=== PATIENT | female | born 1940 | race Caucasian/White ===

== ENCOUNTER → 2016-12-26 | Outpatient (CLI) | payer MEDICARE ==
--- NOTE | 2016-12-27 11:23 | MM ---
Reason for exam: screening (asymptomatic). Last mammogram was performed 1 year ago. History: Patient is postmenopausal. Physical Findings: A clinical breast exam by your physician is recommended on an annual basis and results should be correlated with mammographic findings. MG Screening Mammo w CAD Bilateral CC and MLO view(s) were taken. Prior study comparison: December 27, 2015, bilateral MG 3d screening mammo w/cad. December 22, 2014, bilateral MG screening mammo w CAD. The breast tissue is heterogeneously dense. This may lower the sensitivity of mammography. No significant changes when compared with prior studies. ASSESSMENT: Benign, BI-RAD 2 RECOMMENDATION: Routine screening mammogram of both breasts in 1 year.
== END | disposition home or self-care (01) ==
LOC: RADMAMWWP 09:40
PROVIDERS: ATTEND Family Medicine
DX: Z12.31 Encounter for screening mammogram for malignant neoplasm of breast (principal)

== ENCOUNTER → 2017-10-03 | Outpatient (CLI) | payer MEDICARE ==
[2017-10-03 10:03] LABS: ALT 34 U/L (9-52); AST 22 U/L (14-36); Cholesterol 134 mg/dL (<200); HDL Cholesterol 47 mg/dL (40-60); LDL Cholesterol,Calculated 64 mg/dL (0-99); Triglycerides 117 mg/dL (<150)
== END | disposition home or self-care (01) ==
LOC: LABWHC1 09:10
PROVIDERS: ATTEND Internal Medicine Interventional Cardiology
DX: E78.2 Mixed hyperlipidemia (principal)
CPT/HCPCS: 36415; 80061; 84450; 84460

== ENCOUNTER → 2018-01-17 | Outpatient (CLI) | payer MEDICARE ==
--- NOTE | 2018-01-21 07:36 | MM ---
Reason for exam: screening (asymptomatic). Last mammogram was performed 1 year and 1 month ago. History: Patient is postmenopausal. Physical Findings: A clinical breast exam by your physician is recommended on an annual basis and results should be correlated with mammographic findings. MG Screening Mammo w CAD Bilateral CC and MLO view(s) were taken. Prior study comparison: December 26, 2016, bilateral MG screening mammo w CAD. December 27, 2015, bilateral MG 3d screening mammo w/cad. The breast tissue is heterogeneously dense. This may lower the sensitivity of mammography. No significant changes when compared with prior studies. ASSESSMENT: Negative, BI-RAD 1 RECOMMENDATION: Routine screening mammogram of both breasts in 1 year.
== END | disposition home or self-care (01) ==
LOC: RADMAMWWP 10:34
PROVIDERS: ATTEND Family Medicine
DX: Z12.31 Encounter for screening mammogram for malignant neoplasm of breast (principal)
CPT/HCPCS: 77067

== ENCOUNTER → 2018-07-24 | Outpatient (CLI) | payer MEDICARE ==
[2018-07-24 19:24] LABS: Albumin 4.6 g/dL (3.80-4.90); Albumin/Globulin Ratio 2.42 (1.20-2.10); Anion Gap 7.8 mmol/L (4.00-12.00); Calcium 9.6 mg/dL (8.7-10.3); Carbon Dioxide 28.2 mmol/L (21.6-31.8); Globulin 1.9 g/dL (1.6-3.3); Potassium 4.2 mmol/L (3.5-5.5); Total Bilirubin 0.7 mg/dL (0.3-1.2); Total Protein 6.5 g/dL (6.2-8.2)
== END | disposition home or self-care (01) ==
LOC: LABWHC1 13:31
PROVIDERS: ATTEND Internal Medicine Interventional Cardiology
DX: E78.2 Mixed hyperlipidemia (principal)
CPT/HCPCS: 36415; 80053; 80061

== ENCOUNTER → 2019-03-04 | Outpatient (CLI) | payer MEDICARE ==
--- NOTE | 2019-03-04 11:15 | BD ---
EXAMINATION TYPE: Axial Bone Density DATE OF EXAM: 03/04/2019 COMPARISON: 2014 CLINICAL HISTORY: Z 78.0 Height: 5 FT 1/4 IN Weight: 170 FRAX RISK QUESTIONS: RISK FACTORS HISTORY OF: Active: YES Postmenopausal woman: AGE 55 Lost more than 2 inches in height since high school: YES MEDICATIONS: Thyroid Medications: YES Which medication: SYNTHROID How Long: APROX 30 YEARS Additional Medications: SYNTHROID, ASPIRIN, METFORMIN, METOPROLOL, QUINAPRIL, PRILOSEC, NORVASC, PRAN DIN, MYBRETRIQ, BENADRYL, MELATONIN, MICRONASE, OVICULITE, VIT D3, Additional History: EXAM MEASUREMENTS: Bone mineral densitometry was performed using the [employer] System. Bone mineral density as measured about the Lumbar spine is: ----- L1-L4(G/cm2): 1.044 T Score Values are as follows: ----- L2: -1.7 ----- L3: -0.8 ----- L4: -0.7 ----- L1-L4: -1.1 Bone mineral density has: DECREASED -7.9% since study of: 2014 Bone mineral density about the R hip (g/cm2): 0.791 Bone mineral density about the L hip (g/cm2): 0.798 T Score values are as follows: -----R Neck: -1.8 -----L Neck: -1.7 -----R Total: -0.6 -----L Total: -0.3 Bone mineral density has: INCREASED 1.6 % since study of: 2014 mineral density has: % since study of: IMPRESSION: Osteopenia (T Score between -2.5 and -1). There is slightly increased risk of fracture and the patient may be considered for treatment. Re-Screen 2-5 years. NOTE: T-SCORE=SD OF THE YOUNG ADULT MEAN.
== END | disposition home or self-care (01) ==
LOC: RADBDWWP 09:55
PROVIDERS: ATTEND Family Medicine
DX: M85.88 Other specified disorders of bone density and structure, other site (principal); Z78.0 Asymptomatic menopausal state
CPT/HCPCS: 77080

== ENCOUNTER → 2019-04-14 | Outpatient (CLI) | payer MEDICARE ==
[2019-04-14 18:32] LABS: Albumin 4.7 g/dL (3.80-4.90); Albumin/Globulin Ratio 2.61 (1.60-3.17); Anion Gap 8.2 mmol/L (4.00-12.00); BUN/Creat Ratio 31.25 Ratio (12.00-20.00); Calcium 9.9 mg/dL (8.7-10.3); Carbon Dioxide 25.8 mmol/L (21.6-31.8); Chol/HDL Ratio 3.02; Globulin 1.8 g/dL (1.6-3.3); LDL Cholesterol,Calculated 77.6 mg/dL (0.0-131.0); Potassium 4.4 mmol/L (3.5-5.5); Total Bilirubin 0.7 mg/dL (0.2-1.2); Total Protein 6.5 g/dL (6.2-8.2); VLDL Calculation 19.4 mg/dL (5.00-40.00)
== END | disposition home or self-care (01) ==
LOC: LABWHC1 11:25
PROVIDERS: ATTEND Internal Medicine Interventional Cardiology
DX: E78.2 Mixed hyperlipidemia (principal)
CPT/HCPCS: 36415; 80053; 80061

== ENCOUNTER → 2019-12-17 | Outpatient (CLI) | payer MEDICARE ==
[~2019-12-17] MED LIST: REGADENOSON 0.4 MG/5 ML SYRINGE IV ONE
--- NOTE | 2019-12-17 11:46 | ECHOF ---
Referral Reason:R53.83 fatigue MEASUREMENTS -------- HEIGHT: 154.9 cm WEIGHT: 79.4 kg BP: RVIDd: 3.0 cm (< 3.3) IVSd: 2.1 cm (0.6 - 1.1) LVIDd: 2.8 cm (3.9 - 5.3) LVPWd: 1.5 cm (0.6 - 1.1) IVSs: 2.0 cm LVIDs: 2.0 cm LVPWs: 1.6 cm LAESV Index (A-L): 25.19 ml/m Ao Diam: 3.0 cm (2.0 - 3.7) AV Cusp: 1.8 cm (1.5 - 2.6) MV E Everardo: 0.88 m/s MV DecT: 180 ms MV A Everardo: 1.50 m/s MV E/A Ratio: 0.59 RAP: 5.00 mmHg RVSP: 39.83 mmHg FINDINGS -------- Sinus rhythm. This was a technically adequate study. The left ventricular size is normal. There is severe concentric left ventricular hypertrophy. Ove rall left ventricular systolic function is normal with, an EF between 55 - 60 %. Mitral Doppler inf low pattern suggests diastolic filling abnormality 26.13. Possible LVOT Obstruction. The right ventricle is mildly enlarged. Normal LA size by volume 22+/-6 ml/m2. The right atrium is mildly enlarged. Interatrial and interventricular septum intact. Trace amount of aortic regurgitation. There is no evidence of aortic stenosis. Moderate mitral annular calcification present. There is trace mitral regurgitation. Qcnv-am-acmqlcbu tricuspid regurgitation present. There is mild pulmonary hypertension. The right ventricular systolic pressure, as measured by Doppler, is 39.83mmHg. There is no pulmonic regurgitation present. The aortic root is mildy dilated. Normal inferior vena cava with normal inspiratory collapse consistent with estimated right atrial pre ssure of 5 mmHg. There is no pericardial effusion. CONCLUSIONS -------- 1. Sinus rhythm. 2. This was a technically adequate study. 3. The left ventricular size is normal. 4. There is severe concentric left ventricular hypertrophy. 5. Overall left ventricular systolic function is normal with, an EF between 55 - 60 %. 6. Mitral Doppler inflow pattern suggest diastolic filling abnormality 26.13. 7. Possible LVOT Obstruction. 8. The right ventricle is mildly enlarged. 9. Normal LA size by volume 22+/-6 ml/m2. 10. The right atrium is mildly enlarged. 11. Interatrial and interventricular septum intact. 12. Trace amount of aortic regurgitation. 13. There is no evidence of aortic stenosis. 14. Moderate mitral annular calcification present. 15. There is trace mitral regurgitation. 16. Ldvg-gu-sikbllgc tricuspid regurgitation present. 17. There is mild pulmonary hypertension. 18. The right ventricular systolic pressure, as measured by Doppler, is 39.83mmHg. 19. There is no pulmonic regurgitation present. 20. The aortic root is mildy dilated. 21. Normal inferior vena cava with normal inspiratory collapse consistent with estimated right atrial pressure of 5 mmHg. 22. There is no pericardial effusion. CUSTODIAL SERVICES MANAGER: Sienna Mederos RDCS
--- NOTE | 2019-12-17 14:38 | EST ---
EXERCISE STRESS AGE: 79 SEX: F HT: 61" WT: 175 PROTOCOL: Lexiscan Cardiolite STAGE: DURATION OF EXERCISE: HEART RATE REST: 69 BLOOD PRESSURE REST: 140/82 MAXIMUM HEART RATE ACHIEVED: 95 MAXIMUM BLOOD PRESSURE: 150/71 85% MPHR: 122 100% MPHR: 143 METS: INDICATIONS: Fatigue. CLINICAL INFORMATION: Baseline EKG revealed normal sinus rhythm without significant ST-T changes. With Lexiscan administration, patient complained of transient headache. Heart rate changed from 69-93 beats per minute. Blood pressure changed from 143/69 to 141/71. EKG did not reveal any ST-segment changes to indicate ischemia. By EKG criteria. this is an unremarkable Lexiscan stress test. The nuclear scan results which are more pertinent will be reported by the radiologist. MMSERJIOL / IJN: [id number] /
--- NOTE | 2019-12-17 15:19 | NM ---
EXAMINATION TYPE: NM stress lexiscan cardiolite DATE OF EXAM: 12/17/2019 COMPARISON: NONE HISTORY: Fatigue TECHNIQUE: After the intravenous administration of 10.2 mCi Tc 99m Sestamibi - Cardiolite resting SP ECT images acquired 60 minutes post injection. The patient received 0.4mg Lexiscan, 25 mCi Tc 99m Sestamibi - Stress images obtained 45 minutes post injection FINDINGS: No fixed or reversible perfusion defects are evident. Gated wall motion is normal. Ejection fraction is 88%. IMPRESSION: 1. No stress-induced ischemic changes
== END | disposition home or self-care (01) ==
LOC: RADNMMAIN 07:40
PROVIDERS: ATTEND Family Medicine
DX: I08.3 Combined rheumatic disorders of mitral, aortic and tricuspid valves (principal); I27.20 Pulmonary hypertension, unspecified
CPT/HCPCS: 93017; 93306; 78452; A9500; J2785

== ENCOUNTER → 2020-04-01 | Outpatient (CLI) | payer MEDICARE ==
[2020-04-01 20:50] LABS: African American GFR (CKD) 62.9 (60.0-200.0); Albumin 4.4 g/dL (3.80-4.90); Albumin/Globulin Ratio 1.83 (1.60-3.17); Anion Gap 6.7 mmol/L (4.00-12.00); Calcium 9.9 mg/dL (8.7-10.3); Carbon Dioxide 25.3 mmol/L (21.6-31.8); Chol/HDL Ratio 2.98; Globulin 2.4 g/dL (1.6-3.3); LDL Cholesterol,Calculated 52.4 mg/dL (0.0-131.0); Non-African American GFR(CKD) 54.3 (60.0-200.0); Potassium 4.6 mmol/L (3.5-5.5); Total Bilirubin 0.7 mg/dL (0.2-1.2); Total Protein 6.8 g/dL (6.2-8.2); VLDL Calculation 36.6 mg/dL (5.00-40.00)
== END | disposition home or self-care (01) ==
LOC: LABWHC1 12:12
PROVIDERS: ATTEND Internal Medicine Interventional Cardiology
DX: E78.2 Mixed hyperlipidemia (principal)
CPT/HCPCS: 36415; 80053; 80061

== ENCOUNTER → 2020-06-14 | Outpatient (CLI) | payer MEDICARE ==
--- NOTE | 2020-06-14 11:56 | MR ---
EXAMINATION TYPE: MR lumbar spine wo con DATE OF EXAM: 06/14/2020 COMPARISON: NONE HISTORY: Disc degeneration, lumbar region TECHNIQUE: T1 and T2 axial and sagittal images of the lumbar spine are submitted. FINDINGS: There is no abnormal signal seen within the visualized spinal cord or paraspinal soft tissu es. Multiple vertebral body hemangiomas noted. There appear to be multiple renal cysts. Aorta of norm al caliber. At T12-L1 there is a left paracentral disc bulge. No spinal cord contact or canal stenosis. Neural fo ramina patent. Mild degenerative disc disease. At L1-2 there is degenerative disc disease with hypertrophic change of the facets and there is a broa d-based disc bulge or protrusion with mild effacement of thecal sac. No spinal cord contact. No Canal stenosis. Neural foramina remain patent. At L2-3 there is facet arthropathy and degenerative disc disease. No canal stenosis or focal herniati on. Neural foramina remain patent At L3-4 there is severe degenerative disc disease with complete loss of disc space. There is broad-ba sed posterior disc bulging or protrusion with moderate effacement of thecal sac, mild canal stenosis and bilateral moderate foraminal encroachment. There is facet arthropathy and ligamentum flavum hyper trophy contributing. At L4-5 there is there is broad-based disc herniation with extrusion extending along the posterior lo wer margin of the L4 vertebral body. Mass effect upon the thecal sac is seen. There is advanced facet arthropathy and ligamentum flavum hypertrophy with mild bilateral foraminal encroachment. At L5-S1 there is degenerative disc disease and facet arthropathy but no disc herniation or canal michelle nosis. Minimal central disc bulging. Neural foramina patent IMPRESSION: 1. Broad-based disc herniation L4-L5 with extrusion extending along the lower margin L4 vertebral seg ment posteriorly. 2. Severe degenerative disc disease L3-L4 with disc bulging or protrusion resulting in mild to modera te canal stenosis and moderate bilateral foraminal encroachment. 3. Disc bulging or protrusion at L1-2 and T12-L1 as discussed above with no canal stenosis or foramin al encroachment.
== END | disposition home or self-care (01) ==
LOC: RADMRIMAIN 09:32
PROVIDERS: ATTEND Family Medicine
DX: M48.061 Spinal stenosis, lumbar region without neurogenic claudication (principal); M51.26 Other intervertebral disc displacement, lumbar region; M51.36 Other intervertebral disc degeneration, lumbar region
CPT/HCPCS: 72148

== ENCOUNTER 2021-01-08 12:08 | Observation (INO) | payer MEDICARE ==
--- NOTE | 2021-01-08 12:36 | ED ---
GI Bleed HPI - General Chief complaint: GI Bleed Stated complaint: rectal bleeding Time Seen by Provider: 01/08/21 12:22 Source: patient Mode of arrival: ambulatory Limitations: no limitations - History of Present Illness Initial comments: Is a 80-year-old female to history of hypertension, hyperlipidemia, diabetes who presents emergency department for abdominal pain and rectal bleeding. The patient states that the symptoms started yesterday. He states that she's had 8 bloody bowel movements since yesterday. The last one being this morning. She s tates that there seems to be some stool mixed in. She does get some epigastric abdominal pain and generalized abdominal pain shortly afterwards she will have the bleeding. She states that she has had some associated fatigue. However she denies any lightheadedness, shortness of breath, chest pain. She's had no nausea or vomiting. States that the abdominal pain is more epigastric and not worse with eating. It is not radiate at this time however does get more generalized at times. She denies any dysuria or hematuria. Denies vaginal bleeding. She states that her last colonoscopy was 5 years ago and normal. She denies any other acute complaints. - Related Data Allergies Allergy/AdvReac Type Severity Reaction Status Date / Time alendronate sodium Allergy Nausea Verified 01/08/21 12:18 [From Fosamax] codeine Allergy Nausea Verified 01/08/21 12:18 solifenacin Allergy Nausea Verified 01/08/21 12:18 Review of Systems ROS Statement: Those systems with pertinent positive or pertinent negative responses have been documented in the HPI. ROS Other: All systems not noted in ROS Statement are negative. Past Medical History Past Medical History: Diabetes Mellitus, Hyperlipidemia, Hypertension History of Any Multi-Drug Resistant Organisms: None Reported Additional Past Surgical History / Comment(s): bladder suspention. Past Psychological History: No Psychological Hx Reported Smoking Status: Never smoker Past Alcohol Use History: None Reported Past Drug Use History: None Reported General Exam - General Exam Comments Initial Comments: Constitutional: Awake alert Appears comfortable Head: Normocephalic atraumatic Eyes: no conjunctival injection, no conjunctival pallor No scleral icterus EOMI Neck: No JVD Supple Heart: Regular rate rhythm normal S1-S2 no murmurs Lungs: Clear to auscultation bilaterally No wheezing No rales Abdomen: Epigastric abdominal pain without rebound or guarding Soft non distended, rectal exam with gross bright red blood, no hemorrhoids Extremities: Non edematous DP pulses intact Radial pulses intact Neuro: A&Ox3 No focal neurologic deficits Psych: Appropriate mood and affect Limitations: no limitations Course Vital Signs 01/08/21 01/08/21 12:14 14:34 Temperature 97.9 F Pulse Rate 78 68 Respiratory 18 18 Rate Blood Pressure 144/79 128/73 O2 Sat by Pulse 96 96 Oximetry - Reevaluation(s) Reevaluation #1: 01/08/21 13:46 EKG showing normal sinus rhythm with a rate of 78. There is no abnormal ST segment changes or T-wave inversions. QTC is 45. Other intervals normal. No ectopy. Medical Decision Making - Medical Decision Making Is a 80-year-old female who presents emergency department for bloody diarrhea and tenesmus. The patient stable vital signs on arrival. She had some mild epigastric tenderness however otherwise a benign examination. She did have grossly bloody stool on rectal examination. The patient had blood work performed that did reveal a leukocytosis. The rest her blood work was normal or at baseline. No anemia her computed tomography scan of the abdomen showed a significant colitis involving the transverse and descending colon with bowel inflammation and edema. Due to these findings and the patient's age and leukocytosis and going to start her on antibiotics and keep her in the hospital for observation. Spoke with Dr. Quan accepts the patient for admission. - Lab Data Result diagrams: 01/08/21 12:51 01/08/21 12:51 Lab Results 01/08/21 01/08/21 01/08/21 Range/Units 12:50 12:51 12:51 WBC 12.2 H (3.8-10.6) k/uL RBC 4.44 (3.80-5.40) m/uL Hgb 14.1 (11.4-16.0) gm/dL Hct 40.9 (34.0-46.0) % MCV 92.1 (80.0-100.0) fL MCH 31.8 (25.0-35.0) pg MCHC 34.5 (31.0-37.0) g/dL RDW 13.4 (11.5-15.5) % Plt Count 208 (150-450) k/uL MPV 7.3 Neutrophils % 81 % Lymphocytes % 10 % Monocytes % 7 % Eosinophils % 1 % Basophils % 0 % Neutrophils # 9.8 H (1.3-7.7) k/uL Lymphocytes # 1.2 (1.0-4.8) k/uL Monocytes # 0.9 (0-1.0) k/uL Eosinophils # 0.2 (0-0.7) k/uL Basophils # 0.0 (0-0.2) k/uL PT (9.0-12.0) sec INR (<1.2) APTT (22.0-30.0) sec Sodium (137-145) mmol/L Potassium (3.5-5.1) mmol/L Chloride (98-107) mmol/L Carbon Dioxide (22-30) mmol/L Anion Gap mmol/L BUN (7-17) mg/dL Creatinine (0.52-1.04) mg/dL Est GFR (CKD-EPI)AfAm (>60 ml/min/1.73 sqM) Est GFR (CKD-EPI)NonAf (>60 ml/min/1.73 sqM) Glucose (74-99) mg/dL Plasma Lactic Acid Jose Manuel (0.7-2.0) mmol/L Calcium (8.4-10.2) mg/dL Total Bilirubin (0.2-1.3) mg/dL AST (14-36) U/L ALT (4-34) U/L Alkaline Phosphatase (38-126) U/L Troponin I (0.000-0.034) ng/mL Total Protein (6.3-8.2) g/dL Albumin (3.5-5.0) g/dL Lipase (23-300) U/L Stool Occult Blood Positive H (Negative) Blood Type Blood Type Confirm O Positive Blood Type Recheck Bld Type Recheck Status Antibody Screen Spec Expiration Date 01/08/21 01/08/21 01/08/21 Range/Units 12:51 12:51 12:51 WBC (3.8-10.6) k/uL RBC (3.80-5.40) m/uL Hgb (11.4-16.0) gm/dL Hct (34.0-46.0) % MCV (80.0-100.0) fL MCH (25.0-35.0) pg MCHC (31.0-37.0) g/dL RDW (11.5-15.5) % Plt Count (150-450) k/uL MPV Neutrophils % % Lymphocytes % % Monocytes % % Eosinophils % % Basophils % % Neutrophils # (1.3-7.7) k/uL Lymphocytes # (1.0-4.8) k/uL Monocytes # (0-1.0) k/uL Eosinophils # (0-0.7) k/uL Basophils # (0-0.2) k/uL PT 10.3 (9.0-12.0) sec INR 1.0 (<1.2) APTT 23.0 (22.0-30.0) sec Sodium 140 (137-145) mmol/L Potassium 4.2 (3.5-5.1) mmol/L Chloride 107 (98-107) mmol/L Carbon Dioxide 25 (22-30) mmol/L Anion Gap 8 mmol/L BUN 22 H (7-17) mg/dL Creatinine 1.08 H (0.52-1.04) mg/dL Est GFR (CKD-EPI)AfAm 57 (>60 ml/min/1.73 sqM) Est GFR (CKD-EPI)NonAf 49 (>60 ml/min/1.73 sqM) Glucose 161 H (74-99) mg/dL Plasma Lactic Acid Jose Manuel 1.1 (0.7-2.0) mmol/L Calcium 10.0 (8.4-10.2) mg/dL Total Bilirubin 0.6 (0.2-1.3) mg/dL AST 27 (14-36) U/L ALT 23 (4-34) U/L Alkaline Phosphatase 78 (38-126) U/L Troponin I (0.000-0.034) ng/mL Total Protein 6.7 (6.3-8.2) g/dL Albumin 4.1 (3.5-5.0) g/dL Lipase 140 (23-300) U/L Stool Occult Blood (Negative) Blood Type Blood Type Confirm Blood Type Recheck Bld Type Recheck Status Antibody Screen Spec Expiration Date 01/08/21 01/08/21 Range/Units 12:51 12:51 WBC (3.8-10.6) k/uL RBC (3.80-5.40) m/uL Hgb (11.4-16.0) gm/dL Hct (34.0-46.0) % MCV (80.0-100.0) fL MCH (25.0-35.0) pg MCHC (31.0-37.0) g/dL RDW (11.5-15.5) % Plt Count (150-450) k/uL MPV Neutrophils % % Lymphocytes % % Monocytes % % Eosinophils % % Basophils % % Neutrophils # (1.3-7.7) k/uL Lymphocytes # (1.0-4.8) k/uL Monocytes # (0-1.0) k/uL Eosinophils # (0-0.7) k/uL Basophils # (0-0.2) k/uL PT (9.0-12.0) sec INR (<1.2) APTT (22.0-30.0) sec Sodium (137-145) mmol/L Potassium (3.5-5.1) mmol/L Chloride (98-107) mmol/L Carbon Dioxide (22-30) mmol/L Anion Gap mmol/L BUN (7-17) mg/dL Creatinine (0.52-1.04) mg/dL Est GFR (CKD-EPI)AfAm (>60 ml/min/1.73 sqM) Est GFR (CKD-EPI)NonAf (>60 ml/min/1.73 sqM) Glucose (74-99) mg/dL Plasma Lactic Acid Jose Manuel (0.7-2.0) mmol/L Calcium (8.4-10.2) mg/dL Total Bilirubin (0.2-1.3) mg/dL AST (14-36) U/L ALT (4-34) U/L Alkaline Phosphatase (38-126) U/L Troponin I <0.012 (0.000-0.034) ng/mL Total Protein (6.3-8.2) g/dL Albumin (3.5-5.0) g/dL Lipase (23-300) U/L Stool Occult Blood (Negative) Blood Type O Positive Blood Type Confirm Blood Type Recheck No Previous Record Bld Type Recheck Status CABO Indicated Antibody Screen NEGATIVE Spec Expiration Date 01/11/2021 - 2350 Disposition Clinical Impression: Colitis Disposition: ADMITTED IP TO THIS [facility] Condition: Stable Referrals: Purvi Maldonado MD [Primary Care Provider] - 1-2 days
[2021-01-08 13:04] LABS: Basophils % (A) 0 %; Eosinophils # (A) 0.2 k/uL (0-0.7); Eosinophils % (A) 1 %; HCT 40.9 % (34.0-46.0); HGB 14.1 gm/dL (11.4-16.0); Lymphocytes # (A) 1.2 k/uL (1.0-4.8); Lymphocytes % (A) 10 %; MCH 31.8 pg (25.0-35.0); MCHC 34.5 g/dL (31.0-37.0); MCV 92.1 fL (80.0-100.0); Mean Platelet Volume 7.3; Monocytes # (A) 0.9 k/uL (0-1.0); Monocytes % (A) 7 %; Neutrophils # (A) 9.8 k/uL (1.3-7.7); Neutrophils % (A) 81 %; Platelet Count 208 k/uL (150-450); RBC 4.44 m/uL (3.80-5.40); RDW 13.4 % (11.5-15.5); WBC 12.2 k/uL (3.8-10.6)
[2021-01-08 13:12] LABS: Albumin 4.1 g/dL (3.5-5.0); Potassium 4.2 mmol/L (3.5-5.1); Total Bilirubin 0.6 mg/dL (0.2-1.3); Total Protein 6.7 g/dL (6.3-8.2)
[2021-01-08 13:15] LABS: Prothrombin Time 10.3 sec (9.0-12.0)
[2021-01-08] MEDS: PANTOPRAZOLE 40 MG/10 ML VIAL IVP SCH ×2 (13:30→21:26)
--- NOTE | 2021-01-08 13:58 | CT ---
EXAMINATION TYPE: CT abdomen pelvis w con DATE OF EXAM: 01/08/2021 COMPARISON: NONE HISTORY: 80-year-old female rectal bleeding TECHNIQUE: Contiguous axial scanning of the abdomen and pelvis following administration of 100 ml Iso bettie 300 IV contrast. Delayed images through the kidneys and coronal/sagittal reconstructions perform ed. CT DLP: 1102.9 mGycm Automated exposure control for dose reduction was used. FINDINGS: Heart normal size without pericardial effusion. Dense mitral annular calcifications. Small hiatal hernia. Some minimal strandy atelectasis in the lower lungs. Scattered hepatic cysts measuring up to 2.4 cm. Otherwise, no focal liver lesion. Bile duct dilated u p to 1.2 cm. This may be chronic for the patient as there is normal distal tapering. It can be correl ated with alkaline phosphatase and bilirubin levels. Portal venous system is patent. The graft abnorm al gallbladder distention. Adrenal glands, spleen, pancreas within normal limits. A few scattered nonobstructive bilateral renal calculi measuring up to 6 mm on either side. Tiny subc entimeter cortical hypodensities in both sides too small for accurate CT characterization, likely cys ts. No dilated small bowel, free fluid, or free air. No mesenteric or retroperitoneal lymphadenopathy. Sc attered small mesenteric lymph nodes are noted. Normal appendix. There is moderate circumferential wall thickening extending throughout the transvers e and descending colon with edematous appearance to the wall and mild hazy colonic fat stranding. Mil d diverticulosis of the proximal and mid sigmoid colon. No inflammation centered along these levels. Bladder partially distended. Uterus anteverted. Both ovaries are visualized. 2.7 cm cystic lesion of the left ovary. Pelvic phlebolith. No abnormal fluid collection in the pelvis or pelvic lymphadenopat hy. Bones: Degenerative change of the right SI joint. Facet arthropathy mid to lower lumbar spine. Modera te to advanced degenerative disc disease throughout. Suspect left paracentral extruded and superiorly migrated disc material at L4-L5 possibly impinging the traversing left L4 nerve root. IMPRESSION: 1. A SIGNIFICANT ACUTE COLITIS INVOLVING THE TRANSVERSE AND DESCENDING COLON WITH MODERATE INFLAMMATO RY WALL THICKENING. CORRELATE FOR INFECTIOUS OR INFLAMMATORY CAUSES. NO ABSCESS OR FREE AIR. 2. INCIDENTAL: SMALL HIATAL HERNIA, BILE DUCT DILATED AT 1.2 CM PROBABLY CHRONIC IN THIS PATIENT (COR RELATE FOR NORMAL ALKALINE PHOSPHATASE AND BILIRUBIN LEVELS), AND SIGMOID DIVERTICULOSIS. 3. A 2.7 CM CYSTIC LESION OF THE LEFT OVARY. RECOMMEND OUTPATIENT ULTRASOUND TO BETTER CHARACTERIZE A ND DETERMINE SUBSEQUENT FOLLOW-UP RECOMMENDATIONS. 4. SUSPECT A LEFT PARACENTRAL DISC EXTRUSION WITH SUPERIOR MIGRATION OF DISC MATERIAL AT L4-L5 CAUSIN G LEFT LATERAL RECESS STENOSIS. CORRELATE FOR ANY RADICULAR SYMPTOMS.
[2021-01-08] MEDS ORDERED: metroNIDAZOLE-NS PMX 500 MG in SALINE 1 100ML.BAG IVPB STA (14:36)
[2021-01-08] MEDS ORDERED: ACETAMINOPHEN TAB 325 MG TAB PO PRN (14:37)
[2021-01-08] MEDS ORDERED: NALOXONE 0.4 MG/ML 1 ML VIAL IV PRN (14:37)
[2021-01-08] MEDS: SODIUM CHLORIDE 0.9% 1,000 ML IV SCH ×2 (15:28→22:52)
--- NOTE | 2021-01-08 17:26 | P.HPIM ---
History of Present Illness H&P Date: 01/08/21 Chief Complaint: Bloody diarrhea Ms. Wayne is a 80-year-old female with a past medical history of hypertension, hyperlipidemia, diabetes mellitus coming in with a chief complaint of bloody diarrhea. Patient states that she started to notice blood in her stools associated with diarrhea yesterday. She had almost 8-9 bloody bowel movements associated with mild lower abdominal pain. Patient denies having any nausea or vomiting. She denies having any fevers chills or rigors. She denies having any chest pain or lightheadedness. Patient has generalized lower abdominal pain. HEENT she denies having any hematuria or dysuria. No vaginal bleeding. She mentions about having a colonoscopy 5 years back. Patient denies having any sick contacts. In the ER at the time of admission temperature 97.9, heart rate 78, respiratory rate 18, blood pressure 144/79 and saturating at 96% on room air. On reviewing her labs white count of 12.2, hemoglobin 14.1, platelets poorly. PT of 10.3, INR 1, APTT 23. Sodium 140, potassium 4.2, chloride 107, bicarbonate 25, BUN 22, creatinine 1.08. Lactic acid 1.1. AST 27, and 23 . Troponin less than 0.012. FOBT positive for blood. Coronal virus PCR negative. Lipase 140. Albumin 4.1. Patient had a CAT scan of the abdomen and pelvis showing acute colitis involving the transverse and descending colon with moderate inflammatory wall thickening. No abscess or free air. 2.7 cm cystic lesion of the left ovary and left paracentral Disc extrusion with superior migration of disc at L4- L5. Review of Systems CONSTITUTIONAL: No fever, no malaise, no fatigue. HEENT: No recent visual problems or hearing problems. Denied any sore throat. CARDIOVASCULAR: No chest pain or palpitations PULMONARY: No shortness of breath, no cough, no hemoptysis. GASTROINTESTINAL: As per HPI NEUROLOGICAL: No headaches, no weakness, no numbness. HEMATOLOGICAL: Denies any bleeding or petechiae. GENITOURINARY: Denies any burning micturition, frequency, or urgency. MUSCULOSKELETAL/RHEUMATOLOGICAL: Denies any joint pain, swelling, or any muscle pain. ENDOCRINE: Denies any polyuria or polydipsia. PSYC: No depression or anxiety All 13 review of systems negative except for the ones mentioned above Past Medical History Past Medical History: Diabetes Mellitus, Hyperlipidemia, Hypertension History of Any Multi-Drug Resistant Organisms: None Reported Additional Past Surgical History / Comment(s): bladder suspention. Past Psychological History: No Psychological Hx Reported Smoking Status: Never smoker Past Alcohol Use History: None Reported Past Drug Use History: None Reported - Past Family History Mother Family Medical History: Myocardial Infarction ([place]) Father Additional Family Medical History / Comment(s): cerebral hemmorage possible aneursym unk Medications and Allergies Home Medications Medication Instructions Recorded Confirmed Type Aspirin EC [Ecotrin] 325 mg PO DAILY 01/08/21 01/08/21 History Atorvastatin [Lipitor] 40 mg PO HS 01/08/21 01/08/21 History Calcium Carbonate/Vitamin D3 1 cap PO DAILY 01/08/21 01/08/21 History [Calcium 600 mg-D3 10 Mcg (400 Iu)] Cholecalciferol [Vitamin D3 (25 25 mcg PO DAILY 01/08/21 01/08/21 History Mcg = 1000 Iu)] Levothyroxine Sodium 125 mcg PO DAILY 01/08/21 01/08/21 History Metoprolol Succinate (ER) [Toprol 100 mg PO HS 01/08/21 01/08/21 History Xl] Milk Thistle 150 mg PO DAILY 01/08/21 01/08/21 History Mirabegron [Myrbetriq] 50 mg PO DAILY 01/08/21 01/08/21 History Omeprazole 20 mg PO DAILY 01/08/21 01/08/21 History Pioglitazone [Actos] 30 mg PO HS 01/08/21 01/08/21 History Quinapril HCl 40 mg PO DAILY 01/08/21 01/08/21 History Repaglinide 1 mg PO AC-SUPPER 01/08/21 01/08/21 History Sertraline [Zoloft] 50 mg PO DAILY 01/08/21 01/08/21 History Vitamin C/Biotin [Hair, Skin and 1 tab PO DAILY 01/08/21 01/08/21 History Nails] amLODIPine [Norvasc] 10 mg PO DAILY 01/08/21 01/08/21 History diphenhydrAMINE HCL [Benadryl] 25 mg PO HS@2200 01/08/21 01/08/21 History glyBURIDE [Diabeta] 10 mg PO AC-BID 01/08/21 01/08/21 History sitaGLIPtin PHOSPHATE [Januvia] 50 mg PO HS@2200 01/08/21 01/08/21 History Allergies Allergy/AdvReac Type Severity Reaction Status Date / Time alendronate sodium AdvReac Nausea Verified 01/08/21 15:26 [From Fosamax] codeine AdvReac Nausea Verified 01/08/21 15:26 solifenacin AdvReac Nausea Verified 01/08/21 15:26 Physical Exam Vitals: Vital Signs Temp Pulse Pulse Resp BP BP Pulse Ox 01/08/21 15:48 98.2 F 95 16 134/76 95 01/08/21 15:29 70 18 129/72 99 01/08/21 14:34 68 18 128/73 96 01/08/21 12:14 97.9 F 78 18 144/79 96 Intake and Output 01/08/21 01/08/21 01/08/21 06:59 14:59 22:59 Other: Weight 61.235 kg 61.235 kg GENERAL: The patient is alert and oriented x3, not in any acute distress. HEENT: Pupils are round and equally reacting to light. EOMI. No scleral icterus. no conjunctival pallor. Normocephalic, atraumatic. No pharyngeal erythema. No thyromegaly. CARDIOVASCULAR: S1 and S2 present. No murmurs, rubs, or gallops. PULMONARY: Chest is clear to auscultation, no wheezing or crackles. ABDOMEN: Soft, , nondistended, normoactive bowel sounds. Mild tenderness in bilateral lower quadrants more on the left and right MUSCULOSKELETAL: No joint swelling or deformity. EXTREMITIES: No cyanosis, clubbing, or pedal edema. NEUROLOGICAL: Gross neurological examination did not reveal any focal deficits. Psychiatric: Appropriate mood and affect Results CBC & Chem 7: 01/08/21 12:51 01/08/21 12:51 Labs: Abnormal Lab Results - Last 24 Hours (Table) 01/08/21 01/08/21 01/08/21 Range/Units 12:51 12:51 12:51 WBC 12.2 H (3.8-10.6) k/uL Neutrophils # 9.8 H (1.3-7.7) k/uL BUN 22 H (7-17) mg/dL Creatinine 1.08 H (0.52-1.04) mg/dL Glucose 161 H (74-99) mg/dL Stool Occult Blood Positive H (Negative) Thrombosis Risk Factor Assmnt - Choose All That Apply Any of the Below Risk Factors Present?: No Each Risk Factor Represents 3 Points: Age 75 years or older Thrombosis Risk Factor Assessment Total Risk Factor Score: 3 Thrombosis Risk Factor Assessment Level: Moderate Risk Assessment and Plan Assessment: ASSESSMENT Acute colitis involving the transverse and descending colon Mild leukocytosis Acute kidney injury, mild probably prerenal Hypertension Diabetes mellitus Hyperlipidemia Urinary incontinence PLAN:Patient was started on ceftriaxone and Flagyl for acute colitis. Continue with IV fluids. Patient has been restarted on home medications. Aspirin on hold due to bloody diarrhea. Hold off lisinopril in view of her acute kidney injury. Will monitor CBC and BMP for tomorrow a.m. Continue with the current medication regimen. The treatment plan was discussed in detail with the patient and her son was at the bedside. Further recommendations to follow depending on the progress of the patient.
[2021-01-08] MEDS: METOPROLOL SUCCINATE (ER) 100 MG TAB.ER.24H PO SCH (21:26)
[2021-01-08] MEDS: ATORVASTATIN 40 MG TAB PO SCH (21:26)
[2021-01-09] MEDS: metroNIDAZOLE-NS PMX 500 MG in SALINE 1 100ML.BAG IVPB SCH ×2 (00:42→08:13)
[2021-01-09] MEDS: LEVOTHYROXINE 125 MCG TAB PO SCH (05:26)
[2021-01-09 06:21] LABS: Basophils % (A) 0 %; Eosinophils # (A) 0.2 k/uL (0-0.7); Eosinophils % (A) 2 %; HCT 36.8 % (34.0-46.0); HGB 12.8 gm/dL (11.4-16.0); Lymphocytes # (A) 1.4 k/uL (1.0-4.8); Lymphocytes % (A) 16 %; MCH 32.3 pg (25.0-35.0); MCHC 34.8 g/dL (31.0-37.0); MCV 92.8 fL (80.0-100.0); Mean Platelet Volume 7.5; Monocytes # (A) 0.7 k/uL (0-1.0); Monocytes % (A) 8 %; Neutrophils # (A) 6.2 k/uL (1.3-7.7); Neutrophils % (A) 71 %; Platelet Count 182 k/uL (150-450); RBC 3.96 m/uL (3.80-5.40); RDW 13.6 % (11.5-15.5); WBC 8.7 k/uL (3.8-10.6)
[2021-01-09 06:35] LABS: African American GFR (CKD) 71 (>60 ml/min/1.73 sqM); Anion Gap 4 mmol/L; Blood Urea Nitrogen 14 mg/dL (7-17); Calcium 8.7 mg/dL (8.4-10.2); Carbon Dioxide 24 mmol/L (22-30); Chloride 112 mmol/L (98-107); Glucose 109 mg/dL (74-99); Non-African American GFR(CKD) 62 (>60 ml/min/1.73 sqM); Potassium 3.7 mmol/L (3.5-5.1); Sodium 140 mmol/L (137-145)
[2021-01-09] MEDS: PANTOPRAZOLE 40 MG/10 ML VIAL IVP SCH (08:12)
[2021-01-09] MEDS: SODIUM CHLORIDE 0.9% 1,000 ML IV SCH ×3 (08:12→20:03)
[2021-01-09] MEDS: amLODIPine 10 MG TAB PO SCH (08:13)
[2021-01-09] MEDS: SERTRALINE 50 MG TAB PO SCH (08:13)
[2021-01-09] MEDS ORDERED: lisinopriL 20 MG TAB PO SCH (09:00)
[2021-01-09] MEDS ORDERED: NON FORMULARY DRUG (Omeprazole [Omeprazole] 20 MG Capsule.Dr) PO SCH (09:00)
[2021-01-09] MEDS: Mirabegron [Myrbetriq] 50 MG Tab.Er.24h PO SCH (11:22)
[2021-01-09] MEDS: metroNIDAZOLE 500 MG TAB PO SCH ×2 (16:32→23:18)
--- NOTE | 2021-01-09 17:45 | P.PN ---
Subjective Progress Note Date: 01/09/21 Principal diagnosis: Acute Colitis Ms. Wayne is a 80-year-old female with a past medical history of hypertension, hyperlipidemia, diabetes mellitus coming in with a chief complaint of bloody diarrhea. Patient states that she started to notice blood in her stools associated with diarrhea yesterday. She had almost 8-9 bloody bowel movements associated with mild lower abdominal pain. Patient denies having any nausea or vomiting. She denies having any fevers chills or rigors. She denies having any chest pain or lightheadedness. Patient has generalized lower abdominal pain. HEENT she denies having any hematuria or dysuria. No vaginal bleeding. She mentions about having a colonoscopy 5 years back. Patient denies having any sick contacts. In the ER at the time of admission temperature 97.9, heart rate 78, respiratory rate 18, blood pressure 144/79 and saturating at 96% on room air. On reviewing her labs white count of 12.2, hemoglobin 14.1, platelets poorly. PT of 10.3, INR 1, APTT 23. Sodium 140, potassium 4.2, chloride 107, bicarbonate 25, BUN 22, creatinine 1.08. Lactic acid 1.1. AST 27, and 23 . Troponin less than 0.012. FOBT positive for blood. Coronal virus PCR negative. Lipase 140. Albumin 4.1. Patient had a CAT scan of the abdomen and pelvis showing acute colitis involving the transverse and descending colon with moderate inflammatory wall thickening. No abscess or free air. 2.7 cm cystic lesion of the left ovary and left paracentral Disc extrusion with superior migration of disc at L4- L5. On 01/09/2021- patient is seen and examined at the bedside. Family members also at bedside. Patient states her abdominal pain is is much better compared to yesterday but she still has slight discomfort on the right lower side of the abdomen. She denies having any nausea or vomiting. She did not have a bowel movement since admission. Patient denies having any chest pain or palpitations. No cough or difficulty in breathing. No fevers chills or rigors. She denies having any dysuria or hematuria. On reviewing her vitals temperature of 98.6, heart rate 79, respiratory rate 18, blood pressure 155/81, saturating at 96% on room air. Reviewing the last from this morning white count of 8.7, hemoglobin 12.8, platelets 182. Sodium 140, depression 3.7, chloride 111, bicarbonate 24, BUN 14, creatinine 0.90. Patient's medications reviewed- Tylenol, amlodipine, atorvastatin, ceftriaxone, levothyroxine, metoprolol, Flagyl, Narcan, protonic's, Zoloft Objective - Vital Signs Vital signs: Vital Signs Temp 98.0 F 01/09/21 07:00 Pulse 73 01/09/21 07:00 Resp 18 01/09/21 07:00 BP 130/71 01/09/21 07:00 Pulse Ox 94 L 01/09/21 07:00 Intake & Output 01/08/21 01/09/21 01/09/21 18:59 06:59 18:59 Weight 61.235 kg Other: Voiding Method Toilet Toilet # Voids 1 1 - Exam GENERAL: The patient is alert and oriented x3, not in any acute distress. HEENT: Pupils are round and equally reacting to light. EOMI. No scleral icterus. no conjunctival pallor. Normocephalic, atraumatic. No pharyngeal erythema. No thyromegaly. CARDIOVASCULAR: S1 and S2 present. No murmurs, rubs, or gallops. PULMONARY: Chest is clear to auscultation, no wheezing or crackles. ABDOMEN: Soft, , nondistended, normoactive bowel sounds. Mild tenderness in bilateral lower quadrants more on the left than right side MUSCULOSKELETAL: No joint swelling or deformity. EXTREMITIES: No cyanosis, clubbing, or pedal edema. NEUROLOGICAL: Gross neurological examination did not reveal any focal deficits. Psychiatric: Appropriate mood and affect - Labs CBC & Chem 7: 01/09/21 05:35 01/09/21 05:35 Labs: Abnormal Lab Results - Last 24 Hours (Table) 01/08/21 01/08/21 01/08/21 Range/Units 12:51 12:51 12:51 WBC 12.2 H (3.8-10.6) k/uL Neutrophils # 9.8 H (1.3-7.7) k/uL Chloride (98-107) mmol/L BUN 22 H (7-17) mg/dL Creatinine 1.08 H (0.52-1.04) mg/dL Glucose 161 H (74-99) mg/dL Stool Occult Blood Positive H (Negative) 01/09/21 Range/Units 05:35 WBC (3.8-10.6) k/uL Neutrophils # (1.3-7.7) k/uL Chloride 112 H (98-107) mmol/L BUN (7-17) mg/dL Creatinine (0.52-1.04) mg/dL Glucose 109 H (74-99) mg/dL Stool Occult Blood (Negative) Assessment and Plan Assessment: ASSESSMENT Acute colitis involving the transverse and descending colon Mild leukocytosis Acute kidney injury, mild probably prerenal Hypertension Diabetes mellitus Hyperlipidemia Urinary incontinence PLAN:Patient was started on ceftriaxone and Flagyl for acute colitis, which will be continued. Patient does not have nausea vomiting or diarrhea, so we will advance the diet as tolerated. Creatinine slowly trending down. Will monitor CBC and BMP for tomorrow a.m. Continue with the current medication regimen. The treatment plan was discussed in detail with the patient and her son was at the bedside. Further recommendations to follow depending on the progress of the patient. Anticipate discharge in the next 24-48 hours.
[2021-01-09] MEDS: METOPROLOL SUCCINATE (ER) 100 MG TAB.ER.24H PO SCH (20:02)
[2021-01-09] MEDS: PANTOPRAZOLE 40 MG TABLET PO SCH (20:03)
[2021-01-09] MEDS: ATORVASTATIN 40 MG TAB PO SCH (20:03)
[2021-01-10 02:35] VITALS: RESP 16
[2021-01-10] MEDS: SODIUM CHLORIDE 0.9% 1,000 ML IV SCH (05:57)
[2021-01-10] MEDS: LEVOTHYROXINE 125 MCG TAB PO SCH (05:57)
[2021-01-10 08:07] VITALS: BP 155/81; PULSE 73; TEMP 98.2
[2021-01-10] MEDS: PANTOPRAZOLE 40 MG TABLET PO SCH (08:17)
[2021-01-10] MEDS: amLODIPine 10 MG TAB PO SCH (08:18)
[2021-01-10] MEDS: metroNIDAZOLE 500 MG TAB PO SCH (08:18)
[2021-01-10] MEDS: SERTRALINE 50 MG TAB PO SCH (08:18)
[2021-01-10] MEDS: Mirabegron [Myrbetriq] 50 MG Tab.Er.24h PO SCH (08:18)
[2021-01-10 10:23] LABS: Basophils # (A) 0.05 X 10*3/uL (0.00-0.10); Basophils % (A) 0.8 %; Eosinophils # (A) 0.22 X 10*3/uL (0.04-0.35); Eosinophils % (A) 3.4 %; HCT 38.2 % (37.2-46.3); HGB 12.5 g/dL (12.0-15.0); Lymphocytes # (A) 1.41 X 10*3/uL (0.90-5.00); Lymphocytes % (A) 21.5 %; MCH 30.6 pg (27.0-32.0); MCHC 32.7 g/dL (32.0-37.0); MCV 93.6 fL (80.0-97.0); Mean Platelet Volume 10.6 fL (9.5-12.2); Monocytes % (A) 12.2 %; Neutrophils # (A) 4.06 X 10*3/uL (1.80-7.70); Neutrophils % (A) 61.8 %; Platelet Count 191 X 10*3/uL (140-440); RBC 4.08 X 10*6/uL (4.10-5.20); RDW 14.1 % (11.5-14.5); WBC 6.56 X 10*3/uL (4.50-10.00)
[2021-01-10 11:11] LABS: Anion Gap 9.6 mmol/L (4.00-12.00); BUN/Creat Ratio 14.44 Ratio (12.00-20.00); Calcium 8.8 mg/dL (8.7-10.3); Carbon Dioxide 21.4 mmol/L (21.6-31.8); Non-African American GFR(CKD) 61.2 (60.0-200.0); Potassium 3.7 mmol/L (3.5-5.5)
== END 2021-01-10 13:11 | disposition home or self-care (01) ==
LOC: EC 12:08 → 6NMEDSUR 14:38
PROVIDERS: ADMIT Internal Medicine; ATTEND Internal Medicine
DX: K52.9 Noninfective gastroenteritis and colitis, unspecified (principal); N17.9 Acute kidney failure, unspecified; E11.9 Type 2 diabetes mellitus without complications; K57.30 Diverticulosis of large intestine without perforation or abscess without bleeding; I10 Essential (primary) hypertension; E78.5 Hyperlipidemia, unspecified; N83.202 Unspecified ovarian cyst, left side; R32 Unspecified urinary incontinence; M51.26 Other intervertebral disc displacement, lumbar region; Z20.822 Contact with and (suspected) exposure to COVID-19; Z79.82 Long term (current) use of aspirin; Z79.899 Other long term (current) drug therapy; Z79.890 Hormone replacement therapy; Z79.84 Long term (current) use of oral hypoglycemic drugs; Z88.5 Allergy status to narcotic agent; Z88.8 Allergy status to other drugs, medicaments and biological substances; Z82.49 Family history of ischemic heart disease and other diseases of the circulatory system
CPT/HCPCS: 96376 ×2; 96361 ×2; 96366 ×2; 96367; 96365; 96375; 99285; 36415; 93005; 86900; 86901; 80053; 80048 ×2; 83605; 83690; 84484; 85025 ×3; 85610; 85730; 86850; 82272; 87045; 83630; 87046; 87635; 74177; G0378 ×3; J0696 ×3; C9113 ×2; Q9967

== ENCOUNTER → 2022-07-04 | Outpatient (CLI) | payer MEDICARE ==
[2022-07-04 11:20] VITALS: BP 115/79; PULSE 71; RESP 18; TEMP 97.7
--- NOTE | 2022-07-04 14:25 | P.PAINPG ---
PQRS Measure Charge Sheet Comment: HISTORY OF PRESENT ILLNESS: 81 yr old female w at side as a referral from Dr Gomez presents today w severe and chronic LBP secondary to DDD, spondylosis and facet arthropathy without myelopathy for evaluation. Pt states pain level is at 8/10 in intensity, constant, localized in the lower lumbar spine, achy in character w shooting pain towards the BL feet. Pain is provoked by standing for periods of 10 minutes or more. Pain is alleviated by PT in 2019 which was ineffective, chiropractic treatments monthly, home stretching regimen, use of a cane for ambulation, repositioning and rest. PMH: HTN, Hyperlipidemia, Hypothyroidism, NIDDM, GERD, OP PSH: Bladder suspension SH: Negative x 3 FH: M- OK. F-Cerebral Hemorrhage. All: See list Meds: See list REVIEW OF ORGAN SYSTEMS: CONSTITUTIONAL: No fevers or chills. No recent weight loss. NEUROLOGICAL: + numbness and tingling along the distal extremities. No seizure disorders or headaches. MUSCULOSKELETAL: + pain PSYCHIATRIC: Denies current depression or suicidal thoughts. Physical Examinations : Constitutional : Cooperative , not in acute distress . Neurologic : Cranial nerve II to XII intact. No focal neurological deficits. Psychiatric : alert & oriented x 3. Matching mood & appropriate affect. Judgment & insight intact. Musculoskeletal : Cervical Spine Motor strength in the deltoid and biceps: Normal right side. Normal Left side Motor strength biceps and the wrist extensors: Normal right side . Normal left side Motor strength in the triceps muscle: Normal right side. Normal left side Deep tendon reflexes: Normal at the biceps. Normal at Brachioradialis. Normal at triceps Vertebral body tenderness to deep palpation over Cervical facet loading test: positive bilaterally Spurling test: positive bilaterally Neck distraction test: positive bilaterally Cruz sign: positive bilaterally Lumbar spine Motor strength lower extremities ,thigh and legs 5/5 Right side , 5/5 Left side Deep tendon reflexes : Normal Knee Jerk. Normal Ankle Jerk Vertebral body tenderness over Lumbar facet Loading Test: positive TTP Right / positive Left TTP over L4-L5, L5-S1 facets Range of motion of the lumbar spine Flexion 30 degrees, extension 10 degrees Straight Leg Raise test: Left/ Right positive at degree Ramakrishna test: positive right / positive left. Severe tenderness over the Sacroiliac joint on the Right / Left sides Gaenslen test: positive bilaterally Seated flexion test: positive bilaterally. Sacral spine : Severe tenderness over the Sacroiliac joint: right side / left side Range of motion: Flexion of the lumbar spine <60 degrees Range of motion: Extension of the lumbar spine <20 degrees Gaenslen's Test positive Brandon's Test positive Ramakrishna test: positive right side / left side Thigh Thrust Test Sacral Thrust Test Imaging: MRI without contrast of the lumbar spine from 03/24/22 reviewed Assessment/ Plan : Lumbar disc herniation, lumbar DDD Recommendation of bilateral facet blocks of the medial branches L4-L5, L5-S1 #1. May need a series of injections, up until RFA, for optimal pain relief. Risks, benefits of procedure discussed and patient verbalized understanding. Admits to aspirin or anti- coagulant use or medical history of diabetes. Protocol for discontinuation/ continuation of medications howard procedure discussed. All questions answered. I have spent greater than 30 minutes on patient care today. Dr Nguyen was available by phone for the evaluation of this patient. The time was used to review the medical records including relevant urine studies and Prescription history (MAPs), review of the available imaging, evaluation and examination of the patient, coordination of care with the medical staff and if applicable referring physicians, as well as creation of the medical record Home Medications: Ambulatory Orders Aspirin EC [Ecotrin] 325 mg PO DAILY 01/08/21 Atorvastatin [Lipitor] 40 mg PO HS 01/08/21 Calcium Carbonate/Vitamin D3 [Calcium 600 mg-D3 10 Mcg (400 Iu)] 1 cap PO DAILY 01/08/21 Cholecalciferol [Vitamin D3 (25 Mcg = 1000 Iu)] 25 mcg PO DAILY 01/08/21 Levothyroxine Sodium 125 mcg PO DAILY 01/08/21 Metoprolol Succinate (ER) [Toprol XL] 100 mg PO HS 01/08/21 Milk Thistle 150 mg PO DAILY 01/08/21 Mirabegron [Myrbetriq] 50 mg PO DAILY 01/08/21 Omeprazole 20 mg PO DAILY 01/08/21 Pioglitazone [Actos] 30 mg PO HS 01/08/21 Quinapril HCl 40 mg PO DAILY 01/08/21 Repaglinide 1 mg PO AC-SUPPER 01/08/21 Sertraline [Zoloft] 50 mg PO DAILY 01/08/21 Vitamin C/Biotin [Hair, Skin and Nails Chew] 1 tab PO DAILY 01/08/21 amLODIPine [Norvasc] 10 mg PO DAILY 01/08/21 diphenhydrAMINE HCL [Benadryl] 25 mg PO HS@219901/08/21 glyBURIDE [Diabeta] 10 mg PO AC-BID 01/08/21 sitaGLIPtin PHOSPHATE [Januvia] 50 mg PO HS@219901/08/21 Acetaminophen Tab [Tylenol] 650 mg PO Q6HR PRN tab 01/10/21 levoFLOXacin [Levaquin] 500 mg PO DAILY #5 tab 01/10/21 metroNIDAZOLE [Flagyl] 500 mg PO TID 7 Days #21 tab 01/10/21 Controlled Substance Measures - Controlled Substance Measures Is patient prescribed a controlled substance at discharge?: No
== END ==
LOC: PNWHC3 10:18
PROVIDERS: ATTEND Specialist
DX: M51.36 Other intervertebral disc degeneration, lumbar region (principal); Z79.82 Long term (current) use of aspirin; Z88.5 Allergy status to narcotic agent; Z88.8 Allergy status to other drugs, medicaments and biological substances; E11.9 Type 2 diabetes mellitus without complications; Z79.84 Long term (current) use of oral hypoglycemic drugs
CPT/HCPCS: 99211

== ENCOUNTER 2022-08-14 10:35 | Day surgery (SDC) | payer MEDICARE ==
[2022-08-10 10:22] VITALS: BMI 32.1
[~2022-08-14 10:35] MED LIST changes: +LACTATED RINGERS 1,000 ML IV SCH; +LIDOCAINE 1% (10MG/ML) FOR IV START INTRADERMA PRN; -REGADENOSON 0.4 MG/5 ML SYRINGE IV ONE
[2022-08-14 11:18] LABS: Glucose,Whole Blood 114 mg/dL (70-110)
[2022-08-14 11:20] VITALS: TEMP 98.2
[2022-08-14] MEDS ORDERED: fentaNYL (PF) 50 MCG/ML 2 ML AMP ONE (12:08)
[2022-08-14] MEDS ORDERED: ROPIVACAINE 5 MG/ML 20 ML AMPULE ONE (12:08)
[2022-08-14] MEDS ORDERED: methylPREDNISolone ACETATE 40 MG/ML 1 ML VIAL ONE (12:08)
[2022-08-14] MEDS ORDERED: MIDAZOLAM 2 MG/2 ML VIAL ONE (12:08)
--- NOTE | 2022-08-14 12:24 | P.PCN ---
Date of Procedure: 08/14/22 Procedure(s) Performed: PREOPERATIVE DIAGNOSIS : 1- Lumbar spondylosis with Facet Arthropathy without myelopathy . 2- Lumber degenerative disc disease POSTOPERATIVE DIAGNOSIS: 1- Lumbar spondylosis with Facet Arthropathy without myelopathy . 2- Lumber degenerative disc disease PROCEDURE: Diagnostic bilateral L3 , L4 , and L5 medial branch block under fluoroscopy guidance(fluoroscopy images available in the radiology Department ) ( To target the facet joint between Bilateral L4-5 , and L5-S1 )# 1st ANESTHESIA:, moderate sedation with intravenous Versed 1 mg and Fentanyl 50 mcg. (Sedation start at 1212, finished at 1222 EBL: Minimal COMPLICATION: None PROCEDURE INDICATION: Chronic low back pain secondary to Facet arthropathy unresponsive to conservative treatment. PROCEDURE DESCRIPTION: the patient was seen and identified in the preop holding area , risks and benefits and possible complications of the procedure and alternative were discussed with the patient, and the patient agreed to proceed with the procedure and signed the consent and vital signs monitored during the procedure and fluoroscopy was used to maximize the benefit and accuracy of the needle placement, and sedation was given to decrease patient anxiety, patient was taken to the procedure room and placed in prone position vital signs monitored in the back prepped with chlorhexidine X3 then under strict sterile technique using a right oblique fluoroscopy ,the junction of the transverse process and the superior articulating process of the right L3 , L4 , and L5 vertebra which corresponding to the fluoroscopy image of the eye of the Amauri dog on the block side for the medial branches and subsequently , after local infiltration of skin and subcu tissuies with Ropivacaine 0.5 % , one mL at each level ,then 22-gauge Quincke-type needles , 3 needle was used , each one of them placed at the junction of the base of the transverse process and the superior articular process at the appropriate level, and the needle was advanced until the periosteum contacted, needle placement confirmed with AP oblique and lateral view and after appropriate needle placement confirmed, and after negative aspiration for heme and CSF and there was no paresthesia 1-1/2 mL of Ropivacaine 0.5% mixed with 20 mg Depo-Medrol , then half mL injected at each level after negative aspiration the needle subsequently removed and the same procedure repeated for the left side at left side at L3 , L4 and L5 levels. At the end of the procedure and the needles removed and a bandage applied after the skin was cleaned the cleaning solution patient taken to recovery room in stable condition and monitors in the recovery room for 20-30 minutes and discharged home in stable condition after discharge criteria met and patient will follow up with the pain clinic in 2-4 weeks
[2022-08-14] MEDS ORDERED: IV FLUID CONTINUATION 850 ML IV ONE (12:27)
[2022-08-14 12:32] VITALS: RESP 18
[2022-08-14 12:50] VITALS: BP 153/71; PULSE 69
--- NOTE | 2022-08-14 13:42 | FL ---
Intraoperative/procedural fluoroscopic services were provided for bilateral lumbar facet block. Total fluoroscopy time is 5 seconds with a total of 4 submitted images to PACS. Please see the operative n ote for further details.
== END 2022-08-14 13:09 | disposition home or self-care (01) ==
LOC: ORPAIN 10:35
PROVIDERS: ATTEND Specialist
DX: M51.36 Other intervertebral disc degeneration, lumbar region (principal); M47.816 Spondylosis without myelopathy or radiculopathy, lumbar region; G89.29 Other chronic pain; Z88.8 Allergy status to other drugs, medicaments and biological substances
CPT/HCPCS: 64494 ×2; 99152; 64493; J2250; J1030; J3010; J2795

== ENCOUNTER 2022-10-10 12:32 | Emergency (ER) | payer MEDICARE ==
[2022-10-10 12:42] VITALS: TEMP 97.9
[2022-10-10] MEDS ORDERED: SODIUM CHLORIDE 0.9% 1,000 ML IV STA (13:08)
[2022-10-10 13:30] LABS: Basophils % (A) 0 %; Eosinophils # (A) 0.2 k/uL (0-0.7); Eosinophils % (A) 3 %; HCT 40.6 % (34.0-46.0); HGB 13.1 gm/dL (11.4-16.0); Lymphocytes % (A) 11 %; MCH 30.8 pg (25.0-35.0); MCHC 32.2 g/dL (31.0-37.0); MCV 95.5 fL (80.0-100.0); Mean Platelet Volume 7.9; Monocytes # (A) 0.6 k/uL (0-1.0); Monocytes % (A) 7 %; Neutrophils # (A) 6.9 k/uL (1.3-7.7); Neutrophils % (A) 77 %; Platelet Count 243 k/uL (150-450); RBC 4.25 m/uL (3.80-5.40); RDW 13.5 % (11.5-15.5)
[2022-10-10 13:39] LABS: Albumin 3.5 g/dL (3.5-5.0); Calcium 8.8 mg/dL (8.4-10.2); Magnesium 1.9 mg/dL (1.6-2.3); Potassium 4.3 mmol/L (3.5-5.1); Total Bilirubin 0.7 mg/dL (0.2-1.3); Total Protein 6.4 g/dL (6.3-8.2)
[2022-10-10 13:41] LABS: Partial Thromboplastin Time 22.8 sec (22.0-30.0); Prothrombin Time 10.6 sec (9.0-12.0)
[2022-10-10 14:05] LABS: Appearance,Urine Clear (Clear); Bilirubin,Urine Negative (Negative); Blood,Urine Trace (Negative); Color,Urine Yellow; Glucose,Urine (UA) Negative (Negative); Ketones,Urine 1+ (Negative); Leukocyte Esterase,Urine Negative (Negative); Mucus,Urine Rare /hpf; Nitrite,Urine Negative (Negative); PH, Urine 5.5 (5.0-8.0); Protein,Urine Negative (Negative); RBC,Urine 6 /hpf (0-5); Specific Gravity,Urine 1.016 (1.001-1.035); Squamous Epithelial Cell,Urine <1 /hpf (0-4); Urobilinogen,Urine <2.0 mg/dL (<2.0); WBC,Urine 2 /hpf (0-5)
--- NOTE | 2022-10-10 14:30 | XR ---
EXAMINATION TYPE: XR chest 2V DATE OF EXAM: 10/10/2022 COMPARISON: None HISTORY: 81-year-old female with weakness and body aches TECHNIQUE: AP and lateral views FINDINGS: The heart is moderately enlarged. Diffuse interstitial and vascular density. No syed consolidation o r pleural effusion. IMPRESSION: Moderate cardiomegaly and interstitial changes. Correlate for CHF with pulmonary vascular congestion. Bronchitis or atypical pneumonias would be alternative considerations.
--- NOTE | 2022-10-10 14:42 | CT ---
EXAMINATION TYPE: CT brain wo con DATE OF EXAM: 10/10/2022 COMPARISON: None HISTORY: Weakness, altered mental status CT DLP: 1084.2 mGycm Automated exposure control for dose reduction was used. FINDINGS: Weakness there is low attenuation in the white matter. Moderate generalized degenerative change. Intr acranial atherosclerotic changes. No midline shift or mass effect. Calvarium is intact. Craniocervical junction maintained. Sella turcica has a normal appearance. Hyper dense attenuation seen in the posterior ethmoid air cells. IMPRESSION: 1. NO ACUTE HEMORRHAGE OR MASS EFFECT. DEGENERATIVE AND NONSPECIFIC WHITE MATTER CHANGES MOST TYPICAL OF REMOTE ISCHEMIA. IF CONCERN FOR ACUTE ISCHEMIA CORRELATE WITH MRI CLINICALLY WARRANTED.
--- NOTE | 2022-10-10 15:11 | ED ---
General Adult HPI - General Chief complaint: Weakness Stated complaint: Weakness Time Seen by Provider: 10/10/22 12:34 Source: patient, family, EMS, RN notes reviewed, old records reviewed Mode of arrival: EMS Limitations: no limitations - History of Present Illness Initial comments: Patient is a 81-year-old female presents emergency Department complaining of weakness. Has been ongoing for multiple days. Patient does have a history of spinal issues and is due to receive spinal surgery next week. She is not complaining of generalized weakness. She has less appetite. Has not been eating or drinking much. Patient's brings her here for further evaluation. She denies any new pain. Denies any chest pain, shortness breath, abdominal pain, nausea, vomiting, diarrhea. He endorses decreased appetite. Denies any cough, fevers, chills or no known sick contacts. No other acute complaints at this time. - Related Data Home Medications Medication Instructions Recorded Confirmed Atorvastatin [Lipitor] 40 mg PO HS 01/08/21 10/10/22 Calcium Carbonate/Vitamin D3 1 cap PO DAILY@1400 01/08/21 10/10/22 [Calcium 600 mg-D3 10 Mcg (400 Iu)] Cholecalciferol [Vitamin D3 (25 25 mcg PO DAILY@1400 01/08/21 10/10/22 Mcg = 1000 Iu)] Levothyroxine Sodium 125 mcg PO DAILY 01/08/21 10/10/22 Metoprolol Succinate (ER) [Toprol 100 mg PO HS 01/08/21 10/10/22 XL] Milk Thistle 150 mg PO DAILY@1400 01/08/21 10/10/22 Mirabegron [Myrbetriq] 50 mg PO DAILY 01/08/21 10/10/22 Omeprazole 20 mg PO DAILY 01/08/21 10/10/22 Pioglitazone [Actos] 30 mg PO HS 01/08/21 10/10/22 Quinapril HCl 40 mg PO DAILY 01/08/21 10/10/22 Repaglinide 1 mg PO AC-SUPPER 01/08/21 10/10/22 Vitamin C/Biotin [Hair, Skin and 1 tab PO DAILY@1400 01/08/21 10/10/22 Nails Chew] amLODIPine [Norvasc] 10 mg PO DAILY 01/08/21 10/10/22 diphenhydrAMINE HCL [Benadryl] 25 mg PO HS 01/08/21 10/10/22 sitaGLIPtin PHOSPHATE [Januvia] 50 mg PO DAILY 01/08/21 10/10/22 Aspirin EC [Ecotrin Low Dose] 81 mg PO DAILY 10/10/22 10/10/22 Glimepiride [Amaryl] 4 mg PO BID 10/10/22 10/10/22 Mv-Mn/Om3/Dha/Epa/Fish/Lut/Kleber 1 cap PO DAILY@1400 10/10/22 10/10/22 [Ocuvite Adult 50 Plus Softgel] Vitamin A 2,400 mcg PO DAILY@1400 10/10/22 10/10/22 Allergies Allergy/AdvReac Type Severity Reaction Status Date / Time alendronate sodium AdvReac Nausea Verified 10/10/22 15:07 [From Fosamax] codeine AdvReac Nausea Verified 10/10/22 15:07 solifenacin AdvReac Nausea Verified 10/10/22 15:07 Review of Systems ROS Statement: Those systems with pertinent positive or pertinent negative responses have been documented in the HPI. Review of Systems: CONST: Denies fever EYES: Denies blurry vision ENT: Denies nasal congestion C/V: Denies Chest pain RESP: Denies shortness of breath GI: Denies abdominal pain : Denies dysuria SKIN: Denies rash. MSK: Denies joint pain. NEURO: Endorses generalized weakness ROS Other: All systems not noted in ROS Statement are negative. Past Medical History Past Medical History: Diabetes Mellitus, Hyperlipidemia, Hypertension Additional Past Medical History / Comment(s): chronic back pain History of Any Multi-Drug Resistant Organisms: None Reported Additional Past Surgical History / Comment(s): bladder suspension Past Anesthesia/Blood Transfusion Reactions: No Reported Reaction Additional Past Anesthesia/Blood Transfusion Reaction / Comment(s): spouse states "needs to have a larger dose of anesthesia because her body blocks it" Past Psychological History: No Psychological Hx Reported Smoking Status: Never smoker - Past Family History Mother Family Medical History: Myocardial Infarction ([place]) Father Additional Family Medical History / Comment(s): cerebral hemmorage possible aneursym unk General Exam - General Exam Comments Initial Comments: General: Appears in no acute distress. HEAD: Normal with no signs of head trauma. EYES: PERRLA, EOMI, conjunctiva normal, no discharge. ENT: Hearing grossly intact, normal oropharynx. Mildly dry mucous membranes. RESPIRATORY: Clear breath sounds bilaterally. No wheezes, rales, or rhonchi. C/V: Regular rate and rhythm. S1 and S2 auscultated, no edema, peripheral pulses 2+ and intact throughout ABD: Abd is soft, nontender, nondistended EXT: Normal range of motion, no obvious deformity SKIN: No rashes or lesions observed on exposed skin. NEURO: Alert and oriented x 4. Cranial nerves II-XII intact. No focal sensory or strength deficits. GCS of 15. NIH 0. No focal deficits. Limitations: no limitations Course Vital Signs 10/10/22 10/10/22 10/10/22 12:40 13:00 13:30 Temperature 97.9 F Pulse Rate 51 L 73 76 Respiratory 18 19 19 Rate Blood Pressure 162/76 162/76 138/66 O2 Sat by Pulse 98 94 L 95 Oximetry 10/10/22 10/10/22 10/10/22 14:00 14:30 15:00 Temperature Pulse Rate 68 72 66 Respiratory 16 16 19 Rate Blood Pressure 138/74 132/75 121/79 O2 Sat by Pulse 96 97 96 Oximetry 10/10/22 15:30 Temperature Pulse Rate 74 Respiratory 18 Rate Blood Pressure 141/75 O2 Sat by Pulse 97 Oximetry Medical Decision Making - Medical Decision Making Was pt. sent in by a medical professional or institution (, PA, [employer], urgent care, hospital, or penitentiary...) When possible be specific @ -No Did you speak to anyone other than the patient for history (EMS, parent, family, police, friend...)? What history was obtained from this source @ -Yes, the patient's helps with additional history who helps take care of her at home. Did you review nursing and triage notes (agree or disagree)? Why? @ -I reviewed and agree with nursing and triage notes Were old charts reviewed (outside hosp., previous admission, EMS record, old EKG, old radiological studies, urgent care reports/EKG's, penitentiary records)? Report findings @ -Old charts reviewed from December 2020. This includes EKG. Differential Diagnosis (chest pain, altered mental status, abdominal pain women, abdominal pain men, vaginal bleeding, weakness, fever, dyspnea, syncope, headache, dizziness, GI bleed, back pain, seizure, CVA, palpatations, mental health, musculoskeletal)? @ -Differential Weakness: Hypoglycemia, shock, sepsis, hyponatremia, anemia, infection, [place], ETOH, adverse medicine reaction, overdose, stroke, this is not meant to be an all-inclusive list. EKG interpreted by me (3pts min.). @ -As above X-rays interpreted by me (1pt min.). @ -Chest x-ray shows no obvious acute cardiopulmonary process. CT interpreted by me (1pt min.). @ -CT brain shows no obvious acute intracranial process or injury. U/S interpreted by me (1pt. min.). @ -None done What testing was considered but not performed or refused? (CT, X-rays, U/S, labs)? Why? @ -None What meds were considered but not given or refused? Why? @ -None Did you discuss the management of the patient with other professionals (professionals i.e. , PA, [employer], lab, RT, psych nurse, social services aide, chief inspector, teacher, probation and parole officer, corrections caseworker)? Give summary @ -No Was smoking cessation discussed for >3mins.? @ -No Was critical care preformed (if so, how long)? @ -No Were there social determinants of health that impacted care today? How? (Homelessness, low income, unemployed, alcoholism, drug addiction, trans portation, low edu. Level, literacy, decrease access to med. care, [facility], rehab)? @ -No Was there de-escalation of care discussed even if they declined (Discuss DNR or withdrawal of care, Hospice)? DNR status @ -No What co-morbidities impacted this encounter? (DM, HTN, Smoking, COPD, CAD, Cancer, CVA, ARF, Chemo, Hep., AIDS, mental health diagnosis, sleep apnea, morbid obesity)? @ -None Was patient admitted / discharged? Hospital course, mention meds given and route, prescriptions, significant lab abnormalities, going to OR and other pertinent info. @ -Based on the patient's presentation and physical exam, I'm concerned for possible dehydration for the patient's symptoms with a rule out of etiologies at this time. We will obtain broad workup. This included CT brain and chest x-ray and cardio pulmonary labs. She was in agreement this plan. EKG shows requiring PVCs. Imaging is unremarkable including CT brain. Laboratory studies are within acceptable limits. This patient may be mildly dehydrated with a slightly elevated BUN. I also trace ketones located on urinalysis. Patient's flu, Covid, RSV negative. Troponin is undetectable. At this time, patient is feeling improved. I did discuss results with the patient as well as her . Earlier we had discussed admission for the patient's weakness and I did notify [facility] Dr. Solorzano of the potential for admission but the patient's and the patient would like to attempt to go home and will return if symptoms worsen again. I believe this is reasonable as workup is unremarkable and patient is more energized and able to ambulate. Strict return precautions were discussed. Dr. Solorzano was notified that the patient is not being admitted. I instructed the patient to follow up with their PCP in the next 1-3 days. I explained that the patient should return to the emergency department if they experience any worsening symptoms. Strict return precautions were discussed with the patient. The patient expressed understanding of these instructions. I answered all questions that the patient had. The patient was discharged home in good condition with their prescriptions and follow up information. Undiagnosed new problem with uncertain prognosis? @ -No Drug Therapy requiring intensive monitoring for toxicity (Heparin, Nitro, Insulin, Cardizem)? @ -No Were any procedures done? @ -No Diagnosis/symptom? @ -Weakness Acute, or Chronic, or Acute on Chronic? @ -Acute Uncomplicated (without systemic symptoms) or Complicated (systemic symptoms)? @ -Uncomplicated Side effects of treatment? @ -No Exacerbation, Progression, or Severe Exacerbation? @ -No Poses a threat to life or bodily function? How? (Chest pain, [place], [place], pneumonia, PE, COPD, DKA, ARF, appy, cholecystitis, CVA, Diverticulitis, Homicidal, Suicidal, threat to staff... and all critical care pts) @ -No Diagnosis/symptom? @ -Dehydration Acute, or Chronic, or Acute on Chronic? @ -Acute Uncomplicated (without systemic symptoms) or Complicated (systemic symptoms)? @ -Uncomplicated Side effects of treatment? @ -none Exacerbation, Progression, or Severe Exacerbation] @ -no Poses a threat to life or bodily function? @ -no - Lab Data Result diagrams: 10/10/22 13:19 10/10/22 13:19 Lab Results 10/10/22 10/10/22 10/10/22 Range/Units 13:19 13:19 13:19 WBC 9.0 (3.8-10.6) k/uL RBC 4.25 (3.80-5.40) m/uL Hgb 13.1 (11.4-16.0) gm/dL Hct 40.6 (34.0-46.0) % MCV 95.5 (80.0-100.0) fL MCH 30.8 (25.0-35.0) pg MCHC 32.2 (31.0-37.0) g/dL RDW 13.5 (11.5-15.5) % Plt Count 243 (150-450) k/uL MPV 7.9 Neutrophils % 77 % Lymphocytes % 11 % Monocytes % 7 % Eosinophils % 3 % Basophils % 0 % Neutrophils # 6.9 (1.3-7.7) k/uL Lymphocytes # 1.0 (1.0-4.8) k/uL Monocytes # 0.6 (0-1.0) k/uL Eosinophils # 0.2 (0-0.7) k/uL Basophils # 0.0 (0-0.2) k/uL PT 10.6 (9.0-12.0) sec INR 1.0 (<1.2) APTT 22.8 (22.0-30.0) sec Sodium 140 (137-145) mmol/L Potassium 4.3 (3.5-5.1) mmol/L Chloride 110 H (98-107) mmol/L Carbon Dioxide 20 L (22-30) mmol/L Anion Gap 10 mmol/L BUN 29 H (7-17) mg/dL Creatinine 0.90 (0.52-1.04) mg/dL Est GFR (CKD-EPI)AfAm 71 (>60 ml/min/1.73 sqM) Est GFR (CKD-EPI)NonAf 61 (>60 ml/min/1.73 sqM) Glucose 150 H (74-99) mg/dL Plasma Lactic Acid Jose Manuel (0.7-2.0) mmol/L Calcium 8.8 (8.4-10.2) mg/dL Magnesium 1.9 (1.6-2.3) mg/dL Total Bilirubin 0.7 (0.2-1.3) mg/dL AST 23 (14-36) U/L ALT 19 (4-34) U/L Alkaline Phosphatase 80 (38-126) U/L Troponin I (0.000-0.034) ng/mL Total Protein 6.4 (6.3-8.2) g/dL Albumin 3.5 (3.5-5.0) g/dL Urine Color Urine Appearance (Clear) Urine pH (5.0-8.0) Ur Specific Thompson (1.001-1.035) Urine Protein (Negative) Urine Glucose (UA) (Negative) Urine Ketones (Negative) Urine Blood (Negative) Urine Nitrite (Negative) Urine Bilirubin (Negative) Urine Urobilinogen (<2.0) mg/dL Ur Leukocyte Esterase (Negative) Urine RBC (0-5) /hpf Urine WBC (0-5) /hpf Ur Squamous Epith Cells (0-4) /hpf Urine Mucus (None) /hpf Influenza Type A (PCR) (Not Detectd) Influenza Type B (PCR) (Not Detectd) RSV (PCR) (Not Detectd) SARS-CoV-2 (PCR) (Not Detectd) 10/10/22 10/10/22 10/10/22 Range/Units 13:19 13:19 13:40 WBC (3.8-10.6) k/uL RBC (3.80-5.40) m/uL Hgb (11.4-16.0) gm/dL Hct (34.0-46.0) % MCV (80.0-100.0) fL MCH (25.0-35.0) pg MCHC (31.0-37.0) g/dL RDW (11.5-15.5) % Plt Count (150-450) k/uL MPV Neutrophils % % Lymphocytes % % Monocytes % % Eosinophils % % Basophils % % Neutrophils # (1.3-7.7) k/uL Lymphocytes # (1.0-4.8) k/uL Monocytes # (0-1.0) k/uL Eosinophils # (0-0.7) k/uL Basophils # (0-0.2) k/uL PT (9.0-12.0) sec INR (<1.2) APTT (22.0-30.0) sec Sodium (137-145) mmol/L Potassium (3.5-5.1) mmol/L Chloride (98-107) mmol/L Carbon Dioxide (22-30) mmol/L Anion Gap mmol/L BUN (7-17) mg/dL Creatinine (0.52-1.04) mg/dL Est GFR (CKD-EPI)AfAm (>60 ml/min/1.73 sqM) Est GFR (CKD-EPI)NonAf (>60 ml/min/1.73 sqM) Glucose (74-99) mg/dL Plasma Lactic Acid Jose Manuel 1.2 (0.7-2.0) mmol/L Calcium (8.4-10.2) mg/dL Magnesium (1.6-2.3) mg/dL Total Bilirubin (0.2-1.3) mg/dL AST (14-36) U/L ALT (4-34) U/L Alkaline Phosphatase (38-126) U/L Troponin I <0.012 (0.000-0.034) ng/mL Total Protein (6.3-8.2) g/dL Albumin (3.5-5.0) g/dL Urine Color Yellow Urine Appearance Clear (Clear) Urine pH 5.5 (5.0-8.0) Ur Specific Thompson 1.016 (1.001-1.035) Urine Protein Negative (Negative) Urine Glucose (UA) Negative (Negative) Urine Ketones 1+ H (Negative) Urine Blood Trace H (Negative) Urine Nitrite Negative (Negative) Urine Bilirubin Negative (Negative) Urine Urobilinogen <2.0 (<2.0) mg/dL Ur Leukocyte Esterase Negative (Negative) Urine RBC 6 H (0-5) /hpf Urine WBC 2 (0-5) /hpf Ur Squamous Epith Cells <1 (0-4) /hpf Urine Mucus Rare H (None) /hpf Influenza Type A (PCR) (Not Detectd) Influenza Type B (PCR) (Not Detectd) RSV (PCR) (Not Detectd) SARS-CoV-2 (PCR) (Not Detectd) 10/10/22 Range/Units 13:40 WBC (3.8-10.6) k/uL RBC (3.80-5.40) m/uL Hgb (11.4-16.0) gm/dL Hct (34.0-46.0) % MCV (80.0-100.0) fL MCH (25.0-35.0) pg MCHC (31.0-37.0) g/dL RDW (11.5-15.5) % Plt Count (150-450) k/uL MPV Neutrophils % % Lymphocytes % % Monocytes % % Eosinophils % % Basophils % % Neutrophils # (1.3-7.7) k/uL Lymphocytes # (1.0-4.8) k/uL Monocytes # (0-1.0) k/uL Eosinophils # (0-0.7) k/uL Basophils # (0-0.2) k/uL PT (9.0-12.0) sec INR (<1.2) APTT (22.0-30.0) sec Sodium (137-145) mmol/L Potassium (3.5-5.1) mmol/L Chloride (98-107) mmol/L Carbon Dioxide (22-30) mmol/L Anion Gap mmol/L BUN (7-17) mg/dL Creatinine (0.52-1.04) mg/dL Est GFR (CKD-EPI)AfAm (>60 ml/min/1.73 sqM) Est GFR (CKD-EPI)NonAf (>60 ml/min/1.73 sqM) Glucose (74-99) mg/dL Plasma Lactic Acid Jose Manuel (0.7-2.0) mmol/L Calcium (8.4-10.2) mg/dL Magnesium (1.6-2.3) mg/dL Total Bilirubin (0.2-1.3) mg/dL AST (14-36) U/L ALT (4-34) U/L Alkaline Phosphatase (38-126) U/L Troponin I (0.000-0.034) ng/mL Total Protein (6.3-8.2) g/dL Albumin (3.5-5.0) g/dL Urine Color Urine Appearance (Clear) Urine pH (5.0-8.0) Ur Specific Thompson (1.001-1.035) Urine Protein (Negative) Urine Glucose (UA) (Negative) Urine Ketones (Negative) Urine Blood (Negative) Urine Nitrite (Negative) Urine Bilirubin (Negative) Urine Urobilinogen (<2.0) mg/dL Ur Leukocyte Esterase (Negative) Urine RBC (0-5) /hpf Urine WBC (0-5) /hpf Ur Squamous Epith Cells (0-4) /hpf Urine Mucus (None) /hpf Influenza Type A (PCR) Not Detected (Not Detectd) Influenza Type B (PCR) Not Detected (Not Detectd) RSV (PCR) Not Detected (Not Detectd) SARS-CoV-2 (PCR) Not Detected (Not Detectd) - EKG Data -: EKG Interpreted by Me EKG Comments: 12-lead Electrocardiogram Interpretation Note EKG was reviewed and interpreted by myself. 12-lead ECG performed at 1238 is interpreted by me as revealing normal sinus rhythm at a rate of 76 beats per minute. Frequent PVCs present. WI interval is 192 ms, QRS duration is 97 ms, QTc is 465 ms.. There were no ST or T wave abnormalities to suggest myocardial ischemia or injury. R wave progression across the precordium was satisfactory. By my interpretation this EKG is non-diagnostic for acute ischemia. PVCs are new when compared to prior EKGs from December 2020. Disposition Clinical Impression: Weakness, Dehydration Disposition: HOME SELF-CARE Condition: Good Instructions (If sedation given, give patient instructions): Weakness (ED) Is patient prescribed a controlled substance at d/c from ED?: No Referrals: Purvi Maldonado MD [Primary Care Provider] - 1-2 days Time of Disposition: 15:00
[2022-10-10 15:38] VITALS: BP 141/75; PULSE 74; RESP 18
== END 2022-10-10 15:30 | disposition home or self-care (01) ==
LOC: EC 12:32
DX: R53.1 Weakness (principal); E86.0 Dehydration; E78.5 Hyperlipidemia, unspecified; I10 Essential (primary) hypertension; E11.9 Type 2 diabetes mellitus without complications; Z79.899 Other long term (current) drug therapy; Z79.84 Long term (current) use of oral hypoglycemic drugs; Z79.82 Long term (current) use of aspirin; Z88.5 Allergy status to narcotic agent; Z88.6 Allergy status to analgesic agent; Z88.8 Allergy status to other drugs, medicaments and biological substances; Z20.822 Contact with and (suspected) exposure to COVID-19
CPT/HCPCS: 36415; 70450; 71046; 80053; 81001; 83605; 83735; 84484; 85025; 85610; 85730; 87636; 93005; 96360; 99285

== ENCOUNTER 2022-10-16 08:14 | Day surgery (SDC) | payer MEDICARE ==
[2022-10-16 09:01] VITALS: RESP 16; TEMP 98.2
[2022-10-16 09:14] LABS: Glucose,Whole Blood 204 mg/dL (70-110)
[2022-10-16] MEDS ORDERED: MIDAZOLAM 2 MG/2 ML VIAL ONE (09:30)
[2022-10-16] MEDS ORDERED: IOPAMIDOL M200 10 ML VIAL ONE (09:30)
[2022-10-16] MEDS ORDERED: methylPREDNISolone ACETATE 40 MG/ML 1 ML VIAL ONE (09:30)
--- NOTE | 2022-10-16 09:43 | P.PCN ---
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 POSTOPERATIVE DIAGNOSIS: Same as preop diagnosis. PROCEDURE 1. Lumbar epidural steroid injection under fluoroscopic guidance at the L4-5 level. (Fluoroscopy imaging was available in radiology department) 2. Lumbar epidurogram. ANESTHESIA: moderate sedation with intravenous Versed 1 mg. Sedation start time : 934 Sedation end time : 940 EBL: Minimal PROCEDURE INDICATION: The patient with low back pain and radiculitis symptoms unresponsive to conservative treatment. Fluoroscopy was used to optimize visualization of the needle placement and to maximize safety. PROCEDURE DESCRIPTION / TECHNIQUE: The patient was seen and identified in the preoperative area. Risks, benefits, complications including but not limited to infections ,bleeding ,allergic reaction to the medications ,nerve damage and not complete pain releife , and alternatives were discussed with the patient. The patient agreed to proceed with the procedure and signed the consent. IV was started, and vital signs were stable. Patient was taken to the OR and time out was completed. The patient was placed in the prone position on procedure table and a pillow was placed under the abdomen to reduce lumbar lordosis. The lumbosacral area was prepped and draped in the usual sterile fashion.ere closely monitored during the procedure. Conscious sedation was used during the procedure to decrease patients anxiety. Vital signs was monitered during the entire procedure. Using anterior-posterior fluoroscopy, the L4-5 interlaminar space was identified and the skin over this site was marked and then infiltrated with 1% lidocaine subcutaneously. Subsequently, a 20-gauge Tuohy epidural needle was inserted and advanced toward the epidural space using the ``Loss of resistance technique and guided by AP and lateral fluoroscopy. The correct needle position in the epidural space was verified with the injection of 2 mL of the water soluble contrast dye Isovue 200 contrast and observing an excellent epidurogram with the epidural spread of the dye, after negative aspiration for blood and CSF and in the absence of paresthesias. Again after negative aspiration, a 6 ml mixture containing 40 mg of Depo-medrol ( Preservetive Free ), and 2 ml of preservative free Normal Saline, and 2 ml of preservative free lidocaine 1% solution was injected and a washout of epidurogram was seen. Needle was withdrawn intact, skin was cleansed, and bandages were applied. COMPLICATIONS: None DISPOSITION / PLANS: The patient was placed in a supine position and transferred to the recovery area in a stable condition for observation. There was no evidence of lower extremity motor or sensory deficit after the procedure. Patient was discharged from the recovery room after meeting discharge criteria. Home discharge instructions were given to the patient by the staff. The patient was reexamined prior to discharge. The patient will schedule a follow up in the clinic in 2-4 weeks.
[2022-10-16] MEDS ORDERED: LACTATED RINGERS 1,000 ML IV ONE (09:51)
--- NOTE | 2022-10-16 10:04 | FL ---
Fluoroscopy INDICATION: Pain FINDINGS: Fluoroscopy time: 1 seconds. DAP: 0.68482 mGycm^2 Images obtained: 2. IMPRESSIONS: 1. Documentation of fluoroscopy.
[2022-10-16] MEDS ORDERED: KETOROLAC 15 MG/ML 1 ML VIAL ONE (10:25)
[2022-10-16] MEDS ORDERED: KETOROLAC 15 MG/ML 1 ML VIAL IVP ONE (10:25)
[2022-10-16 10:45] VITALS: BP 114/66; PULSE 73
== END 2022-10-16 10:53 | disposition home or self-care (01) ==
LOC: ORPAIN 08:14
PROVIDERS: ATTEND Specialist
DX: M51.16 Intervertebral disc disorders with radiculopathy, lumbar region (principal); M47.26 Other spondylosis with radiculopathy, lumbar region; Z88.5 Allergy status to narcotic agent; Z88.9 Allergy status to unspecified drugs, medicaments and biological substances
CPT/HCPCS: 62323; J2250; J1030; J1885; Q9966

== ENCOUNTER 2022-11-05 02:23 | Emergency (ER) | payer MEDICARE ==
[2022-11-05 02:36] VITALS: TEMP 97
[2022-11-05] MEDS ORDERED: SODIUM CHLORIDE 0.9% 500 ML 500 ML IV ONE (02:59)
--- NOTE | 2022-11-05 03:05 | ED ---
General Adult HPI - General Chief complaint: Back Pain/Injury Stated complaint: Back Pain Time Seen by Provider: 11/05/22 02:52 Source: family, EMS, RN notes reviewed, old records reviewed Mode of arrival: EMS Limitations: altered mental status - History of Present Illness Initial comments: 82-year-old female presents for evaluation of fall which occurred 2 days prior. Patient had been going to the bathroom, she fell worsening chronic back pain which is predominantly lumbar. She is complaining of bilateral hip pain. She also had head injury without loss consciousness. History is obtained predominantly from the patient's who is at bedside. She does take chronic pain medication and follows with the pain management clinic. She has been able to stand but has been very unsteady on her feet over the past 2 days. - Related Data Home Medications Medication Instructions Recorded Confirmed Atorvastatin [Lipitor] 40 mg PO HS 01/08/21 10/15/22 Calcium Carbonate/Vitamin D3 1 cap PO DAILY@1400 01/08/21 10/15/22 [Calcium 600 mg-D3 10 Mcg (400 Iu)] Cholecalciferol [Vitamin D3 (25 25 mcg PO DAILY@1400 01/08/21 10/15/22 Mcg = 1000 Iu)] Levothyroxine Sodium 125 mcg PO DAILY 01/08/21 10/15/22 Metoprolol Succinate (ER) [Toprol 100 mg PO HS 01/08/21 10/15/22 XL] Milk Thistle 150 mg PO DAILY@1400 01/08/21 10/15/22 Mirabegron [Myrbetriq] 50 mg PO DAILY 01/08/21 10/15/22 Omeprazole 20 mg PO DAILY 01/08/21 10/15/22 Pioglitazone [Actos] 30 mg PO HS 01/08/21 10/15/22 Quinapril HCl 40 mg PO DAILY 01/08/21 10/15/22 Repaglinide 0.5 mg PO AC-SUPPER 01/08/21 10/16/22 Vitamin C/Biotin [Hair, Skin and 1 tab PO DAILY@1400 01/08/21 10/15/22 Nails Chew] amLODIPine [Norvasc] 5 mg PO DAILY 01/08/21 10/16/22 diphenhydrAMINE HCL [Benadryl] 25 mg PO HS 01/08/21 10/15/22 sitaGLIPtin PHOSPHATE [Januvia] 50 mg PO DAILY 01/08/21 10/15/22 Aspirin EC [Ecotrin Low Dose] 81 mg PO DAILY 10/10/22 10/15/22 Glimepiride [Amaryl] 4 mg PO BID 10/10/22 10/15/22 Mv-Mn/Om3/Dha/Epa/Fish/Lut/Kleber 1 cap PO DAILY@1400 10/10/22 10/15/22 [Ocuvite Adult 50 Plus Softgel] Vitamin A 2,400 mcg PO DAILY@1400 10/10/22 10/15/22 Allergies Allergy/AdvReac Type Severity Reaction Status Date / Time alendronate sodium AdvReac Nausea Verified 10/16/22 08:50 [From Fosamax] codeine AdvReac Nausea Verified 10/16/22 08:50 solifenacin AdvReac Nausea Verified 10/16/22 08:50 Review of Systems ROS Statement: Those systems with pertinent positive or pertinent negative responses have been documented in the HPI. ROS Other: All systems not noted in ROS Statement are negative. Past Medical History Past Medical History: Diabetes Mellitus, Hyperlipidemia, Hypertension Additional Past Medical History / Comment(s): chronic back pain History of Any Multi-Drug Resistant Organisms: None Reported Additional Past Surgical History / Comment(s): bladder suspension Past Anesthesia/Blood Transfusion Reactions: No Reported Reaction Additional Past Anesthesia/Blood Transfusion Reaction / Comment(s): spouse states "needs to have a larger dose of anesthesia because her body blocks it" Smoking Status: Never smoker - Past Family History Mother Family Medical History: Myocardial Infarction (VT) Father Additional Family Medical History / Comment(s): cerebral hemmorage possible ane ursym unk General Exam General appearance: lethargic Head exam: Present: atraumatic, normocephalic Eye exam: Present: normal appearance, PERRL Neck exam: Present: normal inspection. Absent: tenderness Respiratory exam: Present: normal lung sounds bilaterally. Absent: respiratory distress, wheezes Cardiovascular Exam: Present: regular rate, normal rhythm GI/Abdominal exam: Present: soft. Absent: distended, tenderness, guarding, rebound Extremities exam: Present: normal inspection, normal capillary refill. Absent: pedal edema, joint swelling Neurological exam: Present: alert, oriented X3 (slow to respond), CN II-XII intact. Absent: motor sensory deficit Skin exam: Present: warm, dry, pallor Course Vital Signs 11/05/22 11/05/22 11/05/22 02:27 04:00 05:34 Temperature 97.0 F L Pulse Rate 82 79 74 Respiratory 16 18 18 Rate Blood Pressure 98/67 125/67 106/70 O2 Sat by Pulse 96 94 L Oximetry - Reevaluation(s) Reevaluation #1: 11/05/22 05:59 Patient reevaluated she is significantly improved. Both her and her are eager for discharge. Medical Decision Making - Medical Decision Making Was pt. sent in by a medical professional or institution (, PA, [employer], urgent care, hospital, or care home...) When possible be specific @ -No Did you speak to anyone other than the patient for history (EMS, parent, family, police, friend...)? What history was obtained from this source @ -[EMS, Did you review nursing and triage notes (agree or disagree)? Why? @ -I reviewed and agree with nursing and triage notes Were old charts reviewed (outside hosp., previous admission, EMS record, old EKG, old radiological studies, urgent care reports/EKG's, care home records)? Report findings @ -No old charts were reviewed Differential Diagnosis (chest pain, altered mental status, abdominal pain women, abdominal pain men, vaginal bleeding, weakness, fever, dyspnea, syncope, headache, dizziness, GI bleed, back pain, seizure, CVA, palpatations, mental health, musculoskeletal)? @ -Fall, hip fracture, any acute bony abnormality EKG interpreted by me (3pts min.). @ -As above X-rays interpreted by me (1pt min.). @ -X-rays of the right shoulder, chest, lumbar vertebrae and pelvis are obtained and are negative for traumatic injury. CT interpreted by me (1pt min.). @ -CT performed of the brain and cervical spine, negative for traumatic injury. U/S interpreted by me (1pt. min.). @ -None done What testing was considered but not performed or refused? (CT, X-rays, U/S, labs)? Why? @ -None What meds were considered but not given or refused? Why? @ -None Did you discuss the management of the patient with other professionals (professionals i.e. , PA, [employer], lab, RT, psych nurse, social services counselor, women's ministry director, teacher, multisensor intelligence officer, manager of case)? Give summary @ -No Was smoking cessation discussed for >3mins.? @ -No Was critical care preformed (if so, how long)? @ -No Were there social determinants of health that impacted care today? How? (Homelessness, low income, unemployed, alcoholism, drug addiction, transportation, low edu. Level, literacy, decrease access to med. care, correction, rehab)? @ -No Was there de-escalation of care discussed even if they declined (Discuss DNR or withdrawal of care, Hospice)? DNR status @ -No What co-morbidities impacted this encounter? (DM, HTN, Smoking, COPD, CAD, Cancer, CVA, ARF, Chemo, Hep., AIDS, mental health diagnosis, sleep apnea, morbid obesity)? @ -None Was patient admitted / discharged? Hospital course, mention meds given and route, prescriptions, significant lab abnormalities, going to OR and other pert inent info. @ -82-year-old female with fall which occurred 2 days ago. Traumatic workup is negative including CT brain, CT C-spine, and plain films. I did offer this patient admission for pain control but ultimately the and patient declined and wished to be discharged. I will respect this wish. Undiagnosed new problem with uncertain prognosis? @ -No Drug Therapy requiring intensive monitoring for toxicity (Heparin, Nitro, Insulin, Cardizem)? @ -No Were any procedures done? @ -No Diagnosis/symptom? @ -Fall, Acute, or Chronic, or Acute on Chronic? @ -acute Uncomplicated (without systemic symptoms) or Complicated (systemic symptoms)? @ -complicated Side effects of treatment? @ -No Exacerbation, Progression, or Severe Exacerbation? @ -No Poses a threat to life or bodily function? How? (Chest pain, USA, VT, pneumonia, PE, COPD, DKA, ARF, appy, cholecystitis, CVA, Diverticulitis, Homicidal, Suicidal, threat to staff... and all critical care pts) @ -yes, risk of further falls and significant traumatic injury. - Lab Data Result diagrams: 11/05/22 03:08 11/05/22 03:08 Lab Results 04/10/23 04/10/23 04/10/23 Range/Units 03:08 03:08 03:08 WBC 7.0 (3.8-10.6) k/uL RBC 3.88 (3.80-5.40) m/uL Hgb 12.1 (11.4-16.0) gm/dL Hct 35.8 (34.0-46.0) % MCV 92.3 (80.0-100.0) fL MCH 31.3 (25.0-35.0) pg MCHC 34.0 (31.0-37.0) g/dL RDW 13.8 (11.5-15.5) % Plt Count 237 (150-450) k/uL MPV 8.9 Neutrophils % 79 % Lymphocytes % 9 % Monocytes % 6 % Eosinophils % 4 % Basophils % 0 % Neutrophils # 5.6 (1.3-7.7) k/uL Lymphocytes # 0.6 L (1.0-4.8) k/uL Monocytes # 0.4 (0-1.0) k/uL Eosinophils # 0.3 (0-0.7) k/uL Basophils # 0.0 (0-0.2) k/uL PT 10.9 (9.0-12.0) sec INR 1.0 (<1.2) APTT 23.5 (22.0-30.0) sec Sodium 138 (137-145) mmol/L Potassium 4.0 (3.5-5.1) mmol/L Chloride 109 H (98-107) mmol/L Carbon Dioxide 22 (22-30) mmol/L Anion Gap 7 mmol/L BUN 27 H (7-17) mg/dL Creatinine 1.04 (0.52-1.04) mg/dL Est GFR (CKD-EPI)AfAm 59 (>60 ml/min/1.73 sqM) Est GFR (CKD-EPI)NonAf 51 (>60 ml/min/1.73 sqM) Glucose 151 H (74-99) mg/dL Calcium 8.8 (8.4-10.2) mg/dL Total Bilirubin 0.5 (0.2-1.3) mg/dL AST 20 (14-36) U/L ALT 16 (4-34) U/L Alkaline Phosphatase 102 (38-126) U/L Total Protein 5.9 L (6.3-8.2) g/dL Albumin 3.0 L (3.5-5.0) g/dL Disposition Clinical Impression: Mechanical back pain, Fall Disposition: HOME SELF-CARE Condition: Fair Instructions (If sedation given, give patient instructions): Acute Low Back Pain (ED) Is patient prescribed a controlled substance at d/c from ED?: No Referrals: Purvi Maldonado MD [Primary Care Provider] - 1-2 days Time of Disposition: 06:02
[2022-11-05 03:25] LABS: Partial Thromboplastin Time 23.5 sec (22.0-30.0); Prothrombin Time 10.9 sec (9.0-12.0)
[2022-11-05 03:27] LABS: Basophils % (A) 0 %; Eosinophils # (A) 0.3 k/uL (0-0.7); Eosinophils % (A) 4 %; HCT 35.8 % (34.0-46.0); HGB 12.1 gm/dL (11.4-16.0); Lymphocytes # (A) 0.6 k/uL (1.0-4.8); Lymphocytes % (A) 9 %; MCH 31.3 pg (25.0-35.0); MCV 92.3 fL (80.0-100.0); Mean Platelet Volume 8.9; Monocytes # (A) 0.4 k/uL (0-1.0); Monocytes % (A) 6 %; Neutrophils # (A) 5.6 k/uL (1.3-7.7); Neutrophils % (A) 79 %; Platelet Count 237 k/uL (150-450); RBC 3.88 m/uL (3.80-5.40); RDW 13.8 % (11.5-15.5)
[2022-11-05 03:37] LABS: Calcium 8.8 mg/dL (8.4-10.2); Total Bilirubin 0.5 mg/dL (0.2-1.3); Total Protein 5.9 g/dL (6.3-8.2)
[2022-11-05 04:02] VITALS: RESP 18
[2022-11-05] MEDS ORDERED: fentaNYL (PF) 50 MCG/ML 2 ML AMP IVP STA (04:39)
--- NOTE | 2022-11-05 04:45 | CT ---
EXAM: CT Head Without Intravenous Contrast CLINICAL HISTORY: ITS.REASON CT Reason: fall TECHNIQUE: Axial computed tomography images of the head/brain without intravenous contrast. CTDI is 45.2 mGy and DLP is 1090 mGy-cm. This CT exam was performed using one or more of the following dose reduction techniques: automated exposure control, adjustment of the mA and/or kV according to patient size, and/or use of iterative reconstruction technique. COMPARISON: No relevant prior studies available. FINDINGS: Brain: No hemorrhage or mass effect. Ventricles: No hydrocephalus. Bones/joints: Unremarkable. Soft tissues: Unremarkable. Sinuses: No air fluid level. Mastoid air cells: Clear. IMPRESSION: No acute hemorrhage, hydrocephalus, or mass effect. EXAM: CT Cervical Spine Without Intravenous Contrast CLINICAL HISTORY: ITS.REASON CT Reason: fall TECHNIQUE: Axial computed tomography images of the cervical spine without intravenous contrast. CTDI is 13.3 mGy and DLP is 419.5 mGy-cm. This CT exam was performed using one or more of the following dose reduction techniques: automated exposure control, adjustment of the mA and/or kV according to patient size, and/or use of iterative reconstruction technique. COMPARISON: No relevant prior studies available. FINDINGS: Vertebrae: No acute fracture. Discs/spinal canal/neural foramina: degenerative changes. Soft tissues: No prevertebral swelling. IMPRESSION: No acute fracture or subluxation.
--- NOTE | 2022-11-05 05:17 | XR ---
EXAM: XR Pelvis, 1 or 2 Views CLINICAL HISTORY: ITS.REASON XR Reason: fall TECHNIQUE: Frontal view of the pelvis. COMPARISON: No relevant prior studies available. FINDINGS: Bones/joints: No acute fracture. No dislocation. Soft tissues: Unremarkable. IMPRESSION: No acute findings.
--- NOTE | 2022-11-05 05:28 | XR ---
EXAM: XR Lumbosacral Spine, 2 or 3 Views CLINICAL HISTORY: ITS.REASON XR Reason: fall TECHNIQUE: Frontal and lateral views of the lumbar spine and sacrum. COMPARISON: No relevant prior studies available. FINDINGS: Vertebrae: No acute fracture. Normal sagittal alignment. Disc spaces: degenerative changes. Soft tissues: Unremarkable. IMPRESSION: No acute findings.
--- NOTE | 2022-11-05 05:29 | XR ---
EXAM: XR Right Shoulder Complete, 2 or More Views CLINICAL HISTORY: ITS.REASON XR Reason: fall TECHNIQUE: Two or more views of the right shoulder. COMPARISON: No relevant prior studies available. FINDINGS: Bones/joints: No acute fracture. No dislocation. Mild AC joint osteoarthrosis Soft tissues: Unremarkable. IMPRESSION: No acute osseous abnormalities.
--- NOTE | 2022-11-05 05:29 | XR ---
EXAM: XR Chest, 1 View CLINICAL HISTORY: [email or web address].REASON XR Reason: fall TECHNIQUE: Frontal view of the chest. COMPARISON: No relevant prior studies available. FINDINGS: Lungs: No consolidation or mass. Pleural space: No acute findings Heart: cardiomegaly. Prominent pulmonary arteries. Bones/joints: No acute findings. IMPRESSION: No acute cardiopulmonary process.
[2022-11-05 05:39] VITALS: BP 106/70; PULSE 74
== END 2022-11-05 06:20 | disposition home or self-care (01) ==
LOC: EC 02:23
DX: M54.50 Low back pain, unspecified (principal); E11.9 Type 2 diabetes mellitus without complications; I10 Essential (primary) hypertension; E78.5 Hyperlipidemia, unspecified; Z79.82 Long term (current) use of aspirin; Z79.84 Long term (current) use of oral hypoglycemic drugs; Z79.899 Other long term (current) drug therapy; Z88.5 Allergy status to narcotic agent; Z88.8 Allergy status to other drugs, medicaments and biological substances; W19.XXXA Unspecified fall, initial encounter
CPT/HCPCS: 36415; 80053; 85025; 85610; 85730; 72100; 72170; 73020; 71045; 72125; 70450; 99284; 96374; 96361; J3010

== ENCOUNTER 2022-11-07 11:03 | Emergency (ER) | payer MEDICARE ==
[2022-11-07 11:23] VITALS: RESP 16
[2022-11-07] MEDS ORDERED: SODIUM CHLORIDE 0.9% 1,000 ML IV ONE (11:56)
[2022-11-07 12:13] LABS: Basophils % (A) 0 %; Eosinophils # (A) 0.3 k/uL (0-0.7); Eosinophils % (A) 5 %; HCT 39.1 % (34.0-46.0); HGB 12.9 gm/dL (11.4-16.0); Lymphocytes # (A) 0.6 k/uL (1.0-4.8); Lymphocytes % (A) 10 %; MCH 30.5 pg (25.0-35.0); MCHC 32.9 g/dL (31.0-37.0); MCV 92.9 fL (80.0-100.0); Mean Platelet Volume 7.4; Monocytes # (A) 0.3 k/uL (0-1.0); Monocytes % (A) 6 %; Neutrophils # (A) 4.4 k/uL (1.3-7.7); Neutrophils % (A) 78 %; Platelet Count 257 k/uL (150-450); RBC 4.21 m/uL (3.80-5.40); RDW 13.8 % (11.5-15.5); WBC 5.7 k/uL (3.8-10.6)
--- NOTE | 2022-11-07 12:21 | ED ---
Altered Mental Status HPI - General Chief Complaint: Altered Mental Status Stated Complaint: AMS Time Seen by Provider: 11/07/22 11:27 Source: EMS Mode of arrival: EMS Limitations: no limitations - History of Present Illness Initial Comments: 82-year-old female presents emergency Department with altered mental status. at bedside provides the history. Patient has chronic pain issues with her lumbar spine. Recently the patient was placed on [place] through her primary care office. She originally started taking one tablet every 6 hours. This is how the prescription is written however is adamant that the patient was increased to 2 tablets every 6 hours. He began giving her this amount of medication at 6 PM last night the morning the patient was confused. EMS went to the house and found the patient to have oxygen saturations of 87%. She was very slow to answer questions however was alert and oriented 3 and able to follow co mmands. states that she did fall on Saturday and hit her head. She is not on blood thinner. She denies any neck pain. No fevers. No sick contacts. No unilateral weakness. No other alleviating, precipitating or modifying - Related Data Home Medications Medication Instructions Recorded Confirmed Atorvastatin [Lipitor] 40 mg PO HS 01/08/21 11/09/22 Calcium Carbonate/Vitamin D3 1 cap PO HS 01/08/21 11/09/22 [Calcium 600 mg-D3 10 Mcg (400 Iu)] Cholecalciferol [Vitamin D3 (25 25 mcg PO DAILY 01/08/21 11/09/22 Mcg = 1000 Iu)] Levothyroxine Sodium 125 mcg PO DAILY 01/08/21 11/09/22 Metoprolol Succinate (ER) [Toprol 100 mg PO BID@1200,2200 01/08/21 11/09/22 XL] Milk Thistle 150 mg PO DAILY 01/08/21 11/09/22 Mirabegron [Myrbetriq] 50 mg PO HS@2200 01/08/21 11/09/22 Omeprazole 20 mg PO DAILY 01/08/21 11/09/22 Pioglitazone [Actos] 30 mg PO HS 01/08/21 11/09/22 Quinapril HCl 40 mg PO DAILY 01/08/21 11/09/22 Repaglinide 1 mg PO AC-SUPPER 01/08/21 11/09/22 Vitamin C/Biotin [Hair, Skin and 1 tab PO DAILY 01/08/21 11/09/22 Nails Chew] amLODIPine [Norvasc] 5 mg PO DAILY 01/08/21 11/09/22 diphenhydrAMINE HCL [Benadryl] 25 mg PO HS@2200 01/08/21 11/09/22 sitaGLIPtin PHOSPHATE [Januvia] 50 mg PO DAILY 01/08/21 11/09/22 Aspirin EC [Ecotrin Low Dose] 81 mg PO W/BRKFST 10/10/22 11/09/22 Glimepiride [Amaryl] 4 mg PO BID-W/MEALS 10/10/22 11/09/22 Mv-Mn/Om3/Dha/Epa/Fish/Lut/Kleber 1 cap PO DAILY@1200 10/10/22 11/09/22 [Ocuvite Adult 50 Plus Softgel] Vitamin A 2,400 mcg PO HS 10/10/22 11/09/22 HYDROcodone/APAP 5-325MG [[place] 1 tab PO Q8H PRN 11/07/22 11/09/22 5-325] Metformin (Unknown Dose) 1 dose PO DIRECTED 11/09/22 11/09/22 Allergies Allergy/AdvReac Type Severity Reaction Status Date / Time alendronate sodium AdvReac Nausea Verified 11/09/22 20:41 [From Fosamax] codeine AdvReac Nausea Verified 11/09/22 20:41 solifenacin AdvReac Nausea Verified 11/09/22 20:41 Review of Systems ROS Statement: Those systems with pertinent positive or pertinent negative responses have been documented in the HPI. ROS Other: All systems not noted in ROS Statement are negative. Past Medical History Past Medical History: Diabetes Mellitus, Hyperlipidemia, Hypertension Additional Past Medical History / Comment(s): chronic back pain History of Any Multi-Drug Resistant Organisms: None Reported Additional Past Surgical History / Comment(s): bladder suspension Past Anesthesia/Blood Transfusion Reactions: No Reported Reaction Additional Past Anesthesia/Blood Transfusion Reaction / Comment(s): spouse states "needs to have a larger dose of anesthesia because her body blocks it" Past Psychological History: No Psychological Hx Reported Smoking Status: Never smoker Past Alcohol Use History: None Reported Past Drug Use History: None Reported - Past Family History Mother Family Medical History: Myocardial Infarction (MD) Father Additional Family Medical History / Comment(s): cerebral hemmorage possible aneursym unk General Exam Limitations: no limitations Course Vital Signs 11/07/22 11/07/22 11:16 15:37 Temperature 98.1 F 98.2 F Pulse Rate 79 72 Respiratory 16 16 Rate Blood Pressure 137/79 111/64 O2 Sat by Pulse 93 L 93 L Oximetry Medical Decision Making - Medical Decision Making Was pt. sent in by a medical professional or institution (, [facility], [employer]OC[employer]ATE [employer], urgent care, hospital, or [facility]...) When possible be specific @ -No Did you speak to anyone other than the patient for history (EMS, parent, family, police, friend...)? What history was obtained from this source @ - provides all of the history Did you review nursing and triage notes (agree or disagree)? Why? @ -I reviewed and agree with nursing and triage notes Were old charts reviewed (outside hosp., previous admission, EMS record, old EKG, old radiological studies, urgent care reports/EKG's, [facility] records)? Report findings @ -old charts were reviewed - reviewed pain management consult from anesthesia Differential Diagnosis (chest pain, altered mental status, abdominal pain women, abdominal pain men, vaginal bleeding, weakness, fever, dyspnea, syncope, headache, dizziness, GI bleed, back pain, seizure, CVA, palpatations, mental health, musculoskeletal)? @ -lumbar stenosis, cva, drug missue, fall, concussion, sdh EKG interpreted by me (3pts min.). @ -yes X-rays interpreted by me (1pt min.). @ -yes CT interpreted by me (1pt min.). @ -yes U/S interpreted by me (1pt. min.). @ -None done What testing was considered but not performed or refused? (CT, X-rays, U/S, labs)? Why? @ -None What meds were considered but not given or refused? Why? @ -None Did you discuss the management of the patient with other professionals (professionals i.e. HERMES Callahan, [employer], lab, RT, psych nurse, certified social workers in health care, open developer operator, teacher, control systems drafting officer, outsole caser)? Give summary @ -Yes, Dr. Solorzano because I felt the patient should be admitted. The patient and her refused admission Was smoking cessation discussed for >3mins.? @ -No Was critical care preformed (if so, how long)? @ -No Were there social determinants of health that impacted care today? How? (Homelessness, low income, unemployed, alcoholism, drug addiction, transportation, low edu. Level, literacy, decrease access to med. care, fci, rehab)? @ -No Was there de-escalation of care discussed even if they declined (Discuss DNR or withdrawal of care, Hospice)? DNR status @ -No What co-morbidities impacted this encounter? (DM, HTN, Smoking, COPD, CAD, Cancer, CVA, ARF, Chemo, Hep., AIDS, mental health diagnosis, sleep apnea, morbid obesity)? @ -Chronic lumbar back pain Was patient admitted / discharged? Hospital course, mention meds given and route, prescriptions, significant lab abnormalities, going to OR and other pertinent info. @ -Upon arrival patient is placed into room 15. A thorough history and physical exam is performed. IV access is established laboratory says her conducted. Patient is placed on supplemental oxygen area and laboratory studies are reviewed. A CT of the brain demonstrates no acute process. Chest and pelvic x-ray also performed because of the fall without issue. Patient is reevaluated and much more weak in the room. Did recommend admission however patient adamant that she wants to go home and adjust her medications. Informed her that the medications are too strong at the current dose of they're giving. Recommend going back down to 1 tablet every 6 hours. Follow-up with primary care doctor. Should she be agreeable to hospital admission she should return to the hospital. Patient was agreeable to this discharge stable condition Undiagnosed new problem with uncertain prognosis? @ -yes Drug Therapy requiring intensive monitoring for toxicity (Heparin, Nitro, Insulin, Cardizem)? @ -No Were any procedures done? @ -No Diagnosis/symptom? @ -acute encephalopathy, acute opiate drug unintentional overdose, chronic lumbar back pain Acute, or Chronic, or Acute on Chronic? @ -acute Uncomplicated (without systemic symptoms) or Complicated (systemic symptoms)? @ -complicated Side effects of treatment? @ -Sedation from too much opiate pain medication Exacerbation, Progression, or Severe Exacerbation? @ -No Poses a threat to life or bodily function? How? (Chest pain, USA, MD, pneumonia, PE, COPD, DKA, ARF, appy, cholecystitis, CVA, Diverticulitis, Homicidal, Suic idal, threat to staff... and all critical care pts) @ -Yes - Lab Data Result diagrams: 11/07/22 11:59 11/07/22 11:59 Lab Results 11/07/22 11/07/22 11/07/22 Range/Units 11:59 11:59 11:59 WBC 5.7 (3.8-10.6) k/uL RBC 4.21 (3.80-5.40) m/uL Hgb 12.9 (11.4-16.0) gm/dL Hct 39.1 (34.0-46.0) % MCV 92.9 (80.0-100.0) fL MCH 30.5 (25.0-35.0) pg MCHC 32.9 (31.0-37.0) g/dL RDW 13.8 (11.5-15.5) % Plt Count 257 (150-450) k/uL MPV 7.4 Neutrophils % 78 % Lymphocytes % 10 % Monocytes % 6 % Eosinophils % 5 % Basophils % 0 % Neutrophils # 4.4 (1.3-7.7) k/uL Lymphocytes # 0.6 L (1.0-4.8) k/uL Monocytes # 0.3 (0-1.0) k/uL Eosinophils # 0.3 (0-0.7) k/uL Basophils # 0.0 (0-0.2) k/uL PT 10.5 (9.0-12.0) sec INR 1.0 (<1.2) APTT 23.0 (22.0-30.0) sec VBG pH (7.31-7.41) VBG pCO2 (37-51) mmHg VBG HCO3 (24-28) mmol/L Sodium 142 (137-145) mmol/L Potassium 3.9 (3.5-5.1) mmol/L Chloride 109 H (98-107) mmol/L Carbon Dioxide 26 (22-30) mmol/L Anion Gap 7 mmol/L BUN 21 H (7-17) mg/dL Creatinine 0.86 (0.52-1.04) mg/dL Est GFR (CKD-EPI)AfAm 74 (>60 ml/min/1.73 sqM) Est GFR (CKD-EPI)NonAf 65 (>60 ml/min/1.73 sqM) Glucose 107 H (74-99) mg/dL Plasma Lactic Acid Jose Manuel (0.7-2.0) mmol/L Calcium 8.9 (8.4-10.2) mg/dL Total Bilirubin 0.7 (0.2-1.3) mg/dL AST 33 (14-36) U/L ALT 25 (4-34) U/L Alkaline Phosphatase 111 (38-126) U/L Ammonia (<30) umol/L Creatine Kinase 51 (30-135) U/L Troponin I (0.000-0.034) ng/mL NT-Pro-B Natriuret Pep pg/mL Total Protein 6.0 L (6.3-8.2) g/dL Albumin 3.1 L (3.5-5.0) g/dL Serum Alcohol <10 mg/dL 11/07/22 11/07/22 11/07/22 Range/Units 11:59 11:59 12:06 WBC (3.8-10.6) k/uL RBC (3.80-5.40) m/uL Hgb (11.4-16.0) gm/dL Hct (34.0-46.0) % MCV (80.0-100.0) fL MCH (25.0-35.0) pg MCHC (31.0-37.0) g/dL RDW (11.5-15.5) % Plt Count (150-450) k/uL MPV Neutrophils % % Lymphocytes % % Monocytes % % Eosinophils % % Basophils % % Neutrophils # (1.3-7.7) k/uL Lymphocytes # (1.0-4.8) k/uL Monocytes # (0-1.0) k/uL Eosinophils # (0-0.7) k/uL Basophils # (0-0.2) k/uL PT (9.0-12.0) sec INR (<1.2) APTT (22.0-30.0) sec VBG pH 7.35 (7.31-7.41) VBG pCO2 45 (37-51) mmHg VBG HCO3 24 (24-28) mmol/L Sodium (137-145) mmol/L Potassium (3.5-5.1) mmol/L Chloride (98-107) mmol/L Carbon Dioxide (22-30) mmol/L Anion Gap mmol/L BUN (7-17) mg/dL Creatinine (0.52-1.04) mg/dL Est GFR (CKD-EPI)AfAm (>60 ml/min/1.73 sqM) Est GFR (CKD-EPI)NonAf (>60 ml/min/1.73 sqM) Glucose (74-99) mg/dL Plasma Lactic Acid Jose Manuel 0.9 (0.7-2.0) mmol/L Calcium (8.4-10.2) mg/dL Total Bilirubin (0.2-1.3) mg/dL AST (14-36) U/L ALT (4-34) U/L Alkaline Phosphatase (38-126) U/L Ammonia <9 (<30) umol/L Creatine Kinase (30-135) U/L Troponin I <0.012 (0.000-0.034) ng/mL NT-Pro-B Natriuret Pep pg/mL Total Protein (6.3-8.2) g/dL Albumin (3.5-5.0) g/dL Serum Alcohol mg/dL 11/07/22 Range/Units 14:23 WBC (3.8-10.6) k/uL RBC (3.80-5.40) m/uL Hgb (11.4-16.0) gm/dL Hct (34.0-46.0) % MCV (80.0-100.0) fL MCH (25.0-35.0) pg MCHC (31.0-37.0) g/dL RDW (11.5-15.5) % Plt Count (150-450) k/uL MPV Neutrophils % % Lymphocytes % % Monocytes % % Eosinophils % % Basophils % % Neutrophils # (1.3-7.7) k/uL Lymphocytes # (1.0-4.8) k/uL Monocytes # (0-1.0) k/uL Eosinophils # (0-0.7) k/uL Basophils # (0-0.2) k/uL PT (9.0-12.0) sec INR (<1.2) APTT (22.0-30.0) sec VBG pH (7.31-7.41) VBG pCO2 (37-51) mmHg VBG HCO3 (24-28) mmol/L Sodium (137-145) mmol/L Potassium (3.5-5.1) mmol/L Chloride (98-107) mmol/L Carbon Dioxide (22-30) mmol/L Anion Gap mmol/L BUN (7-17) mg/dL Creatinine (0.52-1.04) mg/dL Est GFR (CKD-EPI)AfAm (>60 ml/min/1.73 sqM) Est GFR (CKD-EPI)NonAf (>60 ml/min/1.73 sqM) Glucose (74-99) mg/dL Plasma Lactic Acid Jose Manuel (0.7-2.0) mmol/L Calcium (8.4-10.2) mg/dL Total Bilirubin (0.2-1.3) mg/dL AST (14-36) U/L ALT (4-34) U/L Alkaline Phosphatase (38-126) U/L Ammonia (<30) umol/L Creatine Kinase (30-135) U/L Troponin I (0.000-0.034) ng/mL NT-Pro-B Natriuret Pep 524 pg/mL Total Protein (6.3-8.2) g/dL Albumin (3.5-5.0) g/dL Serum Alcohol mg/dL - EKG Data EKG Comments: EKG demonstrates sinus rhythm with a rate of 80. [place] interval 183. QRS 83. QTC of 429. There is a PVC. No acute ST segment elevations or depressions Disposition Clinical Impression: Opiate overdose, Hypoxia, Back pain Disposition: HOME SELF-CARE Condition: Stable Instructions (If sedation given, give patient instructions): Back Pain (ED) Additional Instructions: The medications that you have been taking are too strong. You should take one [place] every 6 hours and discuss with your primary care doctor the alternatives to controlling your pain. Return for any new or worsening symptoms or should you agree to hospital admission Is patient prescribed a controlled substance at d/c from ED?: No Referrals: Purvi Maldonado MD [Primary Care Provider] - 1-2 days Time of Disposition: 14:50
[2022-11-07 12:24] LABS: ALT 25 U/L (4-34); AST 33 U/L (14-36); African American GFR (CKD) 74 (>60 ml/min/1.73 sqM); Albumin 3.1 g/dL (3.5-5.0); Alcohol <10 mg/dL; Alkaline Phosphatase 111 U/L (38-126); Anion Gap 7 mmol/L; Blood Urea Nitrogen 21 mg/dL (7-17); Calcium 8.9 mg/dL (8.4-10.2); Carbon Dioxide 26 mmol/L (22-30); Chloride 109 mmol/L (98-107); Creatine Kinase 51 U/L (30-135); Glucose 107 mg/dL (74-99); Non-African American GFR(CKD) 65 (>60 ml/min/1.73 sqM); Potassium 3.9 mmol/L (3.5-5.1); Sodium 142 mmol/L (137-145); Total Bilirubin 0.7 mg/dL (0.2-1.3)
[2022-11-07 12:25] LABS: Lactic Acid, Venous 0.9 mmol/L (0.7-2.0)
[2022-11-07 12:25] LABS: VBG PH 7.35 (7.31-7.41)
[2022-11-07 12:37] LABS: Prothrombin Time 10.5 sec (9.0-12.0)
--- NOTE | 2022-11-07 12:47 | XR ---
EXAMINATION TYPE: XR pelvis AP view DATE OF EXAM: 11/07/2022 12:41 PM INDICATION: Patient age:Female; 82 years old; Reason for study: fall, pain; PHH. COMPARISON: Pelvic radiograph 11/05/2022 TECHNIQUE: The pelvis was examined in a single projection. FINDINGS: There is no evidence of fracture or dislocation. There is no soft tissue abnormality. Mild osteoarthritic changes in both hips. No abnormal calcifications are present. Multilevel degenerative changes of the lower spine. IMPRESSION: No acute osseous pathology.
--- NOTE | 2022-11-07 12:49 | XR ---
EXAMINATION TYPE: XR chest 2V DATE OF EXAM: 11/07/2022 12:41 PM COMPARISON: Chest radiographs from 11/05/2022 TECHNIQUE: XR chest 2V Frontal and lateral views of the chest. CLINICAL INDICATION:Female, 82 years old with history of altered mental status; FINDINGS: Lungs/Pleura: There is no evidence of pleural effusion, focal consolidation, or pneumothorax. Pulmonary vascularity: Prominent interstitial lung markings redemonstrated. Heart/mediastinum: Cardiomediastinal silhouette is stable. Atherosclerotic calcifications are seen in the aorta. Musculoskeletal: No acute osseous pathology. IMPRESSION: No radiographic evidence of an acute process.
--- NOTE | 2022-11-07 12:56 | CT ---
EXAMINATION TYPE: CT brain cspine wo con CT DLP: 1456.9 mGycm, Automated exposure control for dose reduction was used. DATE OF EXAM: 11/07/2022 12:35 PM COMPARISON: 11/05/2022 CLINICAL INDICATION:Female, 82 years old with history of ams since fall; Fall, altered mental status TECHNIQUE: Brain: Multiple axial CT images of the brain were obtained without IV contrast. Cspine: Axial CT images from the skull base to the inferior aspect of T2 we obtained without intraven ous contrast. Coronal and sagittal reformatted images were also reviewed. FINDINGS: Brain: Extra-axial spaces: No abnormal extra-axial fluid collections. Ventricular system: Dilatation in proportion to cerebral atrophy. Cerebral parenchyma: No acute intraparenchymal hemorrhage or mass effect. The biggs-white junction is well differentiated. Scattered hypoattenuating areas are seen within the white matter. Cerebellum: Unremarkable. Mass effect: No evidence of midline shift. Intracranial vasculature: Atherosclerotic calcifications of the intracranial vessels. Soft tissues: Normal. Calvarium/osseous structures: No depressed skull fracture. Paranasal sinuses and mastoid air cells: Clear. Visualized orbits: Orbital contents are intact. Cervical spine: Fracture: None. Osseous structures: Multilevel degenerative disc disease changes with endplate spurring and disc oste ophyte complex's. Nuchal ligament calcifications are present. Vertebral alignment: Within normal limits. Spinal canal/Neural Foramina: Disc osteophyte complexes at C4-C5, C5-C6 and C6-C7 with at least mild spinal canal stenosis and varying degrees of neural foraminal stenosis worse at C4-C5 bilaterally.. N o evidence for significant neural foraminal stenosis. Neck soft tissues: Prevertebral soft tissues are within normal limits. Other: The airway is patent. Pulmonary vascular congestion with thickening of interlobular septa. IMP RESSION: 1. No acute intracranial process. 2. Nonspecific white matter changes, likely secondary to chronic small vessel ischemic disease. 3. No evidence of cervical spine fracture. 4. Mild to moderate multilevel degenerative disc disease. 5. Pulmonary vascular congestion correlate for congestive heart failure.
[2022-11-07] MEDS ORDERED: ONDANSETRON 4 MG/2 ML VIAL IVP STA (13:53)
[2022-11-07 15:39] VITALS: BP 111/64; PULSE 72; TEMP 98.2
== END 2022-11-07 15:39 | disposition home or self-care (01) ==
LOC: EC 11:03
DX: T40.601A Poisoning by unspecified narcotics, accidental (unintentional), initial encounter (principal); R09.02 Hypoxemia; M54.9 Dorsalgia, unspecified; M48.02 Spinal stenosis, cervical region; E11.9 Type 2 diabetes mellitus without complications; E78.5 Hyperlipidemia, unspecified; I10 Essential (primary) hypertension; Z79.84 Long term (current) use of oral hypoglycemic drugs; Z79.899 Other long term (current) drug therapy; Z79.82 Long term (current) use of aspirin; Z88.5 Allergy status to narcotic agent; Z88.8 Allergy status to other drugs, medicaments and biological substances
CPT/HCPCS: 36415; 93005; 83880; 80053; 82140; 82550; 82803; 83605; 84484; 85025; 85610; 85730; 72170; 71046; 72125; 70450; 99285; 96374; 96361 ×3; G0480; J2405; 80320

== ENCOUNTER 2022-11-09 16:46 | Inpatient (IN) | payer MEDICARE ==
[2022-11-09] MEDS ORDERED: fentaNYL (PF) 50 MCG/ML 2 ML AMP IVP STA (17:58)
[2022-11-09 18:15] LABS: Glucose,Whole Blood 89 mg/dL (70-110)
[2022-11-09] MEDS ORDERED: SODIUM CHLORIDE 0.9% 1,000 ML IV SCH (18:15)
[2022-11-09 18:23] LABS: Basophils % (A) 1 %; Eosinophils # (A) 0.2 k/uL (0-0.7); Eosinophils % (A) 3 %; HCT 37.8 % (34.0-46.0); HGB 12.6 gm/dL (11.4-16.0); Lymphocytes # (A) 0.8 k/uL (1.0-4.8); Lymphocytes % (A) 12 %; MCHC 33.3 g/dL (31.0-37.0); MCV 93.2 fL (80.0-100.0); Mean Platelet Volume 7.5; Monocytes # (A) 0.4 k/uL (0-1.0); Monocytes % (A) 5 %; Neutrophils # (A) 5.3 k/uL (1.3-7.7); Neutrophils % (A) 77 %; Platelet Count 247 k/uL (150-450); RBC 4.06 m/uL (3.80-5.40); WBC 6.9 k/uL (3.8-10.6)
[2022-11-09 18:51] LABS: Albumin 2.9 g/dL (3.5-5.0); Calcium 8.3 mg/dL (8.4-10.2); Magnesium 1.6 mg/dL (1.6-2.3); Partial Thromboplastin Time 21.9 sec (22.0-30.0); Potassium 3.6 mmol/L (3.5-5.1); Total Bilirubin 0.6 mg/dL (0.2-1.3); Total Protein 5.8 g/dL (6.3-8.2)
--- NOTE | 2022-11-09 19:04 | CT ---
EXAMINATION TYPE: CT abdomen pelvis wo con, CT lumbar spine wo con CT DLP: 734.8 mGycm, Automated exposure control for dose reduction was used. DATE OF EXAM: 11/09/2022 6:48 PM COMPARISON: CT abdomen pelvis most recent from 01/08/2021. CLINICAL INDICATION:Female, 82 years old with history of pain; incontinence (accession [id number]), Demetris n management has not been working for lower back pain (accession [id number]) TECHNIQUE: Axial CT of the abdomen and pelvis. Sagittal and coronal reformats were created on a [employer] workstation. Axial imaging of the lumbar spine with sagittal coronal reformats. Contrast used: None Oral contrast used: without Oral Contrast FINDINGS: LOWER CHEST: Trace bilateral pleural effusions. There is associated subsegmental atelectasis. Mitral valve annular calcifications. Coronary artery cusp patient's are present. ABDOMEN LIVER: Hepatic cyst present. GALLBLADDER AND BILE DUCTS: Hydropic gallbladder measuring up to 12.3 x 5.9 cm. No fat stranding or p ericholecystic fluid. No cholelithiasis visualized. PANCREAS: Unremarkable. SPLEEN: Unremarkable. ADRENAL GLANDS: Unremarkable. KIDNEYS AND URETERS: Bilateral renal calculi measuring up to 7 mm on the right and 9 mm on the left. No obstructive uropathy. PELVIS BLADDER: Suboptimally evaluated due to underdistention REPRODUCTIVE: Unremarkable. STOMACH AND BOWEL: No evidence of bowel obstruction. Appendix is normal. Scattered colonic diverticul a. PERITONEUM/RETROPERITONEUM: No evidence of pneumoperitoneum or free fluid. VASCULATURE: Pelvic phleboliths are present MUSCULOSKELETAL: Visualized osseous structures are intact. Multilevel disc degeneration changes are s een throughout the spine with disc space narrowing, Schmorl's nodes, osteophytes and vacuum disc phen omenon. There is disc bulging at L3-L4 and L4-L5 with at least moderate to severe spinal canal stenos is. There is moderate neural foraminal stenosis at L4-L5 neural foraminal stenosis at L3-L4. LYMPH NODES: No gross evidence for lymphadenopathy. SOFT TISSUE/ABDOMINAL WALL: Fat-containing umbilical hernia. Fat-containing ventral wall hernia just below the umbilicus. IMPRESSION: 1. Hydropic gallbladder grossly within upper quadrant pain. Correlate for acute cholecystitis. 2. Trace bilateral pleural effusions with thickening of interlobular septa correlate with serum ellen ers for CHF. 3. Moderate disc degeneration changes with disc bulges at L3-L4 and L4-L5 with at least moderate L3- L4 and severe L4-L5 spinal canal stenosis. 4. No evidence of spinal fracture. 5. Neural foraminal stenosis worse at L3-L4 and L4-L5 with at least severe left L3-L4 neural foramin al stenosis. 6. No obstructing bilateral renal calculi.
[2022-11-09 19:10] LABS: VBG PH 7.33 (7.31-7.41)
--- NOTE | 2022-11-09 20:07 | ED ---
General Adult HPI - General Chief complaint: Back Pain/Injury Stated complaint: Nausea, back pain Time Seen by Provider: 11/09/22 17:00 Source: patient Mode of arrival: ambulatory Limitations: no limitations - History of Present Illness Initial comments: 82-year-old female with chronic back pain presents to the emergency department reporting uncontrolled back pain. She was seen in the emergency department 2 days ago for similar complaints. Her primary care doctor had placed her on Tracy. Resting was getting her 2 tablets every 6 hours which made her very somnolent. He brought her in for confusion and altered mental status. Workup was performed without any acute findings. Recommended that the patient be admitted for a different pain control treatment plan. The and patient refused. She wanted to go home. They did discuss the treatments with the primary care physician who placed the patient on oxycodone. She has been taking 5 mg every 8 hours and they stated the pain has not been helping. The patient continues to have left-sided back pain with some weakness in her left lower extremity. This weakness has been chronic. She denies any fevers. Did have 1 episode of urinary incontinence. She also admits to some constipation since she started the pain medications. No nausea or vomiting. She has had previous relationships with Dr. Galvez and Dr. Khalil. states that he did not like the interaction with them and is requesting evaluation by a new treatment team. The patient denies any numbness or tingling in her lower extremities. She is wheelchair-bound at this time. No new falls. No other alleviating, precipitating or modifying factors - Related Data Home Medications Medication Instructions Recorded Confirmed Atorvastatin [Lipitor] 40 mg PO HS 01/08/21 11/09/22 Calcium Carbonate/Vitamin D3 1 cap PO HS 01/08/21 11/09/22 [Calcium 600 mg-D3 10 Mcg (400 Iu)] Cholecalciferol [Vitamin D3 (25 25 mcg PO DAILY 01/08/21 11/09/22 Mcg = 1000 Iu)] Levothyroxine Sodium 125 mcg PO DAILY 01/08/21 11/09/22 Metoprolol Succinate (ER) [Toprol 100 mg PO BID@1200,2200 01/08/21 11/09/22 XL] Milk Thistle 150 mg PO DAILY 01/08/21 11/09/22 Mirabegron [Myrbetriq] 50 mg PO HS@2200 01/08/21 11/09/22 Omeprazole 20 mg PO DAILY 01/08/21 11/09/22 Pioglitazone [Actos] 30 mg PO HS 01/08/21 11/09/22 Quinapril HCl 40 mg PO DAILY 01/08/21 11/09/22 Repaglinide 1 mg PO AC-SUPPER 01/08/21 11/09/22 Vitamin C/Biotin [Hair, Skin and 1 tab PO DAILY 01/08/21 11/09/22 Nails Chew] amLODIPine [Norvasc] 5 mg PO DAILY 01/08/21 11/09/22 diphenhydrAMINE HCL [Benadryl] 25 mg PO HS@2200 01/08/21 11/09/22 sitaGLIPtin PHOSPHATE [Januvia] 50 mg PO DAILY 01/08/21 11/09/22 Aspirin EC [Ecotrin Low Dose] 81 mg PO W/BRKFST 10/10/22 11/09/22 Glimepiride [Amaryl] 4 mg PO BID-W/MEALS 10/10/22 11/09/22 Mv-Mn/Om3/Dha/Epa/Fish/Lut/Kleber 1 cap PO DAILY@1200 10/10/22 11/09/22 [Ocuvite Adult 50 Plus Softgel] Vitamin A 2,400 mcg PO HS 10/10/22 11/09/22 HYDROcodone/APAP 5-325MG [Tracy 1 tab PO Q8H PRN 11/07/22 11/09/22 5-325] Metformin (Unknown Dose) 1 dose PO DIRECTED 11/09/22 11/09/22 Allergies Allergy/AdvReac Type Severity Reaction Status Date / Time alendronate sodium AdvReac Nausea Verified 11/09/22 20:41 [From Fosamax] codeine AdvReac Nausea Verified 11/09/22 20:41 solifenacin AdvReac Nausea Verified 11/09/22 20:41 Review of Systems ROS Statement: Those systems with pertinent positive or pertinent negative responses have been documented in the HPI. ROS Other: All systems not noted in ROS Statement are negative. Past Medical History Past Medical History: Diabetes Mellitus, Hyperlipidemia, Hypertension Additional Past Medical History / Comment(s): chronic back pain History of Any Multi-Drug Resistant Organisms: None Reported Additional Past Surgical History / Comment(s): bladder suspension Past Anesthesia/Blood Transfusion Reactions: No Reported Reaction Additional Past Anesthesia/Blood Transfusion Reaction / Comment(s): spouse states "needs to have a larger dose of anesthesia because her body blocks it" Past Psychological History: No Psychological Hx Reported Smoking Status: Never smoker Past Alcohol Use History: None Reported Past Drug Use History: None Reported - Past Family History Mother Family Medical History: Myocardial Infarction (CT) Father Additional Family Medical History / Comment(s): cerebral hemmorage possible aneursym unk General Exam Limitations: altered mental status General appearance: lethargic Head exam: Present: atraumatic, normocephalic, normal inspection Pupils: Present: miosis Neck exam: Present: normal inspection. Absent: tenderness, meningismus, lymphadenopathy Respiratory exam: Present: normal lung sounds bilaterally. Absent: respiratory distress, wheezes, rales, rhonchi, stridor Cardiovascular Exam: Present: regular rate, normal rhythm, normal heart sounds. Absent: systolic murmur, diastolic murmur, rubs, gallop, clicks GI/Abdominal exam: Present: soft, normal bowel sounds. Absent: distended, tenderness, guarding, rebound, rigid Extremities exam: Present: other (3/5 strength rle, 4/5 strength lle) Back exam: Present: tenderness (right sided paralumbar pain) Neurological exam: Present: altered, other (sedated) Psychiatric exam: Present: flat affect Skin exam: Present: warm, dry, intact, normal color. Absent: rash Course Vital Signs 11/09/22 11/09/22 11/09/22 16:50 18:11 18:51 Temperature 98.1 F Pulse Rate 65 44 L 90 Respiratory 18 18 18 Rate Blood Pressure 128/108 131/64 117/66 O2 Sat by Pulse 85 L 94 L 92 L Oximetry 11/09/22 21:15 Temperature Pulse Rate 76 Respiratory 20 Rate Blood Pressure 117/85 O2 Sat by Pulse 96 Oximetry - Reevaluation(s) Reevaluation #1: Spoke with Andrade Lugo - agreeable to consult on patient. Will order an MRI 11/09/22 20:13 EKG Findings - EKG Comments: EKG Findings:: EKG demonstrates sinus rhythm with a rate of 89. Bigeminy pattern. OH interval 175. QRS 95. QTC of 452. No acute ST segment elevations or depressions Medical Decision Making - Medical Decision Making Was pt. sent in by a medical professional or institution (HERMES Callahan, AUDIO/VISUAL MANAGER, urgent care, hospital, or fpc...) When possible be specific @ -No Did you speak to anyone other than the patient for history (EMS, parent, family, police, friend...)? What history was obtained from this source @ -Patients provides details as patient is extremely confused Did you review nursing and triage notes (agree or disagree)? Why? @ -I reviewed and agree with nursing and triage notes Were old charts reviewed (outside hosp., previous admission, EMS record, old EKG, old radiological studies, urgent care reports/EKG's, fpc records)? Report findings @ -old charts were reviewed - patient here 2 days ago for same complaint Differential Diagnosis (chest pain, altered mental status, abdominal pain women, abdominal pain men, vaginal bleeding, weakness, fever, dyspnea, syncope, headache, dizziness, GI bleed, back pain, seizure, CVA, palpatations, mental health, musculoskeletal)? @ -sciatica, lumbar radiculopathy, compression fracture, medication side effect EKG interpreted by me (3pts min.). @ -yes X-rays interpreted by me (1pt min.). @ -no CT interpreted by me (1pt min.). @ -yes U/S interpreted by me (1pt. min.). @ -None done What testing was considered but not performed or refused? (CT, X-rays, U/S, labs)? Why? @ -None What meds were considered but not given or refused? Why? @ -None Did you discuss the management of the patient with other professionals (professionals i.e. HERMES Callahan, AUDIO/VISUAL MANAGER, lab, RT, psych nurse, social media marketer, tracer bullet charging machine operator, t eacher, small business banking officer, high risk case manager)? Give summary @ -andrade Triana Was smoking cessation discussed for >3mins.? @ -No Was critical care preformed (if so, how long)? @ -No Were there social determinants of health that impacted care today? How? (Homelessness, low income, unemployed, alcoholism, drug addiction, transportation, low edu. Level, literacy, decrease access to med. care, nursing home, rehab)? @ -No Was there de-escalation of care discussed even if they declined (Discuss DNR or withdrawal of care, Hospice)? DNR status @ -No What co-morbidities impacted this encounter? (DM, HTN, Smoking, COPD, CAD, Cancer, CVA, ARF, Chemo, Hep., AIDS, mental health diagnosis, sleep apnea, morbid obesity)? @ -chronic lumbar back pain Was patient admitted / discharged? Hospital course, mention meds given and route, prescriptions, significant lab abnormalities, going to OR and other pertinent info. @ -Upon arrival patient is placed into room 13. A thorough history and physical exam was performed. I did review the patient's previous records from 2 days ago when she came into the emergency department. Patient is sedated in the exam room however is able to provide history and therefore Narcan is not administered at this time. She has not had any repeat imaging of her lower spine and therefore I did complete a CT which demonstrates mild pleural effusions. She does have significant disc disease in her lumbar spine. There is some findings of cholecystitis however patient has no abdominal pain. I did discuss the case with Andrade Lugo who was agreeable to be on consult for the patient. I spoke with Dr. canchola who agreed to admit the patient. I will order an MRI. Patient was agreeable to this plan and admitted to the floor in stable condition Undiagnosed new problem with uncertain prognosis? @ -No Drug Therapy requiring intensive monitoring for toxicity (Heparin, Nitro, Insul in, Cardizem)? @ -No Were any procedures done? @ -No Diagnosis/symptom? @ -acute exacerbation of chronic back pain, encephalopathy suspected secondary to opiate use Acute, or Chronic, or Acute on Chronic? @ -acute on chronic Uncomplicated (without systemic symptoms) or Complicated (systemic symptoms)? @ -complicated Side effects of treatment? @ -No Exacerbation, Progression, or Severe Exacerbation? @ -No Poses a threat to life or bodily function? How? (Chest pain, USA, CT, pneumonia, PE, COPD, DKA, ARF, appy, cholecystitis, CVA, Diverticulitis, Homicidal, Suicidal, threat to staff... and all critical care pts) @ -yes - Lab Data Result diagrams: 11/12/22 06:09 11/12/22 06:09 Lab Results 04/14/23 04/14/23 04/14/23 Range/Units 18:13 18:16 18:16 WBC 6.9 (3.8-10.6) k/uL RBC 4.06 (3.80-5.40) m/uL Hgb 12.6 (11.4-16.0) gm/dL Hct 37.8 (34.0-46.0) % MCV 93.2 (80.0-100.0) fL MCH 31.0 (25.0-35.0) pg MCHC 33.3 (31.0-37.0) g/dL RDW 14.0 (11.5-15.5) % Plt Count 247 (150-450) k/uL MPV 7.5 Neutrophils % 77 % Lymphocytes % 12 % Monocytes % 5 % Eosinophils % 3 % Basophils % 1 % Neutrophils # 5.3 (1.3-7.7) k/uL Lymphocytes # 0.8 L (1.0-4.8) k/uL Monocytes # 0.4 (0-1.0) k/uL Eosinophils # 0.2 (0-0.7) k/uL Basophils # 0.0 (0-0.2) k/uL PT 11.0 (9.0-12.0) sec INR 1.0 (<1.2) APTT 21.9 L (22.0-30.0) sec VBG pH (7.31-7.41) VBG pCO2 (37-51) mmHg VBG HCO3 (24-28) mmol/L Sodium (137-145) mmol/L Potassium (3.5-5.1) mmol/L Chloride (98-107) mmol/L Carbon Dioxide (22-30) mmol/L Anion Gap mmol/L BUN (7-17) mg/dL Creatinine (0.52-1.04) mg/dL Est GFR (CKD-EPI)AfAm (>60 ml/min/1.73 sqM) Est GFR (CKD-EPI)NonAf (>60 ml/min/1.73 sqM) Glucose (74-99) mg/dL POC Glucose (mg/dL) 89 (70-110) mg/dL POC Glu Career Orientation Teacher ID Puri, Axel Calcium (8.4-10.2) mg/dL Magnesium (1.6-2.3) mg/dL Total Bilirubin (0.2-1.3) mg/dL AST (14-36) U/L ALT (4-34) U/L Alkaline Phosphatase (38-126) U/L Troponin I (0.000-0.034) ng/mL NT-Pro-B Natriuret Pep pg/mL Total Protein (6.3-8.2) g/dL Albumin (3.5-5.0) g/dL 11/09/22 11/09/22 11/09/22 Range/Units 18:16 18:16 18:51 WBC (3.8-10.6) k/uL RBC (3.80-5.40) m/uL Hgb (11.4-16.0) gm/dL Hct (34.0-46.0) % MCV (80.0-100.0) fL MCH (25.0-35.0) pg MCHC (31.0-37.0) g/dL RDW (11.5-15.5) % Plt Count (150-450) k/uL MPV Neutrophils % % Lymphocytes % % Monocytes % % Eosinophils % % Basophils % % Neutrophils # (1.3-7.7) k/uL Lymphocytes # (1.0-4.8) k/uL Monocytes # (0-1.0) k/uL Eosinophils # (0-0.7) k/uL Basophils # (0-0.2) k/uL PT (9.0-12.0) sec INR (<1.2) APTT (22.0-30.0) sec VBG pH 7.33 (7.31-7.41) VBG pCO2 45 (37-51) mmHg VBG HCO3 23 L (24-28) mmol/L Sodium 141 (137-145) mmol/L Potassium 3.6 (3.5-5.1) mmol/L Chloride 110 H (98-107) mmol/L Carbon Dioxide 24 (22-30) mmol/L Anion Gap 7 mmol/L BUN 20 H (7-17) mg/dL Creatinine 0.82 (0.52-1.04) mg/dL Est GFR (CKD-EPI)AfAm 78 (>60 ml/min/1.73 sqM) Est GFR (CKD-EPI)NonAf 68 (>60 ml/min/1.73 sqM) Glucose 88 (74-99) mg/dL POC Glucose (mg/dL) (70-110) mg/dL POC Glu Career Orientation Teacher ID Calcium 8.3 L (8.4-10.2) mg/dL Magnesium 1.6 (1.6-2.3) mg/dL Total Bilirubin 0.6 (0.2-1.3) mg/dL AST 29 (14-36) U/L ALT 24 (4-34) U/L Alkaline Phosphatase 103 (38-126) U/L Troponin I <0.012 (0.000-0.034) ng/mL NT-Pro-B Natriuret Pep pg/mL Total Protein 5.8 L (6.3-8.2) g/dL Albumin 2.9 L (3.5-5.0) g/dL 11/09/22 Range/Units 20:09 WBC (3.8-10.6) k/uL RBC (3.80-5.40) m/uL Hgb (11.4-16.0) gm/dL Hct (34.0-46.0) % MCV (80.0-100.0) fL MCH (25.0-35.0) pg MCHC (31.0-37.0) g/dL RDW (11.5-15.5) % Plt Count (150-450) k/uL MPV Neutrophils % % Lymphocytes % % Monocytes % % Eosinophils % % Basophils % % Neutrophils # (1.3-7.7) k/uL Lymphocytes # (1.0-4.8) k/uL Monocytes # (0-1.0) k/uL Eosinophils # (0-0.7) k/uL Basophils # (0-0.2) k/uL PT (9.0-12.0) sec INR (<1.2) APTT (22.0-30.0) sec VBG pH (7.31-7.41) VBG pCO2 (37-51) mmHg VBG HCO3 (24-28) mmol/L Sodium (137-145) mmol/L Potassium (3.5-5.1) mmol/L Chloride (98-107) mmol/L Carbon Dioxide (22-30) mmol/L Anion Gap mmol/L BUN (7-17) mg/dL Creatinine (0.52-1.04) mg/dL Est GFR (CKD-EPI)AfAm (>60 ml/min/1.73 sqM) Est GFR (CKD-EPI)NonAf (>60 ml/min/1.73 sqM) Glucose (74-99) mg/dL POC Glucose (mg/dL) (70-110) mg/dL POC Glu Career Orientation Teacher ID Calcium (8.4-10.2) mg/dL Magnesium (1.6-2.3) mg/dL Total Bilirubin (0.2-1.3) mg/dL AST (14-36) U/L ALT (4-34) U/L Alkaline Phosphatase (38-126) U/L Troponin I (0.000-0.034) ng/mL NT-Pro-B Natriuret Pep 1070 pg/mL Total Protein (6.3-8.2) g/dL Albumin (3.5-5.0) g/dL Disposition Clinical Impression: Mechanical back pain, Hypoxia Disposition: ADMITTED IP TO THIS [facility] Condition: Serious Is patient prescribed a controlled substance at d/c from ED?: No Time of Disposition: 20:13 Decision to Admit Reason: Admit from EC Decision Date: 11/09/22 Decision Time: 20:13
[2022-11-09] MEDS ORDERED: DOCUSATE 100 MG CAP PO PRN (20:14)
[2022-11-09] MEDS ORDERED: MORPHINE SULFATE 4 MG/ML SYRINGE IV PRN (20:14)
[2022-11-09] MEDS ORDERED: NALOXONE 0.4 MG/ML 1 ML VIAL IV PRN (20:14)
[2022-11-09] MEDS ORDERED: FUROSEMIDE 10 MG/ML 4 ML VIAL IV STA (20:59)
[2022-11-09] MEDS: KETOROLAC 15 MG/ML 1 ML VIAL IVP PRN (21:51)
[2022-11-09] MEDS ORDERED: DEXTROSE 50% SYRINGE 50 ML IVP PRN ×2 (22:41)
[2022-11-09] MEDS ORDERED: DEXAMETHASONE SOD PHOSPHATE 10 MG/ML 1 ML VIAL IVP STA (22:42)
[2022-11-09] MEDS ORDERED: HEPARIN SODIUM,PORCINE/PF 5,000 UNIT/0.5 ML SYRINGE SQ SCH (22:45)
[2022-11-09] MEDS ORDERED: POTASSIUM CHLORIDE ER 20 MEQ TAB.ER PO STA (23:14)
[2022-11-09] MEDS ORDERED: MAGNESIUM SULFATE-D5W PMX 1 GM in DEXTROSE/WATER 1 100ML.BAG IVPB ONE (23:14)
[2022-11-09 23:26] LABS: Glucose,Whole Blood 111 mg/dL (70-110)
[2022-11-10] MEDS: ACETAMINOPHEN TAB 325 MG TAB PO PRN (00:19)
[2022-11-10] MEDS: LEVOTHYROXINE 125 MCG TAB PO SCH (06:05)
[2022-11-10] MEDS: DEXAMETHASONE SOD PHOSPHATE 4 MG/ML 1 ML VIAL IVP SCH ×3 (06:05→17:27)
[2022-11-10 06:24] LABS: Glucose,Whole Blood 173 mg/dL (70-110)
[2022-11-10] MEDS: INSULIN ASPART (NovoLOG) 100 UNIT/ML VIAL SQ SCH ×4 (06:33→20:40)
--- NOTE | 2022-11-10 08:17 | US ---
EXAMINATION TYPE: US gallbladder DATE OF EXAM: 11/10/2022 COMPARISON: CT 11/09/2022 CLINICAL INDICATION: Female, 82 years old with history of Distended Gallbladder, abnormal CT scan; Ab normal CT TECHNIQUE: Multiple sonographic images of the right upper quadrant are obtained. FINDINGS: EXAM MEASUREMENTS: Liver Length: 15.4 cm Gallbladder Wall: 0.2 cm CBD: 1.1 cm Right Kidney: 10.1 x 5.0 x 5.4 cm CREDENTIALING SPECIALIST NOTES: Pancreas: 4mm duct visualized, tail obscured by overlying bowel gas Liver: Visualized portions appeared wnl Gallbladder: Lumen clear, hydropic, wall not thickened Evidence for sonographic Kulkarni's sign: No CBD: Dilated Right Kidney: No evidence of hydro Visualized portions of the pancreas are unremarkable. The tail is obscured by overlying bowel gas. Vi sualized portions of liver unremarkable without focal lesion. Gallbladder is again hydropic without p ericholecystic fluid, wall thickening, or cholelithiasis. Per director critical care, negative sonographic Radha y sign. Dilated common bile duct demonstrated. Right kidney is unremarkable without evidence of hydro nephrosis, nephrolithiasis, or contour deforming solid mass. IMPRESSION: 1. Hydropic gallbladder without ultrasound evidence for acute cholecystitis. 2. Dilated common bile duct. Correlation with biliary labs and consideration for MRCP/ERCP is recomme nded.
[2022-11-10] MEDS: amLODIPine 5 MG TAB PO SCH (08:51)
[2022-11-10] MEDS: GLIMEPIRIDE 4 MG TAB PO SCH ×2 (08:52→17:23)
[2022-11-10] MEDS: LIDOCAINE 5% PATCH TOPICAL SCH (08:52)
[2022-11-10] MEDS: CHOLECALCIFEROL 25 MCG (1000 IU) TABLET PO SCH (08:52)
[2022-11-10] MEDS: KETOROLAC 15 MG/ML 1 ML VIAL IVP PRN ×2 (09:20→17:26)
[2022-11-10 11:20] LABS: Glucose,Whole Blood 214 mg/dL (70-110)
--- NOTE | 2022-11-10 12:20 | CA ---
Transthoracic Echo Report Name: Kathy Wayne Age: 82 Gender: F : 1940 Exam Date: 11/10/2022 10:38 Exam Location: [facility] Ht (in): 61 Wt (lb): 175 Ordering Physician: Felicity Yañez DO Attending/Referring Phys: [id number], Otilio Bio Medical Technician Sienna Mederos RDCS Procedure CPT: Indications: elevated bnp Cardiac Hx: Technical Quality: Fair Contrast 1: Total Dose (mL): Contrast 2: Total Dose (mL): MEASUREMENTS (Male / Female) Normal Values 2D ECHO LV Diastolic Diameter PLAX 4.3 cm 4.2 - 5.9 / 3.9 - 5.3 cm LV Systolic Diameter PLAX 2.4 cm IVS Diastolic Thickness 1.5 cm 0.6 - 1.0 / 0.6 - 0.9 cm LVPW Diastolic Thickness 1.1 cm 0.6 - 1.0 / 0.6 - 0.9 cm LV Relative Wall Thickness 0.6 RV Internal Dim ED PLAX 3.2 cm LA Volume 79.4 cm??? 18 - 58 / 22 - 52 cm??? M-MODE Aortic Root Diameter MM 3.4 cm LA Systolic Diameter MM 4.2 cm LA Ao Ratio MM 1.2 AV Cusp Separation MM 1.6 cm DOPPLER AV Peak Velocity 160.0 cm/s AV Peak Gradient 10.2 mmHg AV Mean Velocity 118.1 cm/s AV Mean Gradient 6.2 mmHg AV Velocity Time Integral 39.1 cm LVOT Peak Velocity 127.2 cm/s LVOT Peak Gradient 6.5 mmHg LVOT Velocity Time Integral 28.1 cm MV Peak Velocity 182.0 cm/s MV Peak Gradient 13.2 mmHg MV Mean Velocity 105.4 cm/s MV Mean Gradient 4.9 mmHg MV Velocity Time Integral 38.9 cm MV Area PHT 1.6 cm??? Mitral E Point Velocity 75.2 cm/s Mitral A Point Velocity 156.7 cm/s Mitral E to A Ratio 0.5 MV Deceleration Time 468.2 ms MV E' Velocity 4.7 cm/s Mitral E to MV E' Ratio 16.0 TR Peak Velocity 274.3 cm/s TR Peak Gradient 30.1 mmHg Right Ventricular Systolic Press 34.8 mmHg FINDINGS Left Ventricle Moderately increased left ventricular wall thickness Normal left ventricular systolic function with no obvious regional wall motion abnormalities. Left ventricular ejection fraction is estimated at 55 %. Right Ventricle Normal right ventricular size and function. Mild pulmonary hypertension. Right Atrium Mild right atrial dilatation. Left Atrium Severely increased left atrial volume. Mildly increased left atrial area. Mitral Valve Severe mitral annular calcification. Mild mitral stenosis. [id number] mitral regurgitation. Aortic Valve No aortic stenosis. Trace aortic regurgitation. Aortic valve sclerosis. Tricuspid Valve Structurally normal tricuspid valve. Mild tricuspid regurgitation. Pulmonic Valve Trace pulmonic regurgitation. Pericardium No pericardial effusion. Aorta Normal size aortic root and proximal ascending aorta. CONCLUSIONS Moderate increased left ventricular wall thickness Left ventricular ejection fraction 55% RVSP 35 Mild to moderately dilated left atrium Severe mitral annular calcification Mild mitral stenosis Mild to moderate mitral regurgitation Mild tricuspid regurgitation Previewed by: Dr. Timo Guevara DO (Electronically Signed) Final Date: 10 November 2022 12:19
--- NOTE | 2022-11-10 12:26 | P.CNOR ---
[facility] Present Illness [facility] Consult date: 11/10/22 Consult reason: low back pain History of present illness: Patient is an 82-year-old female who was admitted to [facility] on 11/09/2022 with regards to exacerbation of chronic low back pain. Patient has a rather extensive history with regards to her lumbar spine. Patient has had 2 separate ER visits earlier this week with regards to the same problem. Patient has been receiving a few different pain medications from her primary care to try to help with the pain. At both previous ER visits there was attempt for the patient to be admitted for further management, the patient and family denied these attempts. At her most recent visit on 11/09/2022, I was contacted by the emergency room physician regarding the patient. Patient's family was agreeable for admission to the hospital for further workup. The ER physician was able to order a lumbar MRI without contrast. Patient was examined today at bedside,she had multiple family members present including her . patient's mental state seemed slightly confused/somnolent. I did achieve most of my past medical history from the liban andino's who is very up-to-date on her current medical state. Patient has seen a few different pain management doctors in the [place] area, she recently received a epidural injection at [facility] in September 2022. Patient's states that she had minimal relief from this. Patient was placed on Upper Tract 5 mg/325 mg initially by her primary care doctor, they did increase this dose and then switched her to an oxycodone of unknown dose. Patient became very sedated after the use of these medications. Patient has had an evaluation with a neurosurgeon who did discuss possible surgical options, this to include decompression and fusion. Patient's states that over the last 3 or 4 months the patient's current state has significantly decreased. She's became very weak in the bilateral lower extremities. He has to assist her with almost all activities of daily living around the house. He notes no obvious bowel or bladder incontinence over the last few months. He describes sure complaining more of pain in the lower back region versus the lower extremities. When asking the patient today at bedside she agrees with pain being more in her low back versus lower extremities. She denies any numbness or tingling of the bilateral lower extremities or upper extremities. She denies any genital or peroneal numbness or tingling currently. Review of Systems Constitutional: Reports as per HPI Past Medical History Past Medical History: Diabetes Mellitus, Hyperlipidemia, Hypertension Additional Past Medical History / Comment(s): chronic back pain History of Any Multi-Drug Resistant Organisms: None Reported Additional Past Surgical History / Comment(s): bladder suspension Past Anesthesia/Blood Transfusion Reactions: No Reported Reaction Additional Past Anesthesia/Blood Transfusion Reaction / Comm: spouse states "needs to have a larger dose of anesthesia because her body blocks it" Past Psychological History: No Psychological Hx Reported Smoking Status: Never smoker Past Alcohol Use History: None Reported Past Drug Use History: None Reported - Past Family History Mother Family Medical History: Myocardial Infarction ([place]) Father Additional Family Medical History / Comment(s): cerebral hemmorage possible aneursym unk Medications and Allergies Home Medications Medication Instructions Recorded Confirmed Type Atorvastatin [Lipitor] 40 mg PO HS 01/08/21 11/09/22 History Calcium Carbonate/Vitamin D3 1 cap PO HS 01/08/21 11/09/22 History [Calcium 600 mg-D3 10 Mcg (400 Iu)] Cholecalciferol [Vitamin D3 (25 25 mcg PO DAILY 01/08/21 11/09/22 History Mcg = 1000 Iu)] Levothyroxine Sodium 125 mcg PO DAILY 01/08/21 11/09/22 History Metoprolol Succinate (ER) [Toprol 100 mg PO BID@1200,2200 01/08/21 11/09/22 History XL] Milk Thistle 150 mg PO DAILY 01/08/21 11/09/22 History Mirabegron [Myrbetriq] 50 mg PO HS@2200 01/08/21 11/09/22 History Omeprazole 20 mg PO DAILY 01/08/21 11/09/22 History Pioglitazone [Actos] 30 mg PO HS 01/08/21 11/09/22 History Quinapril HCl 40 mg PO DAILY 01/08/21 11/09/22 History Repaglinide 1 mg PO AC-SUPPER 01/08/21 11/09/22 History Vitamin C/Biotin [Hair, Skin and 1 tab PO DAILY 01/08/21 11/09/22 History Nails Chew] amLODIPine [Norvasc] 5 mg PO DAILY 01/08/21 11/09/22 History diphenhydrAMINE HCL [Benadryl] 25 mg PO HS@2200 01/08/21 11/09/22 History sitaGLIPtin PHOSPHATE [Januvia] 50 mg PO DAILY 01/08/21 11/09/22 History Aspirin EC [Ecotrin Low Dose] 81 mg PO W/BRKFST 10/10/22 11/09/22 History Glimepiride [Amaryl] 4 mg PO BID-W/MEALS 10/10/22 11/09/22 History Mv-Mn/Om3/Dha/Epa/Fish/Lut/Kleber 1 cap PO DAILY@1200 10/10/22 11/09/22 History [Ocuvite Adult 50 Plus Softgel] Vitamin A 2,400 mcg PO HS 10/10/22 11/09/22 History HYDROcodone/APAP 5-325MG [[place] 1 tab PO Q8H PRN 11/07/22 11/09/22 History 5-325] Metformin (Unknown Dose) 1 dose PO DIRECTED 11/09/22 11/09/22 History Allergies Allergy/AdvReac Type Severity Reaction Status Date / Time alendronate sodium AdvReac Nausea Verified 11/09/22 20:41 [From Fosamax] codeine AdvReac Nausea Verified 11/09/22 20:41 solifenacin AdvReac Nausea Verified 11/09/22 20:41 Physical Examination Gen: AOx3, NAD VSS stable at this time Integument: No obvious open lesions or sores or areas of erythema present throughout the cervical, thoracic or lumbar spine. There is a Lidoderm patch present in the lower lumbar spine Palpation: No significant tenderness with palpation of the midline or paraspinal region of the cervical thoracic spine. She does reproduce tenderness with palpation of the paraspinal region of the lumbar spine No significant tenderness with palpation appreciated throughout the bilateral lower extremities on exam ROM: Range of motion testing of the bilateral upper and lower extremities was difficult due to patient's current mental state. With significant coaching she was able to extend and flex the elbow was along with elevate the shoulders bilaterally. She was able to wiggle all the fingers no difficulty. She was very uncooperative on the lower extremity exam, she was able to wiggle the toes bilaterally, plantar and dorsiflexion were also intact. She had a very difficult time with hip flexion, knee extension and knee flexion. Strength testing was unachievable due to her current state Sensory Exam: Senory exam to light touch is intact C5-T1 Senosry exam to light touch is intact L2-S1 Reflexes: Negative Cruz's bilaterally Negative clonus bilaterally Negative Babinski bilaterally Special Test: Logroll maneuver of the lower extremities bilaterally reproduces no groin pain Results - Labs Labs: Abnormal Lab Results - Last 24 Hours (Table) 11/09/22 11/09/22 11/09/22 Range/Units 18:16 18:16 18:16 Lymphocytes # 0.8 L (1.0-4.8) k/uL APTT 21.9 L (22.0-30.0) sec VBG HCO3 (24-28) mmol/L Chloride 110 H (98-107) mmol/L BUN 20 H (7-17) mg/dL POC Glucose (mg/dL) (70-110) mg/dL Calcium 8.3 L (8.4-10.2) mg/dL Total Protein 5.8 L (6.3-8.2) g/dL Albumin 2.9 L (3.5-5.0) g/dL 11/09/22 11/09/22 11/10/22 Range/Units 18:51 23:24 06:23 Lymphocytes # (1.0-4.8) k/uL APTT (22.0-30.0) sec VBG HCO3 23 L (24-28) mmol/L Chloride (98-107) mmol/L BUN (7-17) mg/dL POC Glucose (mg/dL) 111 H 173 H (70-110) mg/dL Calcium (8.4-10.2) mg/dL Total Protein (6.3-8.2) g/dL Albumin (3.5-5.0) g/dL 11/10/22 Range/Units 11:18 Lymphocytes # (1.0-4.8) k/uL APTT (22.0-30.0) sec VBG HCO3 (24-28) mmol/L Chloride (98-107) mmol/L BUN (7-17) mg/dL POC Glucose (mg/dL) 214 H (70-110) mg/dL Calcium (8.4-10.2) mg/dL Total Protein (6.3-8.2) g/dL Albumin (3.5-5.0) g/dL H & H 11/09/22 Range/Units 18:16 Hgb 12.6 (11.4-16.0) gm/dL Hct 37.8 (34.0-46.0) % Coagulation 11/09/22 Range/Units 18:16 INR 1.0 (<1.2) Result Diagrams: 11/09/22 18:16 11/09/22 18:16 - Diagnostic results Lumbar MRI with contrast: report reviewed, image reviewed (Report of MRI from May 2020 was reviewed, multilevel lumbar spondylosis, worst at L3-L4. Disc herniation was also noted at L4-L5. Will await images/reports and compare from 11/10/2022 MRI ) CT Scan - lumbar: report reviewed, image reviewed (Report and images were reviewed of the lumbar spine from 11/09/2022. Images demonstrate no acute fractures or dislocations. Multilevel lumbar spondylosis, worse at L3-L4 and L4-L5, Spinal stenosis noted at these levels. Multilevel facet arthropathy with neuroforaminal stenosis) Assessment and Plan Assessment: Acute on chronic low back pain Bilateral lower extremity weakness Multilevel lumbar spondylosis with stenosis, worse at L3-L4, L4-L5 Multilevel facet arthropathy with neuroforaminal stenosis, worse at L3-L4, L4-L5 Other medical comorbidities Plan: I was able to discuss the case, this including no physical exam findings and imaging studies my attending Dr. Giles. We will await MRI of the lumbar spine to review and compare with old exam I did discuss with the patient and family today at bedside briefly the possible options for treatment, this to include conservative versus surgical. At this point, conservative measures seemed to have not provided the patient with much relief. Difficult to determine if patient's mental state versus pain symptoms are affecting her lower extremity exam. I was unable to elicit any obvious myelopathic signs on exam. Pain control, patient was started on IV decadron, recommending continuing at t his time. Upper Tract 5mg/325mg has also been ordered. With patients current mental state, difficult to recommend use of narcotics DVT prophylaxis per primary medical service recommendation Further recommendations to follow Time with Patient: Greater than 30
[2022-11-10] MEDS: METOPROLOL SUCCINATE (ER) 100 MG TAB.ER.24H PO SCH ×2 (12:48→20:40)
--- NOTE | 2022-11-10 12:50 | MR ---
EXAMINATION TYPE: MR lumbar spine wo con DATE OF EXAM: 11/10/2022 12:28 PM COMPARISON: 06/14/2020. CLINICAL INDICATION:Female, 82 years old with history of back pain; Lower back pain, urinary incontin ence. TECHNIQUE: Multi planar, multi sequence imaging was performed utilizing: T1-weighted, T2-weighted, a nd turbo inversion recovery imaging of the lumbar spine. IV Contrast: None. FINDINGS: Alignment: The lumbar vertebral bodies have preserved heights and grade 1 anterolisthesis of L4 and L 5.. Cord: The conus medullaris and the distal spinal cord appear unremarkable with regards to their signa l intensity and morphology. Bones/Discs: Bony edema on inversion recovery sequences. Scattered multilevel disc degeneration boo es are seen throughout the spine with osteophyte formation and joint space narrowing worse at L3-L4. High T2/T1 signal L2 vertebral body probable hemangioma. T12-L1: No evidence of significant spinal ca nal stenosis or neural foraminal stenosis. L1-L2: Disc bulge and facet joint arthropathy without significant spinal canal stenosis and mild bila teral neural foraminal stenosis. L2-L3: Disc bulge and facet joint arthropathy without significant spinal canal stenosis and mild bila teral neural foraminal stenosis. L3-L4: Central disc extrusion with mild spinal canal narrowing and mild to moderate bilateral neural foraminal stenosis left greater than right. L4-L5: Disc extrusion centrally with superior migration u p to 8 mm. There is mild spinal canal narrowing. Mild to moderate bilateral neural foraminal stenosis . Trace left facet joint effusion. L5-S1: The disc is rounded posterior morphology without significant spinal canal stenosis. Facet join t arthropathy with mild neural foraminal stenosis. Trace right facet joint effusion. Other findings: None. IMPRESSION: 1. L3-L4 and L4-L5 disc herniations with superior migration of the L4-L5 herniation. This results in combination with facet joint arthropathy of moderate to severe left neural foraminal stenosis at L3- L4. This has mildly improved at L4-L5 and is similar at L3-L4. 2. Multilevel disc degeneration changes present. 3. No evidence for bony edema to suggest fracture.
[2022-11-10 13:22] LABS: HCT 39.6 % (37.2-46.3); HGB 13.1 g/dL (12.0-15.0); MCH 30.7 pg (27.0-32.0); MCHC 33.1 g/dL (32.0-37.0); MCV 92.7 fL (80.0-97.0); Mean Platelet Volume 10.2 fL (9.5-12.2); NRBC Per 100 WBC 0 /100 WBCS (0.0-0.0); Platelet Count 259 X 10*3/uL (140-440); RBC 4.27 X 10*6/uL (4.10-5.20); RDW 14.6 % (11.5-14.5)
[2022-11-10 13:35] LABS: Anion Gap 15.2 mmol/L (10.00-18.00); BUN/Creat Ratio 22.33 Ratio (12.00-20.00); Blood Urea Nitrogen 20.1 mg/dL (9.0-27.0); Calcium 8.8 mg/dL (8.7-10.3); Carbon Dioxide 18.8 mmol/L (20.0-27.5); Non-African American GFR(CKD) 60.4 (60.0-200.0); Potassium 4.9 mmol/L (3.5-5.5)
--- NOTE | 2022-11-10 13:47 | P.GSCN ---
History of Present Illness Consult date: 11/10/22 History of present illness: REASON FOR CONSULTATION: Abnormal computed tomography scan for cholecystitis HISTORY OF PRESENT ILLNESS: The patient is a 82 year old female who comes in with uncontrolled back pain for over 2 days. Patient does have chronic back pain. Incidentally, patient had additional diagnostic studies demonstrating dilated gallbladder. No reports of abdominal pain. She had multiple studies including echocardiogram for bigeminy, MRI of her back. Additional history obtained by her and family bedside. General surgery is consulted for abnormal computed tomography scan for cholecystitis. PAST MEDICAL HISTORY: See list and reviewed PAST SURGICAL HISTORY: See list and reviewed MEDICATIONS: See list and reviewed ALLERGIES: See list and reviewed SOCIAL HISTORY: See list and reviewed FAMILY HISTORY: See list and reviewed REVIEW OF ORGAN SYSTEMS: CONSTITUTIONAL: No fevers or chills. No recent weight loss. Obesity due to excess calories, BMI 33.1 EYES: Denies any trouble with vision. No glasses. HEENT: No difficulties with hearing. No nosebleeds. No difficulty swallowing. RESPIRATORY: Denies pneumonia. Denies any troubles with breathing or dyspnea on exertion. CARDIOVASCULAR: Has hyperlipidemia. Has hypertensive heart disease. GASTROINTESTINAL: Denies fatty food intolerance. Denies change in bowel habits and gas bloat. Has gastroesophageal reflux disease. GENITOURINARY: Denies any blood in urine or increased urinary frequency. NEUROLOGICAL: Denies any numbness or tingling along the distal extremities. No seizure disorders or headaches. MUSCULOSKELETAL: Has severe chronic pain lower back SKIN: No current skin cancer. No rash. PSYCHIATRIC: Denies current depression or suicidal thoughts. ENDOCRINE: Has hypothyroidism. Diabetes type 2, [id number] HEME/LYMPHATIC: Denies any lumps and bumps around the neck. No recent deep venous thrombosis. ALLERGY/IMMUNOLOGY: No immunoglobulin therapy. No immune deficiencies. BREAST: Denies current breast lumps, pain or nipple discharge. PHYSICAL EXAM: VITALS: Reviewed CONSTITUTIONAL: Well developed and in mild distress due to back pain. EYES: Conjuctivae without sclera icterus. Extraocular movements grossly intact. HEAD, EARS, NOSE, THROAT: Moist buccal mucosa. Head is atraumatic, normocephalic. Hears conversational speech. No nasal drainage. NECK: Supple. No JV distention. No thyroidomegaly. RESPIRATORY: Non-labored respirations and equal bilateral excursions. No gross wheezes. CARDIOVASCULAR: Palpable 2+ radial pulses. ABDOMEN: Protuberant. Nontender. No peritonitis. LYMPH: No neck lymphadenopathy. MUSCULOSKELETAL: No clubbing cyanosis or edema SKIN: Warm and well perfused with good skin turgor. NEUROLOGIC: Cranial nerves II through XII grossly intact. No focal or lateralizing signs. PSYCH: Flat affect CLINCAL LABS: Reviewed. WBC normal. LFTs normal. IMAGING: Independently reviewed CT of the abdomen and pelvis reviewed demonstrates distended gallbladder without distinct gallstones or inflammatory changes of the gallbladder. No free air. No bowel obstruction. This is my independent interpretation. Liver cyst along the dome identified. RADIOLOGY: Report reviewed CT abdomen and pelvis demonstrates hydropic gallbladder. Severe foraminal stenosis L3 to L5. Moderate degenerative disc disease L3 to L5 ECHO: Reviewed ejection fraction 50% with global hypokinesis ASSESSMENT: 1. Abnormal computed tomography scan gallbladder 2. Chronic lower back pain 3. Severe degenerative disc disease L3 to L5 4. Diabetes type 2, [id number] 5. Hypothyroidism 6. Obesity due to excess calories, BMI 33.1 PLAN: 1. Abdominal ultrasound was ordered and independently reviewed by me demonstrating no gallstones or features of cholecystitis. No surgical intervention needed for her gallbladder. 2. During examination, patient reports 9 out of 10. Pain management per primary team including orthopedic management 3. Diet as tolerated ADVANCE DIRECTIVE: Thank you for this kind consultation. Past Medical History Past Medical History: Diabetes Mellitus, Hyperlipidemia, Hypertension Additional Past Medical History / Comment(s): chronic back pain History of Any Multi-Drug Resistant Organisms: None Reported Additional Past Surgical History / Comment(s): bladder suspension Past Anesthesia/Blood Transfusion Reactions: No Reported Reaction Additional Past Anesthesia/Blood Transfusion Reaction / Comm: spouse states "needs to have a larger dose of anesthesia because her body blocks it" Past Psychological History: No Psychological Hx Reported Smoking Status: Never smoker Past Alcohol Use History: None Reported Past Drug Use History: None Reported - Past Family History Mother Family Medical History: Myocardial Infarction ([place]) Father Additional Family Medical History / Comment(s): cerebral hemmorage possible aneursym unk Medications and Allergies Home Medications Medication Instructions Recorded Confirmed Type Atorvastatin [Lipitor] 40 mg PO HS 01/08/21 11/09/22 History Calcium Carbonate/Vitamin D3 1 cap PO HS 01/08/21 11/09/22 History [Calcium 600 mg-D3 10 Mcg (400 Iu)] Cholecalciferol [Vitamin D3 (25 25 mcg PO DAILY 01/08/21 11/09/22 History Mcg = 1000 Iu)] Levothyroxine Sodium 125 mcg PO DAILY 01/08/21 11/09/22 History Metoprolol Succinate (ER) [Toprol 100 mg PO BID@1200,2200 01/08/21 11/09/22 History XL] Milk Thistle 150 mg PO DAILY 01/08/21 11/09/22 History Mirabegron [Myrbetriq] 50 mg PO HS@2200 01/08/21 11/09/22 History Omeprazole 20 mg PO DAILY 01/08/21 11/09/22 History Pioglitazone [Actos] 30 mg PO HS 01/08/21 11/09/22 History Quinapril HCl 40 mg PO DAILY 01/08/21 11/09/22 History Repaglinide 1 mg PO AC-SUPPER 01/08/21 11/09/22 History Vitamin C/Biotin [Hair, Skin and 1 tab PO DAILY 01/08/21 11/09/22 History Nails Chew] amLODIPine [Norvasc] 5 mg PO DAILY 01/08/21 11/09/22 History diphenhydrAMINE HCL [Benadryl] 25 mg PO HS@2200 01/08/21 11/09/22 History sitaGLIPtin PHOSPHATE [Januvia] 50 mg PO DAILY 01/08/21 11/09/22 History Aspirin EC [Ecotrin Low Dose] 81 mg PO W/BRKFST 10/10/22 11/09/22 History Glimepiride [Amaryl] 4 mg PO BID-W/MEALS 10/10/22 11/09/22 History Mv-Mn/Om3/Dha/Epa/Fish/Lut/Kleber 1 cap PO DAILY@1200 10/10/22 11/09/22 History [Ocuvite Adult 50 Plus Softgel] Vitamin A 2,400 mcg PO HS 10/10/22 11/09/22 History HYDROcodone/APAP 5-325MG [[place] 1 tab PO Q8H PRN 11/07/22 11/09/22 History 5-325] Metformin (Unknown Dose) 1 dose PO DIRECTED 11/09/22 11/09/22 History Allergies Allergy/AdvReac Type Severity Reaction Status Date / Time alendronate sodium AdvReac Nausea Verified 11/09/22 20:41 [From Fosamax] codeine AdvReac Nausea Verified 11/09/22 20:41 solifenacin AdvReac Nausea Verified 11/09/22 20:41 Surgical - Exam Vital Signs Temp Pulse Resp BP Pulse Ox 98.1 F 65 18 128/108 85 L 11/09/22 16:50 11/09/22 16:50 11/09/22 16:50 11/09/22 16:50 11/09/22 16:50 Results - Labs 11/10/22 06:44 11/10/22 06:44 Abnormal Lab Results - Last 24 Hours (Table) 11/09/22 11/09/22 11/09/22 Range/Units 18:16 18:16 18:16 RDW (11.5-14.5) % Lymphocytes # 0.8 L (1.0-4.8) k/uL APTT 21.9 L (22.0-30.0) sec VBG HCO3 (24-28) mmol/L Chloride 110 H (98-107) mmol/L Carbon Dioxide (20.0-27.5) mmol/L BUN 20 H (7-17) mg/dL BUN/Creatinine Ratio (12.00-20.00) Ratio Glucose (70-110) mg/dL POC Glucose (mg/dL) (70-110) mg/dL Hemoglobin A1c (0.0-6.0) % Calcium 8.3 L (8.4-10.2) mg/dL Total Protein 5.8 L (6.3-8.2) g/dL Albumin 2.9 L (3.5-5.0) g/dL 11/09/22 11/09/22 11/10/22 Range/Units 18:51 23:24 06:23 RDW (11.5-14.5) % Lymphocytes # (1.0-4.8) k/uL APTT (22.0-30.0) sec VBG HCO3 23 L (24-28) mmol/L Chloride (98-107) mmol/L Carbon Dioxide (20.0-27.5) mmol/L BUN (7-17) mg/dL BUN/Creatinine Ratio (12.00-20.00) Ratio Glucose (70-110) mg/dL POC Glucose (mg/dL) 111 H 173 H (70-110) mg/dL Hemoglobin A1c (0.0-6.0) % Calcium (8.4-10.2) mg/dL Total Protein (6.3-8.2) g/dL Albumin (3.5-5.0) g/dL 11/10/22 11/10/22 11/10/22 Range/Units 06:44 06:44 06:44 RDW 14.6 H (11.5-14.5) % Lymphocytes # (1.0-4.8) k/uL APTT (22.0-30.0) sec VBG HCO3 (24-28) mmol/L Chloride (98-107) mmol/L Carbon Dioxide 18.8 L (20.0-27.5) mmol/L BUN (7-17) mg/dL BUN/Creatinine Ratio 22.33 H (12.00-20.00) Ratio Glucose 182 H (70-110) mg/dL POC Glucose (mg/dL) (70-110) mg/dL Hemoglobin A1c 7.9 H (0.0-6.0) % Calcium (8.4-10.2) mg/dL Total Protein (6.3-8.2) g/dL Albumin (3.5-5.0) g/dL 11/10/22 Range/Units 11:18 RDW (11.5-14.5) % Lymphocytes # (1.0-4.8) k/uL APTT (22.0-30.0) sec VBG HCO3 (24-28) mmol/L Chloride (98-107) mmol/L Carbon Dioxide (20.0-27.5) mmol/L BUN (7-17) mg/dL BUN/Creatinine Ratio (12.00-20.00) Ratio Glucose (70-110) mg/dL POC Glucose (mg/dL) 214 H (70-110) mg/dL Hemoglobin A1c (0.0-6.0) % Calcium (8.4-10.2) mg/dL Total Protein (6.3-8.2) g/dL Albumin (3.5-5.0) g/dL Diabetes panel 11/09/22 11/10/22 11/10/22 Range/Units 18:16 06:44 06:44 Sodium 141 138 (137-145) mmol/L Potassium 3.6 4.9 (3.5-5.1) mmol/L Chloride 110 H 104 (98-107) mmol/L Carbon Dioxide 24 18.8 L (22-30) mmol/L BUN 20 H 20.1 (7-17) mg/dL Creatinine 0.82 0.9 (0.52-1.04) mg/dL Glucose 88 182 H (74-99) mg/dL Hemoglobin A1c 7.9 H (0.0-6.0) % Calcium 8.3 L 8.8 (8.4-10.2) mg/dL AST 29 (14-36) U/L ALT 24 (4-34) U/L Alkaline Phosphatase 103 (38-126) U/L Total Protein 5.8 L (6.3-8.2) g/dL Albumin 2.9 L (3.5-5.0) g/dL Calcium panel 11/09/22 11/10/22 Range/Units 18:16 06:44 Calcium 8.3 L 8.8 (8.4-10.2) mg/dL Albumin 2.9 L (3.5-5.0) g/dL Pituitary panel 11/09/22 11/10/22 Range/Units 18:16 06:44 Sodium 141 138 (137-145) mmol/L Potassium 3.6 4.9 (3.5-5.1) mmol/L Chloride 110 H 104 (98-107) mmol/L Carbon Dioxide 24 18.8 L (22-30) mmol/L BUN 20 H 20.1 (7-17) mg/dL Creatinine 0.82 0.9 (0.52-1.04) mg/dL Glucose 88 182 H (74-99) mg/dL Calcium 8.3 L 8.8 (8.4-10.2) mg/dL Adrenal panel 11/09/22 11/10/22 Range/Units 18:16 06:44 Sodium 141 138 (137-145) mmol/L Potassium 3.6 4.9 (3.5-5.1) mmol/L Chloride 110 H 104 (98-107) mmol/L Carbon Dioxide 24 18.8 L (22-30) mmol/L BUN 20 H 20.1 (7-17) mg/dL Creatinine 0.82 0.9 (0.52-1.04) mg/dL Glucose 88 182 H (74-99) mg/dL Calcium 8.3 L 8.8 (8.4-10.2) mg/dL Total Bilirubin 0.6 (0.2-1.3) mg/dL AST 29 (14-36) U/L ALT 24 (4-34) U/L Alkaline Phosphatase 103 (38-126) U/L Total Protein 5.8 L (6.3-8.2) g/dL Albumin 2.9 L (3.5-5.0) g/dL
--- NOTE | 2022-11-10 14:44 | P.HPIM ---
History of Present Illness H&P Date: 11/10/22 History of present illness; patient is a 82-year-old lady with past medical history significant for back pain who presented to the ER because of worsening back pain. Patient was recently discharged from the hospital after being treated for similar complaints. Patient was told in last visit to be Admitted so that her pain regimen can be adjusted but they refused.They did discuss the treatments with the primary care physician who placed the patient on oxycodone. She has been taking 5 mg every 8 hours and they stated the pain has not been helping. The patient continues to have left-sided back pain with some weakness in her left lower extremity. This weakness has been chronic. She denies any fevers. Did have 1 episode of urinary incontinence. She also admits to some constipation since she started the pain medications. No nausea or vomiting. Initial lab work done in the ER showed white count of 6.9, hemoglobin 12.6, platelet count 247, sodium 141, potassium 3.6, BUN [address] abdominal and pelvis done showed hydropic gallbladder, Correlate for acute cholecystitis.Trace bilateral pleural effusion and thickening of interlobular septa correlate for serum markers for CHF. Moderate disc degeneration changes with disc bulge at L3-L4 and L4-L5 with at least moderate L3L4 and severe L4-L5 spinal stenosis no evidence of spinal fracture REVIEW OF SYSTEMS: CONSTITUTIONAL: No fever, no malaise, no fatigue. HEENT: No recent visual problems or hearing problems. Denied any sore throat. CARDIOVASCULAR: No chest pain, orthopnea, PND, no palpitations, no syncope. PULMONARY: No shortness of breath, no cough, no hemoptysis. GASTROINTESTINAL: No diarrhea, no nausea, no vomiting, no abdominal pain. NEUROLOGICAL: No headaches, no weakness, no numbness. HEMATOLOGICAL: Denies any bleeding or petechiae. GENITOURINARY: Denies any burning micturition, frequency, or urgency. MUSCULOSKELETAL/RHEUMATOLOGICAL: As mentioned in HPI ENDOCRINE: Denies any polyuria or polydipsia. The rest of the 14-point review of systems is negative. PHYSICAL EXAMINATION: GENERAL: The patient is alert and oriented x3, not in any acute distress. Well developed, well nourished. HEENT: Pupils are round and equally reacting to light. EOMI. No scleral icterus. No conjunctival pallor. Normocephalic, atraumatic. No pharyngeal erythema. No thyromegaly. CARDIOVASCULAR: S1 and S2 present. No murmurs, rubs, or gallops. PULMONARY: Chest is clear to auscultation, no wheezing or crackles. ABDOMEN: Soft, nontender, nondistended, normoactive bowel sounds. No palpable organomegaly. MUSCULOSKELETAL: No joint swelling or deformity. EXTREMITIES: Complaining of back pain as mentioned in HPI NEUROLOGICAL: Gross neurological examination did not reveal any focal deficits. SKIN: No rashes. Assessment and plan Acute on chronic back pain Bilateral lower extremity weakness Multilevel lumbar spondylosis with stenosis, worse at L3-L4, L4-L5 Multilevel facet arthropathy with neuroforaminal stenosis, worse at L3-L4, L4-L5 Hypertension Hyperlipidemia Iek-[id number] diabetes mellitus Plan Monitor vital signs monitor CBC Continue IV Decadron MRI lumbar spine ordered Continue pain management Orthopedic consulted Resume home meds Sliding-scale insulin ORDERED Gen. surgery evaluated the patient for computed tomography scan findings of possible gallbladder pathology, surgeries reviewed all imaging, at this time patient is asymptomatic, don't recommend any surgical intervention DVT prophylaxis: Past Medical History Past Medical History: Diabetes Mellitus, Hyperlipidemia, Hypertension Additional Past Medical History / Comment(s): chronic back pain History of Any Multi-Drug Resistant Organisms: None Reported Additional Past Surgical History / Comment(s): bladder suspension Past Anesthesia/Blood Transfusion Reactions: No Reported Reaction Additional Past Anesthesia/Blood Transfusion Reaction / Comment(s): spouse states "needs to have a larger dose of anesthesia because her body blocks it" Past Psychological History: No Psychological Hx Reported Smoking Status: Never smoker Past Alcohol Use History: None Reported Past Drug Use History: None Reported - Past Family History Mother Family Medical History: Myocardial Infarction ([place]) Father Additional Family Medical History / Comment(s): cerebral hemmorage possible aneursym unk Medications and Allergies Home Medications Medication Instructions Recorded Confirmed Type Atorvastatin [Lipitor] 40 mg PO HS 01/08/21 11/09/22 History Calcium Carbonate/Vitamin D3 1 cap PO HS 01/08/21 11/09/22 History [Calcium 600 mg-D3 10 Mcg (400 Iu)] Cholecalciferol [Vitamin D3 (25 25 mcg PO DAILY 01/08/21 11/09/22 History Mcg = 1000 Iu)] Levothyroxine Sodium 125 mcg PO DAILY 01/08/21 11/09/22 History Metoprolol Succinate (ER) [Toprol 100 mg PO BID@1200,2200 01/08/21 11/09/22 History XL] Milk Thistle 150 mg PO DAILY 01/08/21 11/09/22 History Mirabegron [Myrbetriq] 50 mg PO HS@2200 01/08/21 11/09/22 History Omeprazole 20 mg PO DAILY 01/08/21 11/09/22 History Pioglitazone [Actos] 30 mg PO HS 01/08/21 11/09/22 History Quinapril HCl 40 mg PO DAILY 01/08/21 11/09/22 History Repaglinide 1 mg PO AC-SUPPER 01/08/21 11/09/22 History Vitamin C/Biotin [Hair, Skin and 1 tab PO DAILY 01/08/21 11/09/22 History Nails Chew] amLODIPine [Norvasc] 5 mg PO DAILY 01/08/21 11/09/22 History diphenhydrAMINE HCL [Benadryl] 25 mg PO HS@2200 01/08/21 11/09/22 History sitaGLIPtin PHOSPHATE [Januvia] 50 mg PO DAILY 01/08/21 11/09/22 History Aspirin EC [Ecotrin Low Dose] 81 mg PO W/BRKFST 10/10/22 11/09/22 History Glimepiride [Amaryl] 4 mg PO BID-W/MEALS 10/10/22 11/09/22 History Mv-Mn/Om3/Dha/Epa/Fish/Lut/Kleber 1 cap PO DAILY@1200 10/10/22 11/09/22 History [Ocuvite Adult 50 Plus Softgel] Vitamin A 2,400 mcg PO HS 10/10/22 11/09/22 History HYDROcodone/APAP 5-325MG [[place] 1 tab PO Q8H PRN 11/07/22 11/09/22 History 5-325] Metformin (Unknown Dose) 1 dose PO DIRECTED 11/09/22 11/09/22 History Allergies Allergy/AdvReac Type Severity Reaction Status Date / Time alendronate sodium AdvReac Nausea Verified 11/09/22 20:41 [From Fosamax] codeine AdvReac Nausea Verified 11/09/22 20:41 solifenacin AdvReac Nausea Verified 11/09/22 20:41 Physical Exam Vitals: Vital Signs Temp Pulse Pulse Resp BP BP Pulse Ox 11/10/22 07:35 72 18 11/10/22 07:23 97.4 F L 72 18 123/67 95 11/10/22 01:30 98.2 F 80 15 120/75 96 11/09/22 21:22 98.1 F 46 L 15 155/67 95 11/09/22 21:15 76 20 117/85 96 11/09/22 18:51 90 18 117/66 92 L 11/09/22 18:11 44 L 18 131/64 94 L 11/09/22 16:50 98.1 F 65 18 128/108 85 L Intake and Output 11/09/22 11/10/22 11/10/22 22:59 06:59 14:59 Output Total 500 Balance -500 Output: Urine 500 Other: Voiding Method External Catheter External Catheter Weight 79.379 kg Results CBC & Chem 7: 11/10/22 06:44 11/10/22 06:44 Labs: Abnormal Lab Results - Last 24 Hours (Table) 11/09/22 11/09/22 11/09/22 Range/Units 18:16 18:16 18:16 Lymphocytes # 0.8 L (1.0-4.8) k/uL APTT 21.9 L (22.0-30.0) sec VBG HCO3 (24-28) mmol/L Chloride 110 H (98-107) mmol/L BUN 20 H (7-17) mg/dL POC Glucose (mg/dL) (70-110) mg/dL Calcium 8.3 L (8.4-10.2) mg/dL Total Protein 5.8 L (6.3-8.2) g/dL Albumin 2.9 L (3.5-5.0) g/dL 11/09/22 11/09/22 11/10/22 Range/Units 18:51 23:24 06:23 Lymphocytes # (1.0-4.8) k/uL APTT (22.0-30.0) sec VBG HCO3 23 L (24-28) mmol/L Chloride (98-107) mmol/L BUN (7-17) mg/dL POC Glucose (mg/dL) 111 H 173 H (70-110) mg/dL Calcium (8.4-10.2) mg/dL Total Protein (6.3-8.2) g/dL Albumin (3.5-5.0) g/dL 11/10/22 Range/Units 11:18 Lymphocytes # (1.0-4.8) k/uL APTT (22.0-30.0) sec VBG HCO3 (24-28) mmol/L Chloride (98-107) mmol/L BUN (7-17) mg/dL POC Glucose (mg/dL) 214 H (70-110) mg/dL Calcium (8.4-10.2) mg/dL Total Protein (6.3-8.2) g/dL Albumin (3.5-5.0) g/dL Thrombosis Risk Factor Assmnt - Choose All That Apply Any of the Below Risk Factors Present?: No
[2022-11-10 16:11] LABS: Basophils # (A) 0.03 X 10*3/uL (0.00-0.10); Basophils % (A) 0.4 %; Crenated RBC 2+; Eosinophils # (A) 0.01 X 10*3/uL (0.04-0.35); Eosinophils % (A) 0.1 %; Immature Grans, Automated 0.8 %; Lymphocytes # (A) 0.74 X 10*3/uL (0.90-5.00); Lymphocytes % (A) 10.3 %; Monocytes # (A) 0.12 X 10*3/uL (0.20-1.00); Monocytes % (A) 1.7 %; Neutrophils # (A) 6.24 X 10*3/uL (1.80-7.70); Neutrophils % (A) 86.7 %
[2022-11-10 16:50] LABS: Glucose,Whole Blood 161 mg/dL (70-110)
[2022-11-10] MEDS: REPAGLINIDE 1 MG TAB PO SCH (17:23)
[2022-11-10] MEDS: MAG HYDROX/AL HYDROX/SIMETH 30 ML CUP PO PRN (17:26)
[2022-11-10 19:59] LABS: Glucose,Whole Blood 211 mg/dL (70-110)
[2022-11-10] MEDS: ATORVASTATIN 40 MG TAB PO SCH (20:39)
[2022-11-10] MEDS: CALCIUM CARB-VIT D 500 MG-5 MCG TAB PO SCH (20:39)
[2022-11-10] MEDS: HYDROcodone/APAP 5-325MG 1 EACH TAB PO PRN (20:40)
[2022-11-10] MEDS: diphenhydrAMINE 25 MG CAP PO SCH (20:40)
[2022-11-10] MEDS: NON FORMULARY DRUG (Mirabegron [Myrbetriq] 50 MG Tab.Er.24h) PO SCH (20:41)
[2022-11-10] MEDS: PIOGLITAZONE 30 MG TAB PO SCH (21:20)
[2022-11-11] MEDS: DEXAMETHASONE SOD PHOSPHATE 4 MG/ML 1 ML VIAL IVP SCH ×4 (00:33→18:14)
--- NOTE | 2022-11-11 00:36 | P.CRDCN ---
History of Present Illness History of present illness: HISTORY OF PRESENTING ILLNESS Patient is a pleasant 82-year-old female with history of hypertension, hyperlipidemia, diabetes mellitus 2 and chronic back pain. She presents secondary to worsening back pain as well as some chest pain. Additionally she has been having some weakness in her lower extremities. This has been fairly chronic. She presented 11/09 and denies any recent trauma or fall. She has had a number recent hospitalizations and workups with a number of abdominal and lum bar CAT scans and x-rays. Cardiology was consulted secondary to bigeminy. EKG shows sinus rhythm with normal axis, bigeminy and no significant ST or T-wave abnormalities. Blood work shows troponin less than 0.012, proBNP 1070, albumin 2.9, creatinine 0.8. Echo 11/10/2022 shows preserved EF 55%, RVSP 35, mitral annular calcification with mild mitral stenosis and mild to moderate mitral regurgitation. She denies any syncope or lightheadedness. She is having left- sided reproducible chest pain with palpation and deep inspiration. REVIEW OF SYSTEMS At the time of my exam: CONSTITUTIONAL: Denies fever or chills. CARDIOVASCULAR: +chest pain, +chronic shortness of breath, orthopnea, PND or pal pitations. RESPIRATORY: Denies cough. GASTROINTESTINAL: Denies abdominal pain, diarrhea, constipation, nausea or vomiting. MUSCULOSKELETAL: Denies myalgias. NEUROLOGIC: Denies numbness, tingling or weakness. ENDOCRINE: Denies fatigue, weight change, polydipsia or polyurina. GENITOURINARY: Denies burning, hematuria or urgency with micturation. HEMATOLOGIC: Denies history of anemia or bleeding. PHYSICAL EXAMINATION Vital signs reviewed. CONSTITUTIONAL: No apparent distress. HEENT: Head is normocephalic. Pupils are equal, round. Sclerae anicteric. Mucous membranes of the mouth are moist. No JVD. No carotid bruit. CHEST EXAMINATION: Lungs are clear to auscultation. +chest wall tenderness is noted on palpation. HEART EXAMINATION: Regular rate and rhythm. S1, S2 heard. No murmurs, gallops or rub. ABDOMEN: Soft, nontender. Positive bowel sounds. EXTREMITIES: 2+ peripheral pulses, no lower extremity edema and no calf tenderness. NEUROLOGIC EXAMINATION: Patient is awake, alert and oriented x3. ASSESSMENT 1. Atypical chest pain, reproducible on exam, do not suspect cardiac source 2. Bigeminy, asymptomatic 3. Mild mitral stenosis, mild to moderate mitral regurgitation 4. Diabetes mellitus. 2 5. Hypertension 6. Hyperlipidemia 7. Back pain PLAN Patient's main presentation with back pain and also having some chest pain which is reproducible and does not appear cardiac. Echocardiogram shows preserved EF with mild valvular disease. Continue with metoprolol and may consider uptitrating if she is symptomatic from the PVCs. Recommend outpatient stress testing. Check TSH for completeness sake. No further workup as an inpatient. Past Medical History Past Medical History: Diabetes Mellitus, Hyperlipidemia, Hypertension Additional Past Medical History / Comment(s): chronic back pain History of Any Multi-Drug Resistant Organisms: None Reported Additional Past Surgical History / Comment(s): bladder suspension Past Anesthesia/Blood Transfusion Reactions: No Reported Reaction Additional Past Anesthesia/Blood Transfusion Reaction / Comment(s): spouse states "needs to have a larger dose of anesthesia because her body blocks it" Past Psychological History: No Psychological Hx Reported Smoking Status: Never smoker Past Alcohol Use History: None Reported Past Drug Use History: None Reported - Past Family History Mother Family Medical History: Myocardial Infarction ([place]) Father Additional Family Medical History / Comment(s): cerebral hemmorage possible aneursym unk Medications and Allergies Home Medications Medication Instructions Recorded Confirmed Type Atorvastatin [Lipitor] 40 mg PO HS 01/08/21 11/09/22 History Calcium Carbonate/Vitamin D3 1 cap PO HS 01/08/21 11/09/22 History [Calcium 600 mg-D3 10 Mcg (400 Iu)] Cholecalciferol [Vitamin D3 (25 25 mcg PO DAILY 01/08/21 11/09/22 History Mcg = 1000 Iu)] Levothyroxine Sodium 125 mcg PO DAILY 01/08/21 11/09/22 History Metoprolol Succinate (ER) [Toprol 100 mg PO BID@1200,2200 01/08/21 11/09/22 History XL] Milk Thistle 150 mg PO DAILY 01/08/21 11/09/22 History Mirabegron [Myrbetriq] 50 mg PO HS@2200 01/08/21 11/09/22 History Omeprazole 20 mg PO DAILY 01/08/21 11/09/22 History Pioglitazone [Actos] 30 mg PO HS 01/08/21 11/09/22 History Quinapril HCl 40 mg PO DAILY 01/08/21 11/09/22 History Repaglinide 1 mg PO AC-SUPPER 01/08/21 11/09/22 History Vitamin C/Biotin [Hair, Skin and 1 tab PO DAILY 01/08/21 11/09/22 History Nails Chew] amLODIPine [Norvasc] 5 mg PO DAILY 01/08/21 11/09/22 History diphenhydrAMINE HCL [Benadryl] 25 mg PO HS@2200 01/08/21 11/09/22 History sitaGLIPtin PHOSPHATE [Januvia] 50 mg PO DAILY 01/08/21 11/09/22 History Aspirin EC [Ecotrin Low Dose] 81 mg PO W/BRKFST 10/10/22 11/09/22 History Glimepiride [Amaryl] 4 mg PO BID-W/MEALS 10/10/22 11/09/22 History Mv-Mn/Om3/Dha/Epa/Fish/Lut/Kleber 1 cap PO DAILY@1200 10/10/22 11/09/22 History [Ocuvite Adult 50 Plus Softgel] Vitamin A 2,400 mcg PO HS 10/10/22 11/09/22 History HYDROcodone/APAP 5-325MG [[place] 1 tab PO Q8H PRN 11/07/22 11/09/22 History 5-325] Metformin (Unknown Dose) 1 dose PO DIRECTED 11/09/22 11/09/22 History Allergies Allergy/AdvReac Type Severity Reaction Status Date / Time alendronate sodium AdvReac Nausea Verified 11/09/22 20:41 [From Fosamax] codeine AdvReac Nausea Verified 11/09/22 20:41 solifenacin AdvReac Nausea Verified 11/09/22 20:41 Physical Exam Vitals: Vital Signs Temp Pulse Resp BP Pulse Ox 11/10/22 19:46 97.4 F L 79 18 149/79 93 L 11/10/22 14:59 97.7 F 83 19 149/83 94 L 11/10/22 07:35 72 18 11/10/22 07:23 97.4 F L 72 18 123/67 95 11/10/22 01:30 98.2 F 80 15 120/75 96 Intake and Output 04/15/23 04/15/23 04/16/23 14:59 22:59 06:59 Output Total 450 Balance -450 Output: Urine 450 Other: Voiding Method External Catheter External Catheter Results 11/10/22 06:44 11/10/22 06:44 CBC 11/10/22 Range/Units 06:44 WBC 7.20 (4.50-10.00) X 10*3/uL RBC 4.27 (4.10-5.20) X 10*6/uL Hgb 13.1 (12.0-15.0) g/dL Hct 39.6 (37.2-46.3) % Plt Count 259 (140-440) X 10*3/uL Comprehensive Metabolic Panel 11/10/22 Range/Units 06:44 Sodium 138 (135-145) mmol/L Potassium 4.9 (3.5-5.5) mmol/L Chloride 104 (96-109) mmol/L Carbon Dioxide 18.8 L (20.0-27.5) mmol/L BUN 20.1 (9.0-27.0) mg/dL Creatinine 0.9 (0.6-1.5) mg/dL Glucose 182 H (70-110) mg/dL Calcium 8.8 (8.7-10.3) mg/dL Current Medications Generic Name Dose Route Start Last Admin Trade Name Freq PRN Reason Stop Dose Admin Acetaminophen 650 mg 11/09/22 23:52 11/10/22 00:19 Acetaminophen Tab 325 Mg Tab PO 650 mg Q6HR PRN Administration Fever and/ or Pain Hydrocodone Bitart/Acetaminophen 1 each 11/09/22 22:39 11/10/22 20:40 Hydrocodone/Apap 5-325mg 1 Each Tab PO 1 each Q8H PRN Administration Pain Al Hydroxide/Mg Hydroxide 30 ml 11/10/22 14:41 11/10/22 17:26 Mag Hydrox/Al Hydrox/Simeth 30 Ml Cup PO 30 ml Q4HR PRN Administration GI Upset Amlodipine Besylate 5 mg 11/10/22 09:00 11/10/22 08:51 Amlodipine 5 Mg Tab PO 5 mg DAILY SONI Administration Atorvastatin Calcium 40 mg 11/10/22 21:00 11/10/22 20:39 Atorvastatin 40 Mg Tab PO 40 mg HS SONI Administration Calcium Carbonate 1 each 11/10/22 21:00 11/10/22 20:39 Calcium Carb-Vit D 500 Mg-5 Mcg Tab PO 1 each HS SONI Administration Cholecalciferol 25 mcg 11/10/22 09:00 11/10/22 08:52 Cholecalciferol 25 Mcg (1000 Iu) Tablet PO 25 mcg DAILY SONI Administration Dexamethasone Sodium Phosphate 4 mg 11/10/22 06:00 11/10/22 17:27 Dexamethasone Sod Phosphate 4 Mg/Ml 1 Ml Vial IVP 11/13/22 06:01 4 mg Q6HR SONI Administration Dextrose/Water 25 ml 11/09/22 22:41 Dextrose 50% Syringe 50 Ml IVP PER PROTOCOL PRN Hypoglycemia Protocol Dextrose/Water 50 ml 11/09/22 22:41 Dextrose 50% Syringe 50 Ml IVP PER PROTOCOL PRN Hypoglycemia Protocol Diphenhydramine HCl 25 mg 11/10/22 22:00 11/10/22 20:40 Diphenhydramine 25 Mg Cap PO 25 mg HS@2200 SONI Administration Docusate Sodium 100 mg 11/09/22 20:14 11/10/22 20:39 Docusate 100 Mg Cap PO 100 mg BID PRN Administration Constipation Glimepiride 4 mg 11/10/22 07:30 11/10/22 17:23 Glimepiride 4 Mg Tab PO 4 mg BID-W/MEALS [facility] Administration Insulin Aspart 0 unit 11/10/22 07:30 11/10/22 20:40 Insulin Aspart (Novolog) 100 Unit/Ml Vial SQ 2 unit ACHS [facility] Administration Protocol Ketorolac Tromethamine 15 mg 11/09/22 20:14 11/10/22 17:26 Ketorolac 15 Mg/Ml 1 Ml Vial IVP 11/12/22 20:16 15 mg Q6HR PRN Administration Moderate Pain (Scale 4 to 6) Levothyroxine Sodium 125 mcg 11/10/22 06:30 11/10/22 06:05 Levothyroxine 125 Mcg Tab PO 125 mcg DAILY@0630 [facility] Administration Lidocaine 1 patch 11/10/22 09:00 11/10/22 08:52 Lidocaine 5% Patch TOPICAL 1 patch DAILY [facility] Administration Protocol Linagliptin 5 mg 11/11/22 09:00 Linagliptin 5 Mg Tablet PO DAILY [facility] Lisinopril 40 mg 11/11/22 09:00 Lisinopril 20 Mg Tab PO DAILY [facility] Metoprolol Succinate 100 mg 11/10/22 12:00 11/10/22 20:40 Metoprolol Succinate (Er) 100 Mg Tab.Er.24h PO 100 mg BID@1200,2200 SONI Administration Morphine Sulfate 4 mg 11/09/22 20:14 11/10/22 13:05 Morphine Sulfate 4 Mg/Ml Syringe IV 4 mg Q4HR PRN Administration Severe Pain (Scale 7 to 10) Naloxone HCl 0.2 mg 11/09/22 20:14 Naloxone 0.4 Mg/Ml 1 Ml Vial IV Q2M PRN Opioid Reversal Non-Formulary Medication 50 mg 11/10/22 22:00 11/10/22 20:41 Mirabegron [Myrbetriq] PO Not Given HS@2200 [facility] Pantoprazole Sodium 40 mg 11/11/22 07:30 Pantoprazole 40 Mg Tablet PO DAILY@0730 [facility] Pioglitazone HCl 30 mg 11/10/22 21:00 Pioglitazone 30 Mg Tab PO HS [facility] Repaglinide 1 mg 11/10/22 17:30 11/10/22 17:23 Repaglinide 1 Mg Tab PO 1 mg AC-SUPPER SONI Administration Intake and Output 11/10/22 11/10/22 11/11/22 14:59 22:59 06:59 Output Total 450 Balance -450 Output: Urine 450 Other: Voiding Method External Catheter External Catheter 11/10/22 06:44 11/10/22 06:44
[2022-11-11] MEDS: ACETAMINOPHEN TAB 325 MG TAB PO PRN (00:39)
[2022-11-11 05:06] LABS: Glucose,Whole Blood 192 mg/dL (70-110)
[2022-11-11] MEDS: PANTOPRAZOLE 40 MG TABLET PO SCH (05:53)
[2022-11-11] MEDS: HYDROcodone/APAP 5-325MG 1 EACH TAB PO PRN (05:53)
[2022-11-11] MEDS: INSULIN ASPART (NovoLOG) 100 UNIT/ML VIAL SQ SCH ×4 (05:53→21:27)
[2022-11-11] MEDS: LEVOTHYROXINE 125 MCG TAB PO SCH (05:53)
[2022-11-11] MEDS: LIDOCAINE 5% PATCH TOPICAL SCH (07:06)
[2022-11-11] MEDS: lisinopriL 20 MG TAB PO SCH (07:07)
[2022-11-11] MEDS: CHOLECALCIFEROL 25 MCG (1000 IU) TABLET PO SCH (07:07)
[2022-11-11] MEDS: amLODIPine 5 MG TAB PO SCH (07:07)
[2022-11-11] MEDS: GLIMEPIRIDE 4 MG TAB PO SCH ×2 (07:07→17:30)
[2022-11-11] MEDS: LINAGLIPTIN 5 MG TABLET PO SCH (07:07)
[2022-11-11 09:25] LABS: ALT 21 U/L (8-44); AST 18 U/L (13-35); African American GFR (CKD) 71.1 (60.0-200.0); Albumin 3.3 g/dL (3.8-4.9); Albumin/Globulin Ratio 1.24 (1.60-3.17); Alkaline Phosphatase 106 U/L (41-126); Blood Urea Nitrogen 30.9 mg/dL (9.0-27.0); Calcium 9.5 mg/dL (8.7-10.3); Carbon Dioxide 20.4 mmol/L (20.0-27.5); Chloride 105 mmol/L (96-109); Globulin 2.6 g/dL (1.6-3.3); Glucose 199 mg/dL (70-110); Non-African American GFR(CKD) 61.4 (60.0-200.0); Potassium 4.6 mmol/L (3.5-5.5); Sodium 137 mmol/L (135-145); Total Protein 5.9 g/dL (6.2-8.2)
[2022-11-11 09:43] LABS: Basophils # (A) 0.03 X 10*3/uL (0.00-0.10); Basophils % (A) 0.2 %; Eosinophils # (A) 0 X 10*3/uL (0.04-0.35); Eosinophils % (A) 0 %; HCT 37.7 % (37.2-46.3); HGB 12.5 g/dL (12.0-15.0); Immature Grans, Automated 1.1 %; Lymphocytes # (A) 0.91 X 10*3/uL (0.90-5.00); Lymphocytes % (A) 7.3 %; MCH 30.6 pg (27.0-32.0); MCHC 33.2 g/dL (32.0-37.0); MCV 92.4 fL (80.0-97.0); Mean Platelet Volume 10.7 fL (9.5-12.2); Monocytes # (A) 0.48 X 10*3/uL (0.20-1.00); Monocytes % (A) 3.9 %; NRBC Per 100 WBC 0 /100 WBCS (0.0-0.0); Neutrophils % (A) 87.5 %; Platelet Count 303 X 10*3/uL (140-440); RBC 4.08 X 10*6/uL (4.10-5.20); RDW 14.6 % (11.5-14.5); WBC 12.46 X 10*3/uL (4.50-10.00)
--- NOTE | 2022-11-11 10:14 | P.PN ---
Subjective Progress Note Date: 11/11/22 Principal diagnosis: Acute on chronic low back pain Objective - Vital Signs Vital signs: Vital Signs Temp 97.3 F L 11/11/22 07:35 Pulse 76 11/11/22 07:35 Resp 18 11/11/22 07:35 BP 141/72 11/11/22 07:35 Pulse Ox 93 L 11/11/22 07:35 FiO2 Intake & Output 11/10/22 11/11/22 11/11/22 18:59 06:59 18:59 Intake Total 120 Output Total 450 0 Balance -450 120 Intake: Oral 120 Output: Urine 450 0 Other: Voiding Method External Catheter External Catheter External Catheter # Voids 1 - Exam Gen: AOx3, NAD VSS stable at this time Integument: No obvious open lesions or sores or areas of erythema present throughout the cervical, thoracic or lumbar spine. There is a Lidoderm patch present in the lower lumbar spine Palpation: No significant tenderness with palpation of the midline or paraspinal region of the cervical thoracic spine. She does reproduce tenderness with palpation of the paraspinal region of the lumbar spine No significant tenderness with palpation appreciated throughout the bilateral lower extremities on exam ROM: Range of motion was improved in the upper extremities today on exam, she was able to elevate the shoulders, flex and extend the elbows, flex and extend the wrist. Lower extremity exam was also improved today, she was able to flex the hips, flex and extend the knees, plantar and dorsiflex the foot along with wiggle the toes. Both in the upper and lower extremities there was significant, but she needed for assessing her range of motion Motor: 4-/5 strength appreciated in the right lower extremity with hip flexion, knee extension, knee flexion, plantar flexion, dorsiflexion, EHL, FHL 3+/5 strength appreciated in the left lower extremity with hip flexion, knee extension, knee flexion, plantar flexion, dorsiflexion, EHL, FHL Sensory Exam: Senory exam to light touch is intact C5-T1 Senosry exam to light touch is intact L2-S1 Reflexes: Negative Cruz's bilaterally Negative clonus bilaterally Negative Babinski bilaterally Special Test: Logroll maneuver of the lower extremities bilaterally reproduces no groin pain Negative straight leg raise bilaterally - Labs CBC & Chem 7: 11/11/22 04:54 11/11/22 04:54 Labs: Abnormal Lab Results - Last 24 Hours (Table) 11/10/22 11/10/22 11/10/22 Range/Units 06:44 06:44 06:44 WBC (4.50-10.00) X 10*3/uL RBC (4.10-5.20) X 10*6/uL RDW 14.6 H (11.5-14.5) % Immature Gran # 0.06 H (0.00-0.04) X 10*3/uL Neutrophils # (1.80-7.70) X 10*3/uL Lymphocytes # 0.74 L (0.90-5.00) X 10*3/uL Monocytes # 0.12 L (0.20-1.00) X 10*3/uL Eosinophils # 0.01 L (0.04-0.35) X 10*3/uL Carbon Dioxide 18.8 L (20.0-27.5) mmol/L BUN (9.0-27.0) mg/dL BUN/Creatinine Ratio 22.33 H (12.00-20.00) Ratio Glucose 182 H (70-110) mg/dL POC Glucose (mg/dL) (70-110) mg/dL Hemoglobin A1c 7.9 H (0.0-6.0) % Total Protein (6.2-8.2) g/dL Albumin (3.8-4.9) g/dL Albumin/Globulin Ratio (1.60-3.17) g/dL 11/10/22 11/10/22 11/10/22 Range/Units 11:18 16:49 19:57 WBC (4.50-10.00) X 10*3/uL RBC (4.10-5.20) X 10*6/uL RDW (11.5-14.5) % Immature Gran # (0.00-0.04) X 10*3/uL Neutrophils # (1.80-7.70) X 10*3/uL Lymphocytes # (0.90-5.00) X 10*3/uL Monocytes # (0.20-1.00) X 10*3/uL Eosinophils # (0.04-0.35) X 10*3/uL Carbon Dioxide (20.0-27.5) mmol/L BUN (9.0-27.0) mg/dL BUN/Creatinine Ratio (12.00-20.00) Ratio Glucose (70-110) mg/dL POC Glucose (mg/dL) 214 H 161 H 211 H (70-110) mg/dL Hemoglobin A1c (0.0-6.0) % Total Protein (6.2-8.2) g/dL Albumin (3.8-4.9) g/dL Albumin/Globulin Ratio (1.60-3.17) g/dL 11/11/22 11/11/22 11/11/22 Range/Units 04:54 04:54 05:02 WBC 12.46 H (4.50-10.00) X 10*3/uL RBC 4.08 L (4.10-5.20) X 10*6/uL RDW 14.6 H (11.5-14.5) % Immature Gran # 0.14 H (0.00-0.04) X 10*3/uL Neutrophils # 10.90 H (1.80-7.70) X 10*3/uL Lymphocytes # (0.90-5.00) X 10*3/uL Monocytes # (0.20-1.00) X 10*3/uL Eosinophils # 0 L (0.04-0.35) X 10*3/uL Carbon Dioxide (20.0-27.5) mmol/L BUN 30.9 H (9.0-27.0) mg/dL BUN/Creatinine Ratio 34.80 H (12.00-20.00) Ratio Glucose 199 H (70-110) mg/dL POC Glucose (mg/dL) 192 H (70-110) mg/dL Hemoglobin A1c (0.0-6.0) % Total Protein 5.9 L (6.2-8.2) g/dL Albumin 3.3 L (3.8-4.9) g/dL Albumin/Globulin Ratio 1.24 L (1.60-3.17) g/dL Assessment and Plan Assessment: Acute on chronic low back pain Bilateral lower extremity weakness Multilevel lumbar spondylosis with stenosis, worse at L3-L4, L4-L5 Multilevel facet arthropathy with neuroforaminal stenosis, worse at L3-L4, L4-L5 Confusion Constipation Other medical comorbidities Plan: Dr. Giles was available today at bedside to discuss with the patient and multiple family members the different options for treatment at this time. He did discuss surgical intervention in the form of a decompression and fusion. We also discussed the different conservative options of treatment, this to include optimizing medications along with physical therapy. He went into extreme detail regarding the risk and benefits of a surgical procedure, this including the perioperative and postoperative period. With patient's current medical/mental state, we would like to try to optimize all conservative measures initially. Due to the confusion that has been noted since admission along with family members providing a history of this, we will try to avoid narcotics for pain control. If needing to use them, recommending a very low dose. Recommend continuing the IV Decadron at 4 mg every 6 hours over the next 2448 hours PT/OT daily, recommending weight-bear as tolerated with walker Neurology consult has been placed to aid in best medical optimization of patient Additional stool softeners have been ordered for constipation Recommending IV fluids to be started on patient Urinary catheter were has been placed to help determine if patient is retaining urine DVT prophylaxis per primary medical service Medical recommendations appreciated We will continue to follow the patient daily and provide our recommendation
[2022-11-11] MEDS: SENNOSIDES-DOCUSATE SODIUM 1 EACH TAB PO SCH (11:09)
[2022-11-11] MEDS: polyethylene glycoL 3350 17 GM POWD.PACK PO SCH (11:09)
[2022-11-11 12:14] LABS: Glucose,Whole Blood 313 mg/dL (70-110)
[2022-11-11] MEDS: traMADol 50 MG TAB PO SCH ×3 (12:31→21:26)
[2022-11-11] MEDS: METOPROLOL SUCCINATE (ER) 100 MG TAB.ER.24H PO SCH ×2 (12:31→21:29)
--- NOTE | 2022-11-11 12:48 | P.CNNES ---
History of Present Illness Consult date: 11/11/22 Requesting physician: Boaz Lugo Reason for Consult: confusion History of Present Illness: This is an 82-year-old woman with medical history of chronic lower back pain with multiple pain injection who presented emergency department because uncontrolled back pain. Neurology is consulted for confusion. History is predominantly obtained from the patient's was at bedside. Seems the patient has chronic lower back pain for at least 2 years and a half and it's over the entire lower back and which shoot down the left leg and patient has been to a different specialist in the past in which he got the pain injection to her back and some would help and somewhat not. She was told that she has disc bulge disc herniation in lowers and per at least two of them. She's been evaluated by a surgeon for her lower back and it seems that the route was pain injection. She's been on the pain medication and according the when she was on the pain medication no cold and some other muscle relaxants and she was confused about when she was off of the pain medication her mentation was improving. She does not have any history of stroke or TIAs or any seizure. This seems the patient had a fall about a week ago. Lately the patient is on [place], Benadryl, steroids, tramadol Some of workup consisted of: Patient had a CT of the head CT cervical spine because of the fall and the CT was on 11/05/2022 and the most recent was a 11/07/2022 and the most recent one is reported as no acute intracranial process. Nonspecific white matter changes likely secondary due to chronic small vessel ischemic disease. Personally reviewed the CT and the I agree there is no acute or subacute ischemia or any intracranial hemorrhage. This seems the patient has a lacunar over the right basal ganglia. 12 questionable over the left basal ganglia norris radiata CT cervical spine was reported as no evidence of cervical spine fracture. Mild to moderate multilevel degenerative disc disease. Pulmonary vascular congestion correlate for congestive heart failure. Other workup is most recent: Pulse oxygen as well as 85% on presentation the most current one is 93% TSH is 0.946 Hemoglobin A1c is 7.9 Sisi a lumbar is reported as L3-L4 and L4-L5 disc herniation with superior margination of L4-L5 herniation there. This results in combination of facet joint arthropathy of moderate to severe left neuroforaminal stenosis at L3-L4. Mild improved L4-L5 and is similar at L3-L4. Multilevel disc degenerative ch anges present. Review of Systems Review of system: The 12 point system was reviewed and apparent positive and negative per HPI. Past Medical History Past Medical History: Diabetes Mellitus, Hyperlipidemia, Hypertension Additional Past Medical History / Comment(s): chronic back pain History of Any Multi-Drug Resistant Organisms: None Reported Additional Past Surgical History / Comment(s): bladder suspension Past Anesthesia/Blood Transfusion Reactions: No Reported Reaction Additional Past Anesthesia/Blood Transfusion Reaction / Comment(s): spouse states "needs to have a larger dose of anesthesia because her body blocks it" Past Psychological History: No Psychological Hx Reported Smoking Status: Never smoker Past Alcohol Use History: None Reported Past Drug Use History: None Reported - Past Family History Mother Family Medical History: Myocardial Infarction (ND) Father Additional Family Medical History / Comment(s): cerebral hemmorage possible aneursym unk Medications and Allergies Home Medications Medication Instructions Recorded Confirmed Type Atorvastatin [Lipitor] 40 mg PO HS 01/08/21 11/09/22 History Calcium Carbonate/Vitamin D3 1 cap PO HS 01/08/21 11/09/22 History [Calcium 600 mg-D3 10 Mcg (400 Iu)] Cholecalciferol [Vitamin D3 (25 25 mcg PO DAILY 01/08/21 11/09/22 History Mcg = 1000 Iu)] Levothyroxine Sodium 125 mcg PO DAILY 01/08/21 11/09/22 History Metoprolol Succinate (ER) [Toprol 100 mg PO BID@1200,2200 01/08/21 11/09/22 History XL] Milk Thistle 150 mg PO DAILY 01/08/21 11/09/22 History Mirabegron [Myrbetriq] 50 mg PO HS@2200 01/08/21 11/09/22 History Omeprazole 20 mg PO DAILY 01/08/21 11/09/22 History Pioglitazone [Actos] 30 mg PO HS 01/08/21 11/09/22 History Quinapril HCl 40 mg PO DAILY 01/08/21 11/09/22 History Repaglinide 1 mg PO AC-SUPPER 01/08/21 11/09/22 History Vitamin C/Biotin [Hair, Skin and 1 tab PO DAILY 01/08/21 11/09/22 History Nails Chew] amLODIPine [Norvasc] 5 mg PO DAILY 01/08/21 11/09/22 History diphenhydrAMINE HCL [Benadryl] 25 mg PO HS@2200 01/08/21 11/09/22 History sitaGLIPtin PHOSPHATE [Januvia] 50 mg PO DAILY 01/08/21 11/09/22 History Aspirin EC [Ecotrin Low Dose] 81 mg PO W/BRKFST 10/10/22 11/09/22 History Glimepiride [Amaryl] 4 mg PO BID-W/MEALS 10/10/22 11/09/22 History Mv-Mn/Om3/Dha/Epa/Fish/Lut/Kleber 1 cap PO DAILY@1200 10/10/22 11/09/22 History [Ocuvite Adult 50 Plus Softgel] Vitamin A 2,400 mcg PO HS 10/10/22 11/09/22 History HYDROcodone/APAP 5-325MG [[place] 1 tab PO Q8H PRN 11/07/22 11/09/22 History 5-325] Metformin (Unknown Dose) 1 dose PO DIRECTED 11/09/22 11/09/22 History Allergies Allergy/AdvReac Type Severity Reaction Status Date / Time alendronate sodium AdvReac Nausea Verified 11/09/22 20:41 [From Fosamax] codeine AdvReac Nausea Verified 11/09/22 20:41 solifenacin AdvReac Nausea Verified 11/09/22 20:41 Physical Examination - Vital Signs Vital Signs: Vital Signs Temp Pulse Resp BP Pulse Ox 11/11/22 07:35 97.3 F L 76 18 141/72 93 L 11/11/22 07:20 76 18 11/11/22 07:06 73 136/74 11/11/22 02:20 97.6 F 45 L 20 127/79 92 L 11/10/22 19:46 97.4 F L 79 18 149/79 93 L 11/10/22 14:59 97.7 F 83 19 149/83 94 L Intake and Output 11/10/22 11/11/22 11/11/22 22:59 06:59 14:59 Intake Total 120 Output Total 450 0 Balance -450 120 Intake: Oral 120 Output: Urine 450 0 Other: Voiding Method External Catheter External Catheter # Voids 1 GENERAL: The patient is lying in bed and is not in acute distress. CHEST: The heart rate is regular rate rhythm. No murmurs to auscultation. LUNG: Clear to auscultation bilaterally no wheezing noted throughout. Not labored breathing. ABDOMEN/GI: Bowel sounds present in all 4 quadrants. No tenderness to palpation throughout. NEUROLOGICAL: Higher mental function: The patient is drowsy but is awakeable to voice. Is oriented to self and stated she was in the hospital. Could not tell me month or year. She is slowing responding to questions. She is able to name objects (pen and watch). She is following simple commands. No aphasia from limited language and no neglect. Cranial nerves: The pupils are round, equal and reactive to light. Visual whitfield are full to confrontation throughout. Extraocular movement is intact no nystagmus is noted. Facial sensation is normal to touch throughout. The facial strength is normal throughout. Hearing is severely decreased bilaterally to hand rub (does not have hearing aids with her). Tongue is midline and moved [id number] without any difficulty. No dysarthria is noted. Shoulder shrug is normal bilaterally. Motor: The strength is 5 over 5 throughout uppers while lowers is limited because of her back pain but was lifting lowers above gravity without focality.. Normal tone and bulk. Cerebellum: Normal finger to nose bilaterally. Sensation: Sensation is normal to touch throughout. Plantars are mute bilaterally. Results - Laboratory Findings CBC and BMP: 11/11/22 04:54 11/11/22 04:54 Abnormal Lab Findings: Abnormal Labs 11/09/22 11/09/22 11/09/22 18:16 18:16 18:16 WBC RBC RDW Immature Gran # Neutrophils # Lymphocytes # 0.8 L Monocytes # Eosinophils # APTT 21.9 L VBG HCO3 Chloride 110 H Carbon Dioxide BUN 20 H BUN/Creatinine Ratio Glucose POC Glucose (mg/dL) Hemoglobin A1c Calcium 8.3 L Total Protein 5.8 L Albumin 2.9 L Albumin/Globulin Ratio 11/09/22 11/09/22 11/10/22 18:51 23:24 06:23 WBC RBC RDW Immature Gran # Neutrophils # Lymphocytes # Monocytes # Eosinophils # APTT VBG HCO3 23 L Chloride Carbon Dioxide BUN BUN/Creatinine Ratio Glucose POC Glucose (mg/dL) 111 H 173 H Hemoglobin A1c Calcium Total Protein Albumin Albumin/Globulin Ratio 0411/10/22 11/10/22 06:44 06:44 06:44 WBC RBC RDW 14.6 H Immature Gran # 0.06 H Neutrophils # Lymphocytes # 0.74 L Monocytes # 0.12 L Eosinophils # 0.01 L APTT VBG HCO3 Chloride Carbon Dioxide 18.8 L BUN BUN/Creatinine Ratio 22.33 H Glucose 182 H POC Glucose (mg/dL) Hemoglobin A1c 7.9 H Calcium Total Protein Albumin Albumin/Globulin Ratio 11/10/22 11/10/22 11/10/22 11:18 16:49 19:57 WBC RBC RDW Immature Gran # Neutrophils # Lymphocytes # Monocytes # Eosinophils # APTT VBG HCO3 Chloride Carbon Dioxide BUN BUN/Creatinine Ratio Glucose POC Glucose (mg/dL) 214 H 161 H 211 H Hemoglobin A1c Calcium Total Protein Albumin Albumin/Globulin Ratio 11/11/22 11/11/22 11/11/22 04:54 04:54 05:02 WBC 12.46 H RBC 4.08 L RDW 14.6 H Immature Gran # 0.14 H Neutrophils # 10.90 H Lymphocytes # Monocytes # Eosinophils # 0 L APTT VBG HCO3 Chloride Carbon Dioxide BUN 30.9 H BUN/Creatinine Ratio 34.80 H Glucose 199 H POC Glucose (mg/dL) 192 H Hemoglobin A1c Calcium Total Protein 5.9 L Albumin 3.3 L Albumin/Globulin Ratio 1.24 L 11/11/22 12:12 WBC RBC RDW Immature Gran # Neutrophils # Lymphocytes # Monocytes # Eosinophils # APTT VBG HCO3 Chloride Carbon Dioxide BUN BUN/Creatinine Ratio Glucose POC Glucose (mg/dL) 313 H Hemoglobin A1c Calcium Total Protein Albumin Albumin/Globulin Ratio Assessment and Plan Assessment: Encephalopathy due to multifactorial: Predominate medication- induced(opiates/narcotic) and some component of hypoxic encephalopathy (in high 80's). Chronic lower back pain Left lumbar radiculopathy Falls Diabetes mellitus (HbA1c 7.9) Plan: I ordered a routine EEG to rule out any seizures was seems unlikely. If possible avoid any narcotics last opiates or sedatives that would cause confusion. Patient had too CT of the head is most recent one was on 11/07/2022. No acute or subacute ischemia. If her mentation improves with the avoiding opiates/narcotic and sedative then no MRI needed. If not then can pursue MRI Patient had ammonia recently on 11/07/2022 which was normal. I'll order a vitamin B12 and folate level. Orthopedic surgeon Dr. murray consulted for her lower back pain Consulted PT and OT Defer the rest of the medical management to primary team The plan was discussed with the patient and family members were bedside Thank you for the consultation Dr. Crook will start neurology service tomorrow a.m. Time with Patient: Greater than 30
--- NOTE | 2022-11-11 14:10 | P.PN ---
Subjective Progress Note Date: 11/11/22 patient is a 82-year-old lady with past medical history significant for back pain who presented to the ER because of worsening back pain. Patient was recently discharged from the hospital after being treated for similar complaints. Patient was told in last visit to be Admitted so that her pain regimen can be adjusted but they refused.They did discuss the treatments with the primary care physician who placed the patient on oxycodone. She has been taking 5 mg every 8 hours and they stated the pain has not been helping. The patient continues to have left-sided back pain with some weakness in her left lower extremity. This weakness has been chronic. She denies any fevers. Did have 1 episode of urinary incontinence. She also admits to some constipation since she started the pain medications. No nausea or vomiting. Initial lab work done in the ER showed white count of 6.9, hemoglobin 12.6, platelet count 247, sodium 141, potassium 3.6, BUN [address] abdominal and pelvis done showed hydropic gallbladder, Correlate for acute cholecystitis.Trace bilateral pleural effusion and thickening of interlobular septa correlate for serum markers for CHF. Moderate disc degeneration changes with disc bulge at L3-L4 and L4-L5 with at least moderate L3L4 and severe L4-L5 spinal stenosis no evidence of spinal fracture 11/11. Patient seen and examined. White count this morning is 12.46, hemoglobin 12.5, sodium 137, potassium 4.6. Complaining of constipation, patient hasn't had a bowel movement for the last 3 days REVIEW OF SYSTEMS: CONSTITUTIONAL: No fever, no malaise,. CARDIOVASCULAR: No chest pain, no palpitations, no syncope. PULMONARY: No shortness of breath, no cough, GASTROINTESTINAL: No diarrhea, no nausea, no vomiting, no abdominal pain. NEUROLOGICAL: No headaches, no weakness, PHYSICAL EXAMINATION: GENERAL: The patient is alert and oriented x3, not in any acute distress. Well developed, well nourished. HEENT: Pupils are round and equally reacting to light. EOMI. No scleral icterus. No conjunctival pallor. Normocephalic, atraumatic. No pharyngeal erythema. No thyromegaly. CARDIOVASCULAR: S1 and S2 present. No murmurs, rubs, or gallops. PULMONARY: Chest is clear to auscultation, no wheezing or crackles. ABDOMEN: Soft, nontender, nondistended, normoactive bowel sounds. No palpable organomegaly. MUSCULOSKELETAL: No joint swelling or deformity. EXTREMITIES: No cyanosis, clubbing, or pedal edema. NEUROLOGICAL: Gross neurological examination did not reveal any focal deficits. SKIN: No rashes. Assessment and plan Acute on chronic back pain Bilateral lower extremity weakness Acute metabolic encephalopathy Multilevel lumbar spondylosis with stenosis, worse at L3-L4, L4-L5 Multilevel facet arthropathy with neuroforaminal stenosis, worse at L3-L4, L4-L5 Hypertension Hyperlipidemia Cwz-[id number] diabetes mellitus Atypical chest pain Bigeminy Plan Monitor vital signs monitor CBC Continue IV Decadron MRI lumbar spine showed L3-L4 and L4-L5 disc herniations with superior migration of L4-L5 herniation. This results in combination with facet joint arthropathy of moderate to severe left neural foraminal stenosis L3-L4 Continue pain management Continue sliding scale insulin Aggressive bowel regimen Gen. surgery evaluated the patient for computed tomography scan findings of possible gallbladder pathology, surgeries reviewed all imaging, at this time patient is asymptomatic, don't recommend any surgical intervention Cardiology evaluated the patient, reviewed EKGs, recommending increasing dose of Lopressor. Follow up on orthopedic recommendations Neurology consulted, they evaluated the patient for encephalopathy, ordered EEG Objective - Vital Signs Vital signs: Vital Signs Temp 97.3 F L 11/11/22 07:35 Pulse 76 11/11/22 07:35 Resp 18 11/11/22 07:35 BP 141/72 11/11/22 07:35 Pulse Ox 93 L 11/11/22 07:35 FiO2 Intake & Output 11/10/22 11/11/22 11/11/22 18:59 06:59 18:59 Intake Total 120 Output Total 450 0 Balance -450 120 Intake: Oral 120 Output: Urine 450 0 Other: Voiding Method External Catheter External Catheter External Catheter # Voids 1 - Labs CBC & Chem 7: 11/11/22 04:54 11/11/22 04:54 Labs: Abnormal Lab Results - Last 24 Hours (Table) 11/10/22 11/10/22 11/10/22 Range/Units 06:44 06:44 06:44 RDW 14.6 H (11.5-14.5) % Immature Gran # 0.06 H (0.00-0.04) X 10*3/uL Lymphocytes # 0.74 L (0.90-5.00) X 10*3/uL Monocytes # 0.12 L (0.20-1.00) X 10*3/uL Eosinophils # 0.01 L (0.04-0.35) X 10*3/uL Carbon Dioxide 18.8 L (20.0-27.5) mmol/L BUN/Creatinine Ratio 22.33 H (12.00-20.00) Ratio Glucose 182 H (70-110) mg/dL POC Glucose (mg/dL) (70-110) mg/dL Hemoglobin A1c 7.9 H (0.0-6.0) % 11/10/22 11/10/22 11/10/22 Range/Units 11:18 16:49 19:57 RDW (11.5-14.5) % Immature Gran # (0.00-0.04) X 10*3/uL Lymphocytes # (0.90-5.00) X 10*3/uL Monocytes # (0.20-1.00) X 10*3/uL Eosinophils # (0.04-0.35) X 10*3/uL Carbon Dioxide (20.0-27.5) mmol/L BUN/Creatinine Ratio (12.00-20.00) Ratio Glucose (70-110) mg/dL POC Glucose (mg/dL) 214 H 161 H 211 H (70-110) mg/dL Hemoglobin A1c (0.0-6.0) % 11/11/22 Range/Units 05:02 RDW (11.5-14.5) % Immature Gran # (0.00-0.04) X 10*3/uL Lymphocytes # (0.90-5.00) X 10*3/uL Monocytes # (0.20-1.00) X 10*3/uL Eosinophils # (0.04-0.35) X 10*3/uL Carbon Dioxide (20.0-27.5) mmol/L BUN/Creatinine Ratio (12.00-20.00) Ratio Glucose (70-110) mg/dL POC Glucose (mg/dL) 192 H (70-110) mg/dL Hemoglobin A1c (0.0-6.0) %
[2022-11-11] MEDS: MAG HYDROX/AL HYDROX/SIMETH 30 ML CUP PO PRN ×2 (14:33→18:28)
[2022-11-11] MEDS: SODIUM CHLORIDE 0.9% 1,000 ML IV SCH (14:34)
[2022-11-11 16:25] LABS: Glucose,Whole Blood 288 mg/dL (70-110)
[2022-11-11] MEDS: REPAGLINIDE 1 MG TAB PO SCH (17:30)
[2022-11-11] MEDS: MAGNESIUM HYDROXIDE 2,400 MG/10 ML CUP PO PRN (18:28)
[2022-11-11 20:07] LABS: Glucose,Whole Blood 264 mg/dL (70-110)
[2022-11-11] MEDS: CALCIUM CARB-VIT D 500 MG-5 MCG TAB PO SCH (21:26)
[2022-11-11] MEDS: diphenhydrAMINE 25 MG CAP PO SCH (21:26)
[2022-11-11] MEDS: ATORVASTATIN 40 MG TAB PO SCH (21:27)
[2022-11-11] MEDS: PIOGLITAZONE 30 MG TAB PO SCH (21:28)
--- NOTE | 2022-11-11 21:30 | P.PN ---
Subjective Progress Note Date: 11/11/22 CHIEF COMPLAINT: Abnormal computed tomography scan for cholecystitis HISTORY OF PRESENT ILLNESS: The patient is a 82 year old female who comes in with uncontrolled back pain. She had computed tomography scan demonstrated an incidental distended gallbladder. Her back pain is somewhat improved today. She reports new epigastric pressure after eating. Family is at bedside. No nausea or vomiting. REVIEW OF ORGAN SYSTEMS: CONSTITUTIONAL: No fevers or chills. No recent weight loss. Obesity due to excess calories, BMI 33.1 CARDIOVASCULAR: Has hyperlipidemia. Has hypertensive heart disease. MUSCULOSKELETAL: Has severe chronic pain lower back ENDOCRINE: Has hypothyroidism. Diabetes type 2, [id number] PHYSICAL EXAM: VITALS: Reviewed CONSTITUTIONAL: Well developed and in mild distress due to back pain. EYES: Conjuctivae without sclera icterus. Extraocular movements grossly i ntact. HEAD, EARS, NOSE, THROAT: Moist buccal mucosa. Head is atraumatic, normocephalic. Hears conversational speech. No nasal drainage. RESPIRATORY: Non-labored respirations and equal bilateral excursions. No gross wheezes. CARDIOVASCULAR: Palpable 2+ radial pulses. ABDOMEN: Tender at epigastrium. No peritonitis. MUSCULOSKELETAL: No clubbing cyanosis or edema SKIN: Warm and well perfused with good skin turgor. NEUROLOGIC: Cranial nerves II through XII grossly intact. No focal or later alizing signs. PSYCH: Flat affect CLINCAL LABS: Reviewed. WBC elevated over 12,000. LFTs normal. STUDIES: Ultrasound independently reviewed demonstrate no gallstones. Gallbladder distended. No thickened gallbladder wall. This is my independent interpretation. REPORTS: Ultrasound report demonstrates hydropic gallbladder without gallstones. ASSESSMENT: 1. Abnormal computed tomography scan gallbladder 2. Chronic lower back pain 3. Severe degenerative disc disease L3 to L5 4. Diabetes type 2, [id number] 5. Hypothyroidism 6. Obesity due to excess calories, BMI 33.1 7. Hydrops gallbladder PLAN: 1. Her WBC count has increased. Recommend further assessment for cholecystitis. 2. HIDA scan ordered for cholecystitis 3. Proton pump inhibitor advised Objective - Vital Signs Vital signs: Vital Signs Temp 97.5 F L 11/11/22 13:33 Pulse 74 11/11/22 13:33 Resp 17 11/11/22 13:33 BP 120/68 11/11/22 13:33 Pulse Ox 93 L 11/11/22 13:33 FiO2 Intake & Output 11/11/22 11/11/22 11/12/22 06:59 18:59 06:59 Intake Total 120 236 Output Total 0 250 Balance 120 -14 Intake: Oral 120 236 Output: Urine 0 250 Other: Voiding Method External Catheter External Catheter # Voids 1 - Labs CBC & Chem 7: 11/11/22 04:54 11/11/22 04:54 Labs: Abnormal Lab Results - Last 24 Hours (Table) 11/11/22 11/11/22 11/11/22 Range/Units 04:54 04:54 04:54 WBC 12.46 H (4.50-10.00) X 10*3/uL RBC 4.08 L (4.10-5.20) X 10*6/uL RDW 14.6 H (11.5-14.5) % Immature Gran # 0.14 H (0.00-0.04) X 10*3/uL Neutrophils # 10.90 H (1.80-7.70) X 10*3/uL Eosinophils # 0 L (0.04-0.35) X 10*3/uL BUN 30.9 H (9.0-27.0) mg/dL BUN/Creatinine Ratio 34.80 H (12.00-20.00) Ratio Glucose 199 H (70-110) mg/dL POC Glucose (mg/dL) (70-110) mg/dL Total Protein 5.9 L (6.2-8.2) g/dL Albumin 3.3 L (3.8-4.9) g/dL Albumin/Globulin Ratio 1.24 L (1.60-3.17) g/dL Vitamin B12 945.0 H (200.0-944.0) pg/mL 11/11/22 11/11/22 11/11/22 Range/Units 05:02 12:12 16:24 WBC (4.50-10.00) X 10*3/uL RBC (4.10-5.20) X 10*6/uL RDW (11.5-14.5) % Immature Gran # (0.00-0.04) X 10*3/uL Neutrophils # (1.80-7.70) X 10*3/uL Eosinophils # (0.04-0.35) X 10*3/uL BUN (9.0-27.0) mg/dL BUN/Creatinine Ratio (12.00-20.00) Ratio Glucose (70-110) mg/dL POC Glucose (mg/dL) 192 H 313 H 288 H (70-110) mg/dL Total Protein (6.2-8.2) g/dL Albumin (3.8-4.9) g/dL Albumin/Globulin Ratio (1.60-3.17) g/dL Vitamin B12 (200.0-944.0) pg/mL 11/11/22 Range/Units 20:05 WBC (4.50-10.00) X 10*3/uL RBC (4.10-5.20) X 10*6/uL RDW (11.5-14.5) % Immature Gran # (0.00-0.04) X 10*3/uL Neutrophils # (1.80-7.70) X 10*3/uL Eosinophils # (0.04-0.35) X 10*3/uL BUN (9.0-27.0) mg/dL BUN/Creatinine Ratio (12.00-20.00) Ratio Glucose (70-110) mg/dL POC Glucose (mg/dL) 264 H (70-110) mg/dL Total Protein (6.2-8.2) g/dL Albumin (3.8-4.9) g/dL Albumin/Globulin Ratio (1.60-3.17) g/dL Vitamin B12 (200.0-944.0) pg/mL
[2022-11-11] MEDS ORDERED: LACTULOSE 20 GM/30 ML CUP PO ONE ×2 (21:31→23:00)
[2022-11-11] MEDS: NON FORMULARY DRUG (Mirabegron [Myrbetriq] 50 MG Tab.Er.24h) PO SCH (23:15)
[2022-11-12] MEDS: DEXAMETHASONE SOD PHOSPHATE 4 MG/ML 1 ML VIAL IVP SCH ×4 (00:32→18:41)
[2022-11-12] MEDS: SODIUM CHLORIDE 0.9% 1,000 ML IV SCH ×2 (05:16→18:19)
[2022-11-12] MEDS: LEVOTHYROXINE 125 MCG TAB PO SCH (05:22)
[2022-11-12 06:20] LABS: Glucose,Whole Blood 269 mg/dL (70-110)
[2022-11-12] MEDS: INSULIN ASPART (NovoLOG) 100 UNIT/ML VIAL SQ SCH ×4 (07:25→21:40)
[2022-11-12] MEDS: polyethylene glycoL 3350 17 GM POWD.PACK PO SCH (09:59)
[2022-11-12] MEDS: SENNOSIDES-DOCUSATE SODIUM 1 EACH TAB PO SCH (10:00)
[2022-11-12] MEDS: CHOLECALCIFEROL 25 MCG (1000 IU) TABLET PO SCH (10:00)
[2022-11-12] MEDS: traMADol 50 MG TAB PO SCH ×4 (10:00→21:42)
[2022-11-12] MEDS: PANTOPRAZOLE 40 MG TABLET PO SCH (10:00)
[2022-11-12] MEDS: lisinopriL 20 MG TAB PO SCH (10:00)
[2022-11-12] MEDS: GLIMEPIRIDE 4 MG TAB PO SCH ×2 (10:01→18:20)
[2022-11-12] MEDS: LINAGLIPTIN 5 MG TABLET PO SCH (10:01)
[2022-11-12] MEDS: amLODIPine 5 MG TAB PO SCH (10:01)
[2022-11-12] MEDS: LIDOCAINE 5% PATCH TOPICAL SCH (10:01)
[2022-11-12 11:19] LABS: Glucose,Whole Blood 361 mg/dL (70-110)
[2022-11-12 11:49] LABS: Basophils # (A) 0.03 X 10*3/uL (0.00-0.10); Basophils % (A) 0.2 %; Eosinophils # (A) 0 X 10*3/uL (0.04-0.35); Eosinophils % (A) 0 %; HCT 40.8 % (37.2-46.3); HGB 13.2 g/dL (12.0-15.0); Immature Grans, Automated 1.6 %; Lymphocytes # (A) 0.65 X 10*3/uL (0.90-5.00); Lymphocytes % (A) 4.5 %; MCH 29.9 pg (27.0-32.0); MCHC 32.4 g/dL (32.0-37.0); MCV 92.5 fL (80.0-97.0); Mean Platelet Volume 10.4 fL (9.5-12.2); Monocytes # (A) 0.97 X 10*3/uL (0.20-1.00); Monocytes % (A) 6.6 %; NRBC Per 100 WBC 0 /100 WBCS (0.0-0.0); Neutrophils # (A) 12.72 X 10*3/uL (1.80-7.70); Neutrophils % (A) 87.1 %; Platelet Count 347 X 10*3/uL (140-440); RBC 4.41 X 10*6/uL (4.10-5.20); RDW 14.6 % (11.5-14.5)
--- NOTE | 2022-11-12 12:12 | NM ---
EXAMINATION TYPE: NM hepatobiliary w CCK DATE OF EXAM: 11/12/2022 COMPARISON: NONE HISTORY: Pain TECHNIQUE: After the intravenous administration of 4.95 mCi Tc 99m Mebrofenin hepatobiliary scintigra phy is performed. Immediate images post injection. FINDINGS: There is satisfactory initial accumulation of tracer by the liver. The gallbladder is visualized wit hin 28 minutes. The small bowel activity is noted within 60 minutes. At one hour CCK was administer ed, patient was injected with 1.59 mcg of Kinevac, and gallbladder ejection fraction is calculated at 40 %, in the normal range. Therefore there is no scintigraphic evidence of cystic or common bile du ct obstruction to suggest acute cholecystitis or gallbladder dyskinesia. IMPRESSION: Exam is within normal limits.
[2022-11-12 12:15] LABS: African American GFR (CKD) 61.6 (60.0-200.0); Albumin 3.8 g/dL (3.8-4.9); Albumin/Globulin Ratio 1.31 (1.60-3.17); Anion Gap 12.2 mmol/L (10.00-18.00); BUN/Creat Ratio 33.3 Ratio (12.00-20.00); Blood Urea Nitrogen 33.3 mg/dL (9.0-27.0); Calcium 9.6 mg/dL (8.7-10.3); Carbon Dioxide 22.8 mmol/L (20.0-27.5); Globulin 2.9 g/dL (1.6-3.3); Non-African American GFR(CKD) 53.2 (60.0-200.0); Potassium 4.6 mmol/L (3.5-5.5); Total Bilirubin 0.4 mg/dL (0.30-1.20); Total Protein 6.7 g/dL (6.2-8.2)
--- NOTE | 2022-11-12 12:33 | P.PN ---
Subjective Progress Note Date: 11/12/22 CHIEF COMPLAINT: Abnormal CT scan for cholecystitis HISTORY OF PRESENT ILLNESS: Patient sitting in bed comfortably. She initially presented uncontrolled back pain. She had computed tomography scan that d emonstrated incidental distended gallbladder. Patient denies any abdominal pain today. Denies any vomiting. She did have nausea earlier. Patient reports her pain is improved after bowel movements. She was given lactulose. She had been constipated. And now feels better. HIDA scan is within normal limits. WBC difficult from 12-14 Hgb is 13.2 platelets 347 Lucero 137 potassium 4.6 creatinine 1.0 LFTs normal. Patient followed by orthopedics regarding back pain. PHYSICAL EXAM: VITAL SIGNS: Reviewed GENERAL: Well-developed in no acute distress. HEENT: No sclera icterus. Extraocular movements grossly intact. Moist buccal mucosa. Head is atraumatic, normocephalic. Hears conversational speech. No nasal drainage. NECK: Supple without lymphadenopathy. CHEST: Non-labored respirations and equal bilateral excursions. CARDIOVASCULAR: Palpable 2+ radial pulses. ABDOMEN: Soft. Nondistended. Nontender. MUSCULOSKELETAL: No clubbing or cyanosis. NEUROLOGIC: No focal or lateralizing signs. Cranial nerves II through XII grossly intact. PSYCH: Appropriate affect. Alert and oriented to person, place and time. SKIN: Well perfused. Good skin turgor. ASSESSMENT: 1. Abnormal computed tomography scan gallbladder with normal HIDA 2. Chronic lower back pain 3. Severe degenerative disc disease L3 to L5 4. Diabetes type 2, [id number] 5. Hypothyroidism 6. Obesity due to excess calories, BMI 33.1 7. Hydrops gallbladder 8. Constipation 9. Leukocytosis PLAN: -Continue supportive care -Continue PPI -Further recommendations forthcoming per surgeon Physician [employer] Technician note has been reviewed by physician. Signing provider agrees with the documented findings, assessment, and plan of care. CHIEF COMPLAINT: Abnormal computed tomography scan for cholecystitis HISTORY OF PRESENT ILLNESS: The patient is a 82 year old female was admitted with uncontrolled back pain with incidental finding of distended gallbladder. Yesterday she reported epigastric pain. Additional studies were obtained. She reports previous history of hiatal hernia. It was at bedside. REVIEW OF ORGAN SYSTEMS: CONSTITUTIONAL: No fevers or chills. No recent weight loss. Obesity due to excess calories, BMI 33.1 CARDIOVASCULAR: Has hyperlipidemia. Has hypertensive heart disease. MUSCULOSKELETAL: Has severe chronic pain lower back ENDOCRINE: Has hypothyroidism. Diabetes type 2, [id number] PHYSICAL EXAM: VITALS: Reviewed CONSTITUTIONAL: Well developed and in mild distress due to back pain. EYES: Conjuctivae without sclera icterus. Extraocular movements grossly intact. HEAD, EARS, NOSE, THROAT: Moist buccal mucosa. Head is atraumatic, normocephalic . Hears conversational speech. No nasal drainage. RESPIRATORY: Non-labored respirations and equal bilateral excursions. No gross wheezes. CARDIOVASCULAR: Palpable 2+ radial pulses. ABDOMEN: Tender at epigastrium. No peritonitis. MUSCULOSKELETAL: No clubbing cyanosis or edema SKIN: Warm and well perfused with good skin turgor. NEUROLOGIC: Cranial nerves II through XII grossly intact. No focal or lateralizing signs. PSYCH: Flat affect CLINCAL LABS: Reviewed. WBC elevated over 14,000. Blood sugar glucose over 300 REPORTS: HIDA scan reviewed demonstrates ejection fraction of 40%. ASSESSMENT: 1. Abnormal computed tomography scan gallbladder 2. Chronic lower back pain 3. Severe degenerative disc disease L3 to L5 4. Diabetes type 2, [id number]-fxsmsumgi 5. Hypothyroidism 6. Obesity due to excess calories, BMI 33.1 7. Hydrops gallbladder 8. Hiatal hernia PLAN: 1. Clinically, her symptoms are stable. Diagnostic studies demonstrates no acute cholecystitis or biliary dyskinesia. 2. She reports pre-existing hiatal hernia of which continue antacids 3. Gen. surgery signing off. Please reconsult if needed Objective - Vital Signs Vital signs: Vital Signs Temp 96.5 F L 11/12/22 09:55 Pulse 74 11/12/22 09:55 Resp 19 11/12/22 09:55 BP 167/74 11/12/22 09:55 Pulse Ox 96 11/12/22 09:55 FiO2 Intake & Output 11/11/22 11/12/22 11/12/22 18:59 06:59 18:59 Intake Total 236 Output Total 250 450 Balance -14 -450 Intake: Oral 236 Output: Urine 250 450 Other: Voiding Method External Catheter Indwelling Catheter # Bowel Movements 1 - Labs CBC & Chem 7: 11/12/22 06:09 11/12/22 06:09 Labs: Abnormal Lab Results - Last 24 Hours (Table) 11/11/22 11/11/22 11/11/22 Range/Units 04:54 16:24 20:05 WBC (4.50-10.00) X 10*3/uL RDW (11.5-14.5) % Immature Gran # (0.00-0.04) X 10*3/uL Neutrophils # (1.80-7.70) X 10*3/uL Lymphocytes # (0.90-5.00) X 10*3/uL Eosinophils # (0.04-0.35) X 10*3/uL BUN (9.0-27.0) mg/dL Est GFR (CKD-EPI)NonAf (60.0-200.0) BUN/Creatinine Ratio (12.00-20.00) Ratio Glucose (70-110) mg/dL POC Glucose (mg/dL) 288 H 264 H (70-110) mg/dL Albumin/Globulin Ratio (1.60-3.17) g/dL Vitamin B12 945.0 H (200.0-944.0) pg/mL 11/12/22 11/12/22 11/12/22 Range/Units 06:09 06:09 06:19 WBC 14.60 H (4.50-10.00) X 10*3/uL RDW 14.6 H (11.5-14.5) % Immature Gran # 0.23 H (0.00-0.04) X 10*3/uL Neutrophils # 12.72 H (1.80-7.70) X 10*3/uL Lymphocytes # 0.65 L (0.90-5.00) X 10*3/uL Eosinophils # 0 L (0.04-0.35) X 10*3/uL BUN 33.3 H (9.0-27.0) mg/dL Est GFR (CKD-EPI)NonAf 53.2 L (60.0-200.0) BUN/Creatinine Ratio 33.30 H (12.00-20.00) Ratio Glucose 273 H (70-110) mg/dL POC Glucose (mg/dL) 269 H (70-110) mg/dL Albumin/Globulin Ratio 1.31 L (1.60-3.17) g/dL Vitamin B12 (200.0-944.0) pg/mL 11/12/22 Range/Units 11:18 WBC (4.50-10.00) X 10*3/uL RDW (11.5-14.5) % Immature Gran # (0.00-0.04) X 10*3/uL Neutrophils # (1.80-7.70) X 10*3/uL Lymphocytes # (0.90-5.00) X 10*3/uL Eosinophils # (0.04-0.35) X 10*3/uL BUN (9.0-27.0) mg/dL Est GFR (CKD-EPI)NonAf (60.0-200.0) BUN/Creatinine Ratio (12.00-20.00) Ratio Glucose (70-110) mg/dL POC Glucose (mg/dL) 361 H (70-110) mg/dL Albumin/Globulin Ratio (1.60-3.17) g/dL Vitamin B12 (200.0-944.0) pg/mL
[2022-11-12] MEDS: METOPROLOL SUCCINATE (ER) 100 MG TAB.ER.24H PO SCH ×2 (12:45→21:41)
--- NOTE | 2022-11-12 14:25 | P.PN ---
Subjective Progress Note Date: 11/12/22 patient is a 82-year-old lady with past medical history significant for back pain who presented to the ER because of worsening back pain. Patient was recently discharged from the hospital after being treated for similar complaints. Patient was told in last visit to be Admitted so that her pain regimen can be adjusted but they refused.They did discuss the treatments with the primary care physician who placed the patient on oxycodone. She has been taking 5 mg every 8 hours and they stated the pain has not been helping. The patient continues to have left-sided back pain with some weakness in her left lower extremity. This weakness has been chronic. She denies any fevers. Did have 1 episode of urinary incontinence. She also admits to some constipation since she started the pain medications. No nausea or vomiting. Initial lab work done in the ER showed white count of 6.9, hemoglobin 12.6, platelet count 247, sodium 141, potassium 3.6, BUN [address] abdominal and pelvis done showed hydropic gallbladder, Correlate for acute cholecystitis.Trace bilateral pleural effusion and thickening of interlobular septa correlate for serum markers for CHF. Moderate disc degeneration changes with disc bulge at L3-L4 and L4-L5 with at least moderate L3L4 and severe L4-L5 spinal stenosis no evidence of spinal fracture 11/11. Patient seen and examined. White count this morning is 12.46, hemoglobin 12.5, sodium 137, potassium 4.6. Complaining of constipation, patient hasn't had a bowel movement for the last 3 days 11/12. Patient seen and examined. Temperature this morning 96.5, heart rate 74, blood pressure 167/74, respirations 19. States she feels much better, abdominal pain has resolved. Still having back pain. Vital signs stable REVIEW OF SYSTEMS: CONSTITUTIONAL: No fever, no malaise,. CARDIOVASCULAR: No chest pain, no palpitations, no syncope. PULMONARY: No shortness of breath, no cough, GASTROINTESTINAL: No diarrhea, no nausea, no vomiting, no abdominal pain. NEUROLOGICAL: No headaches, no weakness, PHYSICAL EXAMINATION: GENERAL: The patient is alert and oriented x3, not in any acute distress. Well developed, well nourished. HEENT: Pupils are round and equally reacting to light. EOMI. No scleral icterus. No conjunctival pallor. Normocephalic, atraumatic. No pharyngeal erythema. No thyromegaly. CARDIOVASCULAR: S1 and S2 present. No murmurs, rubs, or gallops. PULMONARY: Chest is clear to auscultation, no wheezing or crackles. ABDOMEN: Soft, nontender, nondistended, normoactive bowel sounds. No palpable organomegaly. MUSCULOSKELETAL: No joint swelling or deformity. EXTREMITIES: No cyanosis, clubbing, or pedal edema. NEUROLOGICAL: Gross neurological examination did not reveal any focal deficits. SKIN: No rashes. Assessment and plan Acute on chronic back pain Bilateral lower extremity weakness Acute metabolic encephalopathy Multilevel lumbar spondylosis with stenosis, worse at L3-L4, L4-L5 Multilevel facet arthropathy with neuroforaminal stenosis, worse at L3-L4, L4-L5 Hypertension Hyperlipidemia Sxm-wuydcbi-vxhxhehaa diabetes mellitus Atypical chest pain Bigeminy Plan Monitor vital signs monitor CBC, leukocytosis secondary to steroids Continue IV Decadron MRI lumbar spine showed L3-L4 and L4-L5 disc herniations with superior migration of L4-L5 herniation. This results in combination with facet joint arthropathy of moderate to severe left neural foraminal stenosis L3-L4 Continue pain management Continue sliding scale insulin Aggressive bowel regimen Gen. surgery evaluated the patient for computed tomography scan findings of pos sible gallbladder pathology, surgeries reviewed all imaging, at this time patient is asymptomatic, surgery ordered a HIDA scan Cardiology evaluated the patient, reviewed EKGs, recommending increasing dose of Lopressor. Follow up on orthopedic recommendations Neurology consulted, they evaluated the patient for encephalopathy, ordered EEG Objective - Vital Signs Vital signs: Vital Signs Temp 96.5 F L 11/12/22 09:55 Pulse 74 11/12/22 09:55 Resp 19 11/12/22 09:55 BP 167/74 11/12/22 09:55 Pulse Ox 96 11/12/22 09:55 FiO2 Intake & Output 11/11/22 11/12/22 11/12/22 18:59 06:59 18:59 Intake Total 236 Output Total 250 450 Balance -14 -450 Intake: Oral 236 Output: Urine 250 450 Other: Voiding Method External Catheter # Bowel Movements 1 - Labs CBC & Chem 7: 11/12/22 06:09 11/12/22 06:09 Labs: Abnormal Lab Results - Last 24 Hours (Table) 11/11/22 11/11/22 11/11/22 Range/Units 04:54 12:12 16:24 POC Glucose (mg/dL) 313 H 288 H (70-110) mg/dL Vitamin B12 945.0 H (200.0-944.0) pg/mL 11/11/22 11/12/22 Range/Units 20:05 06:19 POC Glucose (mg/dL) 264 H 269 H (70-110) mg/dL Vitamin B12 (200.0-944.0) pg/mL
--- NOTE | 2022-11-12 14:59 | P.PN ---
Subjective Progress Note Date: 11/12/22 Principal diagnosis: Acute on chronic low back pain Patient was examined today at bedside, her was also present. Patient was resting in her hospital bed. She states that the low back pain has improved also. She seems to be moving her lower extremities much. She was able to get out of bed yesterday. She denies any loss of bladder function at this. Denies any numbness or tingling in the bilateral lower extremities. She denies lightheadedness, shortness of breath, chest pain Objective - Vital Signs Vital signs: Vital Signs Temp 97.9 F 11/12/22 13:36 Pulse 79 11/12/22 13:36 Resp 18 11/12/22 13:36 BP 122/69 11/12/22 13:36 Pulse Ox 95 11/12/22 13:36 FiO2 Intake & Output 11/11/22 11/12/22 11/12/22 18:59 06:59 18:59 Intake Total 236 118 Output Total 250 450 Balance -14 -450 118 Intake: Oral 236 118 Output: Urine 250 450 Other: Voiding Method External Catheter Indwelling Catheter # Bowel Movements 1 - Exam Gen: AOx3, NAD VSS stable at this time Integument: No obvious open lesions or sores or areas of erythema present throughout the cervical, thoracic or lumbar spine. There is a Lidoderm patch present in the lower lumbar spine Palpation: No significant tenderness with palpation of the midline or paraspinal region of the cervical thoracic spine. She does reproduce tenderness with palpation of the paraspinal region of the lumbar spine No significant tenderness with palpation appreciated throughout the bilateral l ower extremities on exam ROM: Range of motion was improved in the upper extremities today on exam, she was able to elevate the shoulders, flex and extend the elbows, flex and extend the wrist. Lower extremity exam was also improved today, she was able to flex the hips, fl ex and extend the knees, plantar and dorsiflex the foot along with wiggle the toes. Both in the upper and lower extremities there was significant, but she needed for assessing her range of motion Motor: 4-/5 strength appreciated in the right lower extremity with hip flexion, knee extension, knee flexion, plantar flexion, dorsiflexion, EHL, FHL 3+/5 strength appreciated in the left lower extremity with hip flexion, knee extension, knee flexion, plantar flexion, dorsiflexion, EHL, FHL Sensory Exam: Senory exam to light touch is intact C5-T1 Senosry exam to light touch is intact L2-S1 Reflexes: Negative Cruz's bilaterally Negative clonus bilaterally Negative Babinski bilaterally Special Test: Logroll maneuver of the lower extremities bilaterally reproduces no groin pain Negative straight leg raise bilaterally - Labs CBC & Chem 7: 11/12/22 06:09 11/12/22 06:09 Labs: Abnormal Lab Results - Last 24 Hours (Table) 11/11/22 11/11/22 11/11/22 Range/Units 04:54 16:24 20:05 WBC (4.50-10.00) X 10*3/uL RDW (11.5-14.5) % Immature Gran # (0.00-0.04) X 10*3/uL Neutrophils # (1.80-7.70) X 10*3/uL Lymphocytes # (0.90-5.00) X 10*3/uL Eosinophils # (0.04-0.35) X 10*3/uL BUN (9.0-27.0) mg/dL Est GFR (CKD-EPI)NonAf (60.0-200.0) BUN/Creatinine Ratio (12.00-20.00) Ratio Glucose (70-110) mg/dL POC Glucose (mg/dL) 288 H 264 H (70-110) mg/dL Albumin/Globulin Ratio (1.60-3.17) g/dL Vitamin B12 945.0 H (200.0-944.0) pg/mL 11/12/22 11/12/22 11/12/22 Range/Units 06:09 06:09 06:19 WBC 14.60 H (4.50-10.00) X 10*3/uL RDW 14.6 H (11.5-14.5) % Immature Gran # 0.23 H (0.00-0.04) X 10*3/uL Neutrophils # 12.72 H (1.80-7.70) X 10*3/uL Lymphocytes # 0.65 L (0.90-5.00) X 10*3/uL Eosinophils # 0 L (0.04-0.35) X 10*3/uL BUN 33.3 H (9.0-27.0) mg/dL Est GFR (CKD-EPI)NonAf 53.2 L (60.0-200.0) BUN/Creatinine Ratio 33.30 H (12.00-20.00) Ratio Glucose 273 H (70-110) mg/dL POC Glucose (mg/dL) 269 H (70-110) mg/dL Albumin/Globulin Ratio 1.31 L (1.60-3.17) g/dL Vitamin B12 (200.0-944.0) pg/mL 11/12/22 Range/Units 11:18 WBC (4.50-10.00) X 10*3/uL RDW (11.5-14.5) % Immature Gran # (0.00-0.04) X 10*3/uL Neutrophils # (1.80-7.70) X 10*3/uL Lymphocytes # (0.90-5.00) X 10*3/uL Eosinophils # (0.04-0.35) X 10*3/uL BUN (9.0-27.0) mg/dL Est GFR (CKD-EPI)NonAf (60.0-200.0) BUN/Creatinine Ratio (12.00-20.00) Ratio Glucose (70-110) mg/dL POC Glucose (mg/dL) 361 H (70-110) mg/dL Albumin/Globulin Ratio (1.60-3.17) g/dL Vitamin B12 (200.0-944.0) pg/mL Assessment and Plan Assessment: Acute on chronic low back pain Bilateral lower extremity weakness Multilevel lumbar spondylosis with stenosis, worse at L3-L4, L4-L5 Multilevel facet arthropathy with neuroforaminal stenosis, worse at L3-L4, L4-L5 Confusion Constipation Other medical comorbidities Plan: Patient's overall symptoms seemed to decrease her narcotics and likely use of the IV steroids. At this time we are continuing to recommend conservative measures to maximize her medical status. We discussed the possibility of inpatient rehab due to her overall medical state and strength significantly being decreased of the last few months. Recommend continuing the IV Decadron at 4 mg every 6 hours, we'll need to start tapering off and switching to orals over the next 24-48 hours PT/OT daily, recommending weight-bear as tolerated with walker. Patient needs to be attempting to get out of bed for all meals Other emergency medical dispatcher and recommendations appreciated Additional stool softeners have been ordered for constipation Continue to monitor for urinary retention DVT prophylaxis per primary medical service We'll continue to follow during inpatient stay Time with Patient: Less than 30
[2022-11-12 16:36] LABS: Glucose,Whole Blood 399 mg/dL (70-110)
[2022-11-12] MEDS: REPAGLINIDE 1 MG TAB PO SCH (18:20)
[2022-11-12 19:22] LABS: Appearance,Urine Clear (Clear); Bilirubin,Urine Negative (Negative); Blood,Urine Negative (Negative); Color,Urine Yellow; Glucose,Urine (UA) 4+ (Negative); Ketones,Urine Negative (Negative); Leukocyte Esterase,Urine Negative (Negative); Nitrite,Urine Negative (Negative); PH, Urine 6.5 (5.0-8.0); Protein,Urine Negative (Negative); Specific Gravity,Urine 1.015 (1.001-1.035); Urobilinogen,Urine <2.0 mg/dL (<2.0)
[2022-11-12 21:14] LABS: Glucose,Whole Blood 306 mg/dL (70-110)
[2022-11-12] MEDS: CALCIUM CARB-VIT D 500 MG-5 MCG TAB PO SCH (21:41)
[2022-11-12] MEDS: ATORVASTATIN 40 MG TAB PO SCH (21:41)
[2022-11-12] MEDS: diphenhydrAMINE 25 MG CAP PO SCH (21:41)
[2022-11-12] MEDS: PIOGLITAZONE 30 MG TAB PO SCH (21:41)
[2022-11-12] MEDS: NON FORMULARY DRUG (Mirabegron [Myrbetriq] 50 MG Tab.Er.24h) PO SCH (21:41)
--- NOTE | 2022-11-12 22:21 | EEG ---
ELECTROENCEPHALOGRAM REPORT PREAMBLE: This is an 82-year-old female with altered mental status. This study is performed to rule out any seizure. CURRENT MEDICATIONS: 1. Norvasc. 2. Lipitor. 3. Decadron. 4. Amaryl. 5. Toradol. 6. Synthroid. 7. Tradjenta. 8. Toprol. 9. Myrbetriq. 10.Actos. 11.Ultram. EEG FINDINGS: This is a 21-channel digital EEG recorded with video component, utilizing 10/20 international system with referential and bipolar montages. Background consists of well-developed, moderately well regulated, mixed frequencies of alpha and some 7 hertz theta activity seen in bihemispheric region. Background is posterior dominant and seems to be reactive to eye opening and closing. Photic driving response was not seen. Different stages of sleep were not seen. No focal or generalized epileptiform activity was seen. IMPRESSION: This is an abnormal EEG due to background slowing of mild degree, suggestive of mild encephalopathy. No epileptiform activity was seen. MMODL / IJN: [id number] /
[2022-11-13] MEDS: DEXAMETHASONE SOD PHOSPHATE 4 MG/ML 1 ML VIAL IVP SCH ×2 (00:24→06:48)
[2022-11-13 06:07] LABS: Glucose,Whole Blood 244 mg/dL (70-110)
[2022-11-13] MEDS: LEVOTHYROXINE 125 MCG TAB PO SCH (06:49)
[2022-11-13] MEDS: CHOLECALCIFEROL 25 MCG (1000 IU) TABLET PO SCH (08:26)
[2022-11-13] MEDS: SODIUM CHLORIDE 0.9% 1,000 ML IV SCH ×2 (08:26→18:50)
[2022-11-13] MEDS: LINAGLIPTIN 5 MG TABLET PO SCH (08:27)
[2022-11-13] MEDS: amLODIPine 5 MG TAB PO SCH (08:27)
[2022-11-13] MEDS: traMADol 50 MG TAB PO SCH (08:27)
[2022-11-13] MEDS: lisinopriL 20 MG TAB PO SCH (08:27)
[2022-11-13] MEDS: SENNOSIDES-DOCUSATE SODIUM 1 EACH TAB PO SCH (08:27)
[2022-11-13] MEDS: PANTOPRAZOLE 40 MG TABLET PO SCH (08:27)
[2022-11-13] MEDS: LIDOCAINE 5% PATCH TOPICAL SCH (08:28)
[2022-11-13] MEDS: polyethylene glycoL 3350 17 GM POWD.PACK PO SCH (08:29)
[2022-11-13] MEDS: INSULIN ASPART (NovoLOG) 100 UNIT/ML VIAL SQ SCH ×4 (08:30→22:05)
[2022-11-13] MEDS: GLIMEPIRIDE 4 MG TAB PO SCH ×2 (08:43→17:08)
[2022-11-13] MEDS: METOPROLOL SUCCINATE (ER) 100 MG TAB.ER.24H PO SCH ×2 (11:42→22:04)
[2022-11-13 11:50] LABS: Glucose,Whole Blood 263 mg/dL (70-110)
--- NOTE | 2022-11-13 13:08 | P.PAINCN ---
History of Present Illness - Reason for Consult Consult date: 11/13/22 - History of Present Illness Patient is an 82-year-old female who was admitted to [facility] on 11/09/2022 with regards to exacerbation of chronic low back pain. Patient has a rather extensive history with regards to her lumbar spine. Patient has had 2 separate ER visits earlier this week with regards to the same problem. she been diagnosed with lumbar degenerative disc disease and lumbar spinal stenosis and lumbar spondylosis with lumbar facet arthropathy, was evaluated at [facility] pain clinic, and we have done diagnostic medial branch block lumbar area and patient had 0 benefit from, for this reason later on we did lumbar epidural steroid injection at L4 5, and according to the patient's he reported that the patient had 0 benefit from it and she continues to have severe intractable low back pain, she was admitted to [facility] secondary to exacerbation of her low back pain and she is currently on pain medication Harwick 5/325 and Ultram 50 mg every 8 hours, patient is currently confused and her to the bedside reported the confusion happened after she was started on the combination medication ( norco ,and ultram ) patient currently lying in bed, she is responding and following command, complaining of back pain , so patient not able to ambulate secondary to the intensity of the pain and she had lower extremity weakness Past Medical History Past Medical History: Diabetes Mellitus, Hyperlipidemia, Hypertension Additional Past Medical History / Comment(s): chronic back pain History of Any Multi-Drug Resistant Organisms: None Reported Additional Past Surgical History / Comment(s): bladder suspension Past Anesthesia/Blood Transfusion Reactions: No Reported Reaction Additional Past Anesthesia/Blood Transfusion Reaction / Comm: spouse states "needs to have a larger dose of anesthesia because her body blocks it" Past Psychological History: No Psychological Hx Reported Smoking Status: Never smoker Past Alcohol Use History: None Reported Past Drug Use History: None Reported - Past Family History Mother Family Medical History: Myocardial Infarction ([place]) Father Additional Family Medical History / Comment(s): cerebral hemmorage possible aneursym unk Medications and Allergies Home Medications Medication Instructions Recorded Confirmed Type Atorvastatin [Lipitor] 40 mg PO HS 01/08/21 11/09/22 History Calcium Carbonate/Vitamin D3 1 cap PO HS 01/08/21 11/09/22 History [Calcium 600 mg-D3 10 Mcg (400 Iu)] Cholecalciferol [Vitamin D3 (25 25 mcg PO DAILY 01/08/21 11/09/22 History Mcg = 1000 Iu)] Levothyroxine Sodium 125 mcg PO DAILY 01/08/21 11/09/22 History Metoprolol Succinate (ER) [Toprol 100 mg PO BID@1200,2200 01/08/21 11/09/22 History XL] Milk Thistle 150 mg PO DAILY 01/08/21 11/09/22 History Mirabegron [Myrbetriq] 50 mg PO HS@2200 01/08/21 11/09/22 History Omeprazole 20 mg PO DAILY 01/08/21 11/09/22 History Pioglitazone [Actos] 30 mg PO HS 01/08/21 11/09/22 History Quinapril HCl 40 mg PO DAILY 01/08/21 11/09/22 History Repaglinide 1 mg PO AC-SUPPER 01/08/21 11/09/22 History Vitamin C/Biotin [Hair, Skin and 1 tab PO DAILY 01/08/21 11/09/22 History Nails Chew] amLODIPine [Norvasc] 5 mg PO DAILY 01/08/21 11/09/22 History diphenhydrAMINE HCL [Benadryl] 25 mg PO HS@2200 01/08/21 11/09/22 History sitaGLIPtin PHOSPHATE [Januvia] 50 mg PO DAILY 01/08/21 11/09/22 History Aspirin EC [Ecotrin Low Dose] 81 mg PO W/BRKFST 10/10/22 11/09/22 History Glimepiride [Amaryl] 4 mg PO BID-W/MEALS 10/10/22 11/09/22 History Mv-Mn/Om3/Dha/Epa/Fish/Lut/Kleber 1 cap PO DAILY@1200 10/10/22 11/09/22 History [Ocuvite Adult 50 Plus Softgel] Vitamin A 2,400 mcg PO HS 10/10/22 11/09/22 History HYDROcodone/APAP 5-325MG [Harwick 1 tab PO Q8H PRN 11/07/22 11/09/22 History 5-325] Metformin (Unknown Dose) 1 dose PO DIRECTED 11/09/22 11/09/22 History Allergies Allergy/AdvReac Type Severity Reaction Status Date / Time alendronate sodium AdvReac Nausea Verified 11/09/22 20:41 [From Fosamax] codeine AdvReac Nausea Verified 11/09/22 20:41 solifenacin AdvReac Nausea Verified 11/09/22 20:41 Physical Exam Vitals: Vital Signs Temp Pulse Resp BP Pulse Ox 11/13/22 09:55 67 17 11/13/22 08:31 96 11/13/22 07:03 97.4 F L 67 17 117/79 95 11/13/22 01:40 98.4 F 69 15 145/80 100 11/12/22 18:59 98.0 F 75 15 131/77 96 11/12/22 13:36 97.9 F 79 18 122/69 95 11/12/22 12:44 75 133/66 94 L Intake and Output 11/12/22 11/13/22 11/13/22 22:59 06:59 14:59 Intake Total 118 Output Total 950 550 Balance -832 -550 Intake: Oral 118 Output: Urine 950 550 Other: Voiding Method Indwelling Catheter Physical Examinations : -Constitutiona : Cooperative , not in acute distress . -HEENT : nech : supple , no Lymphadenopathy , normal thyroid size . : eyes : no ptosis , no icterus, no photophobia . - neurologic : Cranial nerve II to XII intact , no focal neurological deffecit . -psychatric : alert , oriented X 3 , appropriate affect , intact judgment and insight . -Lymphatic : no Lymphadenopathy . - musculoskeltal : Lumber spine moter stegnth lower extremities ,thigh and legs 2-3/5 Right side , 2-3/5 Left side lumber facet Loading Test =positive Right , positive Left Range of motion of the lumbar spine Flexion 30 degrees, extension 10 degrees strait leg raising test = positive at 30 degree Fabere test= positive Right , and positive LT . tenderness over the Sacroiliac joint on the Right , and Left sides Gaenslen test= positive right ,and positive left . Seated flexion test= positive right ,and positive Left . Results CBC & Chem 7: 11/12/22 06:09 11/12/22 06:09 Labs: Abnormal Lab Results - Last 24 Hours (Table) 11/12/22 11/12/22 11/12/22 Range/Units 06:09 16:35 17:42 BUN 33.3 H (9.0-27.0) mg/dL Est GFR (CKD-EPI)NonAf 53.2 L (60.0-200.0) BUN/Creatinine Ratio 33.30 H (12.00-20.00) Ratio Glucose 273 H (70-110) mg/dL POC Glucose (mg/dL) 399 H (70-110) mg/dL Albumin/Globulin Ratio 1.31 L (1.60-3.17) g/dL Urine Glucose (UA) 4+ H (Negative) 11/12/22 11/13/22 11/13/22 Range/Units 21:13 06:05 11:49 BUN (9.0-27.0) mg/dL Est GFR (CKD-EPI)NonAf (60.0-200.0) BUN/Creatinine Ratio (12.00-20.00) Ratio Glucose (70-110) mg/dL POC Glucose (mg/dL) 306 H 244 H 263 H (70-110) mg/dL Albumin/Globulin Ratio (1.60-3.17) g/dL Urine Glucose (UA) (Negative) Comments: MRI of the lumbar spine= L3 4 L4 5 disc herniation, multilevel lumbar degenerative disc disease, sea level lumbar facet arthropathy, multilevel foraminal stenosis Assessment and Plan Plan: Assessment and plan=1-lumbar spinal stenosis. 2-lumber herniated disc disease. 3-lumbar spondylosis with lumbar facet arthropathy. Patient had acute exacerbation of low back pain, patient had side effects from the combination treatment of Harwick and Ultram, he became very confused , patient blood sugar is significantly elevated, for this reason patient is not candidate to have epidural steroid injection, also patient had no benefit from previous pain management interventions, I recommend physical therapy evaluation and treatment, and also I will discontinue Harwick on Ultram, I will start patient on Percocet 7.5/325 every 6 hours when necessary. Time with Patient: Less than 30 PQRS Measure Charge Sheet - Pain Location Back Non-Pharmacological Interventions: Emotional/Spiritual Support, Environmental Control, Position/Reposition, Reduce Environmental Stimuli Pharmacological Interventions: Discuss Pain Med Options PQRS Narrative: Blood Pressure [Right Arm] 117/79 Blood Pressure 117/85 Pain Intensity [Back] 0 Pain Intensity 5 Pain Scale Used Numeric (1 - 10) Scale Used Numeric (1 - 10) Hx Alcohol Use (MH) No Home Medications: Ambulatory Orders Atorvastatin [Lipitor] 40 mg PO HS 01/08/21 Calcium Carbonate/Vitamin D3 [Calcium 600 mg-D3 10 Mcg (400 Iu)] 1 cap PO HS 01/08/21 Cholecalciferol [Vitamin D3 (25 Mcg = 1000 Iu)] 25 mcg PO DAILY 01/08/21 Levothyroxine Sodium 125 mcg PO DAILY 01/08/21 Metoprolol Succinate (ER) [Toprol XL] 100 mg PO BID@1200,0 01/08/21 Milk Thistle 150 mg PO DAILY 01/08/21 Mirabegron [Myrbetriq] 50 mg PO HS@219901/08/21 Omeprazole 20 mg PO DAILY 01/08/21 Pioglitazone [Actos] 30 mg PO HS 01/08/21 Quinapril HCl 40 mg PO DAILY 01/08/21 Repaglinide 1 mg PO AC-SUPPER 01/08/21 Vitamin C/Biotin [Hair, Skin and Nails Chew] 1 tab PO DAILY 01/08/21 amLODIPine [Norvasc] 5 mg PO DAILY 01/08/21 diphenhydrAMINE HCL [Benadryl] 25 mg PO HS@219901/08/21 sitaGLIPtin PHOSPHATE [Januvia] 50 mg PO DAILY 01/08/21 Aspirin EC [Ecotrin Low Dose] 81 mg PO W/BRKFST 10/10/22 Glimepiride [Amaryl] 4 mg PO BID-W/MEALS 10/10/22 Mv-Mn/Om3/Dha/Epa/Fish/Lut/Kleber [Ocuvite Adult 50 Plus Softgel] 1 cap PO DAILY@1200 10/10/22 Vitamin A 2,400 mcg PO HS 10/10/22 HYDROcodone/APAP 5-325MG [Harwick 5-325] 1 tab PO Q8H PRN 11/07/22 Metformin (Unknown Dose) 1 dose PO DIRECTED 11/09/22
--- NOTE | 2022-11-13 14:21 | P.PN ---
Subjective Progress Note Date: 11/13/22 patient is a 82-year-old lady with past medical history significant for back pain who presented to the ER because of worsening back pain. Patient was recently discharged from the hospital after being treated for similar complaints. Patient was told in last visit to be Admitted so that her pain regimen can be adjusted but they refused.They did discuss the treatments with the primary care physician who placed the patient on oxycodone. She has been taking 5 mg every 8 hours and they stated the pain has not been helping. The patient continues to have left-sided back pain with some weakness in her left lower extremity. This weakness has been chronic. She denies any fevers. Did have 1 episode of urinary incontinence. She also admits to some constipation since she started the pain medications. No nausea or vomiting. Initial lab work done in the ER showed white count of 6.9, hemoglobin 12.6, platelet count 247, sodium 141, potassium 3.6, BUN [address] abdominal and pelvis done showed hydropic gallbladder, Correlate for acute cholecystitis.Trace bilateral pleural effusion and thickening of interlobular septa correlate for serum markers for CHF. Moderate disc degeneration changes with disc bulge at L3-L4 and L4-L5 with at least moderate L3L4 and severe L4-L5 spinal stenosis no evidence of spinal fracture 11/11. Patient seen and examined. White count this morning is 12.46, hemoglobin 12.5, sodium 137, potassium 4.6. Complaining of constipation, patient hasn't had a bowel movement for the last 3 days 11/12. Patient seen and examined. Temperature this morning 96.5, heart rate 74, blood pressure 167/74, respirations 19. States she feels much better, abdominal pain has resolved. Still having back pain. Vital signs stable 11/13. Patient seen and examined. Still completing of back pain. Patient not ambulating much, we'll consult PT and OT REVIEW OF SYSTEMS: CONSTITUTIONAL: No fever, no malaise,. CARDIOVASCULAR: No chest pain, no palpitations, no syncope. PULMONARY: No shortness of breath, no cough, GASTROINTESTINAL: No diarrhea, no nausea, no vomiting, no abdominal pain. NEUROLOGICAL: No headaches, no weakness, PHYSICAL EXAMINATION: GENERAL: The patient is alert and oriented x3, not in any acute distress. Well developed, well nourished. HEENT: Pupils are round and equally reacting to light. EOMI. No scleral icterus. No conjunctival pallor. Normocephalic, atraumatic. No pharyngeal erythema. No thyromegaly. CARDIOVASCULAR: S1 and S2 present. No murmurs, rubs, or gallops. PULMONARY: Chest is clear to auscultation, no wheezing or crackles. ABDOMEN: Soft, nontender, nondistended, normoactive bowel sounds. No palpable organomegaly. MUSCULOSKELETAL: No joint swelling or deformity. EXTREMITIES: No cyanosis, clubbing, or pedal edema. NEUROLOGICAL: Gross neurological examination did not reveal any focal deficits. SKIN: No rashes. Assessment and plan Acute on chronic back pain Bilateral lower extremity weakness Acute metabolic encephalopathy Multilevel lumbar spondylosis with stenosis, worse at L3-L4, L4-L5 Multilevel facet arthropathy with neuroforaminal stenosis, worse at L3-L4, L4-L5 Hypertension Hyperlipidemia [id number] diabetes mellitus Atypical chest pain Bigeminy Plan Monitor vital signs monitor CBC, leukocytosis secondary to steroids Continue IV Decadron MRI lumbar spine showed L3-L4 and L4-L5 disc herniations with superior migration of L4-L5 herniation. This results in combination with facet joint arthropathy of moderate to severe left neural foraminal stenosis L3-L4 Continue pain management, consulted pain management team Continue sliding scale insulin Aggressive bowel regimen Gen. surgery evaluated the patient for computed tomography scan findings of possible gallbladder pathology, surgeries reviewed all imaging, at this time patient is asymptomatic, surgery ordered a HIDA scan Cardiology evaluated the patient, reviewed EKGs, recommending increasing dose of Lopressor. Follow up on orthopedic recommendations Neurology consulted, they evaluated the patient for encephalopathy, EEG suggestive of mild encephalopathy PT and OT consulted Objective - Vital Signs Vital signs: Vital Signs Temp 97.7 F 11/13/22 13:10 Pulse 72 11/13/22 13:10 Resp 17 11/13/22 13:10 BP 146/78 11/13/22 13:10 Pulse Ox 93 L 11/13/22 13:10 FiO2 Intake & Output 11/12/22 11/13/22 11/13/22 18:59 06:59 18:59 Intake Total 236 Output Total 950 550 Balance -714 -550 Intake: Oral 236 Output: Urine 950 550 Other: Voiding Method Indwelling Catheter Indwelling Catheter - Labs CBC & Chem 7: 11/12/22 06:09 11/12/22 06:09 Labs: Abnormal Lab Results - Last 24 Hours (Table) 11/12/22 11/12/22 11/12/22 Range/Units 16:35 17:42 21:13 POC Glucose (mg/dL) 399 H 306 H (70-110) mg/dL Urine Glucose (UA) 4+ H (Negative) 11/13/22 11/13/22 Range/Units 06:05 11:49 POC Glucose (mg/dL) 244 H 263 H (70-110) mg/dL Urine Glucose (UA) (Negative)
--- NOTE | 2022-11-13 15:49 | P.PN ---
Subjective Progress Note Date: 11/13/22 Patient initially seen by Dr. Raza Monique. Please refer to his note for details. Patient is an 82-year-old female with chronic low back pain, came with altered mental status. It was felt her confusion is due to opiates. Patient was seen for a follow-up. Patient's and patient's son were both present today. Patient has history of chronic low back pain for 2-1/2 years. Patient states it is localized without any radiation. She has been to pain management, has undergone "block injections", which did not control the pain. Patient calls it "horrible pain". She had developed neurogenic claudication, as walking 15 minutes, produces significant pain and she has to lay down. Patient was receiving Graettinger and tramadol at home, which produces mental confusion. She has been seen by pain management, and switched to Percocet. Patient's stated that she is the best in 2 days. She is much more alert, awake, recognizing family members, which she was not doing yesterday. Some of workup consisted of: Patient had a CT of the head CT cervical spine because of the fall and the CT was on 11/05/2022 and the most recent was a 11/07/2022 and the most recent one is reported as no acute intracranial process. Nonspecific white matter changes likely secondary due to chronic small vessel ischemic disease. Personally reviewed the CT and the I agree there is no acute or subacute ischemia or any intracranial hemorrhage. This seems the patient has a lacunar over the right basal ganglia. 12 questionable over the left basal ganglia norris radiata CT cervical spine was reported as no evidence of cervical spine fracture. Mild to moderate multilevel degenerative disc disease. Pulmonary vascular congestion correlate for congestive heart failure. Other workup is most recent: Pulse oxygen as well as 85% on presentation the most current one is 93% TSH is 0.946 Hemoglobin A1c is 7.9 MRI lumbar is reported as L3-L4 and L4-L5 disc herniation with superior migration of L4-L5 herniation. This results in combination of facet joint arthropathy of moderate to severe left neuroforaminal stenosis at L3-L4. Mild improved L4-L5 and is similar at L3-L4. Multilevel disc degenerative changes present. I personally reviewed MRI of the lumbar spine, agree with the findings. Objective - Vital Signs Vital signs: Vital Signs Temp 97.7 F 11/13/22 13:10 Pulse 72 11/13/22 13:10 Resp 17 11/13/22 13:10 BP 146/78 11/13/22 13:10 Pulse Ox 93 L 11/13/22 13:10 FiO2 Intake & Output 11/12/22 11/13/22 11/13/22 18:59 06:59 18:59 Intake Total 236 Output Total 950 550 Balance -714 -550 Intake: Oral 236 Output: Urine 950 550 Other: Voiding Method Indwelling Catheter Indwelling Catheter - Exam Patient is an elderly female, who is slightly groggy, but in no distress. Patient is alert awake oriented to time place and person. She knows it is October 2022 and that she is in [facility] where she lives, and also name of the current president. Speech is slightly slurred, probably from grogginess and language functions are normal. Patient can name and repeat very well. No aphasia or dysarthria. Attention, concentration and fund of knowledge appears okay. Detailed testing deferred. On cranial nerve examination, pupils are equal, round and reacting to light, visual whitfield are full on confrontation, with no neglect on double simultaneous stimulation. Extraocular muscles are intact with no nystagmus. Face is symmetric, tongue protrudes to the midline. Palatal elevation and sensation normal, hearing is mild to moderately decreased and shoulder shrug normal, fac ial sensation normal. On muscle strength testing, there is no pronator drift and the strength is normal in arms and legs distally and proximally, except bilateral hip flexion, which is 4 bilaterally. Deep tendon reflexes are symmetric (right/left) 1+ in the upper limbs at biceps and brachioradialis, 1 at the knees. Plantars are flat bilaterally. Sensory to touch is equal with no neglect on double simultaneous stimulation. Cerebellar function showed no ataxia for [id number] testing. Tone and bulk of muscles normal. Gait deferred.. On general examination, there is no carotid bruit or murmur, S1-S2 audible. Chest is clear on consultation. Abdomen is soft nontender. No organomegaly, bowel sounds present. Peripheral pulses are present. No edema. - Labs CBC & Chem 7: 11/12/22 06:09 11/12/22 06:09 Labs: Abnormal Lab Results - Last 24 Hours (Table) 11/12/22 11/12/22 11/12/22 Range/Units 16:35 17:42 21:13 POC Glucose (mg/dL) 399 H 306 H (70-110) mg/dL Urine Glucose (UA) 4+ H (Negative) 11/13/22 11/13/22 Range/Units 06:05 11:49 POC Glucose (mg/dL) 244 H 263 H (70-110) mg/dL Urine Glucose (UA) (Negative) Assessment and Plan Assessment: Encephalopathy due to multifactorial: Predominate medication-induced(opia adalberto/narcotic) and some component of hypoxic encephalopathy (in high 80's). Chronic lower back pain Left lumbar radiculopathy Falls Diabetes mellitus (HbA1c 7.9) Plan: Patient's mentation has very much improved. This is reported by patient's son and patient's . Patient started on Percocet, whereas tramadol and Graettinger discontinued. Appreciate pain management. EEG 11/12/2022 was abnormal due to background slowing of mild degree, suggestive of encephalopathy or medication effect. No epileptiform activity was seen. Patient switched from Graettinger and tramadol to Percocet. She is tolerating it well, mentation improved. Patient had two CT of the head is most recent one was on 11/07/2022. No acute or subacute ischemia. Patient had ammonia recently on 11/07/2022 which was normal. Vitamin B12 945 and folate level 15.3, both normal. Orthopedic spine recommending maximize medical management before any surgical option. Consulted PT and OT Defer the rest of the medical management to primary team
[2022-11-13 16:49] LABS: Glucose,Whole Blood 209 mg/dL (70-110)
[2022-11-13] MEDS: oxyCODONE-APAP 7.5-325MG 1 EACH TAB PO PRN (17:08)
[2022-11-13] MEDS: REPAGLINIDE 1 MG TAB PO SCH (17:08)
[2022-11-13 21:01] LABS: Glucose,Whole Blood 272 mg/dL (70-110)
[2022-11-13] MEDS: diphenhydrAMINE 25 MG CAP PO SCH (22:04)
[2022-11-13] MEDS: ATORVASTATIN 40 MG TAB PO SCH (22:04)
[2022-11-13] MEDS: CALCIUM CARB-VIT D 500 MG-5 MCG TAB PO SCH (22:04)
[2022-11-13] MEDS: PIOGLITAZONE 30 MG TAB PO SCH (22:04)
[2022-11-13] MEDS: NON FORMULARY DRUG (Mirabegron [Myrbetriq] 50 MG Tab.Er.24h) PO SCH (23:34)
[2022-11-14] MEDS: SODIUM CHLORIDE 0.9% 1,000 ML IV SCH ×2 (00:04→12:35)
[2022-11-14] MEDS: LEVOTHYROXINE 125 MCG TAB PO SCH (05:16)
[2022-11-14] MEDS: PANTOPRAZOLE 40 MG TABLET PO SCH (05:16)
[2022-11-14 06:30] LABS: Glucose,Whole Blood 149 mg/dL (70-110)
[2022-11-14] MEDS: INSULIN ASPART (NovoLOG) 100 UNIT/ML VIAL SQ SCH ×4 (06:39→20:58)
[2022-11-14] MEDS: SENNOSIDES-DOCUSATE SODIUM 1 EACH TAB PO SCH (09:09)
[2022-11-14] MEDS: amLODIPine 5 MG TAB PO SCH (09:09)
[2022-11-14] MEDS: LINAGLIPTIN 5 MG TABLET PO SCH (09:09)
[2022-11-14] MEDS: lisinopriL 20 MG TAB PO SCH (09:09)
[2022-11-14] MEDS: polyethylene glycoL 3350 17 GM POWD.PACK PO SCH (09:10)
[2022-11-14] MEDS: LIDOCAINE 5% PATCH TOPICAL SCH (09:10)
[2022-11-14] MEDS: CHOLECALCIFEROL 25 MCG (1000 IU) TABLET PO SCH (09:10)
[2022-11-14] MEDS: GLIMEPIRIDE 4 MG TAB PO SCH ×2 (09:10→17:57)
[2022-11-14] MEDS: oxyCODONE-APAP 7.5-325MG 1 EACH TAB PO PRN (09:16)
--- NOTE | 2022-11-14 11:53 | P.PN ---
Subjective Progress Note Date: 11/14/22 Principal diagnosis: Acute on chronic low back pain Patient was examined today at bedside, her was also present. Patient was evaluated by pain management yesterday, they have changed her medications around, she is currently taking Percocet 7.5 mg/325 mg every 6 hours. According to both patient and her , she seems significantly improved. Her mentation is also significantly improved. She was able to get up to the chair with the help of physical therapy, she did ambulate a little bit in the room with a walker. She states that the back pain is significantly better. Urinary catheter remains in place Denies any numbness or tingling in the bilateral lower extremities. She denies lightheadedness, shortness of breath, chest pain Objective - Vital Signs Vital signs: Vital Signs Temp 98.1 F 11/14/22 07:23 Pulse 71 11/14/22 07:23 Resp 16 11/14/22 07:23 BP 145/86 11/14/22 07:23 Pulse Ox 96 11/14/22 07:23 FiO2 Intake & Output 11/13/22 11/14/22 11/14/22 18:59 06:59 18:59 Intake Total 795 Output Total 1450 800 Balance -655 -800 Intake: Intake, IV Titration 675 Amount Sodium Chloride 0.9% 1, 675 000 ml @ 75 mls/hr IV . [id number] [facility] Rx#:[id number] Oral 120 Output: Urine 1450 800 Other: Voiding Method Indwelling Catheter Indwelling Catheter - Exam Gen: AOx3, NAD VSS stable at this time Integument: No obvious open lesions or sores or areas of erythema present throughout the cervical, thoracic or lumbar spine. There is a Lidoderm patch present in the lower lumbar spine Palpation: No significant tenderness with palpation of the midline or paraspinal region of the cervical thoracic spine. She does reproduce tenderness with palpation of the paraspinal region of the lumbar spine No significant tenderness with palpation appreciated throughout the bilateral lower extremities on exam ROM: Full range of motion in all major muscle groups of the bilateral upper and lower extremities Motor: 4/5 strength appreciated in the right lower extremity with hip flexion, knee extension, knee flexion, plantar flexion, dorsiflexion, EHL, FHL 4-/5 strength appreciated in the left lower extremity with hip flexion, knee extension, knee flexion, plantar flexion, dorsiflexion, EHL, FHL Sensory Exam: Senory exam to light touch is intact C5-T1 Senosry exam to light touch is intact L2-S1 Reflexes: Negative Cruz's bilaterally Negative clonus bilaterally Negative Babinski bilaterally Special Test: Logroll maneuver of the lower extremities bilaterally reproduces no groin pain Negative straight leg raise bilaterally - Labs CBC & Chem 7: 11/12/22 06:09 11/12/22 06:09 Labs: Abnormal Lab Results - Last 24 Hours (Table) 11/13/22 11/13/22 11/13/22 Range/Units 11:49 16:47 20:58 POC Glucose (mg/dL) 263 H 209 H 272 H (70-110) mg/dL 11/14/22 Range/Units 06:28 POC Glucose (mg/dL) 149 H (70-110) mg/dL Assessment and Plan Assessment: Acute on chronic low back pain Bilateral lower extremity weakness Multilevel lumbar spondylosis with stenosis, worse at L3-L4, L4-L5 Multilevel facet arthropathy with neuroforaminal stenosis, worse at L3-L4, L4-L5 Confusion Constipation Other medical comorbidities Plan: Patient's overall pain symptoms have significantly improved since changing her oral medications. The IV steroids have been stopped at this time. I had a long discussion with both the patient and her today at bedside regarding further treatment. At this time we would like to hold off on orthopedic surgical intervention, the patient and are both in agreement of this. We did discuss again the possibility of inpatient rehab. I feel that the patient would be a good candidate for this injury is over the last few months her general physical activity has been significantly decreased. A consult was placed for Dr. Ny to evaluate Discussed with nursing to have them remove the Sheth catheter for voiding trial PT/OT daily, recommending weight-bear as tolerated with walker. Patient needs to be attempting to get out of bed for all meals Other certified medical transcriptionist and recommendations appreciated DVT prophylaxis per primary medical service Orthopedically the patient seems to be stable and improving. No orthopedic spine surgical intervention is recommended at this time. We'll be signing off the patient at this time, patient can follow-up in the outpatient setting on an as-needed basis. Please contact her service there are any further questions. Time with Patient: Less than 30
[2022-11-14 11:58] LABS: Glucose,Whole Blood 139 mg/dL (70-110)
[2022-11-14] MEDS: ASPIRIN 81 MG PO SCH (13:41)
[2022-11-14] MEDS: METOPROLOL SUCCINATE (ER) 100 MG TAB.ER.24H PO SCH ×2 (13:42→20:58)
--- NOTE | 2022-11-14 14:52 | P.PN ---
Subjective From the records: patient is a 82-year-old lady with past medical history significant for back pain who presented to the ER because of worsening back pain. Patient was recently discharged from the hospital after being treated for similar complaint s. Patient was told in last visit to be Admitted so that her pain regimen can be adjusted but they refused.They did discuss the treatments with the primary care physician who placed the patient on oxycodone. She has been taking 5 mg every 8 hours and they stated the pain has not been helping. The patient continues to have left-sided back pain with some weakness in her left lower extremity. This weakness has been chronic. She denies any fevers. Did have 1 episode of urinary incontinence. She also admits to some constipation since she started the pain medications. No nausea or vomiting. Initial lab work done in the ER showed white count of 6.9, hemoglobin 12.6, pl atelet count 247, sodium 141, potassium 3.6, BUN [address] abdominal and pelvis done showed hydropic gallbladder, Correlate for acute cholecystitis.Trace bilateral pleural effusion and thickening of interlobular septa correlate for serum markers for CHF. Moderate disc degeneration changes with disc bulge at L3-L4 and L4-L5 with at least moderate L3L4 and severe L4-L5 spinal stenosis no evidence of spinal fracture 11/11. Patient seen and examined. White count this morning is 12.46, hemoglobin 12.5, sodium 137, potassium 4.6. Complaining of constipation, patient hasn't had a bowel movement for the last 3 days 11/12. Patient seen and examined. Temperature this morning 96.5, heart rate 74, blood pressure 167/74, respirations 19. States she feels much better, abdominal pain has resolved. Still having back pain. Vital signs stable 11/13. Patient seen and examined. Still completing of back pain. Patient not ambulating much, we'll consult PT and OT i am Resuming the care of the patient today for This is a pleasant 82 years old female was admitted initially because of her back pain acute on chronic back pain with left lumbar radiculopathy. She was taken to several pain medication and she was been confused as well. Patient has been evaluated by several consult is for the neurologist, orthopedic team and general surgeon as well as pain management. Today patient lying in bed looks comfortable, at bedside, both patient and report significant improvement in her back pain after she was treated with IV steroids and her pain medication updated yesterday to Percocet. Orthopedic team evaluated the patient today and they recommended no surgical intervention for her spine disease and said they recommended inpatient rehab and Dr. sow has been consulted risk of pain medication including Percocet are explained to the patient and extensively including but not admitted to the risk of constipation, cardiac and respiratory arrest and/or and they verbalized understanding and acceptance with treatment plan. Customer Quality Engineer recommended outpatient stress test, both patient and are aware and agreeable Neurologist on the case but patient is back to baseline, patient was started on aspirin 81 mg. Objective - Vital Signs Vital signs: Vital Signs Temp 98.3 F 11/14/22 13:44 Pulse 73 11/14/22 13:51 Resp 18 11/14/22 13:44 BP 114/68 11/14/22 13:44 Pulse Ox 96 11/14/22 07:23 FiO2 Intake & Output 11/13/22 11/14/22 11/14/22 18:59 06:59 18:59 Intake Total 795 Output Total 1450 800 Balance -655 -800 Intake: Intake, IV Titration 675 Amount Sodium Chloride 0.9% 1, 675 000 ml @ 75 mls/hr IV . [id number] [facility] Rx#:[id number] Oral 120 Output: Urine 1450 800 Other: Voiding Method Indwelling Catheter Indwelling Catheter - Exam -GENERAL: The patient is alert and oriented x3, not in any acute distress. Well developed, well nourished. General weakness HEENT: Pupils are round and equally reacting to light. EOMI. No scleral icterus. No conjunctival pallor. Normocephalic, atraumatic. No pharyngeal erythema. No thyromegaly. CARDIOVASCULAR: S1 and S2 present. No murmurs, rubs, or gallops. PULMONARY: Chest is clear to auscultation, no wheezing or crackles. ABDOMEN: Soft, nontender, nondistended, normoactive bowel sounds. No palpable organomegaly. -MUSCULOSKELETAL: No joint swelling or deformity. Limited by the patient back isatu, improvedn EXTREMITIES: No cyanosis, clubbing, or pedal edema. NEUROLOGICAL: Gross neurological examination did not reveal any focal deficits. SKIN: No rashes. no petechiae. - Labs CBC & Chem 7: 04/17/23 06:09 11/12/22 06:09 Labs: Abnormal Lab Results - Last 24 Hours (Table) 11/13/22 11/13/22 11/14/22 Range/Units 16:47 20:58 06:28 POC Glucose (mg/dL) 209 H 272 H 149 H (70-110) mg/dL 11/14/22 Range/Units 11:57 POC Glucose (mg/dL) 139 H (70-110) mg/dL Assessment and Plan Assessment: Acute on chronic back pain with spinal degenerative disease and left lumbar radiculopathy Toxic/metabolic encephalopathy secondary to pain medication and others, improved the patient is back to baseline History of falls Hypertension Diabetes mellitus Chest pain, resolved, record filing clerk recommended outpatient stress test Gallbladder disease, asymptomatic. Normal HIDA. Obesity with BMI of 33.1 Constipation Hydropic gallbladder Hypothyroidism Osteoarthritis and degenerative disc disease Plan: Continue with pain management as per patient team recommendation, currently on Percocet Orthopedic team and recommended no surgical intervention recent outpatient rehab Patient mentation is back to baseline. Neurologist on the case. Patient was started on aspirin 81 mg Cardiology team recommended outpatient stress test, patient and aware and agreeable Surgery team for gallbladder disease, conservative management for now Labs and medication were reviewed.. Continue same treatment. Continue with symptomatic treatment. Resume home medication. Monitor labs and vitals. DVT and GI prophylaxis. Further recommendations as per clinical course of the patient DVT prophylaxis: Subcutaneous heparin GI Prophylaxis: Pepcid PT/OT: Subacute rehab versus recommended Prognosis is guarded
--- NOTE | 2022-11-14 15:42 | P.PN ---
Subjective Progress Note Date: 11/14/22 11/14/2022: Patient was seen for a follow-up. Patient's was also present today. He believes that she is doing much better. Patient at present denies any back pain. She is doing well with Percocet. Patient is sitting comfortably in the recliner. Patient is smiling, her mentation is improved. Patient's mentions that patient has diabetes for 20 years. She is a nonsmoker, never smoked. 11/13/2022: Patient initially seen by Dr. Raza Monique. Please refer to his note for details. Patient is an 82-year-old female with chronic low back pain, came with altered mental status. It was felt her confusion is due to opiates. Patient was seen for a follow-up. Patient's and patient's son were both present today. Patient has history of chronic low back pain for 2-1/2 years. Patient states it is localized without any radiation. She has been to pain management, has undergone "block injections", which did not control the pain. Patient calls it "horrible pain". She had developed neurogenic claudication, as walking 15 minutes, produces significant pain and she has to lay down. Patient was receiving [place] and tramadol at home, which produces mental confusion. She has been seen by pain management, and switched to Percocet. Patient's stated that she is the best in 2 days. She is much more alert, awake, recognizing family members, which she was not doing yesterday. Some of workup consisted of: Patient had a CT of the head CT cervical spine because of the fall and the CT was on 11/05/2022 and the most recent was a 11/07/2022 and the most recent one is reported as no acute intracranial process. Nonspecific white matter changes likely secondary due to chronic small vessel ischemic disease. Personally reviewed the CT and the I agree there is no acute or subacute ischemia or any intracranial hemorrhage. This seems the patient has a lacunar over the right basal ganglia. 12 questionable over the left basal ganglia norris radiata CT cervical spine was reported as no evidence of cervical spine fracture. Mild to moderate multilevel degenerative disc disease. Pulmonary vascular congestion correlate for congestive heart failure. Other workup is most recent: Pulse oxygen as well as 85% on presentation the most current one is 93% TSH is 0.946 Hemoglobin A1c is 7.9 MRI lumbar is reported as L3-L4 and L4-L5 disc herniation with superior migration of L4-L5 herniation. This results in combination of facet joint arthropathy of moderate to severe left neuroforaminal stenosis at L3-L4. Mild improved L4-L5 and is similar at L3-L4. Multilevel disc degenerative changes present. I personally reviewed MRI of the lumbar spine, agree with the findings. Objective - Vital Signs Vital signs: Vital Signs Temp 98.1 F 11/14/22 07:23 Pulse 71 11/14/22 07:23 Resp 16 11/14/22 07:23 BP 145/86 11/14/22 07:23 Pulse Ox 96 11/14/22 07:23 FiO2 Intake & Output 11/13/22 11/14/22 11/14/22 18:59 06:59 18:59 Intake Total 795 Output Total 1450 800 Balance -655 -800 Intake: Intake, IV Titration 675 Amount Sodium Chloride 0.9% 1, 675 000 ml @ 75 mls/hr IV . [id number] [facility] Rx#:[id number] Oral 120 Output: Urine 1450 800 Other: Voiding Method Indwelling Catheter Indwelling Catheter - Exam Patient is an elderly female, who is fully alert today, in no distress. Patient is alert awake oriented to time place and person. She knows it is October 2022 and that she is in [facility] where she lives, and also name of the current president. She knows that she is in [facility]. Speech is slightly slurred, probably from grogginess and language functions are normal. Patient's believes that the slurring is from the side effect of opiates and tramadol. Patient can name and repeat very well. No aphasia or dysarthria. Attention, concentration and fund of knowledge appears okay. Detailed testing deferred. On cranial nerve examination, pupils are equal, round and reacting to light, visual whitfield are full on confrontation, with no neglect on double simultaneous stimulation. Extraocular muscles are intact with no nystagmus. Face is symmetric, tongue protrudes to the midline. Palatal elevation and sensation normal, hearing is mild to moderately decreased and shoulder shrug normal, facial sensation normal. On muscle strength testing, there is no pronator drift and the strength is normal in arms and legs distally and proximally, except bilateral hip flexion, which is 4 bilaterally. Deep tendon reflexes are symmetric (right/left) 1+ in the upper limbs at biceps and brachioradialis, 1 at the knees. Plantars are flat bilaterally. Sensory to touch is equal with no neglect on double simultaneous stimulation. Cerebellar function showed no ataxia for [id number] testing. Tone and bulk of muscles normal. Gait deferred.. On general examination, there is no carotid bruit or murmur, S1-S2 audible. Chest is clear on consultation. Abdomen is soft nontender. No organomegaly, bowel sounds present. Peripheral pulses are present. No edema. - Labs CBC & Chem 7: 11/12/22 06:09 11/12/22 06:09 Labs: Abnormal Lab Results - Last 24 Hours (Table) 11/13/22 11/13/22 11/14/22 Range/Units 16:47 20:58 06:28 POC Glucose (mg/dL) 209 H 272 H 149 H (70-110) mg/dL 11/14/22 Range/Units 11:57 POC Glucose (mg/dL) 139 H (70-110) mg/dL Assessment and Plan Assessment: Encephalopathy, multifactorial: Probably medication-induced(opiates/narcotic) and some component of hypoxic encephalopathy (in high 80's). Chronic lower back pain Left lumbar radiculopathy [place] Diabetes mellitus (HbA1c 7.9) Plan: Patient's mentation has very much improved. She continues to show medical improvement on a daily basis. Patient started on Percocet, whereas tramadol and [place] discontinued. Appreciate pain management. EEG 11/12/2022 was abnormal due to background slowing of mild degree, suggestive of encephalopathy or medication effect. No epileptiform activity was seen. 2-D echo 11/10/2022 revealed moderate increased left ventricular wall thickness with EF 55%. Mild to moderately dilated left atrium. Severe mitral annular calcification, mild mitral stenosis, mild to moderate mitral regurgitation. Mild TR. Patient was on aspirin 81 mg daily. Based upon echo report, suggested increase dose to 81 mg twice a day, but patient's mentioned that her forest fire specialist supervisor recommended against for increasing the dose of aspirin higher than 81 mg. We w ill resume aspirin 81 mg daily. Recommended carotid Doppler, but patient's states that patient had carotid Doppler performed outpatient in Dr. Samman office within a year, and was reportedly normal, therefore he does not want to be repeated here. We will try to obtain hard copy from the cardiology office for our records. Patient had two CT of the head is most recent one was on 11/07/2022. No acute or subacute ischemia. Patient had ammonia recently on 11/07/2022 which was normal. Vitamin B12 945 and folate level 15.3, both normal. Orthopedic spine recommending maximize medical management before any surgical option. Consulted PT and OT Defer the rest of the medical management to primary team. Neurologically clear otherwise.
[2022-11-14 16:59] LABS: Glucose,Whole Blood 277 mg/dL (70-110)
[2022-11-14] MEDS: REPAGLINIDE 1 MG TAB PO SCH (17:57)
[2022-11-14 20:22] LABS: Glucose,Whole Blood 157 mg/dL (70-110)
[2022-11-14] MEDS: FAMOTIDINE 20 MG TAB PO SCH (20:58)
[2022-11-14] MEDS: ATORVASTATIN 40 MG TAB PO SCH (20:58)
[2022-11-14] MEDS: diphenhydrAMINE 25 MG CAP PO SCH (20:58)
[2022-11-14] MEDS: PIOGLITAZONE 30 MG TAB PO SCH (20:58)
[2022-11-14] MEDS: CALCIUM CARB-VIT D 500 MG-5 MCG TAB PO SCH (20:58)
[2022-11-14] MEDS: HEPARIN SODIUM,PORCINE/PF 5,000 UNIT/0.5 ML SYRINGE SQ SCH (20:59)
[2022-11-14] MEDS ORDERED: FAMOTIDINE 20 MG/2 ML VIAL IV SCH (21:00)
[2022-11-14] MEDS: NON FORMULARY DRUG (Mirabegron [Myrbetriq] 50 MG Tab.Er.24h) PO SCH (21:12)
[2022-11-14] MEDS: MAG HYDROX/AL HYDROX/SIMETH 30 ML CUP PO PRN (22:57)
[2022-11-15] MEDS: SODIUM CHLORIDE 0.9% 1,000 ML IV SCH ×2 (01:14→22:31)
[2022-11-15] MEDS: oxyCODONE-APAP 7.5-325MG 1 EACH TAB PO PRN ×2 (01:40→08:54)
[2022-11-15] MEDS: LEVOTHYROXINE 125 MCG TAB PO SCH (05:51)
[2022-11-15] MEDS: PANTOPRAZOLE 40 MG TABLET PO SCH (05:52)
[2022-11-15] MEDS: MAGNESIUM HYDROXIDE 2,400 MG/10 ML CUP PO PRN (05:52)
--- NOTE | 2022-11-15 06:07 | P.CONS ---
History of Present Illness - Chief Complaint Walking difficulty - History of Present Illness I had the opportunity to see patient for inpatient rehab consultation. Patient admitted to Dr. canchola November 09 history of back pain of 2 days' duration and with hypoxia. Back pain radiated left leg. Known chronic pain management Dr. Galvez and Dr. Nguyen. Was seen by Dr. Guadalupe for pain evaluation recomme nd DIMAS and physical therapy. Seen by orthopedics for the back pain. Also in seen by Dr. Tapia for possible abdominal and gallbladder pain, evaluation negative. Seen by cardiology for ST-T wave changes, Iatypical chest and not chest pain per se. Seen by neurology, Dr. Raza Monique, who diagnosed encephalopathy, opiate versus hypoxia, and did review head CT which was negative and a C-spine CT which demonstrated mild bilateral degenerative disc disease. Diagnostic tests CT of abdomen demonstrates bilateral renal calculi and bilateral pleural effusion, no comment on lumbar spine. Gallbladder ultrasound unremarkable. Lumbar MRI with bulges L1, 2 with mild bilateral narrowing, extrusions L3, 4 with bilateral stenoses. Hepatobiliary scan within normal limits. Started therapies. PT reports moderate assistance for bed mobility but supervision only for transfers and gait 15 feet with roller walker. OT reports independent with feeding, supervision for grooming and upper dressing and for basic self-care transfers including toilet, maximal assistance for lower dressing, moderate assist for bathing and minimal assistance for toileting Previous functional history as elicited from patient: 82-year-old right-handed white male who is lives and 3 floor home with . Both retired. does the driving and patient does the cooking and laundry. Describes previously independent with tub bath and gait without device. PCP Dr. Maldonado. Review of Systems Review of systems: ENT: Denies sneezes or discharge. Eyes: Denies discharge or photophobia. Cardiac: Denies chest pain or palpitation. Pulmonary: Denies cough or shortness of breath. Breast: Denies discharge or lumps. Gastrointestinal: Denies nausea, emesis, constipation, diarrhea. Genitourinary: Denies discharge or frequency. Musculoskeletal: Reports resolved back pain. Neurologic: Denies motor or sensory change. Endocrine: Denies shakes or sweats. Oncology: Denies cancers. Dermatologic: Denies rash, itching, pruritus. ALLERGY/immunology: Denies sneezes, rashes. Past Medical History Past Medical History: Diabetes Mellitus, Hyperlipidemia, Hypertension Additional Past Medical History / Comment(s): chronic back pain History of Any Multi-Drug Resistant Organisms: None Reported Additional Past Surgical History / Comment(s): bladder suspension Past Anesthesia/Blood Transfusion Reactions: No Reported Reaction Additional Past Anesthesia/Blood Transfusion Reaction / Comm: spouse states "needs to have a larger dose of anesthesia because her body blocks it" Past Psychological History: No Psychological Hx Reported Smoking Status: Never smoker Past Alcohol Use History: None Reported Past Drug Use History: None Reported - Past Family History Mother Family Medical History: Myocardial Infarction (CT) Father Additional Family Medical History / Comment(s): cerebral hemmorage possible aneursym unk Medications and Allergies Home Medications Medication Instructions Recorded Confirmed Type Atorvastatin [Lipitor] 40 mg PO HS 01/08/21 11/09/22 History Calcium Carbonate/Vitamin D3 1 cap PO HS 01/08/21 11/09/22 History [Calcium 600 mg-D3 10 Mcg (400 Iu)] Cholecalciferol [Vitamin D3 (25 25 mcg PO DAILY 01/08/21 11/09/22 History Mcg = 1000 Iu)] Levothyroxine Sodium 125 mcg PO DAILY 01/08/21 11/09/22 History Metoprolol Succinate (ER) [Toprol 100 mg PO BID@1200,2200 01/08/21 11/09/22 History XL] Milk Thistle 150 mg PO DAILY 01/08/21 11/09/22 History Mirabegron [Myrbetriq] 50 mg PO HS@2200 01/08/21 11/09/22 History Omeprazole 20 mg PO DAILY 01/08/21 11/09/22 History Pioglitazone [Actos] 30 mg PO HS 01/08/21 11/09/22 History Quinapril HCl 40 mg PO DAILY 01/08/21 11/09/22 History Repaglinide 1 mg PO AC-SUPPER 01/08/21 11/09/22 History Vitamin C/Biotin [Hair, Skin and 1 tab PO DAILY 01/08/21 11/09/22 History Nails Chew] amLODIPine [Norvasc] 5 mg PO DAILY 01/08/21 11/09/22 History diphenhydrAMINE HCL [Benadryl] 25 mg PO HS@2200 01/08/21 11/09/22 History sitaGLIPtin PHOSPHATE [Januvia] 50 mg PO DAILY 01/08/21 11/09/22 History Aspirin EC [Ecotrin Low Dose] 81 mg PO W/BRKFST 10/10/22 11/09/22 History Glimepiride [Amaryl] 4 mg PO BID-W/MEALS 10/10/22 11/09/22 History Mv-Mn/Om3/Dha/Epa/Fish/Lut/Kleber 1 cap PO DAILY@1200 10/10/22 11/09/22 History [Ocuvite Adult 50 Plus Softgel] Vitamin A 2,400 mcg PO HS 10/10/22 11/09/22 History HYDROcodone/APAP 5-325MG [[place] 1 tab PO Q8H PRN 11/07/22 11/09/22 History 5-325] Metformin (Unknown Dose) 1 dose PO DIRECTED 11/09/22 11/09/22 History Allergies Allergy/AdvReac Type Severity Reaction Status Date / Time alendronate sodium AdvReac Nausea Verified 11/09/22 20:41 [From Fosamax] codeine AdvReac Nausea Verified 11/09/22 20:41 solifenacin AdvReac Nausea Verified 11/09/22 20:41 Physical Exam Vitals: Vital Signs Temp Pulse Resp BP Pulse Ox 11/15/22 01:28 98.0 F 82 15 165/80 93 L 11/14/22 19:44 76 18 11/14/22 19:32 98.1 F 76 18 144/90 95 11/14/22 13:51 73 11/14/22 13:44 98.3 F 73 18 114/68 11/14/22 07:23 98.1 F 71 16 145/86 96 Intake and Output 11/14/22 11/14/22 11/15/22 14:59 22:59 06:59 Intake Total 480 Balance 480 Intake: Oral 480 Other: Voiding Method Bedpan Incontinent # Voids 1 2 Skin: Atrophic, intact. General: Medium build and comfortable appearance. Head: Normocephalic, atraumatic. Eyes: Symmetric. Pupils equal round. Ears: Symmetric. Hearing within normal limits. Mouth: Clear. Neck: Supple. Carotid without bruit. Cardiac: Regular rate and rhythm. Lungs: Clear anteriorly and posteriorly. Abdomen: Soft active nontender. Extremities: Normal tone. Neurological: Mental status: Alert, cooperative, pleasant. Cranial nerves: Symmetric facial tone and trapezius. Motor: Active movement and elevation all 4 limbs. Sensation: Intact throughout. DTRs: Symmetric and equal throughout. Mobility: Bed mobility without assistance. Results CBC & Chem 7: 11/12/22 06:09 11/12/22 06:09 Labs: Abnormal Lab Results - Last 24 Hours (Table) 11/14/22 11/14/22 11/14/22 Range/Units 06:28 11:57 16:56 POC Glucose (mg/dL) 149 H 139 H 277 H (70-110) mg/dL 11/14/22 Range/Units 20:21 POC Glucose (mg/dL) 157 H (70-110) mg/dL Assessment and Plan (1) Hypoxia Current Visit: Yes Status: Acute Code(s): R09.02 - HYPOXEMIA SNOMED Code(s): 785796837 (2) Mechanical back pain Current Visit: Yes Status: Acute Code(s): M54.9 - DORSALGIA, UNSPECIFIED SNOMED Code(s): 673609570 (3) Back pain Current Visit: No Status: Acute Code(s): M54.9 - DORSALGIA, UNSPECIFIED SNOMED Code(s): 976000291 (4) Fall Current Visit: No Status: Acute Code(s): W19.XXXA - UNSPECIFIED FALL, INITIAL ENCOUNTER SNOMED Code(s): 6166175 (5) Opiate overdose Current Visit: No Status: Acute Code(s): T40.601A - POISONING BY UNSP NARCOTICS, ACCIDENTAL, INIT SNOMED Code(s): 060705263 Plan: Comments and plan: At this time patient reports back pain resolved. That's the case, anticipate physical therapy will now reports supervision only for bed mobility as well as transfers and gait. Thus anticipate patient will be ready for return to home later today or tomorrow, pending your clinical discretion. Will however follow therapywith yourself to verify this.
[2022-11-15 06:13] LABS: Glucose,Whole Blood 189 mg/dL (70-110)
[2022-11-15] MEDS: INSULIN ASPART (NovoLOG) 100 UNIT/ML VIAL SQ SCH ×4 (06:55→22:49)
[2022-11-15] MEDS: LINAGLIPTIN 5 MG TABLET PO SCH (08:53)
[2022-11-15] MEDS: HEPARIN SODIUM,PORCINE/PF 5,000 UNIT/0.5 ML SYRINGE SQ SCH ×2 (08:53→22:50)
[2022-11-15] MEDS: polyethylene glycoL 3350 17 GM POWD.PACK PO SCH (08:53)
[2022-11-15] MEDS: LIDOCAINE 5% PATCH TOPICAL SCH ×2 (08:53→14:15)
[2022-11-15] MEDS: lisinopriL 20 MG TAB PO SCH (08:53)
[2022-11-15] MEDS: amLODIPine 5 MG TAB PO SCH (08:54)
[2022-11-15] MEDS: GLIMEPIRIDE 4 MG TAB PO SCH ×2 (08:54→18:06)
[2022-11-15] MEDS: CHOLECALCIFEROL 25 MCG (1000 IU) TABLET PO SCH (08:54)
[2022-11-15] MEDS: SENNOSIDES-DOCUSATE SODIUM 1 EACH TAB PO SCH (08:54)
[2022-11-15] MEDS: ASPIRIN 81 MG PO SCH (08:54)
[2022-11-15 10:28] LABS: Basophils # (A) 0.07 X 10*3/uL (0.00-0.10); Basophils % (A) 0.5 %; Eosinophils # (A) 0.22 X 10*3/uL (0.04-0.35); Eosinophils % (A) 1.6 %; HCT 39.7 % (37.2-46.3); HGB 12.8 g/dL (12.0-15.0); Immature Grans, Automated 2.2 %; Lymphocytes # (A) 0.86 X 10*3/uL (0.90-5.00); Lymphocytes % (A) 6.4 %; MCH 30.3 pg (27.0-32.0); MCHC 32.2 g/dL (32.0-37.0); MCV 93.9 fL (80.0-97.0); Mean Platelet Volume 10.4 fL (9.5-12.2); Monocytes # (A) 1.09 X 10*3/uL (0.20-1.00); Monocytes % (A) 8.1 %; NRBC Per 100 WBC 0 /100 WBCS (0.0-0.0); Neutrophils # (A) 10.91 X 10*3/uL (1.80-7.70); Neutrophils % (A) 81.2 %; Platelet Count 214 X 10*3/uL (140-440); RBC 4.23 X 10*6/uL (4.10-5.20); RDW 14.6 % (11.5-14.5); WBC 13.44 X 10*3/uL (4.50-10.00)
[2022-11-15 11:22] LABS: Anion Gap 8.1 mmol/L (10.00-18.00); BUN/Creat Ratio 25.67 Ratio (12.00-20.00); Blood Urea Nitrogen 23.1 mg/dL (9.0-27.0); Calcium 8.5 mg/dL (8.7-10.3); Carbon Dioxide 25.9 mmol/L (20.0-27.5); Non-African American GFR(CKD) 60.4 (60.0-200.0)
[2022-11-15 11:22] LABS: Glucose,Whole Blood 220 mg/dL (70-110)
[2022-11-15] MEDS ORDERED: oxyCODONE-APAP 7.5-325MG 1 EACH TAB PO PRN (11:54)
[2022-11-15] MEDS: METOPROLOL SUCCINATE (ER) 100 MG TAB.ER.24H PO SCH ×2 (11:59→23:24)
[2022-11-15 12:34] VITALS: BMI 33.0
--- NOTE | 2022-11-15 13:02 | P.PN ---
Subjective From the records: patient is a 82-year-old lady with past medical history significant for back pain who presented to the ER because of worsening back pain. Patient was recently discharged from the hospital after being treated for similar complaint s. Patient was told in last visit to be Admitted so that her pain regimen can be adjusted but they refused.They did discuss the treatments with the primary care physician who placed the patient on oxycodone. She has been taking 5 mg every 8 hours and they stated the pain has not been helping. The patient continues to have left-sided back pain with some weakness in her left lower extremity. This weakness has been chronic. She denies any fevers. Did have 1 episode of urinary incontinence. She also admits to some constipation since she started the pain medications. No nausea or vomiting. Initial lab work done in the ER showed white count of 6.9, hemoglobin 12.6, pl atelet count 247, sodium 141, potassium 3.6, BUN [address] abdominal and pelvis done showed hydropic gallbladder, Correlate for acute cholecystitis.Trace bilateral pleural effusion and thickening of interlobular septa correlate for serum markers for CHF. Moderate disc degeneration changes with disc bulge at L3-L4 and L4-L5 with at least moderate L3L4 and severe L4-L5 spinal stenosis no evidence of spinal fracture 11/11. Patient seen and examined. White count this morning is 12.46, hemoglobin 12.5, sodium 137, potassium 4.6. Complaining of constipation, patient hasn't had a bowel movement for the last 3 days 11/12. Patient seen and examined. Temperature this morning 96.5, heart rate 74, blood pressure 167/74, respirations 19. States she feels much better, abdominal pain has resolved. Still having back pain. Vital signs stable 11/13. Patient seen and examined. Still completing of back pain. Patient not ambulating much, we'll consult PT and OT i am Resuming the care of the patient today for This is a pleasant 82 years old female was admitted initially because of her back pain acute on chronic back pain with left lumbar radiculopathy. She was taken to several pain medication and she was been confused as well. Patient has been evaluated by several consult is for the neurologist, orthopedic team and general surgeon as well as pain management. Today patient lying in bed looks comfortable, at bedside, both patient and report significant improvement in her back pain after she was treated with IV steroids and her pain medication updated yesterday to Percocet. Orthopedic team evaluated the patient today and they recommended no surgical intervention for her spine disease and said they recommended inpatient rehab and Dr. sow has been consulted risk of pain medication including Percocet are explained to the patient and extensively including but not admitted to the risk of constipation, cardiac and respiratory arrest and/or and they verbalized understanding and acceptance with treatment plan. Photograph Mounter recommended outpatient stress test, both patient and are aware and agreeable Neurologist on the case but patient is back to baseline, patient was started on aspirin 81 mg. 11/15/2022 Patient today is lying in the chair this morning, she said yesterday she was feeling better but today she has distress in low back pain about 10/10 as she describes. She remains on Percocet, orthopedic team already cleared the patient for discharge and follow-up outpatient. Dr. Dominguez was consulted for possible inpatient rehab. However patient would benefit from subacute rehab upon discharge. No need for surgical intervention upper surgery team/orthopedic team She still has mild leukocytosis, urine analysis is negative, no chest x-ray in the system, she was saturating 92% on room air this morning. We will order chest x-ray portable. At lidocaine patch, second dose. Objective - Vital Signs Vital signs: Vital Signs Temp 97.9 F 11/15/22 07:42 Pulse 42 L 11/15/22 08:55 Resp 12 11/15/22 11:37 BP 152/85 11/15/22 07:42 Pulse Ox 93 L 11/15/22 09:56 FiO2 Intake & Output 11/14/22 11/15/22 11/15/22 18:59 06:59 18:59 Intake Total 480 Balance 480 Weight 79.379 kg Intake: Oral 480 Other: Voiding Method Bedpan Bedside Commode Incontinent # Voids 1 2 - Exam -GENERAL: The patient is alert and oriented x3, not in any acute distress. Well developed, well nourished. General weakness HEENT: Pupils are round and equally reacting to light. EOMI. No scleral icterus. No conjunctival pallor. Normocephalic, atraumatic. No pharyngeal erythema. No thyromegaly. CARDIOVASCULAR: S1 and S2 present. No murmurs, rubs, or gallops. PULMONARY: Chest is clear to auscultation, no wheezing or crackles. ABDOMEN: Soft, nontender, nondistended, normoactive bowel sounds. No palpable organomegaly. -MUSCULOSKELETAL: No joint swelling or deformity. Limited by the patient back isatu, improvedn EXTREMITIES: No cyanosis, clubbing, or pedal edema. NEUROLOGICAL: Gross neurological examination did not reveal any focal deficits. SKIN: No rashes. no petechiae. - Labs CBC & Chem 7: 11/15/22 06:48 11/15/22 06:48 Labs: Abnormal Lab Results - Last 24 Hours (Table) 11/14/22 11/14/22 11/15/22 Range/Units 16:56 20:21 06:11 WBC (4.50-10.00) X 10*3/uL RDW (11.5-14.5) % Immature Gran # (0.00-0.04) X 10*3/uL Neutrophils # (1.80-7.70) X 10*3/uL Lymphocytes # (0.90-5.00) X 10*3/uL Monocytes # (0.20-1.00) X 10*3/uL Anion Gap (10.00-18.00) mmol/L BUN/Creatinine Ratio (12.00-20.00) Ratio Glucose (70-110) mg/dL POC Glucose (mg/dL) 277 H 157 H 189 H (70-110) mg/dL Calcium (8.7-10.3) mg/dL 11/15/22 11/15/22 11/15/22 Range/Units 06:48 06:48 11:20 WBC 13.44 H (4.50-10.00) X 10*3/uL RDW 14.6 H (11.5-14.5) % Immature Gran # 0.29 H (0.00-0.04) X 10*3/uL Neutrophils # 10.91 H (1.80-7.70) X 10*3/uL Lymphocytes # 0.86 L (0.90-5.00) X 10*3/uL Monocytes # 1.09 H (0.20-1.00) X 10*3/uL Anion Gap 8.10 L (10.00-18.00) mmol/L BUN/Creatinine Ratio 25.67 H (12.00-20.00) Ratio Glucose 201 H (70-110) mg/dL POC Glucose (mg/dL) 220 H (70-110) mg/dL Calcium 8.5 L (8.7-10.3) mg/dL Assessment and Plan Assessment: Acute on chronic back pain with spinal degenerative disease and left lumbar radiculopathy Toxic/metabolic encephalopathy secondary to pain medication and others, improved the patient is back to baseline History of falls Hypertension Diabetes mellitus Chest pain, resolved, museum librarian recommended outpatient stress test Gallbladder disease, asymptomatic. Normal HIDA. Obesity with BMI of 33.1 Constipation Hydropic gallbladder Hypothyroidism Osteoarthritis and degenerative disc disease Plan: Check chest x-ray Continue with pain management as per patient team recommendation, currently on Percocet Orthopedic team and recommended no surgical intervention recent outpatient rehab Patient mentation is back to baseline. Neurologist on the case. Patient was started on aspirin 81 mg Cardiology team recommended outpatient stress test, patient and aware and agreeable Surgery team for gallbladder disease, conservative management for now Labs and medication were reviewed.. Continue same treatment. Continue with symptomatic treatment. Resume home medication. Monitor labs and vitals. DVT and GI prophylaxis. Further recommendations as per clinical course of the patient DVT prophylaxis: Subcutaneous heparin GI Prophylaxis: Pepcid PT/OT: Subacute rehab versus recommended Prognosis is guarded
[2022-11-15] MEDS ORDERED: ONDANSETRON 4 MG/2 ML VIAL IVP PRN (13:32)
[2022-11-15 16:44] LABS: Glucose,Whole Blood 160 mg/dL (70-110)
--- NOTE | 2022-11-15 17:22 | XR ---
EXAMINATION TYPE: XR chest 1V portable DATE OF EXAM: 11/15/2022 CLINICAL HISTORY: Leukocytosis and hypoxia. TECHNIQUE: Single AP portable upright view of the chest is obtained. COMPARISON: Chest x-ray from 8 days earlier FINDINGS: There is chronic change without suspicious new focal airspace opacity, pleural effusion, o r pneumothorax seen bilaterally. Cardiac silhouette size is stable and upper limits of normal with at herosclerotic change thoracic aorta redemonstrated. Osseous structures are intact. IMPRESSION: Chronic changes without acute pulmonary process. No significant change from prior.
[2022-11-15] MEDS: REPAGLINIDE 1 MG TAB PO SCH (17:27)
[2022-11-15] MEDS: MAG HYDROX/AL HYDROX/SIMETH 30 ML CUP PO PRN (18:35)
[2022-11-15 20:47] LABS: Glucose,Whole Blood 168 mg/dL (70-110)
[2022-11-15] MEDS: PIOGLITAZONE 30 MG TAB PO SCH (22:50)
[2022-11-15] MEDS: ATORVASTATIN 40 MG TAB PO SCH (22:50)
[2022-11-15] MEDS: CALCIUM CARB-VIT D 500 MG-5 MCG TAB PO SCH (22:50)
[2022-11-15] MEDS: FAMOTIDINE 20 MG TAB PO SCH (22:50)
[2022-11-15] MEDS: NON FORMULARY DRUG (Mirabegron [Myrbetriq] 50 MG Tab.Er.24h) PO SCH (23:11)
[2022-11-15] MEDS: diphenhydrAMINE 25 MG CAP PO SCH (23:24)
[2022-11-16 06:10] LABS: Glucose,Whole Blood 176 mg/dL (70-110)
[2022-11-16] MEDS: LEVOTHYROXINE 125 MCG TAB PO SCH (06:46)
[2022-11-16] MEDS: INSULIN ASPART (NovoLOG) 100 UNIT/ML VIAL SQ SCH ×2 (06:46→12:34)
[2022-11-16] MEDS: PANTOPRAZOLE 40 MG TABLET PO SCH (06:46)
--- NOTE | 2022-11-16 07:34 | P.PN ---
Subjective Progress Note Date: 11/15/22 11/15/2032: Per nursing report, patient was doing fine in the morning. She was able to move from bed to the bedside commode with one assist. She then started complaining of back pain, therefore she was given 1 dose of Percocet at 9:30 in the morning. Now she is completely sleepy, groggy. Patient moans, mumbles, but does not able to converse. Does not offer any obvious pain. On reviewing her history of present pain medications, it appears that patient received Percocet yesterday morning at 9:16 AM. Then she received one Percocet leather cartridge belt maker today at 1:40 AM. She was complaining of back pain, therefore she received another dose at 9 AM today. In general, she was receiving one Percocet a day, but the current one she received 8 hours apart, probably resulting in lethargy. Patient's mentions that she was sitting too long in the recliner for almost 6 hours therefore the back started hurting requiring extra tablet. Patient's vitals were taken stat, blood pressure 143/84, pulse rate 75, saturation 93-95% and blood sugar was 220. Patient is afebrile. Please refer to examination below. 11/14/2022: Patient was seen for a follow-up. Patient's was also present today. He believes that she is doing much better. Patient at present denies any back pain. She is doing well with Percocet. Patient is sitting comfortably in the recliner. Patient is smiling, her mentation is improved. Patient's mentions that patient has diabetes for 20 years. She is a nonsmoker, never smoked. 11/13/2022: Patient initially seen by Dr. Raza Monique. Please refer to his note for details. Patient is an 82-year-old female with chronic low back pain, came with altered mental status. It was felt her confusion is due to opiates. Patient was seen for a follow-up. Patient's and patient's son were both present today. Patient has history of chronic low back pain for 2-1/2 years. Patient states it is localized without any radiation. She has been to pain management, has undergone "block injections", which did not control the pain. Patient calls it "horrible pain". She had developed neurogenic claudication, as walking 15 minutes, produces significant pain and she has to lay down. Patient was receiving [place] and tramadol at home, which produces mental confusion. She has been seen by pain management, and switched to Percocet. Patient's stated that she is the best in 2 days. She is much more alert, awake, recognizing family members, which she was not doing yesterday. Some of workup consisted of: Patient had a CT of the head CT cervical spine because of the fall and the CT was on 11/05/2022 and the most recent was a 11/07/2022 and the most recent one is reported as no acute intracranial process. Nonspecific white matter changes likely secondary due to chronic small vessel ischemic disease. Personally reviewed the CT and the I agree there is no acute or subacute ischemia or any intracranial hemorrhage. This seems the patient has a lacunar over the right basal ganglia. 12 questionable over the left basal ganglia norris radiata CT cervical spine was reported as no evidence of cervical spine fracture. Mild to moderate multilevel degenerative disc disease. Pulmonary vascular congestion correlate for congestive heart failure. Other workup is most recent: Pulse oxygen as well as 85% on presentation the most current one is 93% TSH is 0.946 Hemoglobin A1c is 7.9 MRI lumbar is reported as L3-L4 and L4-L5 disc herniation with superior migration of L4-L5 herniation. This results in combination of facet joint arthropathy of moderate to severe left neuroforaminal stenosis at L3-L4. Mild improved L4-L5 and is similar at L3-L4. Multilevel disc degenerative changes present. I personally reviewed MRI of the lumbar spine, agree with the findings . Objective - Vital Signs Vital signs: Vital Signs Temp 97.9 F 11/15/22 07:42 Pulse 42 L 11/15/22 08:55 Resp 16 11/15/22 08:55 BP 152/85 11/15/22 07:42 Pulse Ox 93 L 11/15/22 09:56 FiO2 Intake & Output 11/14/22 11/15/22 11/15/22 18:59 06:59 18:59 Intake Total 480 Balance 480 Intake: Oral 480 Other: Voiding Method Bedpan Bedside Commode Incontinent # Voids 1 2 - Exam Patient is an elderly female, who is very groggy, somnolent. Patient just mumbles, arouses mildly to calling her name loudly but then she again started snoring. She was able to name objects and can repeat but very groggy. Her pupils are small, about 3 mm, reacting to 2 mm bilaterally. Extraocular muscles are intact and face appears symmetric. She squeezes hands equally but weakly. Patient would not hold her arms up and would drop it down because of drowsiness. Patient was given Narcan, and patient woke up and was fairly well awake, started walking with her walker and the nurses. - Labs CBC & Chem 7: 11/15/22 06:48 11/15/22 06:48 Labs: Abnormal Lab Results - Last 24 Hours (Table) 11/14/22 11/14/22 11/14/22 Range/Units 11:57 16:56 20:21 WBC (4.50-10.00) X 10*3/uL RDW (11.5-14.5) % Immature Gran # (0.00-0.04) X 10*3/uL Neutrophils # (1.80-7.70) X 10*3/uL Lymphocytes # (0.90-5.00) X 10*3/uL Monocytes # (0.20-1.00) X 10*3/uL POC Glucose (mg/dL) 139 H 277 H 157 H (70-110) mg/dL 11/15/22 11/15/22 Range/Units 06:11 06:48 WBC 13.44 H (4.50-10.00) X 10*3/uL RDW 14.6 H (11.5-14.5) % Immature Gran # 0.29 H (0.00-0.04) X 10*3/uL Neutrophils # 10.91 H (1.80-7.70) X 10*3/uL Lymphocytes # 0.86 L (0.90-5.00) X 10*3/uL Monocytes # 1.09 H (0.20-1.00) X 10*3/uL POC Glucose (mg/dL) 189 H (70-110) mg/dL Assessment and Plan Assessment: Acute altered mental status, likely due to use of opiates. Patient received Percocet within 8 hours, therefore resulted in drowsiness/grogginess. Patient's mentation remarkably improved after receiving Narcan. Her examination nonfocal. Encephalopathy, multifactorial: Probably medication-induced(opiates/narcotic) and some component of hypoxic encephalopathy (in high 80's prior to arrival). Chronic lower back pain Left lumbar radiculopathy [place] Diabetes mellitus (HbA1c 7.9) Plan: Patient appears to be very sensitive to opiates. Recommend patient not to receive Percocet within 12 hours. The dose of Percocet changed to 1 tablet every 12 hours when necessary. Maximum 2 tablets. Although I would prefer no more than 1 tablet per day. Patient's mentation improved with receiving Narcan. Patient started on Percocet by pain management, whereas tramadol and [place] discontinued, as she was experiencing side effects from these later 2 medications. Avoid sitting in the recliner for prolonged period of time, as it exacerbates her back pain. EEG 11/12/2022 was abnormal due to background slowing of mild degree, suggestive of encephalopathy or medication effect. No epileptiform activity was seen. 2-D echo 11/10/2022 revealed moderate increased left ventricular wall thickness with EF 55%. Mild to moderately dilated left atrium. Severe mitral annular calcification, mild mitral stenosis, mild to moderate mitral regurgitation. Mild TR. Patient was on aspirin 81 mg daily. Based upon echo report, suggested increase dose to 81 mg twice a day, but patient's mentioned that her greenkeeper recommended against for increasing the dose of aspirin higher than 81 mg. We will resume aspirin 81 mg daily. Recommended carotid Doppler, but patient's states that patient had carotid Doppler performed outpatient in Dr. Lomeli office within a year, and was reportedly normal, therefore he does not want to be repeated here. We will try to obtain hard copy from the cardiology office for our records. Patient had two CT of the head is most recent one was on 11/07/2022. No acute or subacute ischemia. Patient had ammonia recently on 11/07/2022 which was normal. Vitamin B12 945 and folate level 15.3, both normal. Orthopedic spine recommending maximize medical management before any surgical option. Consulted PT and OT Defer the rest of the medical management to primary team. Neurologically clear otherwise.
[2022-11-16 08:39] VITALS: RESP 17
--- NOTE | 2022-11-16 09:00 | P.DS ---
Providers Date of admission: 11/09/22 20:16 Attending physician: Emir Woodward MD Consults: 11/09/22 20:14 Consult Physician Routine Consulting Provider: Alan Giles Consult Reason/Comments: Acute exacerbation of chronic back pain Do you want consulting provider notified?: Already Contacted 11/11/22 09:13 Consult Physician Routine Consulting Provider: Raza Monique Consult Reason/Comments: Confusion Do you want consulting provider notified?: Yes 11/14/22 11:48 Consult Physician Routine Consulting Provider: Diony Ny Consult Reason/Comments: Inpatient rehab eval Do you want consulting provider notified?: Yes Primary care physician: Purvi Joel [facility] Course: Diagnoses: Acute on chronic back pain with spinal degenerative disease and left lumbar radiculopathy, improved Toxic/metabolic encephalopathy secondary to pain medication and others, improved the patient is back to baseline History of falls Hypertension Diabetes mellitus Chest pain, resolved, dormitory maid recommended outpatient stress test Gallbladder disease, asymptomatic. Normal HIDA. Obesity with BMI of 33.1 Constipation Hydropic gallbladder Hypothyroidism Osteoarthritis and degenerative disc disease Hospital course: This is a pleasant 82 years old female was admitted initially because of her back pain acute on chronic back pain with left lumbar radiculopathy. She was taking to several pain medication and she was been confused as well. Patient has been evaluated by several consult is for the neurologist, orthopedic team and general surgeon as well as pain management. Today patient lying in bed looks comfortable, at bedside, both patient and report significant improvement in her back pain after she was treated with IV steroids (ssteroids are stopped now) and her pain medication updated into Percocet by pain management service. (yesterday she took percocet extra dose and she became confused , she has to be given narcan to set her back to baseline mentation , hence frequency of percocet is lowered to twice daily prn, but really we recommend to try to give it once a day prn) . Orthopedic team evaluated the patient today and they recommended no surgical intervention for her spine disease and said they recommended inpatient rehab, pain management service was consulted as well, risks of taking Percocet are explained to the patient and at bed side extensively including but not admitted to the risk of constipation, cardiac and respiratory arrest and/or and they verbalized understanding and acceptance with treatment plan. Diamond Sawer recommended outpatient stress test, both patient and are aware and agreeable Neurologist on the case but patient is back to baseline, patient was continued on aspirin 81 mg. Surgery team evaluated the patient for gallbladder disease. Patient is eating well now, no abdominal pain and had little bowel movement yesterday. Patient can follow-up outpatient as she is asymptomatic now Patient today states that her low back pain is minimal and she is willing to go to rehab today. She denies any other symptoms, no chest pain or dyspnea. No headache weakness dizziness numbness. No change in urine or bowel habits. No fever. Patient was cleared for discharge by all consultants including orthopedic team, pain management team, general surgery and dormitory maid Problems and management plan were discussed with the patient and he verbalized understanding and acceptance Patient was found stable and can be discharged to a [facility] in guarded prognosis however he needs follow-up as an outpatient. Patient was instructed to follow up with PCP Dr. Retana within one week and patient agrees Patient was instructed to follow up with orthopedic Dr. Giles in one to two weeks, with her dormitory maid Dr. Houston in 2 weeks for stress test as an outpatient and neurologist Dr. Dickson 22 weeks and she verbalized understanding and acceptance. at bedside agreeable as well Physical exam Gen: patient is a AAOx3, no distress CVS: S1-S2, RRR, no murmur Lungs: B/L CTA, no wheezing Abdomen: soft, no distention, no tenderness, positive bowel sounds Extremity: no leg edema or induration Time spent more than 35 minutes Patient Condition at Discharge: Serious Plan - Discharge Summary Discharge Rx Participant: No New Discharge Prescriptions: New Lidocaine 5% Patch [Lidoderm 5% Patch] 1 patch TOPICAL DAILY patch polyethylene glycoL 3350 [Miralax] 17 gm PO DAILY PRN packet PRN Reason: Constipation Naloxone HCl [Narcan] 1 mg NASAL Q2M #6 each Sennosides-Docusate Sodium [Senokot-S] 1 each PO DAILY tab INSULIN ASPART (NovoLOG) [NovoLOG (formulary)] 0 unit SQ ACHS each oxyCODONE-APAP 7.5-325MG [Percocet 7.5-325 mg] 1 each PO Q12HR PRN 10 Days #20 tab PRN Reason: Pain Continue Vitamin C/Biotin [Hair, Skin and Nails Chew] 1 tab PO DAILY Cholecalciferol [Vitamin D3 (25 Mcg = 1000 Iu)] 25 mcg PO DAILY Quinapril HCl 40 mg PO DAILY amLODIPine [Norvasc] 5 mg PO DAILY Milk Thistle 150 mg PO DAILY sitaGLIPtin PHOSPHATE [Januvia] 50 mg PO DAILY Repaglinide 1 mg PO AC-SUPPER Metoprolol Succinate (ER) [Toprol XL] 100 mg PO BID@1200,2200 Mv-Mn/Om3/Dha/Epa/Fish/Lut/Kleber [Ocuvite Adult 50 Plus Softgel] 1 cap PO DAILY@1200 Vitamin A 2,400 mcg PO HS Omeprazole 20 mg PO DAILY Levothyroxine Sodium 125 mcg PO DAILY Calcium Carbonate/Vitamin D3 [Calcium 600 mg-D3 10 Mcg (400 Iu)] 1 cap PO HS Pioglitazone [Actos] 30 mg PO HS Atorvastatin [Lipitor] 40 mg PO HS Glimepiride [Amaryl] 4 mg PO BID-W/MEALS Aspirin EC [Ecotrin Low Dose] 81 mg PO W/BRKFST Metformin (Unknown Dose) 1 dose PO DIRECTED Changed diphenhydrAMINE HCL [Benadryl] 25 mg PO HS@2200 PRN #0 PRN Reason: Insomnia Discontinued Mirabegron [Myrbetriq] 50 mg PO HS@2200 HYDROcodone/APAP 5-325MG [[place] 5-325] 1 tab PO Q8H PRN PRN Reason: Pain Discharge Medication List Atorvastatin [Lipitor] 40 mg PO HS 01/08/21 [History] Calcium Carbonate/Vitamin D3 [Calcium 600 mg-D3 10 Mcg (400 Iu)] 1 cap PO HS 01/08/21 [History] Cholecalciferol [Vitamin D3 (25 Mcg = 1000 Iu)] 25 mcg PO DAILY 01/08/21 [History] Levothyroxine Sodium 125 mcg PO DAILY 01/08/21 [History] Metoprolol Succinate (ER) [Toprol XL] 100 mg PO BID@1200,2200 01/08/21 [History] Milk Thistle 150 mg PO DAILY 01/08/21 [History] Omeprazole 20 mg PO DAILY 01/08/21 [History] Pioglitazone [Actos] 30 mg PO HS 01/08/21 [History] Quinapril HCl 40 mg PO DAILY 01/08/21 [History] Repaglinide 1 mg PO AC-SUPPER 01/08/21 [History] Vitamin C/Biotin [Hair, Skin and Nails Chew] 1 tab PO DAILY 01/08/21 [History] amLODIPine [Norvasc] 5 mg PO DAILY 01/08/21 [History] sitaGLIPtin PHOSPHATE [Januvia] 50 mg PO DAILY 01/08/21 [History] Aspirin EC [Ecotrin Low Dose] 81 mg PO W/BRKFST 10/10/22 [History] Glimepiride [Amaryl] 4 mg PO BID-W/MEALS 10/10/22 [History] Mv-Mn/Om3/Dha/Epa/Fish/Lut/Kleber [Ocuvite Adult 50 Plus Softgel] 1 cap PO DAILY@1200 10/10/22 [History] Vitamin A 2,400 mcg PO HS 10/10/22 [History] Metformin (Unknown Dose) 1 dose PO DIRECTED 11/09/22 [History] INSULIN ASPART (NovoLOG) [NovoLOG (formulary)] 0 unit SQ ACHS each 11/16/22 [Rx] Lidocaine 5% Patch [Lidoderm 5% Patch] 1 patch TOPICAL DAILY patch 11/16/22 [Rx] Naloxone HCl [Narcan] 1 mg NASAL Q2M #6 each 11/16/22 [Rx] Sennosides-Docusate Sodium [Senokot-S] 1 each PO DAILY tab 11/16/22 [Rx] diphenhydrAMINE HCL [Benadryl] 25 mg PO HS@2200 PRN #0 11/16/22 [Rx] oxyCODONE-APAP 7.5-325MG [Percocet 7.5-325 mg] 1 each PO Q12HR PRN 10 Days #20 tab 11/16/22 [Rx] polyethylene glycoL 3350 [Miralax] 17 gm PO DAILY PRN packet 11/16/22 [Rx] Follow up Appointment(s)/Referral(s): Kiara Lomeli MD [STAFF PHYSICIAN] - 2 Weeks (we recommend stress test as outpatient) Purvi Maldonado MD [Primary Care Provider] - 1-2 days Saul Dickson MD [Medical Doctor] - 1 Week Alan Giles DO [Doctor of Osteopathic Medicine] - As Needed Activity/Diet/Wound Care/Special Instructions: Heart healthy low carbohydrate diet Activity as tolerated Discharge Disposition: TRANSFER TO SNF/ECF
[2022-11-16] MEDS: LIDOCAINE 5% PATCH TOPICAL SCH ×2 (09:31→09:32)
[2022-11-16] MEDS: polyethylene glycoL 3350 17 GM POWD.PACK PO SCH (09:31)
[2022-11-16] MEDS: LINAGLIPTIN 5 MG TABLET PO SCH (09:32)
[2022-11-16] MEDS: CHOLECALCIFEROL 25 MCG (1000 IU) TABLET PO SCH (09:32)
[2022-11-16] MEDS: lisinopriL 20 MG TAB PO SCH (09:32)
[2022-11-16] MEDS: HEPARIN SODIUM,PORCINE/PF 5,000 UNIT/0.5 ML SYRINGE SQ SCH (09:32)
[2022-11-16] MEDS: SENNOSIDES-DOCUSATE SODIUM 1 EACH TAB PO SCH (09:32)
[2022-11-16] MEDS: ASPIRIN 81 MG PO SCH (09:32)
[2022-11-16] MEDS: amLODIPine 5 MG TAB PO SCH (09:32)
[2022-11-16 10:53] LABS: Basophils # (A) 0.03 X 10*3/uL (0.00-0.10); Basophils % (A) 0.3 %; Eosinophils # (A) 0.23 X 10*3/uL (0.04-0.35); Eosinophils % (A) 2.2 %; HCT 37.7 % (37.2-46.3); HGB 12.6 g/dL (12.0-15.0); Immature Grans, Automated 1.9 %; Lymphocytes # (A) 0.96 X 10*3/uL (0.90-5.00); Lymphocytes % (A) 9.1 %; MCH 30.5 pg (27.0-32.0); MCHC 33.4 g/dL (32.0-37.0); MCV 91.3 fL (80.0-97.0); Mean Platelet Volume 10.7 fL (9.5-12.2); Monocytes # (A) 0.81 X 10*3/uL (0.20-1.00); Monocytes % (A) 7.7 %; NRBC Per 100 WBC 0 /100 WBCS (0.0-0.0); Neutrophils % (A) 78.8 %; Platelet Count 189 X 10*3/uL (140-440); RBC 4.13 X 10*6/uL (4.10-5.20); RDW 14.5 % (11.5-14.5); WBC 10.53 X 10*3/uL (4.50-10.00)
[2022-11-16] MEDS: METOPROLOL SUCCINATE (ER) 100 MG TAB.ER.24H PO SCH (11:00)
[2022-11-16] MEDS: GLIMEPIRIDE 4 MG TAB PO SCH (11:00)
[2022-11-16 11:32] LABS: Glucose,Whole Blood 186 mg/dL (70-110)
[2022-11-16 15:07] VITALS: BP 115/59; PULSE 51; TEMP 98.3
== END 2022-11-16 15:10 | DRG 551 ==
LOC: EC 16:46 → 4SSUR 20:16
PROVIDERS: ADMIT Internal Medicine; ATTEND Internal Medicine
DX: M47.26 Other spondylosis with radiculopathy, lumbar region (principal); G92.8 Other toxic encephalopathy; K82.1 Hydrops of gallbladder; G93.1 Anoxic brain damage, not elsewhere classified; K81.9 Cholecystitis, unspecified; I05.2 Rheumatic mitral stenosis with insufficiency; I11.9 Hypertensive heart disease without heart failure; E11.9 Type 2 diabetes mellitus without complications; Z68.33 Body mass index [BMI] 33.0-33.9, adult; E66.09 Other obesity due to excess calories; E03.9 Hypothyroidism, unspecified; I05.8 Other rheumatic mitral valve diseases; M51.16 Intervertebral disc disorders with radiculopathy, lumbar region; R09.02 Hypoxemia; G89.29 Other chronic pain; E78.5 Hyperlipidemia, unspecified; M48.061 Spinal stenosis, lumbar region without neurogenic claudication; T40.601A Poisoning by unspecified narcotics, accidental (unintentional), initial encounter; K59.00 Constipation, unspecified; M48.062 Spinal stenosis, lumbar region with neurogenic claudication; T38.0X5A Adverse effect of glucocorticoids and synthetic analogues, initial encounter; N20.0 Calculus of kidney; K44.9 Diaphragmatic hernia without obstruction or gangrene; R32 Unspecified urinary incontinence; R53.1 Weakness; R00.8 Other abnormalities of heart beat; R07.89 Other chest pain; Z88.5 Allergy status to narcotic agent; Z99.3 Dependence on wheelchair; Z91.81 History of falling; Z88.8 Allergy status to other drugs, medicaments and biological substances; Z79.899 Other long term (current) drug therapy; Z79.84 Long term (current) use of oral hypoglycemic drugs; Z79.890 Hormone replacement therapy
CPT/HCPCS: 36415; 71045; 72131; 72148; 74176; 76705; 78227; 80048; 80053; 81003; 82607; 82746; 82803; 83036; 83735; 83880; 84443; 84484; 85025; 85610; 85730; 93005; 93306; 94760; 95816; 96361; 96374; 99285

== ENCOUNTER 2023-08-24 03:56 | Inpatient (IN) | payer MEDICARE ==
[2023-08-24] MEDS: SODIUM CHLORIDE 0.9% 1,000 ML IV ONE ×4 (04:08→04:32)
[2023-08-24 04:09] LABS: Glucose,Whole Blood 150 mg/dL (70-110)
[2023-08-24] MEDS: NALOXONE 0.4 MG/ML 1 ML VIAL IVP STA (04:32)
--- NOTE | 2023-08-24 04:34 | ED ---
General Adult HPI - General Chief complaint: Weakness Stated complaint: AMS Time Seen by Provider: 08/24/23 04:00 Source: family, EMS, RN notes reviewed, old records reviewed Mode of arrival: EMS Limitations: altered mental status - History of Present Illness Initial comments: 82-year-old female with progressive weakness, altered mental status over the past 5 days. Patient's is able to give detailed history stating that 5 days ago the patient began to be more lethargic than usual and has had a poor appetite. She has been confused and had difficulty ambulating. Patient able to follow very simple commands but is lethargic. History limited - Related Data Home Medications Medication Instructions Recorded Confirmed Atorvastatin [Lipitor] 40 mg PO HS 01/08/21 08/24/23 Calcium Carbonate/Vitamin D3 1 cap PO HS 01/08/21 08/24/23 [Calcium 600 mg-D3 10 Mcg (400 Iu)] Cholecalciferol [Vitamin D3 (25 25 mcg PO DAILY 01/08/21 08/24/23 Mcg = 1000 Iu)] Levothyroxine Sodium 125 mcg PO DAILY 01/08/21 08/24/23 Metoprolol Succinate (ER) [Toprol 100 mg PO HS 01/08/21 08/24/23 XL] Milk Thistle 150 mg PO DAILY 01/08/21 08/24/23 Omeprazole 20 mg PO DAILY 01/08/21 08/24/23 Pioglitazone [Actos] 30 mg PO HS 01/08/21 08/24/23 Repaglinide 1 mg PO AC-SUPPER 01/08/21 08/24/23 Vitamin C/Biotin [Hair, Skin and 1 tab PO DAILY 01/08/21 08/24/23 Nails Chew] sitaGLIPtin PHOSPHATE [Januvia] 50 mg PO DAILY 01/08/21 08/24/23 Aspirin EC [Ecotrin Low Dose] 81 mg PO DAILY 10/10/22 08/24/23 Glimepiride [Amaryl] 4 mg PO BID-W/MEALS 10/10/22 08/24/23 Mv-Mn/Om3/Dha/Epa/Fish/Lut/Kleber 1 cap PO DAILY@1200 10/10/22 08/24/23 [Ocuvite Adult 50 Plus Softgel] Ascorbic Acid [Vitamin C] 1,000 mg PO DAILY 08/24/23 08/24/23 Biotin [Tpru-Nhgd-Pbjqc] 10,000 mcg PO DAILY 08/24/23 08/24/23 Fish Oil/Dha/Epa [Fish Oil 1,200 1 cap PO DAILY 08/24/23 08/24/23 mg Fish Oil] Ginkgo Biloba [place] Extract [Ginkgo] 120 mg PO DAILY 08/24/23 08/24/23 Mirabegron [Myrbetriq] 50 mg PO HS@2200 08/24/23 08/24/23 Naproxen [Naprosyn] 500 mg PO TID 08/24/23 08/24/23 Prochlorperazine [Compazine] 10 mg PO Q8H PRN 08/24/23 08/24/23 Vitamin B Complex 1 cap PO DAILY 08/24/23 08/24/23 Vitamin E (Dl,Tocopheryl Acet) 450 ng PO DAILY 08/24/23 08/24/23 [Vitamin E (1000 Iu = 450 MG)] Vitamin K 100mcg(Unknown) 100 mcg PO DAILY 08/24/23 08/24/23 amLODIPine [Norvasc] 5 mg PO DAILY 08/24/23 08/24/23 diphenhydrAMINE HCL [Benadryl] 25 mg PO HS@2200 08/24/23 08/24/23 lisinopriL 40 mg PO DAILY 08/24/23 08/24/23 Allergies Allergy/AdvReac Type Severity Reaction Status Date / Time alendronate sodium AdvReac Nausea Verified 08/24/23 12:11 [From Fosamax] codeine AdvReac Nausea Verified 08/24/23 12:11 solifenacin AdvReac Nausea Verified 08/24/23 12:11 Review of Systems ROS Statement: Those systems with pertinent positive or pertinent negative responses have been documented in the HPI. ROS Other: All systems not noted in ROS Statement are negative. Past Medical History Past Medical History: Diabetes Mellitus, Hyperlipidemia, Hypertension Additional Past Medical History / Comment(s): chronic back pain History of Any Multi-Drug Resistant Organisms: None Reported Additional Past Surgical History / Comment(s): bladder suspension Past Anesthesia/Blood Transfusion Reactions: No Reported Reaction Additional Past Anesthesia/Blood Transfusion Reaction / Comment(s): spouse states "needs to have a larger dose of anesthesia because her body blocks it" Past Psychological History: No Psychological Hx Reported Smoking Status: Never smoker Past Alcohol Use History: None Reported Past Drug Use History: None Reported - Past Family History Mother Family Medical History: Myocardial Infarction ([place]) Father Additional Family Medical History / Comment(s): cerebral hemmorage possible aneursym unk General Exam Limitations: altered mental status General appearance: obtunded Head exam: Present: atraumatic, normocephalic Eye exam: Present: normal appearance, PERRL ENT exam: Present: mucous membranes dry Neck exam: Present: normal inspection. Absent: tenderness, meningismus Respiratory exam: Present: normal lung sounds bilaterally. Absent: respiratory distress, wheezes Cardiovascular Exam: Present: regular rate, normal rhythm GI/Abdominal exam: Present: soft, distended. Absent: tenderness, guarding Extremities exam: Present: normal inspection Neurological exam: Present: alert. Absent: oriented X3, motor sensory deficit Skin exam: Present: warm, dry Course Vital Signs 08/24/23 08/24/23 08/24/23 03:57 04:07 04:14 Temperature 97.6 F 94.6 F L Pulse Rate 89 87 Respiratory 26 H 20 Rate Blood Pressure 80/46 70/56 O2 Sat by Pulse 97 Oximetry 08/24/23 08/24/23 08/24/23 04:20 04:30 04:40 Temperature Pulse Rate 81 82 82 Respiratory 20 20 20 Rate Blood Pressure 62/41 103/69 71/27 O2 Sat by Pulse 88 L 86 L 88 L Oximetry 08/24/23 08/24/23 08/24/23 04:50 05:00 05:10 Temperature Pulse Rate 81 81 81 Respiratory 20 20 20 Rate Blood Pressure 67/44 61/40 68/49 O2 Sat by Pulse 90 L 95 96 Oximetry 08/24/23 08/24/23 08/24/23 05:15 05:21 05:30 Temperature Pulse Rate 82 83 85 Respiratory 20 20 24 Rate Blood Pressure 63/44 71/53 84/52 O2 Sat by Pulse 96 96 97 Oximetry 08/24/23 08/24/23 08/24/23 05:45 06:00 06:03 Temperature 95.7 F L Pulse Rate 89 90 92 Respiratory 23 22 20 Rate Blood Pressure 86/61 60/46 88/29 O2 Sat by Pulse 94 L 96 Oximetry 08/24/23 08/24/23 08/24/23 06:15 06:27 06:30 Temperature Pulse Rate 96 97 98 Respiratory 21 20 24 Rate Blood Pressure 115/62 109/63 109/63 O2 Sat by Pulse 96 96 Oximetry 08/24/23 08/24/23 08/24/23 06:45 07:00 07:15 Temperature Pulse Rate 98 98 103 H Respiratory 25 H 22 28 H Rate Blood Pressure 104/57 106/66 112/59 O2 Sat by Pulse 100 97 94 L Oximetry 08/24/23 08/24/23 08/24/23 07:30 07:45 08:00 Temperature Pulse Rate 103 H 103 H 101 H Respiratory 27 H 21 24 Rate Blood Pressure 116/64 119/58 123/80 O2 Sat by Pulse 94 L 97 97 Oximetry 08/24/23 08/24/23 08/24/23 08:15 08:30 08:45 Temperature Pulse Rate 105 H 104 H Respiratory 23 25 H Rate Blood Pressure 122/66 132/73 153/61 O2 Sat by Pulse 96 Oximetry 08/24/23 08/24/23 08/24/23 09:00 09:15 09:30 Temperature 99.1 F Pulse Rate 102 H 102 H 101 H Respiratory 27 H 28 H 25 H Rate Blood Pressure 127/79 119/73 120/74 O2 Sat by Pulse Oximetry 08/24/23 08/24/23 08/24/23 09:45 10:00 10:15 Temperature Pulse Rate 101 H 96 93 Respiratory 23 36 H 27 H Rate Blood Pressure 121/107 132/79 91/73 O2 Sat by Pulse Oximetry 08/24/23 08/24/23 08/24/23 10:30 10:45 11:00 Temperature 99.0 F Pulse Rate 92 92 91 Respiratory 33 H 37 H 28 H Rate Blood Pressure 107/69 115/78 118/90 O2 Sat by Pulse Oximetry 08/24/23 08/24/23 08/24/23 11:30 12:00 12:30 Temperature 97.5 F L Pulse Rate 96 98 97 Respiratory 24 26 H 21 Rate Blood Pressure 141/64 130/55 125/60 O2 Sat by Pulse Oximetry 08/24/23 08/24/23 08/24/23 13:00 13:30 14:00 Temperature Pulse Rate 96 100 99 Respiratory 22 21 25 H Rate Blood Pressure 136/67 121/63 112/51 O2 Sat by Pulse 95 94 L Oximetry 08/24/23 08/24/23 08/24/23 14:30 15:00 15:30 Temperature 97.6 F Pulse Rate 101 H 98 90 Respiratory 22 22 24 Rate Blood Pressure 126/59 131/87 115/92 O2 Sat by Pulse 95 94 L 92 L Oximetry 08/24/23 08/24/23 08/24/23 16:00 16:30 17:00 Temperature Pulse Rate 90 95 93 Respiratory 26 H 27 H 27 H Rate Blood Pressure 115/74 120/60 123/62 O2 Sat by Pulse 97 95 94 L Oximetry 08/24/23 08/24/23 08/24/23 17:30 18:00 18:30 Temperature 98.0 F Pulse Rate 94 96 92 Respiratory 26 H 24 23 Rate Blood Pressure 124/70 129/71 141/43 O2 Sat by Pulse 95 94 L 93 L Oximetry 08/24/23 08/24/23 20:00 21:00 Temperature Pulse Rate 94 96 Respiratory 22 22 Rate Blood Pressure 123/66 122/72 O2 Sat by Pulse 96 95 Oximetry Procedures - Central Line Placement Right Femoral Consent Obtained: written consent Patient Placed on Monitor/Pulse Ox: Yes MD Prep: mask, gloves Central Line Prep: Chlorhexidine scrub Local Anesthesia Used: Lidocaine 1% Amount of Anesthesia Used (mls): 3 Ultrasound Used for Placement: Yes Central Line Lumen Inserted: triple Bloods Obtained for Lab: No Central Line Position: good blood return, all ports aspirated, flushed, capped, sutured in place with nylon Dressing Applied: Tegaderm Patient Tolerated Procedure: well Complications: none - Sepsis Sepsis Focused Exam #1 Sepsis Focused Exam Date: 08/24/23 Sepsis Focused Exam Time: 07:15 Sepsis Focused Exam Complete: Yes Vital Signs & RN Notes Reviewed: Yes Capillary Refill: > 2 Seconds: Fingers, Toes Peripheral Pulses: Weak: Radial (R), Radial (L) Skin Color: Normal for Patient Respiratory Exam: normal lung sounds Cardiovascular Exam: regular rate, normal rhythm Medical Decision Making - Medical Decision Making Was pt. sent in by a medical professional or institution (, PA, HISTORY CARD CLERK, urgent care, hospital, or senior care...) When possible be specific @ -No Did you speak to anyone other than the patient for history (EMS, parent, family, police, friend...)? What history was obtained from this source @ -Patient's , paramedics Did you review nursing and triage notes (agree or disagree)? Why? @ -I reviewed and agree with nursing and triage notes Were old charts reviewed (outside hosp., previous admission, EMS record, old EKG, old radiological studies, urgent care reports/EKG's, senior care records)? Report findings @ -No old charts were reviewed Differential Diagnosis (chest pain, altered mental status, abdominal pain women, abdominal pain men, vaginal bleeding, weakness, fever, dyspnea, syncope, hea dache, dizziness, GI bleed, back pain, seizure, CVA, palpatations, mental health, musculoskeletal)? @ -[Differential Weakness: Hypoglycemia, shock, sepsis, hyponatremia, anemia, infection, [place], ETOH, adverse medicine reaction, overdose, stroke, this is not meant to be an all-inclusive list. EKG interpreted by me (3pts min.). @ -Sinus rhythm with first-degree AV block rate of 89, WA interval 222, QRS duration 102, QTc [address] segment elevation. X-rays interpreted by me (1pt min.). @ -Chest x-ray pulmonary vascular congestion and CHF. CT interpreted by me (1pt min.). @ -CT brain is negative for intracranial hemorrhage or mass effect, chronic changes. U/S interpreted by me (1pt. min.). @ -None done What testing was considered but not performed or refused? (CT, X-rays, U/S, labs)? Why? @ -None What meds were considered but not given or refused? Why? @ -None Did you discuss the management of the patient with other professionals (professionals i.e. , PA, HISTORY CARD CLERK, lab, RT, psych nurse, director social service, bait packer, teacher, electrical engineering drafting officer, special education case manager)? Give summary @ -Dr. Morales Was smoking cessation discussed for >3mins.? @ -No Was critical care preformed (if so, how long)? @ yes 35 min Were there social determinants of health that impacted care today? How? (Homelessness, low income, unemployed, alcoholism, drug addiction, transportation, low edu. Level, literacy, decrease access to med. care, long-term, rehab)? @ -No Was there de-escalation of care discussed even if they declined (Discuss DNR or withdrawal of care, Hospice)? DNR status @ -No What co-morbidities impacted this encounter? (DM, HTN, Smoking, COPD, CAD, Cancer, CVA, ARF, Chemo, Hep., AIDS, mental health diagnosis, sleep apnea, morbid obesity)? @ -None Was patient admitted / discharged? Hospital course, mention meds given and route, prescriptions, significant lab abnormalities, going to OR and other pertinent info. @ -[82-year-old female presenting with 5 days of progressive weakness, poor appetite, confusion. Patient is altered, hypotensive upon arrival. She will answer very simple questions but is not able to complete a detailed history. Her is at bedside who was able to give additional historic details. Patient is hypothermic and significantly hypotensive requiring fluid resuscitation and ultimately vasopressors. Likely source is urinary. Both blood and urine cultures pending. Patient given 2 g ceftriaxone, fluid resuscitation, and norepinephrine in the emergency department. She will be admitted to the ICU. Case discussed with the [facility] and pulmonary mineral wool insulation supervisor. Undiagnosed new problem with uncertain prognosis? @ -No Drug Therapy requiring intensive monitoring for toxicity (Heparin, Nitro, Insulin, Cardizem)? @ -No Were any procedures done? @ -[Yes, central line Diagnosis/symptom? @ -Sepsis secondary to UTI, renal failure, delirium Acute, or Chronic, or Acute on Chronic? @ -[Acute Uncomplicated (without systemic symptoms) or Complicated (systemic symptoms)? @ -[Complicated Side effects of treatment? @ -[No Exacerbation, Progression, or Severe Exacerbation? @ -No Poses a threat to life or bodily function? How? (Chest pain, [place], [place], pneumonia, PE, COPD, DKA, ARF, appy, cholecystitis, CVA, Diverticulitis, Homicidal, Suicidal, threat to staff... and all critical care pts) @Yes, sepsis - Lab Data Result diagrams: 08/24/23 04:15 08/24/23 04:15 Lab Results 08/24/23 08/24/23 08/24/23 Range/Units 04:07 04:15 04:15 WBC 22.7 H (3.8-10.6) k/uL RBC 3.79 L (3.80-5.40) m/uL Hgb 11.7 (11.4-16.0) gm/dL Hct 36.4 (34.0-46.0) % MCV 96.0 (80.0-100.0) fL MCH 30.8 (25.0-35.0) pg MCHC 32.1 (31.0-37.0) g/dL RDW 14.9 (11.5-15.5) % Plt Count 159 (150-450) k/uL MPV 9.2 Neutrophils % (Manual) 82 % Band Neuts % (Manual) 10 % Lymphocytes % (Manual) 4 % Monocytes % (Manual) 4 % Metamyelocytes % 2 % Neutrophils # (Manual) 20.80 H (1.3-7.7) k/uL Lymphocytes # (Manual) 0.91 L (1.0-4.8) k/uL Monocytes # (Manual) 0.91 (0-1.0) k/uL Metamyelocytes # (Man) 0.45 H (0) k/uL Nucleated RBCs 0 (0-0) /100 WBC Manual Slide Review Performed Hypochromasia Slight Poikilocytosis (manual Present PT 17.2 H (10.0-12.5) sec INR 1.7 H (<1.2) APTT 28.6 (22.0-30.0) sec VBG pH (7.31-7.41) VBG pCO2 (37-51) mmHg VBG HCO3 (24-28) mmol/L Sodium (137-145) mmol/L Potassium (3.5-5.1) mmol/L Chloride (98-107) mmol/L Carbon Dioxide (22-30) mmol/L Anion Gap mmol/L BUN (7-17) mg/dL Creatinine (0.52-1.04) mg/dL Est GFR (CKD-EPI)AfAm (>60 ml/min/1.73 sqM) Est GFR (CKD-EPI)NonAf (>60 ml/min/1.73 sqM) Glucose (74-99) mg/dL POC Glucose (mg/dL) 150 H (70-110) mg/dL POC Glu Mathematical Physicist ID Jose Auguste Plasma Lactic Acid Jose Manuel (0.7-2.0) mmol/L Calcium (8.4-10.2) mg/dL Total Bilirubin (0.2-1.3) mg/dL AST (14-36) U/L ALT (4-34) U/L Alkaline Phosphatase (38-126) U/L Troponin I (0.000-0.034) ng/mL NT-Pro-B Natriuret Pep pg/mL Total Protein (6.3-8.2) g/dL Albumin (3.5-5.0) g/dL Urine Color Urine Appearance (Clear) Urine pH (5.0-8.0) Ur Specific [place] (1.001-1.035) Urine Protein (Negative) Urine Glucose (UA) (Negative) Urine Ketones (Negative) Urine Blood (Negative) Urine Nitrite (Negative) Urine Bilirubin (Negative) Urine Urobilinogen (<2.0) mg/dL Ur Leukocyte Esterase (Negative) Urine RBC (0-5) /hpf Urine WBC (0-5) /hpf Urine Bacteria (None) /hpf Urine Opiates Screen (NotDetected) Ur Oxycodone Screen (NotDetected) Urine Methadone Screen (NotDetected) Ur Barbiturates Screen (NotDetected) U Tricyclic Antidepress (NotDetected) Ur Phencyclidine Scrn (NotDetected) Ur Amphetamines Screen (NotDetected) U Methamphetamines Scrn (NotDetected) U Benzodiazepines Scrn (NotDetected) Urine Cocaine Screen (NotDetected) U Marijuana (THC) Screen (NotDetected) 08/24/23 08/24/23 08/24/23 Range/Units 04:15 04:15 04:15 WBC (3.8-10.6) k/uL RBC (3.80-5.40) m/uL Hgb (11.4-16.0) gm/dL Hct (34.0-46.0) % MCV (80.0-100.0) fL MCH (25.0-35.0) pg MCHC (31.0-37.0) g/dL RDW (11.5-15.5) % Plt Count (150-450) k/uL MPV Neutrophils % (Manual) % Band Neuts % (Manual) % Lymphocytes % (Manual) % Monocytes % (Manual) % Metamyelocytes % % Neutrophils # (Manual) (1.3-7.7) k/uL Lymphocytes # (Manual) (1.0-4.8) k/uL Monocytes # (Manual) (0-1.0) k/uL Metamyelocytes # (Man) (0) k/uL Nucleated RBCs (0-0) /100 WBC Manual Slide Review Hypochromasia Poikilocytosis (manual PT (10.0-12.5) sec INR (<1.2) APTT (22.0-30.0) sec VBG pH 7.11 L* (7.31-7.41) VBG pCO2 39 (37-51) mmHg VBG HCO3 12 L (24-28) mmol/L Sodium 140 (137-145) mmol/L Potassium 3.9 (3.5-5.1) mmol/L Chloride 112 H (98-107) mmol/L Carbon Dioxide 9 L* (22-30) mmol/L Anion Gap 19 mmol/L BUN 68 H (7-17) mg/dL Creatinine 4.07 H (0.52-1.04) mg/dL Est GFR (CKD-EPI)AfAm 11 (>60 ml/min/1.73 sqM) Est GFR (CKD-EPI)NonAf 10 (>60 ml/min/1.73 sqM) Glucose 150 H (74-99) mg/dL POC Glucose (mg/dL) (70-110) mg/dL POC Glu Mathematical Physicist ID Plasma Lactic Acid Jose Manuel (0.7-2.0) mmol/L Calcium 8.6 (8.4-10.2) mg/dL Total Bilirubin 1.4 H (0.2-1.3) mg/dL AST 44 H (14-36) U/L ALT 28 (4-34) U/L Alkaline Phosphatase 279 H (38-126) U/L Troponin I <0.012 (0.000-0.034) ng/mL NT-Pro-B Natriuret Pep pg/mL Total Protein 5.7 L (6.3-8.2) g/dL Albumin 3.0 L (3.5-5.0) g/dL Urine Color Urine Appearance (Clear) Urine pH (5.0-8.0) Ur Specific [place] (1.001-1.035) Urine Protein (Negative) Urine Glucose (UA) (Negative) Urine Ketones (Negative) Urine Blood (Negative) Urine Nitrite (Negative) Urine Bilirubin (Negative) Urine Urobilinogen (<2.0) mg/dL Ur Leukocyte Esterase (Negative) Urine RBC (0-5) /hpf Urine WBC (0-5) /hpf Urine Bacteria (None) /hpf Urine Opiates Screen (NotDetected) Ur Oxycodone Screen (NotDetected) Urine Methadone Screen (NotDetected) Ur Barbiturates Screen (NotDetected) U Tricyclic Antidepress (NotDetected) Ur Phencyclidine Scrn (NotDetected) Ur Amphetamines Screen (NotDetected) U Methamphetamines Scrn (NotDetected) U Benzodiazepines Scrn (NotDetected) Urine Cocaine Screen (NotDetected) U Marijuana (THC) Screen (NotDetected) 08/24/23 08/24/23 08/24/23 Range/Units 04:15 04:15 04:20 WBC (3.8-10.6) k/uL RBC (3.80-5.40) m/uL Hgb (11.4-16.0) gm/dL Hct (34.0-46.0) % MCV (80.0-100.0) fL MCH (25.0-35.0) pg MCHC (31.0-37.0) g/dL RDW (11.5-15.5) % Plt Count (150-450) k/uL MPV Neutrophils % (Manual) % Band Neuts % (Manual) % Lymphocytes % (Manual) % Monocytes % (Manual) % Metamyelocytes % % Neutrophils # (Manual) (1.3-7.7) k/uL Lymphocytes # (Manual) (1.0-4.8) k/uL Monocytes # (Manual) (0-1.0) k/uL Metamyelocytes # (Man) (0) k/uL Nucleated RBCs (0-0) /100 WBC Manual Slide Review Hypochromasia Poikilocytosis (manual PT (10.0-12.5) sec INR (<1.2) APTT (22.0-30.0) sec VBG pH (7.31-7.41) VBG pCO2 (37-51) mmHg VBG HCO3 (24-28) mmol/L Sodium (137-145) mmol/L Potassium (3.5-5.1) mmol/L Chloride (98-107) mmol/L Carbon Dioxide (22-30) mmol/L Anion Gap mmol/L BUN (7-17) mg/dL Creatinine (0.52-1.04) mg/dL Est GFR (CKD-EPI)AfAm (>60 ml/min/1.73 sqM) Est GFR (CKD-EPI)NonAf (>60 ml/min/1.73 sqM) Glucose (74-99) mg/dL POC Glucose (mg/dL) (70-110) mg/dL POC Glu Mathematical Physicist ID Plasma Lactic Acid Jose Manuel 6.1 H* (0.7-2.0) mmol/L Calcium (8.4-10.2) mg/dL Total Bilirubin (0.2-1.3) mg/dL AST (14-36) U/L ALT (4-34) U/L Alkaline Phosphatase (38-126) U/L Troponin I (0.000-0.034) ng/mL NT-Pro-B Natriuret Pep 62763 pg/mL Total Protein (6.3-8.2) g/dL Albumin (3.5-5.0) g/dL Urine Color Urine Appearance (Clear) Urine pH (5.0-8.0) Ur Specific [place] (1.001-1.035) Urine Protein (Negative) Urine Glucose (UA) (Negative) Urine Ketones (Negative) Urine Blood (Negative) Urine Nitrite (Negative) Urine Bilirubin (Negative) Urine Urobilinogen (<2.0) mg/dL Ur Leukocyte Esterase (Negative) Urine RBC (0-5) /hpf Urine WBC (0-5) /hpf Urine Bacteria (None) /hpf Urine Opiates Screen Not Detected (NotDetected) Ur Oxycodone Screen Not Detected (NotDetected) Urine Methadone Screen Not Detected (NotDetected) Ur Barbiturates Screen Not Detected (NotDetected) U Tricyclic Antidepress Not Detected (NotDetected) Ur Phencyclidine Scrn Not Detected (NotDetected) Ur Amphetamines Screen Not Detected (NotDetected) U Methamphetamines Scrn Not Detected (NotDetected) U Benzodiazepines Scrn Not Detected (NotDetected) Urine Cocaine Screen Not Detected (NotDetected) U Marijuana (THC) Screen Not Detected (NotDetected) 08/24/23 Range/Units 04:20 WBC (3.8-10.6) k/uL RBC (3.80-5.40) m/uL Hgb (11.4-16.0) gm/dL Hct (34.0-46.0) % MCV (80.0-100.0) fL MCH (25.0-35.0) pg MCHC (31.0-37.0) g/dL RDW (11.5-15.5) % Plt Count (150-450) k/uL MPV Neutrophils % (Manual) % Band Neuts % (Manual) % Lymphocytes % (Manual) % Monocytes % (Manual) % Metamyelocytes % % Neutrophils # (Manual) (1.3-7.7) k/uL Lymphocytes # (Manual) (1.0-4.8) k/uL Monocytes # (Manual) (0-1.0) k/uL Metamyelocytes # (Man) (0) k/uL Nucleated RBCs (0-0) /100 WBC Manual Slide Review Hypochromasia Poikilocytosis (manual PT (10.0-12.5) sec INR (<1.2) APTT (22.0-30.0) sec VBG pH (7.31-7.41) VBG pCO2 (37-51) mmHg VBG HCO3 (24-28) mmol/L Sodium (137-145) mmol/L Potassium (3.5-5.1) mmol/L Chloride (98-107) mmol/L Carbon Dioxide (22-30) mmol/L Anion Gap mmol/L BUN (7-17) mg/dL Creatinine (0.52-1.04) mg/dL Est GFR (CKD-EPI)AfAm (>60 ml/min/1.73 sqM) Est GFR (CKD-EPI)NonAf (>60 ml/min/1.73 sqM) Glucose (74-99) mg/dL POC Glucose (mg/dL) (70-110) mg/dL POC Glu Mathematical Physicist ID Plasma Lactic Acid Jose Manuel (0.7-2.0) mmol/L Calcium (8.4-10.2) mg/dL Total Bilirubin (0.2-1.3) mg/dL AST (14-36) U/L ALT (4-34) U/L Alkaline Phosphatase (38-126) U/L Troponin I (0.000-0.034) ng/mL NT-Pro-B Natriuret Pep pg/mL Total Protein (6.3-8.2) g/dL Albumin (3.5-5.0) g/dL Urine Color Yellow Urine Appearance Cloudy H (Clear) Urine pH 5.5 (5.0-8.0) Ur Specific [place] 1.018 (1.001-1.035) Urine Protein 1+ H (Negative) Urine Glucose (UA) Negative (Negative) Urine Ketones Negative (Negative) Urine Blood Large H (Negative) Urine Nitrite Negative (Negative) Urine Bilirubin Negative (Negative) Urine Urobilinogen <2.0 (<2.0) mg/dL Ur Leukocyte Esterase Large H (Negative) Urine RBC 126 H (0-5) /hpf Urine WBC >182 H (0-5) /hpf Urine Bacteria Many H (None) /hpf Urine Opiates Screen (NotDetected) Ur Oxycodone Screen (NotDetected) Urine Methadone Screen (NotDetected) Ur Barbiturates Screen (NotDetected) U Tricyclic Antidepress (NotDetected) Ur Phencyclidine Scrn (NotDetected) Ur Amphetamines Screen (NotDetected) U Methamphetamines Scrn (NotDetected) U Benzodiazepines Scrn (NotDetected) Urine Cocaine Screen (NotDetected) U Marijuana (THC) Screen (NotDetected) Critical Care Time Critical Care Time: Yes Total Critical Care Time: 35 Disposition Clinical Impression: VILLA (acute kidney injury), Sepsis, UTI (urinary tract infection) Disposition: ADMITTED IP TO THIS HOSP Condition: Serious Is patient prescribed a controlled substance at d/c from ED?: No Time of Disposition: 06:15
[2023-08-24 04:43] LABS: INR 1.7 (<1.2); Partial Thromboplastin Time 28.6 sec (22.0-30.0); Prothrombin Time 17.2 sec (10.0-12.5); VBG PH 7.11 (7.31-7.41)
[2023-08-24 04:44] LABS: ALT 28 U/L (4-34); AST 44 U/L (14-36); African American GFR (CKD) 11 (>60 ml/min/1.73 sqM); Alkaline Phosphatase 279 U/L (38-126); Anion Gap 19 mmol/L; Blood Urea Nitrogen 68 mg/dL (7-17); Calcium 8.6 mg/dL (8.4-10.2); Chloride 112 mmol/L (98-107); Glucose 150 mg/dL (74-99); Non-African American GFR(CKD) 10 (>60 ml/min/1.73 sqM); Potassium 3.9 mmol/L (3.5-5.1); Sodium 140 mmol/L (137-145); Total Bilirubin 1.4 mg/dL (0.2-1.3); Total Protein 5.7 g/dL (6.3-8.2)
[2023-08-24 04:50] LABS: Appearance,Urine Cloudy (Clear); Bacteria,Urine Many /hpf; Bilirubin,Urine Negative (Negative); Blood,Urine Large (Negative); Color,Urine Yellow; Glucose,Urine (UA) Negative (Negative); Ketones,Urine Negative (Negative); Leukocyte Esterase,Urine Large (Negative); Nitrite,Urine Negative (Negative); PH, Urine 5.5 (5.0-8.0); Protein,Urine 1+ (Negative); RBC,Urine 126 /hpf (0-5); Specific Gravity,Urine 1.018 (1.001-1.035); Urobilinogen,Urine <2.0 mg/dL (<2.0); WBC,Urine >182 /hpf (0-5)
[2023-08-24 04:50] LABS: HCT 36.4 % (34.0-46.0); HGB 11.7 gm/dL (11.4-16.0); Hypochromasia Slight; MCH 30.8 pg (25.0-35.0); MCHC 32.1 g/dL (31.0-37.0); Mean Platelet Volume 9.2; Platelet Count 159 k/uL (150-450); RBC 3.79 m/uL (3.80-5.40); RDW 14.9 % (11.5-15.5); WBC 22.7 k/uL (3.8-10.6)
[2023-08-24 05:06] LABS: Amphetamine Screen,Urine Not Detected (NotDetected); Barbiturate Screen,Urine Not Detected (NotDetected); Benzodiazepines Screen,Urine Not Detected (NotDetected); Cocaine Screen,Urine Not Detected (NotDetected); Methadone Screen, Urine Not Detected (NotDetected); Opiate Screen,Urine Not Detected (NotDetected); Oxycodone Screen, Urine Not Detected (NotDetected); Phencyclidine Screen,Urine Not Detected (NotDetected); Tricyclic Antidepressant,Urine Not Detected (NotDetected); Urn Cannabinoid Scrn Not Detected (NotDetected)
[2023-08-24 05:08] LABS: Carbon Dioxide 9 mmol/L (22-30)
[2023-08-24] MEDS: NOREPINEPHRINE 4 MG in SODIUM CHLORIDE 0.9% 250 ML IV ONE (05:11)
[2023-08-24 05:55] LABS: Band Neutrophils % 10 %; Lymphocytes # (M) 0.91 k/uL (1.0-4.8); Metamyelocytes # (M) 0.45 k/uL (0); Metamyelocytes % 2 %; Monocytes # (M) 0.91 k/uL (0-1.0); Neutrophils % (M) 82 %; Nucleated Red Blood Cells 0 /100 WBC (0-0); Total Cells Counted 200
[2023-08-24 05:56] LABS: Poikilocytosis (M) Present
[2023-08-24] MEDS ORDERED: NALOXONE 0.4 MG/ML 1 ML VIAL IV PRN (06:09)
--- NOTE | 2023-08-24 07:51 | XR ---
EXAMINATION TYPE: XR chest 1V portable DATE OF EXAM: 08/24/2023 COMPARISON: 11/15/2022 INDICATION: Altered mental status TECHNIQUE: Single frontal view of the chest is obtained. FINDINGS: The heart size is enlarged. The pulmonary vasculature is prominent. Diffuse mild increased lung markings are present bilaterally IMPRESSION: 1. Clinical correlation recommended for congestive heart failure. Follow-up is recommended.
--- NOTE | 2023-08-24 07:53 | CT ---
EXAMINATION TYPE: CT brain wo con DATE OF EXAM: 08/24/2023 COMPARISON: 11/07/2022 INDICATION: ams DLP: 1303.9 mGycm, Automated exposure control for dose reduction was used. CONTRAST: None CT of the brain is performed utilizing 3 mm thick sections through the posterior fossa and 3 mm thick sections through the remaining calvarium. Study is performed within 24 hours of arrival to the hosp ital. No abnormal hyperdensity is present to suggest an acute intracranial hemorrhage. No mass lesion is evident. No acute infarcts are evident. Mild periventricular white matter hypodensity is present, likely on th e basis of chronic white matter ischemic changes. Ventricles and sulci are prominent for the patient age. There is opacification of the left sphenoid sinus. Remaining paranasal sinuses and mastoid air cells are clear. No acute fractures are evident. IMPRESSION: 1. Atrophy with mild periventricular white matter ischemic changes, stable from comparison.
[2023-08-24] MEDS: NOREPINEPHRINE 4 MG in SODIUM CHLORIDE 0.9% 250 ML IV SCH ×2 (10:00→15:50)
--- NOTE | 2023-08-24 11:19 | P.NPCON ---
History of Present Illness - Reason for Consult acute renal failure - History of Present Illness Patient is an 82-year-old female with history of hypertension, type 2 diabetes who is admitted to the hospital with history of increased weakness and mental status changes over the past 5 days. Patient has not been eating or drinking much for the past 4 to 5 days. No significant nausea vomiting or diarrhea per . No prior history of kidney diseases. Blood pressure was significantly low with systolic in the 60s on initial admission. Patient is currently maintained on Levophed and IV fluids. Serum creatinine at 4.0 mg/dL. Previous creatinine was 0.9 on 11/15/2022. Patient currently has an indwelling Sheth catheter. Home medications included DENIS inhibitors and metformin, currently on hold. UA suggestive of UTI. Review of Systems As per HPI Past Medical History Past Medical History: Diabetes Mellitus, Hyperlipidemia, Hypertension Additional Past Medical History / Comment(s): chronic back pain History of Any Multi-Drug Resistant Organisms: None Reported Additional Past Surgical History / Comment(s): bladder suspension Past Anesthesia/Blood Transfusion Reactions: No Reported Reaction Additional Past Anesthesia/Blood Transfusion Reaction / Comment(s): spouse states "needs to have a larger dose of anesthesia because her body blocks it" Past Psychological History: No Psychological Hx Reported Smoking Status: Never smoker Past Alcohol Use History: None Reported Past Drug Use History: None Reported - Past Family History Mother Family Medical History: Myocardial Infarction ([place]) Father Additional Family Medical History / Comment(s): cerebral hemmorage possible aneursym unk Medications and Allergies Home Medications Medication Instructions Recorded Confirmed Type Atorvastatin [Lipitor] 40 mg PO HS 01/08/21 11/09/22 History Calcium Carbonate/Vitamin D3 1 cap PO HS 01/08/21 11/09/22 History [Calcium 600 mg-D3 10 Mcg (400 Iu)] Cholecalciferol [Vitamin D3 (25 25 mcg PO DAILY 01/08/21 11/09/22 History Mcg = 1000 Iu)] Levothyroxine Sodium 125 mcg PO DAILY 01/08/21 11/09/22 History Metoprolol Succinate (ER) [Toprol 100 mg PO BID@1200,2200 01/08/21 11/09/22 History XL] Milk Thistle 150 mg PO DAILY 01/08/21 11/09/22 History Omeprazole 20 mg PO DAILY 01/08/21 11/09/22 History Pioglitazone [Actos] 30 mg PO HS 01/08/21 11/09/22 History Quinapril HCl 40 mg PO DAILY 01/08/21 11/09/22 History Repaglinide 1 mg PO AC-SUPPER 01/08/21 11/09/22 History Vitamin C/Biotin [Hair, Skin and 1 tab PO DAILY 01/08/21 11/09/22 History Nails Chew] amLODIPine [Norvasc] 5 mg PO DAILY 01/08/21 11/09/22 History sitaGLIPtin PHOSPHATE [Januvia] 50 mg PO DAILY 01/08/21 11/09/22 History Aspirin EC [Ecotrin Low Dose] 81 mg PO W/BRKFST 10/10/22 11/09/22 History Glimepiride [Amaryl] 4 mg PO BID-W/MEALS 10/10/22 11/09/22 History Mv-Mn/Om3/Dha/Epa/Fish/Lut/Kleber 1 cap PO DAILY@1200 10/10/22 11/09/22 History [Ocuvite Adult 50 Plus Softgel] Vitamin A 2,400 mcg PO HS 10/10/22 11/09/22 History Metformin (Unknown Dose) 1 dose PO DIRECTED 11/09/22 11/09/22 History INSULIN ASPART (NovoLOG) [NovoLOG 0 unit SQ ACHS each 11/16/22 Rx (formulary)] Lidocaine 5% Patch [Lidoderm 5% 1 patch TOPICAL DAILY patch 11/16/22 Rx Patch] Naloxone HCl [Narcan] 1 mg NASAL Q2M #6 each 11/16/22 Rx Sennosides-Docusate Sodium 1 each PO DAILY tab 11/16/22 Rx [Senokot-S] diphenhydrAMINE HCL [Benadryl] 25 mg PO HS@2200 PRN #0 11/16/22 11/09/22 Rx oxyCODONE-APAP 7.5-325MG [Percocet 1 each PO Q12HR PRN 10 Days #20 tab 11/16/22 Rx 7.5-325 mg] polyethylene glycoL 3350 [Miralax] 17 gm PO DAILY PRN packet 11/16/22 Rx Allergies Allergy/AdvReac Type Severity Reaction Status Date / Time alendronate sodium AdvReac Nausea Verified 01/27/24 04:05 [From Fosamax] codeine AdvReac Nausea Verified 08/24/23 04:05 solifenacin AdvReac Nausea Verified 08/24/23 04:05 Physical Exam Vitals: Vital Signs Temp Pulse Resp BP Pulse Ox 08/24/23 10:45 92 37 H 115/78 08/24/23 10:30 99.0 F 92 33 H 107/69 08/24/23 10:15 93 27 H 91/73 08/24/23 10:00 96 36 H 132/79 08/24/23 09:45 101 H 23 121/107 08/24/23 09:30 101 H 25 H 120/74 08/24/23 09:15 102 H 28 H 119/73 08/24/23 09:00 99.1 F 102 H 27 H 127/79 08/24/23 08:45 153/61 08/24/23 08:30 104 H 25 H 132/73 08/24/23 08:15 105 H 23 122/66 96 08/24/23 08:00 101 H 24 123/80 97 08/24/23 07:45 103 H 21 119/58 97 08/24/23 07:30 103 H 27 H 116/64 94 L 08/24/23 07:15 103 H 28 H 112/59 94 L 08/24/23 07:00 98 22 106/66 97 08/24/23 06:45 98 25 H 104/57 100 08/24/23 06:30 98 24 109/63 96 08/24/23 06:27 97 20 109/63 96 08/24/23 06:15 96 21 115/62 08/24/23 06:03 95.7 F L 92 20 88/29 96 08/24/23 06:00 90 22 60/46 08/24/23 05:45 89 23 86/61 94 L 08/24/23 05:30 85 24 84/52 97 08/24/23 05:21 83 20 71/53 96 08/24/23 05:15 82 20 63/44 96 08/24/23 05:10 81 20 68/49 96 08/24/23 05:00 81 20 61/40 95 08/24/23 04:50 81 20 67/44 90 L 08/24/23 04:40 82 20 71/27 88 L 08/24/23 04:30 82 20 103/69 86 L 08/24/23 04:20 81 20 62/41 88 L 08/24/23 04:14 94.6 F L 08/24/23 04:07 87 20 70/56 97 08/24/23 03:57 97.6 F 89 26 H 80/46 Intake and Output 08/23/23 08/24/23 08/24/23 22:59 06:59 14:59 Intake Total 29.217 Balance 29.217 Intake: Intake, IV Titration 29.217 Amount Norepinephrine 4 mg In 29.217 Sodium Chloride 0.9% 250 ml @ 0.03 MCG/KG/MIN 8. 295 mls/hr IV .Q24H ONE Rx#:[id number] Other: Weight 72.5 kg Patient is awake, comfortable, no acute distress She does not communicate much Examination of the heart S1 and S2 Examination of the lungs bilateral breath sounds are heard with decreased breath sounds at the bases Abdomen is soft nontender Examination of lower extremities showed no significant edema Patient is moving all 4 extremities. She is confused. Results - Lab Results Most recent lab results Calcium 8.6 mg/dL (8.4-10.2) 08/24/23 04:15 08/24/23 04:15 08/24/23 04:15 Assessment and Plan Assessment: 1. Acute kidney injury ATN secondary to hypotension currently nonoliguric. UA shows 1+ protein large blood and WBCs more than 182. Check ultrasound of the abdomen 2. Severe anion gap metabolic acidosis secondary to acute kidney injury and lactic acidosis maintained on IV bicarb 3. UTI maintained on IV antibiotics, urine culture is pending 4. Hypotension secondary to underlying infection and sepsis. Maintained on IV fluids and receiving pressors as well 5. Hypokalemia 6. Mental status changes secondary to sepsis Plan: Continue IV bicarb Continue empiric antibiotics Check ultrasound of the kidneys Continue to hold DENIS inhibitor's and metformin Repeat labs in a.m. Thank you for the consultation. We will continue to follow the patient with you during her hospitalization.
[2023-08-24] MEDS: DEXTROSE 5% IN WATER 1,000 ML with SODIUM BICARB (1 MEQ/ML) 150 ML IV SCH (11:53)
[2023-08-24] MEDS ORDERED: DEXTROSE 50% SYRINGE 50 ML IVP PRN ×2 (12:05)
--- NOTE | 2023-08-24 12:09 | P.HPIM ---
History of Present Illness This is a pleasant 10 years old female with multiple medical problems as below. Patient is currently poor historian and information were obtained with the help of the family at bedside. As per family patient has been feeling generally weak since last Saturday especially she has difficulty getting up under going to the restroom, family were following up with her every day but she refused to come to the hospital Saturday through despite no improvement, with worsening medical condition she agrees to come to the hospital urinary morning today Patient is tachypneic with a breathing rate of 26 and she has difficulty talking. Patient denies chest pain or urinary complaints. She has some vomiting but no diarrhea. Patient and notable bowel movement Her urine looks cloudy but patient denies dysuria. Sheth catheter in place showing urine collection about 60-70 mL of yellow urine Patient denies dizziness headache, no unilateral weakness or tingling No smoking or alcohol However on exam patient complained from tenderness and mild guarding on the right side of the abdomen On admission patient was hypotensive 80/46 and she was started on pressors with Levophed Creatinine elevated 4.0, sodium bicarb is low 9 Patient is also on admission a 10 L via nonrebreather. Patient is tachycardic with heart rate around 92. Troponin is negative less than 0.012. WBCs elevated 22.7, INR is 1.7 Creatinine elevated 4.0 Liver enzymes unremarkable Urine analysis is suspicious for infection and urine culture is pending Urine drug screen is negative Chest x-ray showing pulmonary congestion and cardiomegaly CT of the brain is negative EKG showing sinus rhythm at [address]-T changes Echocardiogram from 10/2022 showing ejection fraction of 55% Review of Systems Review of systems -CONSTITUTIONAL: No fever, as above HEENT: No recent visual problems or hearing problems. Denied any sore throat. CARDIOVASCULAR: No orthopnea, PND, no palpitations, no syncope. PULMONARY: No shortness of breath, no cough, no hemoptysis. GASTROINTESTINAL: No diarrhea, no nausea, no vomiting, . Normoactive bowel sounds. NEUROLOGICAL: No headaches, no weakness, no numbness. HEMATOLOGICAL: Denies any bleeding or petechiae. GENITOURINARY: Denies any burning micturition, frequency, or urgency. MUSCULOSKELETAL/RHEUMATOLOGICAL: Denies any joint pain, swelling, or any muscle pain. ENDOCRINE: Denies any polyuria or polydipsia. Past Medical History Past Medical History: Diabetes Mellitus, Hyperlipidemia, Hypertension Additional Past Medical History / Comment(s): chronic back pain History of Any Multi-Drug Resistant Organisms: None Reported Additional Past Surgical History / Comment(s): bladder suspension Past Anesthesia/Blood Transfusion Reactions: No Reported Reaction Additional Past Anesthesia/Blood Transfusion Reaction / Comment(s): spouse states "needs to have a larger dose of anesthesia because her body blocks it" Past Psychological History: No Psychological Hx Reported Smoking Status: Never smoker Past Alcohol Use History: None Reported Past Drug Use History: None Reported - Past Family History Mother Family Medical History: Myocardial Infarction ([place]) Father Additional Family Medical History / Comment(s): cerebral hemmorage possible aneursym unk Medications and Allergies Home Medications Medication Instructions Recorded Confirmed Type Atorvastatin [Lipitor] 40 mg PO HS 01/08/21 11/09/22 History Calcium Carbonate/Vitamin D3 1 cap PO HS 01/08/21 11/09/22 History [Calcium 600 mg-D3 10 Mcg (400 Iu)] Cholecalciferol [Vitamin D3 (25 25 mcg PO DAILY 01/08/21 11/09/22 History Mcg = 1000 Iu)] Levothyroxine Sodium 125 mcg PO DAILY 01/08/21 11/09/22 History Metoprolol Succinate (ER) [Toprol 100 mg PO BID@1200,2200 01/08/21 11/09/22 Hi story XL] Milk Thistle 150 mg PO DAILY 01/08/21 11/09/22 History Omeprazole 20 mg PO DAILY 01/08/21 11/09/22 History Pioglitazone [Actos] 30 mg PO HS 01/08/21 11/09/22 History Repaglinide 1 mg PO AC-SUPPER 01/08/21 11/09/22 History Vitamin C/Biotin [Hair, Skin and 1 tab PO DAILY 01/08/21 11/09/22 History Nails Chew] sitaGLIPtin PHOSPHATE [Januvia] 50 mg PO DAILY 01/08/21 11/09/22 History Aspirin EC [Ecotrin Low Dose] 81 mg PO W/BRKFST 10/10/22 11/09/22 History Glimepiride [Amaryl] 4 mg PO BID-W/MEALS 10/10/22 11/09/22 History Mv-Mn/Om3/Dha/Epa/Fish/Lut/Kleber 1 cap PO DAILY@1200 10/10/22 11/09/22 History [Ocuvite Adult 50 Plus Softgel] Mirabegron [Myrbetriq] 50 mg PO HS@2200 08/24/23 08/24/23 History Naproxen [Naprosyn] 500 mg PO TID 08/24/23 08/24/23 History Prochlorperazine [Compazine] 10 mg PO Q8H PRN 08/24/23 08/24/23 History amLODIPine [Norvasc] 5 mg PO DAILY 08/24/23 08/24/23 History diphenhydrAMINE HCL [Benadryl] 25 mg PO HS@2200 08/24/23 08/24/23 History lisinopriL 40 mg PO DAILY 08/24/23 08/24/23 History Allergies Allergy/AdvReac Type Severity Reaction Status Date / Time alendronate sodium AdvReac Nausea Verified 08/24/23 04:05 [From Fosamax] codeine AdvReac Nausea Verified 08/24/23 04:05 solifenacin AdvReac Nausea Verified 08/24/23 04:05 Physical Exam Vitals: Vital Signs Temp Pulse Resp BP Pulse Ox 08/24/23 09:00 99.1 F 102 H 27 H 127/79 08/24/23 08:45 153/61 08/24/23 08:30 104 H 25 H 132/73 08/24/23 08:15 105 H 23 122/66 96 08/24/23 08:00 101 H 24 123/80 97 08/24/23 07:45 103 H 21 119/58 97 08/24/23 07:30 103 H 27 H 116/64 94 L 08/24/23 07:15 103 H 28 H 112/59 94 L 08/24/23 07:00 98 22 106/66 97 08/24/23 06:45 98 25 H 104/57 100 08/24/23 06:30 98 24 109/63 96 08/24/23 06:27 97 20 109/63 96 08/24/23 06:15 96 21 115/62 08/24/23 06:03 95.7 F L 92 20 88/29 96 08/24/23 06:00 90 22 60/46 08/24/23 05:45 89 23 86/61 94 L 08/24/23 05:30 85 24 84/52 97 08/24/23 05:21 83 20 71/53 96 08/24/23 05:15 82 20 63/44 96 08/24/23 05:10 81 20 68/49 96 08/24/23 05:00 81 20 61/40 95 08/24/23 04:50 81 20 67/44 90 L 08/24/23 04:40 82 20 71/27 88 L 08/24/23 04:30 82 20 103/69 86 L 08/24/23 04:20 81 20 62/41 88 L 08/24/23 04:14 94.6 F L 08/24/23 04:07 87 20 70/56 97 08/24/23 03:57 97.6 F 89 26 H 80/46 Intake and Output 08/23/23 08/24/23 08/24/23 22:59 06:59 14:59 Intake Total 29.217 Balance 29.217 Intake: Intake, IV Titration 29.217 Amount Norepinephrine 4 mg In 29.217 Sodium Chloride 0.9% 250 ml @ 0.03 MCG/KG/MIN 8. 295 mls/hr IV .Q24H ONE Rx#:[id number] Other: Weight 72.5 kg -GENERAL: The patient is alert and oriented , in moderate to severe acute resp distress. Well developed, well nourished. HEENT: Pupils are round and equally reacting to light. EOMI. No scleral icterus. No conjunctival pallor. Normocephalic, atraumatic. No pharyngeal erythema. No thyromegaly. CARDIOVASCULAR: S1 and S2 present. No murmurs, rubs, or gallops. -PULMONARY: Decreased air entry on both sides, no wheezing , no crackles. -ABDOMEN: Soft, right-sided abdominal tenderness, nondistended, normoactive bowel sounds. No palpable organomegaly. MUSCULOSKELETAL: No joint swelling or deformity. EXTREMITIES: No cyanosis, clubbing, or pedal edema. NEUROLOGICAL: Gross neurological examination did not reveal any focal deficits. SKIN: No rashes. no petechiae. Results CBC & Chem 7: 08/24/23 04:15 08/24/23 04:15 Labs: Abnormal Lab Results - Last 24 Hours (Table) 08/24/23 08/24/23 08/24/23 Range/Units 04:07 04:15 04:15 WBC 22.7 H (3.8-10.6) k/uL RBC 3.79 L (3.80-5.40) m/uL Neutrophils # (Manual) 20.80 H (1.3-7.7) k/uL Lymphocytes # (Manual) 0.91 L (1.0-4.8) k/uL Metamyelocytes # (Man) 0.45 H (0) k/uL PT 17.2 H (10.0-12.5) sec INR 1.7 H (<1.2) VBG pH (7.31-7.41) VBG HCO3 (24-28) mmol/L Chloride (98-107) mmol/L Carbon Dioxide (22-30) mmol/L BUN (7-17) mg/dL Creatinine (0.52-1.04) mg/dL Glucose (74-99) mg/dL POC Glucose (mg/dL) 150 H (70-110) mg/dL Plasma Lactic Acid Jose Manuel (0.7-2.0) mmol/L Total Bilirubin (0.2-1.3) mg/dL AST (14-36) U/L Alkaline Phosphatase (38-126) U/L Total Protein (6.3-8.2) g/dL Albumin (3.5-5.0) g/dL Urine Appearance (Clear) Urine Protein (Negative) Urine Blood (Negative) Ur Leukocyte Esterase (Negative) Urine RBC (0-5) /hpf Urine WBC (0-5) /hpf Urine Bacteria (None) /hpf 08/24/23 08/24/23 08/24/23 Range/Units 04:15 04:15 04:15 WBC (3.8-10.6) k/uL RBC (3.80-5.40) m/uL Neutrophils # (Manual) (1.3-7.7) k/uL Lymphocytes # (Manual) (1.0-4.8) k/uL Metamyelocytes # (Man) (0) k/uL PT (10.0-12.5) sec INR (<1.2) VBG pH 7.11 L* (7.31-7.41) VBG HCO3 12 L (24-28) mmol/L Chloride 112 H (98-107) mmol/L Carbon Dioxide 9 L* (22-30) mmol/L BUN 68 H (7-17) mg/dL Creatinine 4.07 H (0.52-1.04) mg/dL Glucose 150 H (74-99) mg/dL POC Glucose (mg/dL) (70-110) mg/dL Plasma Lactic Acid Jose Manuel 6.1 H* (0.7-2.0) mmol/L Total Bilirubin 1.4 H (0.2-1.3) mg/dL AST 44 H (14-36) U/L Alkaline Phosphatase 279 H (38-126) U/L Total Protein 5.7 L (6.3-8.2) g/dL Albumin 3.0 L (3.5-5.0) g/dL Urine Appearance (Clear) Urine Protein (Negative) Urine Blood (Negative) Ur Leukocyte Esterase (Negative) Urine RBC (0-5) /hpf Urine WBC (0-5) /hpf Urine Bacteria (None) /hpf 08/24/23 08/24/23 Range/Units 04:20 06:38 WBC (3.8-10.6) k/uL RBC (3.80-5.40) m/uL Neutrophils # (Manual) (1.3-7.7) k/uL Lymphocytes # (Manual) (1.0-4.8) k/uL Metamyelocytes # (Man) (0) k/uL PT (10.0-12.5) sec INR (<1.2) VBG pH (7.31-7.41) VBG HCO3 (24-28) mmol/L Chloride (98-107) mmol/L Carbon Dioxide (22-30) mmol/L BUN (7-17) mg/dL Creatinine (0.52-1.04) mg/dL Glucose (74-99) mg/dL POC Glucose (mg/dL) (70-110) mg/dL Plasma Lactic Acid Jose Manuel 3.4 H* (0.7-2.0) mmol/L Total Bilirubin (0.2-1.3) mg/dL AST (14-36) U/L Alkaline Phosphatase (38-126) U/L Total Protein (6.3-8.2) g/dL Albumin (3.5-5.0) g/dL Urine Appearance Cloudy H (Clear) Urine Protein 1+ H (Negative) Urine Blood Large H (Negative) Ur Leukocyte Esterase Large H (Negative) Urine RBC 126 H (0-5) /hpf Urine WBC >182 H (0-5) /hpf Urine Bacteria Many H (None) /hpf Assessment and Plan Assessment: Septic shock suspected currently on pressors Acute renal tract infection, rule out bacteremia/septicemia Acute renal failure Metabolic acidosis Possible acute on chronic CHF with ejection fraction 55% Acute hypoxic respiratory failure Abdominal pain and tenderness 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 Continue same treatment. Continue with symptomatic treatment. Resume home medication. Monitor labs and vitals. DVT and GI prophylaxis. Further recommendations as per clinical course of the patient DVT prophylaxis: Subcutaneous heparin GI Prophylaxis: Pepcid PT/OT: Deferred Prognosis is guarded
--- NOTE | 2023-08-24 12:12 | US ---
EXAMINATION TYPE: US renals and bladder DATE OF EXAM: 08/24/2023 COMPARISON: NONE CLINICAL INDICATION: Female, 82 years old with history of arf; Abnormal labs, renal failure EXAM MEASUREMENTS: Right Kidney: cm Left Kidney: cm Right Kidney: Mildly dilated renal pelvis= 1.1 cm Left Kidney: Mild hydro Bladder: Sheth cath in place IMPRESSION: Mild bilateral hydronephrosis.
--- NOTE | 2023-08-24 13:54 | P.CNPUL ---
History of Present Illness Consult date: 08/24/23 Requesting physician: Emir E Sheet Reason for consult: other (Urosepsis, hypotension septic shock) Chief complaint: Generalized weakness History of present illness: This is an 82-year-old female with history of multiple medical problems including diabetes, hyperlipidemia, hypertension, chronic back pain related to severe degenerative disc disease, has been evaluated for her back pain in many institutions and multiple pain clinics, she was recently seen at the pain clinic at [facility], and there was no improvement. Patient lives at home with her , and the patient has been noted. Generalized weakness since last Saturday. She is even having difficulty getting up to go to the bathroom. Family has been asking her to come to the hospital since last Saturday, until today, her condition seem to have deteriorated. Patient was brought into the ER, and she was noted to be quite hypotensive requiring fluid boluses and requiring norepinephrine. A central line was placed by the ER physician, and the patient was started on norepinephrine patient was also noted to have acute kidney injury with creatinine of 4.07 and BUN of 68. She was also noted to have leukocytosis with WBC count of 22.7, she had elevated lactic acid. Patient was noted to be quite acidotic on venous blood gas with pH of 7.11, bicarb was noted to be quite low with anion gap of 19 and bicarb of 9 her urine was clearly showing bacteriuria and pyuria consistent with UTI. Considering her hypotension and considering her urinary tract infection, and considering the patient required norepinephrine after fluid boluses, patient is considered to have septic shock, and this consult was initiated. I saw the patient in the ER, she is not a great historian, however most of the information was obtained from the at bedside.I recommended admission to the ICU, recommended antibiotics in the form of Rocephin, cultures were ordered including blood and urine cultures, patient will be placed on bicarb drip, nephrology consultation was initiated, and discussed her condition with at bedside. Review of Systems REVIEW OF SYSTEMS: CONSTITUTIONAL: Generalized weakness, fatigue, chronic back pain, no fever no chills. EYES: Negative. ENT: Negative. CARDIAC: Negative. PULMONARY: Denies shortness of breath cough or wheezing GI: Negative. GENITOURINARY: Denies dysuria frequency urgency or hematuria MUSCULOSKELETAL: Neck back pain SKIN: Negative. NEUROPSYCH: Negative. ENDOCRINE: History of type 2 diabetes HEMATOLOGIC: Negative. Past Medical History Past Medical History: Diabetes Mellitus, Hyperlipidemia, Hypertension Additional Past Medical History / Comment(s): chronic back pain History of Any Multi-Drug Resistant Organisms: None Reported Additional Past Surgical History / Comment(s): bladder suspension Past Anesthesia/Blood Transfusion Reactions: No Reported Reaction Additional Past Anesthesia/Blood Transfusion Reaction / Comment(s): spouse states "needs to have a larger dose of anesthesia because her body blocks it" Past Psychological History: No Psychological Hx Reported Smoking Status: Never smoker Past Alcohol Use History: None Reported Past Drug Use History: None Reported - Past Family History Mother Family Medical History: Myocardial Infarction ([place]) Father Additional Family Medical History / Comment(s): cerebral hemmorage possible aneursym unk Medications and Allergies Home Medications Medication Instructions Recorded Confirmed Type Atorvastatin [Lipitor] 40 mg PO HS 01/08/21 08/24/23 History Calcium Carbonate/Vitamin D3 1 cap PO HS 01/08/21 08/24/23 History [Calcium 600 mg-D3 10 Mcg (400 Iu)] Cholecalciferol [Vitamin D3 (25 25 mcg PO DAILY 01/08/21 08/24/23 History Mcg = 1000 Iu)] Levothyroxine Sodium 125 mcg PO DAILY 01/08/21 08/24/23 History Metoprolol Succinate (ER) [Toprol 100 mg PO HS 01/08/21 08/24/23 History XL] Milk Thistle 150 mg PO DAILY 01/08/21 08/24/23 History Omeprazole 20 mg PO DAILY 01/08/21 08/24/23 History Pioglitazone [Actos] 30 mg PO HS 01/08/21 08/24/23 History Repaglinide 1 mg PO AC-SUPPER 01/08/21 08/24/23 History Vitamin C/Biotin [Hair, Skin and 1 tab PO DAILY 01/08/21 08/24/23 History Nails Chew] sitaGLIPtin PHOSPHATE [Januvia] 50 mg PO DAILY 01/08/21 08/24/23 History Aspirin EC [Ecotrin Low Dose] 81 mg PO DAILY 10/10/22 08/24/23 History Glimepiride [Amaryl] 4 mg PO BID-W/MEALS 10/10/22 08/24/23 History Mv-Mn/Om3/Dha/Epa/Fish/Lut/Kleber 1 cap PO DAILY@1200 10/10/22 08/24/23 History [Ocuvite Adult 50 Plus Softgel] Ascorbic Acid [Vitamin C] 1,000 mg PO DAILY 08/24/23 08/24/23 History Biotin [Ldoq-Cbti-Uhfqk] 10,000 mcg PO DAILY 08/24/23 08/24/23 History Fish Oil/Dha/Epa [Fish Oil 1,200 1 cap PO DAILY 08/24/23 08/24/23 History mg Fish Oil] Ginkgo Biloba [place] Extract [Ginkgo] 120 mg PO DAILY 08/24/23 08/24/23 History Mirabegron [Myrbetriq] 50 mg PO HS@2200 08/24/23 08/24/23 History Naproxen [Naprosyn] 500 mg PO TID 08/24/23 08/24/23 History Prochlorperazine [Compazine] 10 mg PO Q8H PRN 08/24/23 08/24/23 History Vitamin B Complex 1 cap PO DAILY 08/24/23 08/24/23 History Vitamin E (Dl,Tocopheryl Acet) 450 ng PO DAILY 08/24/23 08/24/23 History [Vitamin E (1000 Iu = 450 MG)] Vitamin K 100mcg(Unknown) 100 mcg PO DAILY 08/24/23 08/24/23 History amLODIPine [Norvasc] 5 mg PO DAILY 08/24/23 08/24/23 History diphenhydrAMINE HCL [Benadryl] 25 mg PO HS@2200 08/24/23 08/24/23 History lisinopriL 40 mg PO DAILY 08/24/23 08/24/23 History Allergies Allergy/AdvReac Type Severity Reaction Status Date / Time alendronate sodium AdvReac Nausea Verified 08/24/23 12:11 [From Fosamax] codeine AdvReac Nausea Verified 08/24/23 12:11 solifenacin AdvReac Nausea Verified 08/24/23 12:11 Physical Exam Vitals: Vital Signs Temp Pulse Resp BP Pulse Ox 08/24/23 12:30 97.5 F L 97 21 125/60 08/24/23 12:00 98 26 H 130/55 08/24/23 11:30 96 24 141/64 08/24/23 11:00 91 28 H 118/90 08/24/23 10:45 92 37 H 115/78 08/24/23 10:30 99.0 F 92 33 H 107/69 08/24/23 10:15 93 27 H 91/73 08/24/23 10:00 96 36 H 132/79 08/24/23 09:45 101 H 23 121/107 08/24/23 09:30 101 H 25 H 120/74 08/24/23 09:15 102 H 28 H 119/73 08/24/23 09:00 99.1 F 102 H 27 H 127/79 08/24/23 08:45 153/61 08/24/23 08:30 104 H 25 H 132/73 08/24/23 08:15 105 H 23 122/66 96 08/24/23 08:00 101 H 24 123/80 97 08/24/23 07:45 103 H 21 119/58 97 08/24/23 07:30 103 H 27 H 116/64 94 L 08/24/23 07:15 103 H 28 H 112/59 94 L 08/24/23 07:00 98 22 106/66 97 08/24/23 06:45 98 25 H 104/57 100 08/24/23 06:30 98 24 109/63 96 08/24/23 06:27 97 20 109/63 96 08/24/23 06:15 96 21 115/62 08/24/23 06:03 95.7 F L 92 20 88/29 96 08/24/23 06:00 90 22 60/46 08/24/23 05:45 89 23 86/61 94 L 08/24/23 05:30 85 24 84/52 97 08/24/23 05:21 83 20 71/53 96 08/24/23 05:15 82 20 63/44 96 08/24/23 05:10 81 20 68/49 96 08/24/23 05:00 81 20 61/40 95 08/24/23 04:50 81 20 67/44 90 L 08/24/23 04:40 82 20 71/27 88 L 08/24/23 04:30 82 20 103/69 86 L 08/24/23 04:20 81 20 62/41 88 L 08/24/23 04:14 94.6 F L 08/24/23 04:07 87 20 70/56 97 08/24/23 03:57 97.6 F 89 26 H 80/46 Intake and Output 08/23/23 08/24/23 08/24/23 22:59 06:59 14:59 Intake Total 29.217 Balance 29.217 Intake: Intake, IV Titration 29.217 Amount Norepinephrine 4 mg In 29.217 Sodium Chloride 0.9% 250 ml @ 0.03 MCG/KG/MIN 8. 295 mls/hr IV .Q24H ONE Rx#:[id number] Other: Weight 72.5 kg General: Revealed 82-year-old female, seems to be a bit restless in bed, on nasal cannula, mild respiratory distress Skin: Skin is dry and no rashes or lesions are noted. Eye: Pupils are equal, round and reactive to light, extra-ocular movements are intact; there is normal conjunctiva bilaterally. Ears, nose, mouth and throat: extremely dry mucous membranes noted Neck: The neck is supple, there is no tenderness or JVD. Cardiovascular: Normal S1-S2, no S3 gallop, 2/6 systolic murmur throughout the precordium. Respiratory: Diminished breath sounds at the bases no rhonchi no wheezes Gastrointestinal: Obese, soft, nontender, no megaly, no rebound, no guarding Musculoskeletal: Deformities and no limitation range of motion. Neurological: Arousable, follows instructions, seems to be slightly restless and anxious, slightly confused. Psychiatric: Anxious mood, flat affect. Results - Laboratory Findings CBC and BMP: 08/24/23 04:15 08/24/23 04:15 PT/INR, D-dimer PT 17.2 sec (10.0-12.5) H 08/24/23 04:15 INR 1.7 (<1.2) H 08/24/23 04:15 Abnormal lab findings: Abnormal Labs 08/24/23 08/24/23 08/24/23 04:07 04:15 04:15 WBC 22.7 H RBC 3.79 L Neutrophils # (Manual) 20.80 H Lymphocytes # (Manual) 0.91 L Metamyelocytes # (Man) 0.45 H PT 17.2 H INR 1.7 H VBG pH VBG HCO3 Chloride Carbon Dioxide BUN Creatinine Glucose POC Glucose (mg/dL) 150 H Plasma Lactic Acid Jose Manuel Total Bilirubin AST Alkaline Phosphatase Total Protein Albumin Urine Appearance Urine Protein Urine Blood Ur Leukocyte Esterase Urine RBC Urine WBC Urine Bacteria 08/24/23 08/24/23 08/24/23 04:15 04:15 04:15 WBC RBC Neutrophils # (Manual) Lymphocytes # (Manual) Metamyelocytes # (Man) PT INR VBG pH 7.11 L* VBG HCO3 12 L Chloride 112 H Carbon Dioxide 9 L* BUN 68 H Creatinine 4.07 H Glucose 150 H POC Glucose (mg/dL) Plasma Lactic Acid Jose Manuel 6.1 H* Total Bilirubin 1.4 H AST 44 H Alkaline Phosphatase 279 H Total Protein 5.7 L Albumin 3.0 L Urine Appearance Urine Protein Urine Blood Ur Leukocyte Esterase Urine RBC Urine WBC Urine Bacteria 08/24/23 08/24/23 04:20 06:38 WBC RBC Neutrophils # (Manual) Lymphocytes # (Manual) Metamyelocytes # (Man) PT INR VBG pH VBG HCO3 Chloride Carbon Dioxide BUN Creatinine Glucose POC Glucose (mg/dL) Plasma Lactic Acid Jose Manuel 3.4 H* Total Bilirubin AST Alkaline Phosphatase Total Protein Albumin Urine Appearance Cloudy H Urine Protein 1+ H Urine Blood Large H Ur Leukocyte Esterase Large H Urine RBC 126 H Urine WBC >182 H Urine Bacteria Many H - Diagnostic Findings Chest x-ray: image reviewed (Chest x-ray is showing cardiomegaly, prominent pulmonary vasculature, suspicious for interstitial edema/congestive heart failure) Additional studies: CT brain showed no active disease, Ultrasound of kidneys showed mild hydronephrosis bilaterally. Assessment and Plan Assessment: Impression: Septic shock secondary to urosepsis Acute kidney injury/acute renal failure secondary to hypotension and acute tubular necrosis Acute none anion gap metabolic acidosis Acute diastolic congestive heart failure/fluid overload with acute kidney injury Acute urinary tract infection Possible bacteremia History of chronic back pain/degenerative disc disease of lumbar spine with spinal stenosis of L3-L4 and L4-L5 History of benign essential hypertension History of type 2 diabetes, hold DENIS inhibitor's and metformin for now/home medications Acute metabolic toxic encephalopathy with mental status changes/confusion Recommendation: Patient was seen in the ER and recommended ICU admission Continue norepinephrinehemodynamic support Start patient on bicarb drip. Nephrology consultation Antibiotics in the form of Rocephin for now and adjust accordingly based on the urine and blood cultures Check echocardiogram and assess LV function as well as valvular heart disease GI and DVT prophylaxis Patient is critically ill. Discussed and updated her on her condition and made aware that the patient will need ICU admission and if her condition gets worse she will require intubation mechanical ventilation however at this point in time she does not need it. Hold lisinopril and metformin for now. Will continue to follow. Time with Patient: Greater than 30
--- NOTE | 2023-08-24 14:36 | CT ---
EXAMINATION TYPE: CT abdomen pelvis wo con DATE OF EXAM: 08/24/2023 COMPARISON: 11/09/2022 INDICATION: abdominal pain, septic, renal failure. DLP: 840.3 mGycm, Automated exposure control for dose reduction was used. CONTRAST: 0 mL of Isovue 300. Study performed without Oral Contrast TECHNIQUE: Axial images were obtained from above the diaphragm to the pubic rami in the axial plane a t 5 mm thick sections. Reconstructed images are reviewed on the computer in the coronal plane. FINDINGS: Limited CT sections are obtained the lung bases. There is minimal bilateral pleural effusion. Some a djacent atelectasis is present.. CT ABDOMEN: Liver: Hepatic cysts are present. Spleen: Normal Pancreas: Normal Adrenal glands: The adrenal glands are normal. Gallbladder: Markedly distended Kidneys: No masses are evident. There is a moderate to marked left-sided neural process. Hydroureters present extending to the urinary bladder. There is a calcification in the region of the distal left ureter measuring 0.4 cm may be an obstructing distal ureteral stone. There is a uptake nonobstructing there is a nonobstructing 1.1 cm calcification at the inferior pole right kidney. Calcification with in the mid to inferior left kidney No cysts are present. Aorta: Vascular calcification is within the aorta. Inferior vena cava: Normal. CT PELVIS: There is a large fecal bolus in the rectum. Correlate for fecal impaction. Nonspecific loops of bowel are otherwise within the abdomen. Small bowel loops are at the upper limits of normal for size. Izquierdo ges to suggest obstruction are not evident. Colon appears normal otherwise. Appendix: Normal as visualized. Urinary bladder: Decompressed Sheth catheter. Air is present within the nondependent portion. Suspect ed left ureteral vesicle junction stone is evident. Genitourinary structures: Uterus appears the left hemipelvis. Adnexal regions appear normal. Osseous structures: No suspicious lytic or sclerotic lesions. IMPRESSION: 1. Large fecal bolus in the rectum. Correlate for fecal impaction. 2. Moderate to large left hydronephrosis. An obstructing left ureteral stone may be at the left urete rovesical junction. 3. Minimal bilateral pleural effusions.
--- NOTE | 2023-08-24 16:39 | P.CON ---
Consult Note - . Consult date: 08/24/23 Assessment/Plan:: This is a pleasant 82 yearCT old female with multiple medical problems as below. Patient is currently poor historian and information were obtained with the help of the family at bedside. As per family patient has been feeling generally weak since last Saturday especially she has difficulty getting up under going to the restroom, family were following up with her every day but she refused to come to the hospital Saturday through despite no improvement, with worsening medical condition she agrees to come to the hospital urinary morning today Patient is tachypneic with a breathing rate of 26 and she has difficulty talking. Patient denies chest pain or urinary complaints. She has some vomiting but no diarrhea. Patient and notable bowel movement Her urine looks cloudy but patient denies dysuria. Sheth catheter in place s howing urine collection about 60-70 mL of yellow urine Patient denies dizziness headache, no unilateral weakness or tingling No smoking or alcohol However on exam patient complained from tenderness and mild guarding on the right side of the abdomen Review of Systems Review of systems -CONSTITUTIONAL: No fever, as above HEENT: No recent visual problems or hearing problems. Denied any sore throat. CARDIOVASCULAR: No orthopnea, PND, no palpitations, no syncope. PULMONARY: No shortness of breath, no cough, no hemoptysis. GASTROINTESTINAL: No diarrhea, no nausea, no vomiting, . Normoactive bowel sounds. NEUROLOGICAL: No headaches, no weakness, no numbness. HEMATOLOGICAL: Denies any bleeding or petechiae. GENITOURINARY: Denies any burning micturition, frequency, or urgency. MUSCULOSKELETAL/RHEUMATOLOGICAL: Denies any joint pain, swelling, or any muscle pain. ENDOCRINE: Denies any polyuria or polydipsia. Past Medical History Past Medical History: Diabetes Mellitus, Hyperlipidemia, Hypertension Additional Past Medical History / Comment(s): chronic back pain History of Any Multi-Drug Resistant Organisms: None Reported Additional Past Surgical History / Comment(s): bladder suspension Past Anesthesia/Blood Transfusion Reactions: No Reported Reaction Additional Past Anesthesia/Blood Transfusion Reaction / Comment(s): spouse states "needs to have a larger dose of anesthesia because her body blocks it" Past Psychological History: No Psychological Hx Reported Smoking Status: Never smoker Past Alcohol Use History: None Reported Past Drug Use History: None Reported - Past Family History Mother Family Medical History: Myocardial Infarction ([place]) Father Additional Family Medical History / Comment(s): cerebral hemmorage possible aneursym unk Medications and Allergies Home Medications Medication Instructions Recorded Confirmed Type Atorvastatin [Lipitor] 40 mg PO HS 01/08/21 11/09/22 History Calcium Carbonate/Vitamin D3 1 cap PO HS 01/08/21 11/09/22 History [Calcium 600 mg-D3 10 Mcg (400 Iu)] Cholecalciferol [Vitamin D3 (25 25 mcg PO DAILY 01/08/21 11/09/22 History Mcg = 1000 Iu)] Levothyroxine Sodium 125 mcg PO DAILY 01/08/21 11/09/22 History Metoprolol Succinate (ER) [Toprol 100 mg PO BID@1200,2200 01/08/21 11/09/22 History XL] Milk Thistle 150 mg PO DAILY 01/08/21 11/09/22 History Omeprazole 20 mg PO DAILY 01/08/21 11/09/22 History Pioglitazone [Actos] 30 mg PO HS 01/08/21 11/09/22 History Repaglinide 1 mg PO AC-SUPPER 01/08/21 11/09/22 History Vitamin C/Biotin [Hair, Skin and 1 tab PO DAILY 01/08/21 11/09/22 History Nails Chew] sitaGLIPtin PHOSPHATE [Januvia] 50 mg PO DAILY 01/08/21 11/09/22 History Aspirin EC [Ecotrin Low Dose] 81 mg PO W/BRKFST 10/10/22 11/09/22 History Glimepiride [Amaryl] 4 mg PO BID-W/MEALS 10/10/22 11/09/22 History Mv-Mn/Om3/Dha/Epa/Fish/Lut/Kleber 1 cap PO DAILY@1200 10/10/22 11/09/22 History [Ocuvite Adult 50 Plus Softgel] Mirabegron [Myrbetriq] 50 mg PO HS@2200 08/24/23 08/24/23 History Naproxen [Naprosyn] 500 mg PO TID 08/24/23 08/24/23 History Prochlorperazine [Compazine] 10 mg PO Q8H PRN 08/24/23 08/24/23 History amLODIPine [Norvasc] 5 mg PO DAILY 08/24/23 08/24/23 History diphenhydrAMINE HCL [Benadryl] 25 mg PO HS@2200 08/24/23 08/24/23 History lisinopriL 40 mg PO DAILY 08/24/23 08/24/23 History Allergies Allergy/AdvReac Type Severity Reaction Status Date / Time alendronate sodium AdvReac Nausea Verified 08/24/23 04:05 [From Fosamax] codeine AdvReac Nausea Verified 08/24/23 04:05 solifenacin AdvReac Nausea Verified 08/24/23 04:05 Physical Exam Vitals: Vital Signs Temp Pulse Resp BP Pulse Ox 08/24/23 09:00 99.1 F 102 H 27 H 127/79 08/24/23 08:45 153/61 08/24/23 08:30 104 H 25 H 132/73 08/24/23 08:15 105 H 23 122/66 96 08/24/23 08:00 101 H 24 123/80 97 08/24/23 07:45 103 H 21 119/58 97 08/24/23 07:30 103 H 27 H 116/64 94 L 08/24/23 07:15 103 H 28 H 112/59 94 L 08/24/23 07:00 98 22 106/66 97 08/24/23 06:45 98 25 H 104/57 100 08/24/23 06:30 98 24 109/63 96 08/24/23 06:27 97 20 109/63 96 08/24/23 06:15 96 21 115/62 08/24/23 06:03 95.7 F L 92 20 88/29 96 08/24/23 06:00 90 22 60/46 08/24/23 05:45 89 23 86/61 94 L 08/24/23 05:30 85 24 84/52 97 08/24/23 05:21 83 20 71/53 96 08/24/23 05:15 82 20 63/44 96 08/24/23 05:10 81 20 68/49 96 08/24/23 05:00 81 20 61/40 95 08/24/23 04:50 81 20 67/44 90 L 08/24/23 04:40 82 20 71/27 88 L 08/24/23 04:30 82 20 103/69 86 L 08/24/23 04:20 81 20 62/41 88 L 08/24/23 04:14 94.6 F L 08/24/23 04:07 87 20 70/56 97 08/24/23 03:57 97.6 F 89 26 H 80/46 Intake and Output 08/23/23 08/24/23 08/24/23 22:59 06:59 14:59 Intake Total 29.217 Balance 29.217 Intake: Intake, IV Titration 29.217 Amount Norepinephrine 4 mg In 29.217 Sodium Chloride 0.9% 250 ml @ 0.03 MCG/KG/MIN 8. 295 mls/hr IV .Q24H ONE Rx#:[id number] Other: Weight 72.5 kg -GENERAL: The patient is alert and oriented , in moderate to severe acute resp distress. Well developed, well nourished. HEENT: Pupils are round and equally reacting to light. EOMI. No scleral icterus. No conjunctival pallor. Normocephalic, atraumatic. No pharyngeal erythema. No thyromegaly. CARDIOVASCULAR: S1 and S2 present. No murmurs, rubs, or gallops. -PULMONARY: Decreased air entry on both sides, no wheezing , no crackles. -ABDOMEN: Soft, right-sided abdominal tenderness, nondistended, normoactive bowel sounds. No palpable organomegaly. MUSCULOSKELETAL: No joint swelling or deformity. EXTREMITIES: No cyanosis, clubbing, or pedal edema. NEUROLOGICAL: Gross neurological examination did not reveal any focal deficits. SKIN: No rashes. no petechiae. Results CBC & Chem 7: 08/24/23 04:15 08/24/23 04:15 Labs: Abnormal Lab Results - Last 24 Hours (Table) 08/24/23 08/24/23 08/24/23 Range/Units 04:07 04:15 04:15 WBC 22.7 H (3.8-10.6) k/uL RBC 3.79 L (3.80-5.40) m/uL Neutrophils # (Manual) 20.80 H (1.3-7.7) k/uL Lymphocytes # (Manual) 0.91 L (1.0-4.8) k/uL Metamyelocytes # (Man) 0.45 H (0) k/uL PT 17.2 H (10.0-12.5) sec INR 1.7 H (<1.2) VBG pH (7.31-7.41) VBG HCO3 (24-28) mmol/L Chloride (98-107) mmol/L Carbon Dioxide (22-30) mmol/L BUN (7-17) mg/dL Creatinine (0.52-1.04) mg/dL Glucose (74-99) mg/dL POC Glucose (mg/dL) 150 H (70-110) mg/dL Plasma Lactic Acid Jose Manuel (0.7-2.0) mmol/L Total Bilirubin (0.2-1.3) mg/dL AST (14-36) U/L Alkaline Phosphatase (38-126) U/L Total Protein (6.3-8.2) g/dL Albumin (3.5-5.0) g/dL Urine Appearance (Clear) Urine Protein (Negative) Urine Blood (Negative) Ur Leukocyte Esterase (Negative) Urine RBC (0-5) /hpf Urine WBC (0-5) /hpf Urine Bacteria (None) /hpf 08/24/23 08/24/23 08/24/23 Range/Units 04:15 04:15 04:15 WBC (3.8-10.6) k/uL RBC (3.80-5.40) m/uL Neutrophils # (Manual) (1.3-7.7) k/uL Lymphocytes # (Manual) (1.0-4.8) k/uL Metamyelocytes # (Man) (0) k/uL PT (10.0-12.5) sec INR (<1.2) VBG pH 7.11 L* (7.31-7.41) VBG HCO3 12 L (24-28) mmol/L Chloride 112 H (98-107) mmol/L Carbon Dioxide 9 L* (22-30) mmol/L BUN 68 H (7-17) mg/dL Creatinine 4.07 H (0.52-1.04) mg/dL Glucose 150 H (74-99) mg/dL POC Glucose (mg/dL) (70-110) mg/dL Plasma Lactic Acid Jose Manuel 6.1 H* (0.7-2.0) mmol/L Total Bilirubin 1.4 H (0.2-1.3) mg/dL AST 44 H (14-36) U/L Alkaline Phosphatase 279 H (38-126) U/L Total Protein 5.7 L (6.3-8.2) g/dL Albumin 3.0 L (3.5-5.0) g/dL Urine Appearance (Clear) Urine Protein (Negative) Urine Blood (Negative) Ur Leukocyte Esterase (Negative) Urine RBC (0-5) /hpf Urine WBC (0-5) /hpf Urine Bacteria (None) /hpf 08/24/23 08/24/23 Range/Units 04:20 06:38 WBC (3.8-10.6) k/uL RBC (3.80-5.40) m/uL Neutrophils # (Manual) (1.3-7.7) k/uL Lymphocytes # (Manual) (1.0-4.8) k/uL Metamyelocytes # (Man) (0) k/uL PT (10.0-12.5) sec INR (<1.2) VBG pH (7.31-7.41) VBG HCO3 (24-28) mmol/L Chloride (98-107) mmol/L Carbon Dioxide (22-30) mmol/L BUN (7-17) mg/dL Creatinine (0.52-1.04) mg/dL Glucose (74-99) mg/dL POC Glucose (mg/dL) (70-110) mg/dL Plasma Lactic Acid Jose Manuel 3.4 H* (0.7-2.0) mmol/L Total Bilirubin (0.2-1.3) mg/dL AST (14-36) U/L Alkaline Phosphatase (38-126) U/L Total Protein (6.3-8.2) g/dL Albumin (3.5-5.0) g/dL Urine Appearance Cloudy H (Clear) Urine Protein 1+ H (Negative) Urine Blood Large H (Negative) Ur Leukocyte Esterase Large H (Negative) Urine RBC 126 H (0-5) /hpf Urine WBC >182 H (0-5) /hpf Urine Bacteria Many H (None) /hpf Assessment and Plan Assessment: Septic shock suspected currently on pressors Acute renal tract infection, rule out bacteremia/septicemia Acute renal failure Metabolic acidosis Possible acute on chronic CHF with ejection fraction 55% Acute hypoxic respiratory failure Abdominal pain and tenderness Chronic degenerative disease of the lumbar spine with spinal stenosis L3-L4 and L4-L5 CT-AP ordered Further recs to follow pending CT ICU care
[2023-08-24 19:22] LABS: Glucose,Whole Blood 146 mg/dL (70-110)
[2023-08-24] MEDS: INSULIN ASPART (NovoLOG) 100 UNIT/ML VIAL SQ SCH (19:27)
[2023-08-24] MEDS: HEPARIN SODIUM,PORCINE 5,000 UNIT/ML 1 ML VIAL SQ SCH (21:54)
[2023-08-24] MEDS: FAMOTIDINE 20 MG/2 ML VIAL IV SCH (21:54)
[2023-08-25 00:01] LABS: Glucose,Whole Blood 171 mg/dL (70-110)
[2023-08-25] MEDS: IPRATROPIUM-ALBUTEROL 3 ML NEB INHALATION STA (00:21)
[2023-08-25] MEDS: FUROSEMIDE 10 MG/ML 4 ML VIAL IV STA (01:12)
[2023-08-25] MEDS: DEXAMETHASONE SOD PHOSPHATE 10 MG/ML 1 ML VIAL IVP ONE (01:17)
[2023-08-25 03:33] LABS: African American GFR (CKD) 12 (>60 ml/min/1.73 sqM); Anion Gap 19 mmol/L; Blood Urea Nitrogen 83 mg/dL (7-17); Calcium 7.1 mg/dL (8.4-10.2); Chloride 114 mmol/L (98-107); Glucose 185 mg/dL (74-99); Non-African American GFR(CKD) 10 (>60 ml/min/1.73 sqM); Potassium 4.9 mmol/L (3.5-5.1); Sodium 142 mmol/L (137-145)
[2023-08-25 03:35] LABS: Carbon Dioxide 9 mmol/L (22-30)
[2023-08-25 04:09] LABS: HCT 38.2 % (34.0-46.0); HGB 12.4 gm/dL (11.4-16.0); Hypochromasia Slight; MCH 31.3 pg (25.0-35.0); MCHC 32.3 g/dL (31.0-37.0); MCV 96.9 fL (80.0-100.0); Mean Platelet Volume 9.2; Platelet Count 130 k/uL (150-450); RBC 3.95 m/uL (3.80-5.40); RDW 14.8 % (11.5-15.5); WBC 9.1 k/uL (3.8-10.6)
[2023-08-25 05:41] LABS: Band Neutrophils % 25 %; Lymphocytes # (M) 0.27 k/uL (1.0-4.8); Metamyelocytes # (M) 0.91 k/uL (0); Metamyelocytes % 10 %; Monocytes # (M) 0.27 k/uL (0-1.0); Neutrophils % (M) 59 %; Nucleated Red Blood Cells 0 /100 WBC (0-0); Total Cells Counted 100; Toxic Vacuolation Present
[2023-08-25 05:44] LABS: Glucose,Whole Blood 212 mg/dL (70-110)
[2023-08-25] MEDS: IPRATROPIUM-ALBUTEROL 3 ML NEB INHALATION PRN (06:49)
[2023-08-25 07:55] LABS: Glucose,Whole Blood 214 mg/dL (70-110)
--- NOTE | 2023-08-25 07:56 | CA ---
Transthoracic Echo Report Name: Kathy Wayne Age: 82 Gender: F : 1940 Exam Date: 08/24/2023 11:58 Exam Location: [facility] Ht (in): 62 Wt (lb): 159 Ordering Physician: Emir Woodward MD Attending/Referring Phys: [id number], Crissy Boiler Fitter Cesia Almonte RDCS Procedure CPT: Indications: Rule out heart disease Cardiac Hx: Technical Quality: Fair Contrast 1: Total Dose (mL): Contrast 2: Total Dose (mL): MEASUREMENTS (Male / Female) Normal Values 2D ECHO LV Diastolic Diameter PLAX 4.7 cm 4.2 - 5.9 / 3.9 - 5.3 cm LV Systolic Diameter PLAX 2.9 cm IVS Diastolic Thickness 1.3 cm 0.6 - 1.0 / 0.6 - 0.9 cm LVPW Diastolic Thickness 1.3 cm 0.6 - 1.0 / 0.6 - 0.9 cm LV Relative Wall Thickness 0.5 RV Internal Dim ED PLAX 3.1 cm LA Systolic Diameter LX 4.5 cm 3.0 - 4.0 / 2.7 - 3.8 cm LA Volume 64.2 cm??? 18 - 58 / 22 - 52 cm??? LA Volume Index 35.7 cm???/m??? 16 - 28 cm???/m??? M-MODE Aortic Root Diameter MM 3.5 cm MV E Point Septal Separation 0.7 cm AV Cusp Separation MM 1.8 cm DOPPLER AV Peak Velocity 134.5 cm/s AV Peak Gradient 7.2 mmHg MV Peak Velocity 170.7 cm/s MV Peak Gradient 11.7 mmHg MV Mean Velocity 114.2 cm/s MV Mean Gradient 5.8 mmHg MV Velocity Time Integral 36.5 cm MV Area PHT 3.2 cm??? Mitral E Point Velocity 134.3 cm/s Mitral A Point Velocity 150.5 cm/s Mitral E to A Ratio 0.9 MV Deceleration Time 235.5 ms TV Peak Velocity 125.6 cm/s TR Peak Velocity 320.1 cm/s TR Peak Gradient 41.0 mmHg Right Ventricular Systolic Press 45.7 mmHg FINDINGS Left Ventricle Left ventricular ejection fraction is estimated at 55-60 %. Mildly increased septal wall thickness. Mildly increased posterior wall thickness. Right Ventricle Normal right ventricular size. Moderate pulmonary hypertension. Right ventricular systolic pressure estimated at 46 mm hg. Right Atrium Normal right atrial size. Left Atrium Moderately increased left atrial diameter. Moderately increased left atrial volume. Mildly increased left atrial area. Mitral Valve Moderate thickening/calcification of the anterior mitral valve leaflet. Moderate thickening/calcification of the posterior mitral valve leaflet. Moderate mitral annular calcification. Moderate mitral stenosis with mesn gradient6 mmHg Aortic Valve Aortic valve not well visualized. No aortic valve stenosis or regurgitation. Tricuspid Valve Structurally normal tricuspid valve. Mild tricuspid regurgitation. Pulmonic Valve Pulmonic valve not well visualized. Pericardium No pericardial effusion. Aorta Normal size aortic root and proximal ascending aorta. CONCLUSIONS Normal LV function Severe mitral annular calcification restricted leaflet mobility with moderate mitral stenosis Previewed by: Dr. Gideon Mooney MD (Electronically Signed) Final Date: 25 August 2023 07:56
--- NOTE | 2023-08-25 09:00 | P.PN ---
Subjective This is a pleasant 10 years old female with multiple medical problems as below. Patient is currently poor historian and information were obtained with the help of the family at bedside. As per family patient has been feeling generally weak since last Saturday especially she has difficulty getting up under going to the restroom, family were following up with her every day but she refused to come to the hospital Saturday through despite no improvement, with worsening medical condition she agrees to come to the hospital urinary morning today Patient is tachypneic with a breathing rate of 26 and she has difficulty talking. Patient denies chest pain or urinary complaints. She has some vomiting but no diarrhea. Patient and notable bowel movement Her urine looks cloudy but patient denies dysuria. Sheth catheter in place showing urine collection about 60-70 mL of yellow urine Patient denies dizziness headache, no unilateral weakness or tingling No smoking or alcohol However on exam patient complained from tenderness and mild guarding on the right side of the abdomen On admission patient was hypotensive 80/46 and she was started on pressors with Levophed Creatinine elevated 4.0, sodium bicarb is low 9 Patient is also on admission a 10 L via nonrebreather. Patient is tachycardic with heart rate around 92. Troponin is negative less than 0.012. WBCs elevated 22.7, INR is 1.7 Creatinine elevated 4.0 Liver enzymes unremarkable Urine analysis is suspicious for infection and urine culture is pending Urine drug screen is negative Chest x-ray showing pulmonary congestion and cardiomegaly CT of the brain is negative EKG showing sinus rhythm at [address]-T changes Echocardiogram from 10/2022 showing ejection fraction of 55% 08/25/2023 Patient seen and examined in the ICU, she is awake and alert, she looks lethar gic and tired She has shortness of breath with difficulty talking, she denies chest pain She still has abdominal pain and tenderness with mild distention. CT abdomen yesterday showing fecal impaction. Surgery team following closely. Patient states she had normal bowel movement yesterday Also patient is with UTI and blood culture growing gram-negative bacilli today, she remains on ceftriaxone 2 g pending final results. She has evidence of moderate hydronephrosis on CAT scan and renal ultrasound Extremities on sodium bicarb a 75 mL/h and the pressors with Levophed 0.04 echocardiogram reviewed showing moderate mitral regurgitation with ejection fraction 55-60% Review of systems GASTROINTESTINAL: No diarrhea, no nausea, no vomiting,. Normoactive bowel sounds. NEUROLOGICAL: No headaches, no weakness, no numbness. HEMATOLOGICAL: Denies any bleeding or petechiae. GENITOURINARY: Denies any burning micturition, frequency, or urgency. MUSCULOSKELETAL/RHEUMATOLOGICAL: Denies any joint pain, swelling, or any muscle pain. ENDOCRINE: Denies any polyuria or polydipsia. Active Medications Generic Name Dose Route Start Last Admin Trade Name Freq PRN Reason Stop Dose Admin Albuterol/Ipratropium 3 ml 08/24/23 23:44 08/25/23 06:49 Ipratropium-Albuterol 3 Ml Neb INHALATION 3 ml RT-QID PRN Administration Shortness Of Breath Or Wheezing Dextrose/Water 25 ml 08/24/23 12:05 Dextrose 50% Syringe 50 Ml IVP PER PROTOCOL PRN Hypoglycemia Protocol Dextrose/Water 50 ml 08/24/23 12:05 Dextrose 50% Syringe 50 Ml IVP PER PROTOCOL PRN Hypoglycemia Protocol Famotidine 10 mg 08/24/23 21:00 08/24/23 21:54 Famotidine 20 Mg/2 Ml Vial IV 10 mg Q12HR SONI Administration Heparin Sodium (Porcine) 5,000 unit 08/24/23 21:00 08/24/23 21:54 Heparin Sodium,Porcine 5,000 Unit/Ml 1 Ml Vial SQ 5,000 unit Q12HR SONI Administration Ceftriaxone Sodium 2 gm/ 50 mls @ 100 mls/hr 08/25/23 05:00 08/25/23 04:54 Sodium Chloride IVPB 100 mls/hr Q24H SONI Administration Protocol Sodium Bicarbonate 150 ml/ 1,150 mls @ 75 mls/hr 08/24/23 08:30 08/25/23 06:30 Dextrose/Water IV 75 mls/hr .[id number] SONI Administration Norepinephrine Bitartrate 4 mg 254 mls @ 60.77 mls/hr 08/24/23 10:00 08/25/23 06:32 / Sodium Chloride IV 0.02 mcg/kg/min .Q4H11M SONI 6.12 mls/hr Administration Protocol 0.22 MCG/KG/MIN Insulin Aspart 0 unit 08/24/23 18:00 08/25/23 05:46 Insulin Aspart (Novolog) 100 Unit/Ml Vial SQ 2 unit Q6HR SONI Administration Protocol Lorazepam 0.5 mg 08/24/23 23:54 Lorazepam 2 Mg/Ml Inj IV Q6HR PRN Anxiety Naloxone HCl 0.2 mg 08/24/23 06:09 Naloxone 0.4 Mg/Ml 1 Ml Vial IV Q2M PRN Opioid Reversal Objective - Vital Signs Vital signs: Vital Signs Temp 98.4 F 08/25/23 04:00 Pulse 100 08/25/23 07:02 Resp 28 H 08/25/23 06:40 BP 120/72 08/25/23 06:00 Pulse Ox 92 L 08/25/23 06:40 FiO2 Intake & Output 08/24/23 08/25/23 08/25/23 18:59 06:59 18:59 Intake Total 303.181 71.298 Output Total 655 50 Balance -351.819 21.298 Intake: Intake, IV Titration 303.181 71.298 Amount Norepinephrine 4 mg In 303.181 71.298 Sodium Chloride 0.9% 250 ml @ 0.22 MCG/KG/MIN 60. 77 mls/hr IV .Q4H11M [facility] Rx#:[id number] Output: Urine 655 50 - Labs CBC & Chem 7: 08/25/23 03:00 08/25/23 03:00 Labs: Abnormal Lab Results - Last 24 Hours (Table) 08/24/23 08/24/23 08/24/23 Range/Units 04:15 19:21 23:59 Plt Count (150-450) k/uL Lymphocytes # (Manual) (1.0-4.8) k/uL Metamyelocytes # (Man) (0) k/uL Chloride (98-107) mmol/L Carbon Dioxide (22-30) mmol/L BUN (7-17) mg/dL Creatinine (0.52-1.04) mg/dL Glucose (74-99) mg/dL POC Glucose (mg/dL) 146 H 171 H (70-110) mg/dL Calcium (8.4-10.2) mg/dL Procalcitonin 33.80 H (0.02-0.09) ng/mL 08/25/23 08/25/23 08/25/23 Range/Units 03:00 03:00 05:43 Plt Count 130 L (150-450) k/uL Lymphocytes # (Manual) 0.27 L (1.0-4.8) k/uL Metamyelocytes # (Man) 0.91 H (0) k/uL Chloride 114 H (98-107) mmol/L Carbon Dioxide 9 L* (22-30) mmol/L BUN 83 H (7-17) mg/dL Creatinine 3.98 H (0.52-1.04) mg/dL Glucose 185 H (74-99) mg/dL POC Glucose (mg/dL) 212 H (70-110) mg/dL Calcium 7.1 L (8.4-10.2) mg/dL Procalcitonin (0.02-0.09) ng/mL 08/25/23 Range/Units 07:54 Plt Count (150-450) k/uL Lymphocytes # (Manual) (1.0-4.8) k/uL Metamyelocytes # (Man) (0) k/uL Chloride (98-107) mmol/L Carbon Dioxide (22-30) mmol/L BUN (7-17) mg/dL Creatinine (0.52-1.04) mg/dL Glucose (74-99) mg/dL POC Glucose (mg/dL) 214 H (70-110) mg/dL Calcium (8.4-10.2) mg/dL Procalcitonin (0.02-0.09) ng/mL Microbiology - Last 24 Hours (Table) 08/24/23 04:10 Blood Culture Gram Stain - Preliminary Blood 08/24/23 04:25 Blood Culture Gram Stain - Preliminary Blood Assessment and Plan Assessment: Septic shock on pressors Acute renal tract infection, bacteremia/septicemia Acute renal failure Metabolic acidosis Possible acute on chronic CHF with ejection fraction 55% Acute hypoxic respiratory failure Abdominal pain and tenderness secondary to fecal impaction 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 Continue same treatment. Continue with symptomatic treatment. Resume home medication. Monitor labs and vitals. DVT and GI prophylaxis. Further recommendations as per clinical course of the patient DVT prophylaxis: Subcutaneous heparin GI Prophylaxis: Pepcid PT/OT: Deferred Prognosis is guarded
[2023-08-25] MEDS ORDERED: DEXTROSE 50% SYRINGE 50 ML IVP PRN ×2 (09:41)
--- NOTE | 2023-08-25 09:53 | XR ---
EXAMINATION TYPE: XR chest 1V DATE OF EXAM: 08/25/2023 COMPARISON: 08/24/2023, 10/10/2022 INDICATION: Short of breath TECHNIQUE: Single frontal view of the chest is obtained. FINDINGS: Cardiothymic mediastinal silhouette is somewhat prominent. Finding appears stable. The pulmonary vasculature is normal. The lungs are clear. IMPRESSION: 1. No acute pulmonary process. 2. Mild prominence of the cardiomediastinal silhouette appears stable from comparison. Follow-up as c linically indicated
--- NOTE | 2023-08-25 10:14 | P.PN ---
Subjective Progress Note Date: 08/25/23 Principal diagnosis: Abdominal pain Patient remains in the ICU. The patient's family is at the bedside. She is doing much better per the nursing staff and the family. Less pain. More alert today. CAT scan reviewed. CAT scan shows left hydronephrosis. Most of her pain is on the left mid abdomen and flank region. Patient also with moderate amount of stool in the rectum. Objective - Vital Signs Vital signs: Vital Signs Temp 98.7 F 08/25/23 08:00 Pulse 107 H 08/25/23 08:00 Resp 16 08/25/23 08:00 BP 108/71 08/25/23 08:00 Pulse Ox 94 L 08/25/23 08:00 FiO2 Intake & Output 08/24/23 08/25/23 08/25/23 18:59 06:59 18:59 Intake Total 303.181 71.298 243.666 Output Total 655 50 90 Balance -351.819 21.298 153.666 Intake: Intake, IV Titration 303.181 71.298 243.666 Amount Dextrose 5% in Water 1, 225 000 ml @ 75 mls/hr IV . [id number] [facility]ONI with Sodium Bicarb (1 Meq/ml) 150 ml Rx#:[id number] Norepinephrine 4 mg In 303.181 71.298 18.666 Sodium Chloride 0.9% 250 ml @ 0.22 MCG/KG/MIN 60. 77 mls/hr IV .Q4H11M [facility] Rx#:[id number] Output: Urine 655 50 90 - Exam Abdomen: Soft, nondistended, mild to moderate left-sided tenderness, no rebound or guarding - Labs CBC & Chem 7: 08/25/23 03:00 08/25/23 03:00 Labs: Abnormal Lab Results - Last 24 Hours (Table) 08/24/23 08/24/23 08/24/23 Range/Units 04:15 19:21 23:59 Plt Count (150-450) k/uL Lymphocytes # (Manual) (1.0-4.8) k/uL Metamyelocytes # (Man) (0) k/uL Chloride (98-107) mmol/L Carbon Dioxide (22-30) mmol/L BUN (7-17) mg/dL Creatinine (0.52-1.04) mg/dL Glucose (74-99) mg/dL POC Glucose (mg/dL) 146 H 171 H (70-110) mg/dL Calcium (8.4-10.2) mg/dL Procalcitonin 33.80 H (0.02-0.09) ng/mL 08/25/23 08/25/23 08/25/23 Range/Units 03:00 03:00 05:43 Plt Count 130 L (150-450) k/uL Lymphocytes # (Manual) 0.27 L (1.0-4.8) k/uL Metamyelocytes # (Man) 0.91 H (0) k/uL Chloride 114 H (98-107) mmol/L Carbon Dioxide 9 L* (22-30) mmol/L BUN 83 H (7-17) mg/dL Creatinine 3.98 H (0.52-1.04) mg/dL Glucose 185 H (74-99) mg/dL POC Glucose (mg/dL) 212 H (70-110) mg/dL Calcium 7.1 L (8.4-10.2) mg/dL Procalcitonin (0.02-0.09) ng/mL 08/25/23 Range/Units 07:54 Plt Count (150-450) k/uL Lymphocytes # (Manual) (1.0-4.8) k/uL Metamyelocytes # (Man) (0) k/uL Chloride (98-107) mmol/L Carbon Dioxide (22-30) mmol/L BUN (7-17) mg/dL Creatinine (0.52-1.04) mg/dL Glucose (74-99) mg/dL POC Glucose (mg/dL) 214 H (70-110) mg/dL Calcium (8.4-10.2) mg/dL Procalcitonin (0.02-0.09) ng/mL Microbiology - Last 24 Hours (Table) 08/24/23 04:10 Blood Culture Gram Stain - Preliminary Blood Blood Culture - Preliminary Gram Neg Bacilli 08/24/23 04:25 Blood Culture Gram Stain - Preliminary Blood Assessment and Plan (1) Abdominal pain Narrative/Plan: 82-year-old female with abdominal pain likely related to left hydronephrosis and urosepsis. When I saw the patient I did not have the CAT scan findings. After reviewing the CAT scan I spoke with the nursing staff. They are going to do a rectal examination at this time to determine whether fecal disimpaction is necessary. Will monitor that closely. Will follow. Current Visit: Yes Status: Acute Code(s): R10.9 - UNSPECIFIED ABDOMINAL PAIN SNOMED Code(s): 60941427
--- NOTE | 2023-08-25 10:50 | P.PN ---
Subjective Patient is seen for follow-up for acute kidney injury and metabolic acidosis. Patient was admitted with increased weakness and mental status changes. Patient was significantly hypotensive with systolic blood pressure in the 60s on initial admission. She is maintained on IV bicarb and small dose of Levophed which is now discontinued. I am not sure of the IV bicarb was running overnight. Patient just came up to the ICU this morning. Urine output at about 40 to 50 cc/h. CT of the abdomen showed moderate left hydronephrosis and fecal load in the rectum. Objective - Vital Signs Vital signs: Vital Signs Temp 98.7 F 08/25/23 08:00 Pulse 103 H 08/25/23 08:00 Resp 16 08/25/23 08:00 BP 108/71 08/25/23 08:00 Pulse Ox 94 L 08/25/23 08:00 FiO2 Intake & Output 08/24/23 08/25/23 08/25/23 18:59 06:59 18:59 Intake Total 303.181 71.298 243.666 Output Total 655 50 90 Balance -351.819 21.298 153.666 Intake: Intake, IV Titration 303.181 71.298 243.666 Amount Dextrose 5% in Water 1, 225 000 ml @ 75 mls/hr IV . [id number] SONI with Sodium Bicarb (1 Meq/ml) 150 ml Rx#:[id number] Norepinephrine 4 mg In 303.181 71.298 18.666 Sodium Chloride 0.9% 250 ml @ 0.22 MCG/KG/MIN 60. 77 mls/hr IV .Q4H11M [facility] Rx#:[id number] Output: Urine 655 50 90 - Exam Patient is awake, comfortable, no acute distress She does not communicate much Examination of the heart S1 and S2 Examination of the lungs bilateral breath sounds are heard with decreased breath sounds at the bases Abdomen is soft mild tenderness in the right abdomen Examination of lower extremities showed no significant edema Patient is moving all 4 extremities. She is confused. - Labs CBC & Chem 7: 08/25/23 03:00 08/25/23 03:00 Labs: Abnormal Lab Results - Last 24 Hours (Table) 08/24/23 08/24/23 08/24/23 Range/Units 04:15 19:21 23:59 Plt Count (150-450) k/uL Lymphocytes # (Manual) (1.0-4.8) k/uL Metamyelocytes # (Man) (0) k/uL Chloride (98-107) mmol/L Carbon Dioxide (22-30) mmol/L BUN (7-17) mg/dL Creatinine (0.52-1.04) mg/dL Glucose (74-99) mg/dL POC Glucose (mg/dL) 146 H 171 H (70-110) mg/dL Hemoglobin A1c (<=6.0) % Calcium (8.4-10.2) mg/dL Procalcitonin 33.80 H (0.02-0.09) ng/mL 08/25/23 08/25/23 08/25/23 Range/Units 03:00 03:00 03:00 Plt Count 130 L (150-450) k/uL Lymphocytes # (Manual) 0.27 L (1.0-4.8) k/uL Metamyelocytes # (Man) 0.91 H (0) k/uL Chloride 114 H (98-107) mmol/L Carbon Dioxide 9 L* (22-30) mmol/L BUN 83 H (7-17) mg/dL Creatinine 3.98 H (0.52-1.04) mg/dL Glucose 185 H (74-99) mg/dL POC Glucose (mg/dL) (70-110) mg/dL Hemoglobin A1c 6.4 H (<=6.0) % Calcium 7.1 L (8.4-10.2) mg/dL Procalcitonin (0.02-0.09) ng/mL 08/25/23 08/25/23 Range/Units 05:43 07:54 Plt Count (150-450) k/uL Lymphocytes # (Manual) (1.0-4.8) k/uL Metamyelocytes # (Man) (0) k/uL Chloride (98-107) mmol/L Carbon Dioxide (22-30) mmol/L BUN (7-17) mg/dL Creatinine (0.52-1.04) mg/dL Glucose (74-99) mg/dL POC Glucose (mg/dL) 212 H 214 H (70-110) mg/dL Hemoglobin A1c (<=6.0) % Calcium (8.4-10.2) mg/dL Procalcitonin (0.02-0.09) ng/mL Microbiology - Last 24 Hours (Table) 08/24/23 04:25 Blood Culture Gram Stain - Preliminary Blood Blood Culture - Preliminary Gram Neg Bacilli 08/24/23 04:10 Blood Culture Gram Stain - Preliminary Blood Blood Culture - Preliminary Gram Neg Bacilli Assessment and Plan Assessment: 1. Acute kidney injury ATN secondary to hypotension currently nonoliguric. UA shows 1+ protein large blood and WBCs more than 182. Ultrasound of the kidneys shows mild bilateral hydronephrosis. CAT scan shows moderate left hydronephrosis. Urology has been consulted 2. Severe anion gap metabolic acidosis secondary to acute kidney injury and lactic acidosis maintained on IV bicarb 3. UTI maintained on IV antibiotics, urine culture is pending 4. Hypotension secondary to underlying infection and sepsis. Maintained on IV fluids and receiving pressors as well 5. Hypokalemia 6. Mental status changes secondary to sepsis Plan: Continue IV bicarb at current rate. Continue empiric antibiotics Continue with Sheth catheter Await urology input Repeat labs in about 5 hours to assess improvement of acidosis.
--- NOTE | 2023-08-25 11:41 | P.PN ---
Subjective Progress Note Date: 08/25/23 Principal diagnosis: Septic shock and urosepsis This is an 82-year-old female with history of multiple medical problems including diabetes, hyperlipidemia, hypertension, chronic back pain related to severe degenerative disc disease, has been evaluated for her back pain in [facility] and multiple pain clinics, she was recently seen at the pain clinic at [facility], and there was no improvement. Patient lives at home with her , and the patient has been noted. Generalized weakness since last Saturday. She is even having difficulty getting up to go to the bathroom. Family has been asking her to come to the hospital since last Saturday, until today, her condition seem to have deteriorated. Patient was brought into the ER, and she was noted to be quite hypotensive requiring fluid boluses and requiring norepinephrine. A central line was placed by the ER physician, and the patient was started on norepinephrine patient was also noted to have acute kidney injury with creatinine of 4.07 and BUN of 68. She was also noted to have leukocytosis with WBC count of 22.7, she had elevated lactic acid. Patient was noted to be quite acidotic on venous blood gas with pH of 7.11, bicarb was noted to be quite low with anion gap of 19 and bicarb of 9 her urine was clearly showing bacteriuria and pyuria consistent with UTI. Considering her hypotension and considering her urinary tract infection, and considering the patient required norepinephrine after fluid boluses, patient is considered to have septic shock, and this consult was initiated. I saw the patient in the ER, she is not a great historian, however most of the information was obtained from the at bedside.I recommended admission to the ICU, recommended antibiotics in the form of Rocephin, cultures were ordered including blood and urine cultures, patient will be placed on bicarb drip, nephrology consultation was initiated, and discussed her condition with at bedside. He was reevaluated today on 08/25/2023, remains in the ICU, patient was admitted yesterday with septic shock and urosepsis. Patient is on 6 L nasal cannula, still requiring norepinephrine at 0.01 mcg/kg/min IV fluid is 0.9 normal saline at 75 cc/h patient remains on bicarb drip, last night she had episode of shortness of breath, and she responded well after she was given a dose of Lasix 40 mg IV push x 1. Remains on ceftriaxone for her urosepsis. Patient had urine output of 350 after she was given Lasix yesterday. Her bicarb remains low today, and the patient remains on bicarb drip, BUN is [address] of the abdomen yesterday showed moderate left hydronephrosis. Her initial presentation was a presentation of acute kidney injury with acute tubular necrosis secondary to hypotension patient did receive significant amount of fluids in the ER and she was eventually placed on norepinephrine remains on norepinephrine this morning. Patient is a bit confused, is at bedside, nonetheless I believe there has been evidence of improvement clinically over the last 24 hours.WBC count today is 9.1 hemoglobin 12.4 basic metabolic profile is relatively normal except for bicarb of 9, anion gap remains 19 BUN is 83 creatinine 3.98, blood cultures are positive for gram-negative bacilli, patient remains on Rocephin. Final identification and sensitivity is pending but this is felt to be the most likely source coming from the urine considering her left hydronephrosis I would recommend evaluation by urology Objective - Vital Signs Vital signs: Vital Signs Temp 98.7 F 08/25/23 08:00 Pulse 111 H 08/25/23 10:00 Resp 27 H 08/25/23 10:00 BP 119/58 08/25/23 10:00 Pulse Ox 95 08/25/23 10:00 FiO2 Intake & Output 08/24/23 08/25/23 08/25/23 18:59 06:59 18:59 Intake Total 303.181 71.298 318.666 Output Total 655 50 150 Balance -351.819 21.298 168.666 Intake: Intake, IV Titration 303.181 71.298 318.666 Amount Dextrose 5% in Water 1, 300 000 ml @ 75 mls/hr IV . [id number] SONI with Sodium Bicarb (1 Meq/ml) 150 ml Rx#:[id number] Norepinephrine 4 mg In 303.181 71.298 18.666 Sodium Chloride 0.9% 250 ml @ 0.22 MCG/KG/MIN 60. 77 mls/hr IV .Q4H11M SONI Rx#:[id number] Output: Urine 655 50 150 - Exam General: Revealed 82-year-old female, seems to be a bit restless in bed, on nasal cannula, not in distress. Skin: Skin is dry and no rashes or lesions are noted. Eye: Pupils are equal, round and reactive to light, extra-ocular movements are intact; there is normal conjunctiva bilaterally. Ears, nose, mouth and throat: extremely dry mucous membranes noted Neck: The neck is supple, there is no tenderness or JVD. Cardiovascular: Normal S1-S2, no S3 gallop, 2/6 systolic murmur throughout the precordium. Respiratory: Diminished breath sounds at the bases no rhonchi no wheezes Gastrointestinal: Obese, soft, nontender, no megaly, no rebound, no guarding Musculoskeletal: No evidence of deformities and no limitation range of motion. Neurological: Awake, follows instructions, difficulty expressing herself., According to this is normal for her Psychiatric: Anxious mood, flat affect. - Labs CBC & Chem 7: 08/25/23 03:00 08/25/23 03:00 Labs: Abnormal Lab Results - Last 24 Hours (Table) 08/24/23 08/24/23 08/24/23 Range/Units 04:15 19:21 23:59 Plt Count (150-450) k/uL Lymphocytes # (Manual) (1.0-4.8) k/uL Metamyelocytes # (Man) (0) k/uL Chloride (98-107) mmol/L Carbon Dioxide (22-30) mmol/L BUN (7-17) mg/dL Creatinine (0.52-1.04) mg/dL Glucose (74-99) mg/dL POC Glucose (mg/dL) 146 H 171 H (70-110) mg/dL Hemoglobin A1c (<=6.0) % Calcium (8.4-10.2) mg/dL Procalcitonin 33.80 H (0.02-0.09) ng/mL 08/25/23 08/25/23 08/25/23 Range/Units 03:00 03:00 03:00 Plt Count 130 L (150-450) k/uL Lymphocytes # (Manual) 0.27 L (1.0-4.8) k/uL Metamyelocytes # (Man) 0.91 H (0) k/uL Chloride 114 H (98-107) mmol/L Carbon Dioxide 9 L* (22-30) mmol/L BUN 83 H (7-17) mg/dL Creatinine 3.98 H (0.52-1.04) mg/dL Glucose 185 H (74-99) mg/dL POC Glucose (mg/dL) (70-110) mg/dL Hemoglobin A1c 6.4 H (<=6.0) % Calcium 7.1 L (8.4-10.2) mg/dL Procalcitonin (0.02-0.09) ng/mL 08/25/23 08/25/23 Range/Units 05:43 07:54 Plt Count (150-450) k/uL Lymphocytes # (Manual) (1.0-4.8) k/uL Metamyelocytes # (Man) (0) k/uL Chloride (98-107) mmol/L Carbon Dioxide (22-30) mmol/L BUN (7-17) mg/dL Creatinine (0.52-1.04) mg/dL Glucose (74-99) mg/dL POC Glucose (mg/dL) 212 H 214 H (70-110) mg/dL Hemoglobin A1c (<=6.0) % Calcium (8.4-10.2) mg/dL Procalcitonin (0.02-0.09) ng/mL Microbiology - Last 24 Hours (Table) 08/24/23 04:25 Blood Culture Gram Stain - Preliminary Blood Blood Culture - Preliminary Gram Neg Bacilli 08/24/23 04:10 Blood Culture Gram Stain - Preliminary Blood Blood Culture - Preliminary Gram Neg Bacilli Assessment and Plan Assessment: Impression: Septic shock secondary to urosepsis Gram-negative bacteremia, most likely source is the urine Acute kidney injury/acute renal failure secondary to hypotension and acute tubular necrosis Acute none anion gap metabolic acidosis Acute diastolic congestive heart failure/fluid overload with acute kidney injury Acute urinary tract infection Possible bacteremia History of chronic back pain/degenerative disc disease of lumbar spine with spinal stenosis of L3-L4 and L4-L5 History of benign essential hypertension History of type 2 diabetes, hold DENIS inhibitor's and metformin for now/home medications Acute metabolic toxic encephalopathy with mental status changes/confusion improving today compared to yesterday hydronephrosis, with urosepsis, will consult urology Recommendation: Continue to monitor in the ICU Continue norepinephrine, titrate accordingly Continue bicarb drip Urology consultation for hydronephrosis Continue monitoring renal profile daily as well as urine output hourly Continue Rocephin for gram-negative bacteremia and urosepsis, awaiting urine cultures Check echocardiogram and assess LV function as well as valvular heart disease GI and DVT prophylaxis Remains critically ill Discussed and updated her at bedside Continue to hold lisinopril and metformin for now. Critical care time is over 31 Will continue to follow. Time with Patient: Greater than 30
[2023-08-25 12:03] LABS: Glucose,Whole Blood 248 mg/dL (70-110)
[2023-08-25] MEDS: INSULIN ASPART (NovoLOG) 100 UNIT/ML VIAL SQ SCH (12:13)
--- NOTE | 2023-08-25 12:30 | P.GSCN ---
History of Present Illness Consult date: 08/25/23 Reason for Consult: Left ureteral stone History of present illness: This is an 82-year-old female that is admitted to the ICU with sepsis and acute kidney injury secondary to a 5 mm left-sided ureteral stone. On presentation patient was hypotensive and has required Levophed. She has been experiencing left flank pain with radiation to the left lower quadrant. denies any Dysuria or gross hematuria. No previous history of kidney stones. She underwent a CT abdomen and pelvis that showed evidence of a 4 mm left-sided distal ureteral stone with hydronephrosis in addition to a 1 cm right-sided renal stone. Additionally patient's creatinine is elevated at 3.9 from baseline of 0.8. Her blood cultures are growing gram-negative bacilli Review of Systems - Constitutional Reports malaise, Reports weakness, Denies chills, Denies fever - EENT Ears, nose, mouth and throat: Denies dysphagia - Respiratory Denies cough, Denies 7 - Gastrointestinal Reports nausea, Reports vomiting - Genitourinary Genitourinary: Reports flank pain, Denies dysuria, Denies hematuria - Neurological Denies headaches, Denies syncope Past Medical History Past Medical History: Diabetes Mellitus, Hyperlipidemia, Hypertension Additional Past Medical History / Comment(s): chronic back pain History of Any Multi-Drug Resistant Organisms: None Reported Additional Past Surgical History / Comment(s): bladder suspension Past Anesthesia/Blood Transfusion Reactions: No Reported Reaction Additional Past Anesthesia/Blood Transfusion Reaction / Comm: spouse states "needs to have a larger dose of anesthesia because her body blocks it" Past Psychological History: No Psychological Hx Reported Smoking Status: Never smoker Past Alcohol Use History: None Reported Past Drug Use History: None Reported - Past Family History Mother Family Medical History: Myocardial Infarction ([place]) Father Additional Family Medical History / Comment(s): cerebral hemmorage possible aneursym unk Medications and Allergies Home Medications Medication Instructions Recorded Confirmed Type Atorvastatin [Lipitor] 40 mg PO HS 01/08/21 08/24/23 History Calcium Carbonate/Vitamin D3 1 cap PO HS 01/08/21 08/24/23 History [Calcium 600 mg-D3 10 Mcg (400 Iu)] Cholecalciferol [Vitamin D3 (25 25 mcg PO DAILY 01/08/21 08/24/23 History Mcg = 1000 Iu)] Levothyroxine Sodium 125 mcg PO DAILY 01/08/21 08/24/23 History Metoprolol Succinate (ER) [Toprol 100 mg PO HS 01/08/21 08/24/23 History XL] Milk Thistle 150 mg PO DAILY 01/08/21 08/24/23 History Omeprazole 20 mg PO DAILY 01/08/21 08/24/23 History Pioglitazone [Actos] 30 mg PO HS 01/08/21 08/24/23 History Repaglinide 1 mg PO AC-SUPPER 01/08/21 08/24/23 History Vitamin C/Biotin [Hair, Skin and 1 tab PO DAILY 01/08/21 08/24/23 History Nails Chew] sitaGLIPtin PHOSPHATE [Januvia] 50 mg PO DAILY 01/08/21 08/24/23 History Aspirin EC [Ecotrin Low Dose] 81 mg PO DAILY 10/10/22 08/24/23 History Glimepiride [Amaryl] 4 mg PO BID-W/MEALS 10/10/22 08/24/23 History Mv-Mn/Om3/Dha/Epa/Fish/Lut/Kleber 1 cap PO DAILY@1200 10/10/22 08/24/23 History [Ocuvite Adult 50 Plus Softgel] Ascorbic Acid [Vitamin C] 1,000 mg PO DAILY 08/24/23 08/24/23 History Biotin [Chri-Abvq-[place]] 10,000 mcg PO DAILY 08/24/23 08/24/23 History Fish Oil/Dha/Epa [Fish Oil 1,200 1 cap PO DAILY 08/24/23 08/24/23 History mg Fish Oil] Ginkgo Biloba [place] Extract [Ginkgo] 120 mg PO DAILY 08/24/23 08/24/23 History Mirabegron [Myrbetriq] 50 mg PO HS@2200 08/24/23 08/24/23 History Naproxen [Naprosyn] 500 mg PO TID 08/24/23 08/24/23 History Prochlorperazine [Compazine] 10 mg PO Q8H PRN 08/24/23 08/24/23 History Vitamin B Complex 1 cap PO DAILY 08/24/23 08/24/23 History Vitamin E (Dl,Tocopheryl Acet) 450 ng PO DAILY 08/24/23 08/24/23 History [Vitamin E (1000 Iu = 450 MG)] Vitamin K 100mcg(Unknown) 100 mcg PO DAILY 08/24/23 08/24/23 History amLODIPine [Norvasc] 5 mg PO DAILY 08/24/23 08/24/23 History diphenhydrAMINE HCL [Benadryl] 25 mg PO HS@2200 08/24/23 08/24/23 History lisinopriL 40 mg PO DAILY 08/24/23 08/24/23 History Allergies Allergy/AdvReac Type Severity Reaction Status Date / Time alendronate sodium AdvReac Nausea Verified 08/24/23 12:11 [From Fosamax] codeine AdvReac Nausea Verified 08/24/23 12:11 solifenacin AdvReac Nausea Verified 08/24/23 12:11 Surgical - Exam Vital Signs Temp Pulse Resp BP 97.6 F 89 26 H 80/46 08/24/23 03:57 08/24/23 03:57 08/24/23 03:57 08/24/23 03:57 - General no distress, moderate pain - Eyes normal ocular movement, no pale - ENT normal nares, normal mucosa - Respiratory normal expansion, normal respiratory effort - Abdomen Abdomen: soft, tender (Left flank), no distended Results - Labs 08/25/23 03:00 08/25/23 03:00 Abnormal Lab Results - Last 24 Hours (Table) 08/24/23 08/24/23 08/24/23 Range/Units 04:15 19:21 23:59 Plt Count (150-450) k/uL Lymphocytes # (Manual) (1.0-4.8) k/uL Metamyelocytes # (Man) (0) k/uL Chloride (98-107) mmol/L Carbon Dioxide (22-30) mmol/L BUN (7-17) mg/dL Creatinine (0.52-1.04) mg/dL Glucose (74-99) mg/dL POC Glucose (mg/dL) 146 H 171 H (70-110) mg/dL Hemoglobin A1c (<=6.0) % Calcium (8.4-10.2) mg/dL Procalcitonin 33.80 H (0.02-0.09) ng/mL 08/25/23 08/25/23 08/25/23 Range/Units 03:00 03:00 03:00 Plt Count 130 L (150-450) k/uL Lymphocytes # (Manual) 0.27 L (1.0-4.8) k/uL Metamyelocytes # (Man) 0.91 H (0) k/uL Chloride 114 H (98-107) mmol/L Carbon Dioxide 9 L* (22-30) mmol/L BUN 83 H (7-17) mg/dL Creatinine 3.98 H (0.52-1.04) mg/dL Glucose 185 H (74-99) mg/dL POC Glucose (mg/dL) (70-110) mg/dL Hemoglobin A1c 6.4 H (<=6.0) % Calcium 7.1 L (8.4-10.2) mg/dL Procalcitonin (0.02-0.09) ng/mL 08/25/23 08/25/23 08/25/23 Range/Units 05:43 07:54 12:00 Plt Count (150-450) k/uL Lymphocytes # (Manual) (1.0-4.8) k/uL Metamyelocytes # (Man) (0) k/uL Chloride (98-107) mmol/L Carbon Dioxide (22-30) mmol/L BUN (7-17) mg/dL Creatinine (0.52-1.04) mg/dL Glucose (74-99) mg/dL POC Glucose (mg/dL) 212 H 214 H 248 H (70-110) mg/dL Hemoglobin A1c (<=6.0) % Calcium (8.4-10.2) mg/dL Procalcitonin (0.02-0.09) ng/mL Microbiology - Last 24 Hours (Table) 08/24/23 04:25 Blood Culture Gram Stain - Preliminary Blood Blood Culture - Preliminary Gram Neg Bacilli 08/24/23 04:10 Blood Culture Gram Stain - Preliminary Blood Blood Culture - Preliminary Gram Neg Bacilli Diabetes panel 08/25/23 08/25/23 Range/Units 03:00 03:00 Sodium 142 (137-145) mmol/L Potassium 4.9 (3.5-5.1) mmol/L Chloride 114 H (98-107) mmol/L Carbon Dioxide 9 L* (22-30) mmol/L BUN 83 H (7-17) mg/dL Creatinine 3.98 H (0.52-1.04) mg/dL Glucose 185 H (74-99) mg/dL Hemoglobin A1c 6.4 H (<=6.0) % Calcium 7.1 L (8.4-10.2) mg/dL Calcium panel 08/25/23 Range/Units 03:00 Calcium 7.1 L (8.4-10.2) mg/dL Pituitary panel 08/25/23 Range/Units 03:00 Sodium 142 (137-145) mmol/L Potassium 4.9 (3.5-5.1) mmol/L Chloride 114 H (98-107) mmol/L Carbon Dioxide 9 L* (22-30) mmol/L BUN 83 H (7-17) mg/dL Creatinine 3.98 H (0.52-1.04) mg/dL Glucose 185 H (74-99) mg/dL Calcium 7.1 L (8.4-10.2) mg/dL Adrenal panel 08/25/23 Range/Units 03:00 Sodium 142 (137-145) mmol/L Potassium 4.9 (3.5-5.1) mmol/L Chloride 114 H (98-107) mmol/L Carbon Dioxide 9 L* (22-30) mmol/L BUN 83 H (7-17) mg/dL Creatinine 3.98 H (0.52-1.04) mg/dL Glucose 185 H (74-99) mg/dL Calcium 7.1 L (8.4-10.2) mg/dL - Imaging CT scan - abdomen: image reviewed (5 mm left-sided distal stone with hydronep hrosis. A 1 cm right-sided lower pole stone) Assessment and Plan Assessment: 82-year-old female septic secondary to a 5 mm left-sided distal ureteral stone. Blood cultures growing gram-negative bacilli. Also creatinine is elevated at 3.9 from baseline of 0.8. Had a prolonged discussion with the patient and her that the next step would be to proceed with the renal decompression. Discussed we will proceed with cystoscopy with left-sided stent insertion. Risk benefit and rationale of surgery was discussed in details discussed she will eventually require his left-sided ureteroscopy with holmium laser and stent removal once the sepsis resolves a few weeks
[2023-08-25] MEDS ORDERED: POTASSIUM CHLORIDE 20 MEQ in WATER FOR INJECTION 1 100ML.BAG IVPB SCH (13:45)
[2023-08-25] MEDS: LACTATED RINGERS 1,000 ML IV ONE ×2 (14:00→14:32)
[2023-08-25] MEDS ORDERED: MIDAZOLAM 2 MG/2 ML VIAL ONE (14:32)
[2023-08-25] MEDS ORDERED: KETAMINE HCL IN 0.9 % NACL 50 MG/5 ML SYRINGE ONE (14:32)
--- NOTE | 2023-08-25 15:50 | FL ---
Exam: Intraoperative fluoroscopic images. Total exposure time: 2.5 seconds. Total dose: [id number] Total or scopic images sent to PACS: 1 IMPRESSION: Fluoroscopic images obtained in the operating room. Please see dedicated surgeon note for further beto cription.
[2023-08-25 16:20] LABS: Glucose,Whole Blood 209 mg/dL (70-110)
[2023-08-25 17:12] LABS: African American GFR (CKD) 12 (>60 ml/min/1.73 sqM); Anion Gap 16 mmol/L; Blood Urea Nitrogen 99 mg/dL (7-17); Calcium 6.7 mg/dL (8.4-10.2); Carbon Dioxide 12 mmol/L (22-30); Chloride 113 mmol/L (98-107); Glucose 203 mg/dL (74-99); Non-African American GFR(CKD) 10 (>60 ml/min/1.73 sqM); Sodium 141 mmol/L (137-145)
[2023-08-25 17:22] LABS: Potassium 5.4 mmol/L (3.5-5.1)
[2023-08-25] MEDS: LORazepam 2 MG/ML INJ IV PRN (19:39)
[2023-08-25 20:03] LABS: Glucose,Whole Blood 188 mg/dL (70-110)
[2023-08-25] MEDS: ATORVASTATIN 40 MG TAB PO SCH (20:07)
[2023-08-25] MEDS: MORPHINE SULFATE 2 MG/ML SYRINGE IVP PRN (23:47)
[2023-08-26 03:48] LABS: HCT 33.2 % (34.0-46.0); HGB 11.3 gm/dL (11.4-16.0); MCH 30.6 pg (25.0-35.0); MCHC 33.9 g/dL (31.0-37.0); Mean Platelet Volume 10.4; RBC 3.69 m/uL (3.80-5.40); RDW 15.3 % (11.5-15.5); WBC 13.4 k/uL (3.8-10.6)
[2023-08-26 04:01] LABS: MCV 90.2 fL (80.0-100.0)
[2023-08-26 04:10] LABS: African American GFR (CKD) 11 (>60 ml/min/1.73 sqM); Anion Gap 17 mmol/L; Calcium 6.7 mg/dL (8.4-10.2); Carbon Dioxide 14 mmol/L (22-30); Chloride 111 mmol/L (98-107); Glucose 204 mg/dL (74-99); Non-African American GFR(CKD) 9 (>60 ml/min/1.73 sqM); Potassium 3.7 mmol/L (3.5-5.1)
[2023-08-26 04:22] LABS: Blood Urea Nitrogen 101 mg/dL (7-17); Sodium 142 mmol/L (137-145)
[2023-08-26 04:56] LABS: Metamyelocytes # (M) 1.47 k/uL (0); Metamyelocytes % 11 %; Myelocytes # (M) 0.54 k/uL (0); Myelocytes % 4 %; Nucleated Red Blood Cells 0 /100 WBC (0-0); Total Cells Counted 200
[2023-08-26 04:59] LABS: Band Neutrophils % 11 %; Lymphocytes # (M) 0.27 k/uL (1.0-4.8); Monocytes # (M) 0.67 k/uL (0-1.0); Neutrophils % (M) 68 %
[2023-08-26 05:01] LABS: Poikilocytosis (M) Present; Toxic Vacuolation Present
[2023-08-26 05:03] LABS: Platelet Count 82 k/uL (150-450)
[2023-08-26 06:33] LABS: Glucose,Whole Blood 230 mg/dL (70-110)
[2023-08-26] MEDS: LEVOTHYROXINE 125 MCG TAB PO SCH (06:58)
--- NOTE | 2023-08-26 08:11 | XR ---
EXAMINATION TYPE: XR chest 1V portable DATE OF EXAM: 08/26/2023 HISTORY: Shortness of breath. COMPARISON: 08/25/2023 TECHNIQUE: Single view of the chest is submitted. FINDINGS: Demonstrated are scattered senescent parenchymal change. Increased basilar density may reflect atelectasis or pneumonia. Correlate clinically and progress hubert dies are recommended. The heart is stable. Hilar and mediastinal structures are within normal limits. Degenerative changes are seen of the dorsal spine. IMPRESSION: 1. Increased basilar density may reflect atelectasis or pneumonia. Correlate clinically and progress studies are recommended.
--- NOTE | 2023-08-26 08:16 | P.PN ---
Subjective Progress Note Date: 08/26/23 Patient is in her first postoperative day from placement of a left ureteral stent by an obstructing stone, urinary tract infection with sepsis and pyelonephrosis. She is stable in the ICU off pressors Objective - Vital Signs Vital signs: Vital Signs Temp 97.9 F 08/26/23 04:00 Pulse 120 H 08/26/23 06:00 Resp 22 08/26/23 06:00 BP 129/72 08/26/23 06:00 Pulse Ox 95 08/26/23 06:00 FiO2 40 08/25/23 16:00 Intake & Output 08/25/23 08/26/23 08/26/23 18:59 06:59 18:59 Intake Total 1295.490 0644 Output Total 380 570 Balance 788.666 605 Weight 71.9 kg Intake: IV 250 Intake, IV Titration 919.924 8031 Amount Dextrose 5% in Water 1, 900 1175 000 ml @ 100 mls/hr IV . [id number] SONI with Sodium Bicarb (1 Meq/ml) 150 ml Rx#:[id number] Norepinephrine 4 mg In 18.666 Sodium Chloride 0.9% 250 ml @ 0.22 MCG/KG/MIN 60. 77 mls/hr IV .Q4H11M SONI Rx#:[id number] Output: Urine 380 570 Other: Voiding Method Indwelling Catheter # Bowel Movements 1 1 - Labs CBC & Chem 7: 08/26/23 02:41 08/26/23 02:41 Labs: Abnormal Lab Results - Last 24 Hours (Table) 08/25/23 08/25/23 08/25/23 Range/Units 03:00 12:00 16:17 WBC (3.8-10.6) k/uL RBC (3.80-5.40) m/uL Hgb (11.4-16.0) gm/dL Hct (34.0-46.0) % Plt Count (150-450) k/uL Neutrophils # (Manual) (1.3-7.7) k/uL Lymphocytes # (Manual) (1.0-4.8) k/uL Metamyelocytes # (Man) (0) k/uL Myelocytes # (Manual) (0) k/uL Potassium 5.4 H (3.5-5.1) mmol/L Chloride 113 H (98-107) mmol/L Carbon Dioxide 12 L (22-30) mmol/L BUN 99 H (7-17) mg/dL Creatinine 3.87 H (0.52-1.04) mg/dL Glucose 203 H (74-99) mg/dL POC Glucose (mg/dL) 248 H (70-110) mg/dL Hemoglobin A1c 6.4 H (<=6.0) % Calcium 6.7 L (8.4-10.2) mg/dL 08/25/23 08/25/23 08/26/23 Range/Units 16:19 20:01 02:41 WBC 13.4 H (3.8-10.6) k/uL RBC 3.69 L (3.80-5.40) m/uL Hgb 11.3 L (11.4-16.0) gm/dL Hct 33.2 L (34.0-46.0) % Plt Count 82 L (150-450) k/uL Neutrophils # (Manual) 10.50 H (1.3-7.7) k/uL Lymphocytes # (Manual) 0.27 L (1.0-4.8) k/uL Metamyelocytes # (Man) 1.47 H (0) k/uL Myelocytes # (Manual) 0.54 H (0) k/uL Potassium (3.5-5.1) mmol/L Chloride (98-107) mmol/L Carbon Dioxide (22-30) mmol/L BUN (7-17) mg/dL Creatinine (0.52-1.04) mg/dL Glucose (74-99) mg/dL POC Glucose (mg/dL) 209 H 188 H (70-110) mg/dL Hemoglobin A1c (<=6.0) % Calcium (8.4-10.2) mg/dL 08/26/23 08/26/23 Range/Units 02:41 06:32 WBC (3.8-10.6) k/uL RBC (3.80-5.40) m/uL Hgb (11.4-16.0) gm/dL Hct (34.0-46.0) % Plt Count (150-450) k/uL Neutrophils # (Manual) (1.3-7.7) k/uL Lymphocytes # (Manual) (1.0-4.8) k/uL Metamyelocytes # (Man) (0) k/uL Myelocytes # (Manual) (0) k/uL Potassium (3.5-5.1) mmol/L Chloride 111 H (98-107) mmol/L Carbon Dioxide 14 L (22-30) mmol/L BUN 101 H* (7-17) mg/dL Creatinine 4.27 H (0.52-1.04) mg/dL Glucose 204 H (74-99) mg/dL POC Glucose (mg/dL) 230 H (70-110) mg/dL Hemoglobin A1c (<=6.0) % Calcium 6.7 L (8.4-10.2) mg/dL Microbiology - Last 24 Hours (Table) 08/24/23 06:00 Urine Culture - Preliminary Urine,Catheterized Gram Neg Bacilli 08/24/23 04:25 Blood Culture Gram Stain - Preliminary Blood Blood Culture - Preliminary Gram Neg Bacilli 08/24/23 04:10 Blood Culture Gram Stain - Preliminary Blood Blood Culture - Preliminary Gram Neg Bacilli Assessment and Plan Assessment: Impression: Urinary tract infection with sepsis status post stent placement left for an obstructing ureteral calculus Recommendations: From urologic standpoint nothing further will be done at this point in time. Later date in a few weeks she'll need stone and stent removal.
[2023-08-26] MEDS: POTASSIUM CHLORIDE 20 MEQ in WATER FOR INJECTION 1 100ML.BAG IVPB ONE (08:34)
--- NOTE | 2023-08-26 08:34 | P.PN ---
Subjective Patient is seen in follow-up for acute kidney injury. Renal function worsening. Creatinine 4.27 today. Acidosis slightly improved. Currently on bicarb drip. Urine output 40 to 45 cc an hour. Vital signs are stable. Tachycardic. General: Resting in bed. HEENT: Head exam is unremarkable. On nasal cannula. LUNGS: No audible rhonchi or wheezes. HEART: Tachycardic. ABDOMEN: No distention. EXTREMITITES: No edema. Objective - Vital Signs Vital signs: Vital Signs Temp 97.9 F 08/26/23 04:00 Pulse 120 H 08/26/23 06:00 Resp 22 08/26/23 06:00 BP 129/72 08/26/23 06:00 Pulse Ox 95 08/26/23 06:00 FiO2 40 08/25/23 16:00 Intake & Output 08/25/23 08/26/23 08/26/23 18:59 06:59 18:59 Intake Total 9170.763 1008 Output Total 380 570 Balance 788.666 605 Weight 71.9 kg Intake: IV 250 Intake, IV Titration 336.532 3537 Amount Dextrose 5% in Water 1, 900 1175 000 ml @ 100 mls/hr IV . [id number] SONI with Sodium Bicarb (1 Meq/ml) 150 ml Rx#:[id number] Norepinephrine 4 mg In 18.666 Sodium Chloride 0.9% 250 ml @ 0.22 MCG/KG/MIN 60. 77 mls/hr IV .Q4H11M SONI Rx#:[id number] Output: Urine 380 570 Other: Voiding Method Indwelling Catheter # Bowel Movements 1 1 - Labs CBC & Chem 7: 08/26/23 02:41 08/26/23 02:41 Labs: Abnormal Lab Results - Last 24 Hours (Table) 08/25/23 08/25/23 08/25/23 Range/Units 03:00 12:00 16:17 WBC (3.8-10.6) k/uL RBC (3.80-5.40) m/uL Hgb (11.4-16.0) gm/dL Hct (34.0-46.0) % Plt Count (150-450) k/uL Neutrophils # (Manual) (1.3-7.7) k/uL Lymphocytes # (Manual) (1.0-4.8) k/uL Metamyelocytes # (Man) (0) k/uL Myelocytes # (Manual) (0) k/uL Potassium 5.4 H (3.5-5.1) mmol/L Chloride 113 H (98-107) mmol/L Carbon Dioxide 12 L (22-30) mmol/L BUN 99 H (7-17) mg/dL Creatinine 3.87 H (0.52-1.04) mg/dL Glucose 203 H (74-99) mg/dL POC Glucose (mg/dL) 248 H (70-110) mg/dL Hemoglobin A1c 6.4 H (<=6.0) % Calcium 6.7 L (8.4-10.2) mg/dL 08/25/23 08/25/23 08/26/23 Range/Units 16:19 20:01 02:41 WBC 13.4 H (3.8-10.6) k/uL RBC 3.69 L (3.80-5.40) m/uL Hgb 11.3 L (11.4-16.0) gm/dL Hct 33.2 L (34.0-46.0) % Plt Count 82 L (150-450) k/uL Neutrophils # (Manual) 10.50 H (1.3-7.7) k/uL Lymphocytes # (Manual) 0.27 L (1.0-4.8) k/uL Metamyelocytes # (Man) 1.47 H (0) k/uL Myelocytes # (Manual) 0.54 H (0) k/uL Potassium (3.5-5.1) mmol/L Chloride (98-107) mmol/L Carbon Dioxide (22-30) mmol/L BUN (7-17) mg/dL Creatinine (0.52-1.04) mg/dL Glucose (74-99) mg/dL POC Glucose (mg/dL) 209 H 188 H (70-110) mg/dL Hemoglobin A1c (<=6.0) % Calcium (8.4-10.2) mg/dL 08/26/23 08/26/23 Range/Units 02:41 06:32 WBC (3.8-10.6) k/uL RBC (3.80-5.40) m/uL Hgb (11.4-16.0) gm/dL Hct (34.0-46.0) % Plt Count (150-450) k/uL Neutrophils # (Manual) (1.3-7.7) k/uL Lymphocytes # (Manual) (1.0-4.8) k/uL Metamyelocytes # (Man) (0) k/uL Myelocytes # (Manual) (0) k/uL Potassium (3.5-5.1) mmol/L Chloride 111 H (98-107) mmol/L Carbon Dioxide 14 L (22-30) mmol/L BUN 101 H* (7-17) mg/dL Creatinine 4.27 H (0.52-1.04) mg/dL Glucose 204 H (74-99) mg/dL POC Glucose (mg/dL) 230 H (70-110) mg/dL Hemoglobin A1c (<=6.0) % Calcium 6.7 L (8.4-10.2) mg/dL Microbiology - Last 24 Hours (Table) 08/24/23 06:00 Urine Culture - Preliminary Urine,Catheterized Gram Neg Bacilli 08/24/23 04:25 Blood Culture Gram Stain - Preliminary Blood Blood Culture - Preliminary Gram Neg Bacilli 08/24/23 04:10 Blood Culture Gram Stain - Preliminary Blood Blood Culture - Preliminary Gram Neg Bacilli Assessment and Plan Plan: Assessment: 1. Acute kidney injury secondary to ATN secondary to septic shock and component of obstructive uropathy. Creatinine 0.9 in October 2022. Creatinine was 4.07 on admission and came down to 3.87 yesterday and is up to 4.27 again today. Urine output 40 to 45 cc an hour. Patient did receive dose of Decadron as well as IV Lasix August 25, 2023. 2. Septic shock secondary to gram-negative UTI and bacteremia on antibiotics. Currently off Levophed. 3. Hydronephrosis status post left ureteral stent placement August 25, 2023. 4. Metabolic acidosis secondary to acute kidney injury. 5. Hypocalcemia secondary to acute kidney injury. 6. Chronic diastolic CHF and moderate pulmonary hypertension. Plan: Maintain bicarb drip. Rate increased to 100 cc an hour this morning. Continue to monitor renal function and urine output. Replace calcium. Repeat BMP this afternoon. If no improvement in renal function in the next 24 hours, will initiate renal replacement therapy.
[2023-08-26 08:43] LABS: Glucose,Whole Blood 201 mg/dL (70-110)
[2023-08-26] MEDS: CALCIUM GLUCONATE IN NACL 1 GM in SALINE 1 100ML.BAG IVPB ONE (10:20)
--- NOTE | 2023-08-26 11:05 | P.PN ---
Subjective This is a pleasant 10 years old female with multiple medical problems as below. Patient is currently poor historian and information were obtained with the help of the family at bedside. As per family patient has been feeling generally weak since last Saturday especially she has difficulty getting up under going to the restroom, family were following up with her every day but she refused to come to the hospital Saturday through despite no improvement, with worsening medical condition she agrees to come to the hospital urinary morning today Patient is tachypneic with a breathing rate of 26 and she has difficulty talking. Patient denies chest pain or urinary complaints. She has some vomiting but no diarrhea. Patient and notable bowel movement Her urine looks cloudy but patient denies dysuria. Sheth catheter in place showing urine collection about 60-70 mL of yellow urine Patient denies dizziness headache, no unilateral weakness or tingling No smoking or alcohol However on exam patient complained from tenderness and mild guarding on the right side of the abdomen On admission patient was hypotensive 80/46 and she was started on pressors with Levophed Creatinine elevated 4.0, sodium bicarb is low 9 Patient is also on admission a 10 L via nonrebreather. Patient is tachycardic with heart rate around 92. Troponin is negative less than 0.012. WBCs elevated 22.7, INR is 1.7 Creatinine elevated 4.0 Liver enzymes unremarkable Urine analysis is suspicious for infection and urine culture is pending Urine drug screen is negative Chest x-ray showing pulmonary congestion and cardiomegaly CT of the brain is negative EKG showing sinus rhythm at [address]-T changes Echocardiogram from 10/2022 showing ejection fraction of 55% 08/25/2023 Patient seen and examined in the ICU, she is awake and alert, she looks lethar gic and tired She has shortness of breath with difficulty talking, she denies chest pain She still has abdominal pain and tenderness with mild distention. CT abdomen yesterday showing fecal impaction. Surgery team following closely. Patient states she had normal bowel movement yesterday Also patient is with UTI and blood culture growing gram-negative bacilli today, she remains on ceftriaxone 2 g pending final results. She has evidence of moderate hydronephrosis on CAT scan and renal ultrasound Extremities on sodium bicarb a 75 mL/h and the pressors with Levophed 0.04 echocardiogram reviewed showing moderate mitral regurgitation with ejection fraction 55-60% 08/26/2023 Patient remains in the ICU weak and lethargic She is still confused She is status post stent placement in her left ureter yesterday Urology follow-up has no further recommendation today. Currently she has no pressors and she still on bicarb drip Her oxygen requirements down to 2 L/m WBC slightly elevated 13.4 Creatinine 4.2. She remains on antibiotic ceftriaxone. Blood culture is growing sensitive E. coli Urine cultures, gram-negative bacilli Objective - Vital Signs Vital signs: Vital Signs Temp 98.4 F 08/26/23 10:00 Pulse 115 H 08/26/23 10:00 Resp 12 08/26/23 10:00 BP 103/68 08/26/23 10:00 Pulse Ox 95 08/26/23 10:00 FiO2 40 08/25/23 16:00 Intake & Output 08/25/23 08/26/23 08/26/23 18:59 06:59 18:59 Intake Total 6928.659 9074 500 Output Total 380 570 125 Balance 788.666 605 375 Weight 71.9 kg Intake: IV 250 Intake, IV Titration 592.839 6116 500 Amount Calcium Gluconate in NaCl 100 1 gm In Saline 1 100ml. bag @ 100 mls/hr IVPB ONCE ONE Rx#:[id number] Dextrose 5% in Water 1, 900 1175 300 000 ml @ 100 mls/hr IV . [id number] SONI with Sodium Bicarb (1 Meq/ml) 150 ml Rx#:[id number] Norepinephrine 4 mg In 18.666 Sodium Chloride 0.9% 250 ml @ 0.22 MCG/KG/MIN 60. 77 mls/hr IV .Q4H11M SONI Rx#:[id number] Potassium Chloride 20 meq 100 In Water For Injection 1 100ml.bag @ 50 mls/hr IVPB ONCE ONE Rx#: [id number] Output: Urine 380 570 125 Other: Voiding Method Indwelling Catheter Indwelling Catheter # Bowel Movements 1 1 - Exam -GENERAL: The patient is weak and lethargic, sleepy. HEENT: Pupils are round and equally reacting to light. EOMI. No scleral icterus. No conjunctival pallor. Normocephalic, atraumatic. No pharyngeal erythema. No thyromegaly. CARDIOVASCULAR: S1 and S2 present. No murmurs, rubs, or gallops. PULMONARY: Chest is clear to auscultation, no wheezing , no crackles. ABDOMEN: Soft, nontender, nondistended, normoactive bowel sounds. No palpable organomegaly. MUSCULOSKELETAL: No joint swelling or deformity. EXTREMITIES: No cyanosis, clubbing, or pedal edema. NEUROLOGICAL: Gross neurological examination did not reveal any focal deficits. SKIN: No rashes. no petechiae. - Labs CBC & Chem 7: 08/26/23 02:41 08/26/23 02:41 Labs: Abnormal Lab Results - Last 24 Hours (Table) 08/25/23 08/25/23 08/25/23 Range/Units 12:00 16:17 16:19 WBC (3.8-10.6) k/uL RBC (3.80-5.40) m/uL Hgb (11.4-16.0) gm/dL Hct (34.0-46.0) % Plt Count (150-450) k/uL Neutrophils # (Manual) (1.3-7.7) k/uL Lymphocytes # (Manual) (1.0-4.8) k/uL Metamyelocytes # (Man) (0) k/uL Myelocytes # (Manual) (0) k/uL Potassium 5.4 H (3.5-5.1) mmol/L Chloride 113 H (98-107) mmol/L Carbon Dioxide 12 L (22-30) mmol/L BUN 99 H (7-17) mg/dL Creatinine 3.87 H (0.52-1.04) mg/dL Glucose 203 H (74-99) mg/dL POC Glucose (mg/dL) 248 H 209 H (70-110) mg/dL Hemoglobin A1c (<=6.0) % Calcium 6.7 L (8.4-10.2) mg/dL 08/25/23 08/26/23 08/26/23 Range/Units 20:01 02:41 02:41 WBC 13.4 H (3.8-10.6) k/uL RBC 3.69 L (3.80-5.40) m/uL Hgb 11.3 L (11.4-16.0) gm/dL Hct 33.2 L (34.0-46.0) % Plt Count 82 L (150-450) k/uL Neutrophils # (Manual) 10.50 H (1.3-7.7) k/uL Lymphocytes # (Manual) 0.27 L (1.0-4.8) k/uL Metamyelocytes # (Man) 1.47 H (0) k/uL Myelocytes # (Manual) 0.54 H (0) k/uL Potassium (3.5-5.1) mmol/L Chloride (98-107) mmol/L Carbon Dioxide (22-30) mmol/L BUN (7-17) mg/dL Creatinine (0.52-1.04) mg/dL Glucose (74-99) mg/dL POC Glucose (mg/dL) 188 H (70-110) mg/dL Hemoglobin A1c 6.4 H (<=6.0) % Calcium (8.4-10.2) mg/dL 08/26/23 08/26/23 08/26/23 Range/Units 02:41 06:32 08:42 WBC (3.8-10.6) k/uL RBC (3.80-5.40) m/uL Hgb (11.4-16.0) gm/dL Hct (34.0-46.0) % Plt Count (150-450) k/uL Neutrophils # (Manual) (1.3-7.7) k/uL Lymphocytes # (Manual) (1.0-4.8) k/uL Metamyelocytes # (Man) (0) k/uL Myelocytes # (Manual) (0) k/uL Potassium (3.5-5.1) mmol/L Chloride 111 H (98-107) mmol/L Carbon Dioxide 14 L (22-30) mmol/L BUN 101 H* (7-17) mg/dL Creatinine 4.27 H (0.52-1.04) mg/dL Glucose 204 H (74-99) mg/dL POC Glucose (mg/dL) 230 H 201 H (70-110) mg/dL Hemoglobin A1c (<=6.0) % Calcium 6.7 L (8.4-10.2) mg/dL Microbiology - Last 24 Hours (Table) 08/24/23 04:25 Blood Culture Gram Stain - Final Blood Blood Culture - Final Escherichia coli 08/24/23 04:10 Blood Culture Gram Stain - Final Blood Blood Culture - Final Escherichia coli 08/24/23 06:00 Urine Culture - Preliminary Urine,Catheterized Gram Neg Bacilli Assessment and Plan Assessment: Septic shock, currently improved and she is off pressors. She currently has severe sepsis Acute renal tract infection, bacteremia/septicemia secondary to sensitive E. 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 Continue same treatment. Continue with symptomatic treatment. Resume home medication. Monitor labs and vitals. DVT and GI prophylaxis. Further recommendations as per clinical course of the patient DVT prophylaxis: Subcutaneous heparin GI Prophylaxis: Pepcid PT/OT: Deferred Prognosis is guarded
[2023-08-26 11:20] LABS: Glucose,Whole Blood 200 mg/dL (70-110)
--- NOTE | 2023-08-26 11:57 | P.PN ---
Subjective Progress Note Date: 08/26/23 This is an 82-year-old female with history of multiple medical problems including diabetes, hyperlipidemia, hypertension, chronic back pain related to severe degenerative disc disease, has been evaluated for her back pain in many institutions and multiple pain clinics, she was recently seen at the pain clinic at [facility], and there was no improvement. Patient lives at home with her , and the patient has been noted. Generalized weakness since last Saturday. She is even having difficulty getting up to go to the bathroom. Family has been asking her to come to the hospital since last Saturday, until today, her condition seem to have deteriorated. Patient was brought into the ER, and she was noted to be quite hypotensive requiring fluid boluses and requiring norepinephrine. A central line was placed by the ER physician, and the patient was started on norepinephrine patient was also noted to have acute kidney injury with creatinine of 4.07 and BUN of 68. She was also noted to have leukocytosis with WBC count of 22.7, she had elevated lactic acid. Patient was noted to be quite acidotic on venous blood gas with pH of 7.11, bicarb was noted to be quite low with anion gap of 19 and bicarb of 9 her urine was clearly showing bacteriuria and pyuria consistent with UTI. Considering her hypotension and considering her urinary tract infection, and considering the patient required norepinephrine after fluid boluses, patient is considered to have septic shock, and this consult was initiated. I saw the patient in the ER, she is not a great historian, however most of the information was obtained from the at bedside.I recommended admission to the ICU, recommended antibiotics in the form of Rocephin, cultures were ordered including blood and urine cultures, patient will be placed on bicarb drip, nephrology consultation was initiated, and discussed her condition with at bedside. He was reevaluated today on 08/25/2023, remains in the ICU, patient was admitted yesterday with septic shock and urosepsis. Patient is on 6 L nasal cannula, still requiring norepinephrine at 0.01 mcg/kg/min IV fluid is 0.9 normal saline at 75 cc/h patient remains on bicarb drip, last night she had episode of shortness of breath, and she responded well after she was given a dose of Lasix 40 mg IV push x 1. Remains on ceftriaxone for her urosepsis. Patient had urine output of 350 after she was given Lasix yesterday. Her bicarb remains low today, and the patient remains on bicarb drip, BUN is [address] of the abdomen yesterday showed moderate left hydronephrosis. Her initial presentation was a presentation of acute kidney injury with acute tubular necrosis secondary to hypotension patient did receive significant amount of fluids in the ER and she was eventually placed on norepinephrine remains on norepinephrine this morning. Patient is a bit confused, is at bedside, nonetheless I believe there has been evidence of improvement clinically over the last 24 hours.WBC count today is 9.1 hemoglobin 12.4 basic metabolic profile is relatively normal except for bicarb of 9, anion gap remains 19 BUN is 83 creatinine 3.98, blood cultures are positive for gram-negative bacilli, patient remains on Rocephin. Final identification and sensitivity is pending but this is felt to be the most likely source coming from the urine considering her left hydronephrosis I would recommend evaluation by urology The patient is seen today August 26, 2023 in follow-up in the intensive care unit. She is resting fairly comfortably in bed she is arousable but drifts off easily. She has some Kussmaul's respirations. She is maintaining O2 saturations in the 90s on 2 L/min per nasal cannula. She did undergo stenting to the left ureter yesterday August 25, 2023 per urology. Blood and urine cultures are showing gram-negative bacilli. She is currently on ceftriaxone. She is on D5W with 3 A of bicarb at 100 MLS per hour. Her creatinine is up to 4.27 today. White count 13.4. Hemoglobin 11.3. Platelets 82,000. Sodium 142. Potassium 3.7. Bicarb 14. BUN 101. Glucose 204. Sh is off the norepinephrine. Mean arterial blood pressures 80s and 90s. Afebrile. Heparin for DVT prophylaxis. Objective - Vital Signs Vital signs: Vital Signs Temp 98.4 F 08/26/23 10:00 Pulse 114 H 08/26/23 11:00 Resp 21 08/26/23 11:00 BP 118/76 08/26/23 11:00 Pulse Ox 95 08/26/23 11:00 FiO2 40 08/25/23 16:00 Intake & Output 08/25/23 08/26/23 08/26/23 18:59 06:59 18:59 Intake Total 1878.958 7110 600 Output Total 380 570 170 Balance 788.666 605 430 Weight 71.9 kg Intake: IV 250 Intake, IV Titration 585.334 4198 600 Amount Calcium Gluconate in NaCl 100 1 gm In Saline 1 100ml. bag @ 100 mls/hr IVPB ONCE ONE Rx#:[id number] Dextrose 5% in Water 1, 900 1175 400 000 ml @ 100 mls/hr IV . [id number] SONI with Sodium Bicarb (1 Meq/ml) 150 ml Rx#:[id number] Norepinephrine 4 mg In 18.666 Sodium Chloride 0.9% 250 ml @ 0.22 MCG/KG/MIN 60. 77 mls/hr IV .Q4H11M SONI Rx#:[id number] Potassium Chloride 20 meq 100 In Water For Injection 1 100ml.bag @ 50 mls/hr IVPB ONCE ONE Rx#: [id number] Output: Urine 380 570 170 Other: Voiding Method Indwelling Catheter Indwelling Catheter # Bowel Movements 1 1 - Exam GENERAL EXAM: Arousable but drifts off easily, 82-year-old female, on 2 L nasal cannula, fairly, comfortable in no apparent distress. HEAD: Normocephalic. EYES: Normal reaction of pupils, equal size. NOSE: Clear with pink turbinates. THROAT: No erythema or exudates. NECK: No masses, no JVD. CHEST: No chest wall deformity. LUNGS: Equal air entry with no crackles, wheeze, rhonchi or dullness. Diminished. CVS: S1 and S2 normal with an audible murmur, regular rhythm. ABDOMEN: No hepatosplenomegaly, normal bowel sounds, no guarding or rigidity. SPINE: No scoliosis or deformity SKIN: No rashes CENTRAL NERVOUS SYSTEM: No focal deficits, tone is normal in all 4 extremities. EXTREMITIES: There is no peripheral edema. No clubbing, no cyanosis. Peripheral pulses are intact. - Labs CBC & Chem 7: 08/26/23 02:41 08/26/23 02:41 Labs: Abnormal Lab Results - Last 24 Hours (Table) 08/25/23 08/25/23 08/25/23 Range/Units 12:00 16:17 16:19 WBC (3.8-10.6) k/uL RBC (3.80-5.40) m/uL Hgb (11.4-16.0) gm/dL Hct (34.0-46.0) % Plt Count (150-450) k/uL Neutrophils # (Manual) (1.3-7.7) k/uL Lymphocytes # (Manual) (1.0-4.8) k/uL Metamyelocytes # (Man) (0) k/uL Myelocytes # (Manual) (0) k/uL Potassium 5.4 H (3.5-5.1) mmol/L Chloride 113 H (98-107) mmol/L Carbon Dioxide 12 L (22-30) mmol/L BUN 99 H (7-17) mg/dL Creatinine 3.87 H (0.52-1.04) mg/dL Glucose 203 H (74-99) mg/dL POC Glucose (mg/dL) 248 H 209 H (70-110) mg/dL Hemoglobin A1c (<=6.0) % Calcium 6.7 L (8.4-10.2) mg/dL 08/25/23 08/26/23 08/26/23 Range/Units 20:01 02:41 02:41 WBC 13.4 H (3.8-10.6) k/uL RBC 3.69 L (3.80-5.40) m/uL Hgb 11.3 L (11.4-16.0) gm/dL Hct 33.2 L (34.0-46.0) % Plt Count 82 L (150-450) k/uL Neutrophils # (Manual) 10.50 H (1.3-7.7) k/uL Lymphocytes # (Manual) 0.27 L (1.0-4.8) k/uL Metamyelocytes # (Man) 1.47 H (0) k/uL Myelocytes # (Manual) 0.54 H (0) k/uL Potassium (3.5-5.1) mmol/L Chloride (98-107) mmol/L Carbon Dioxide (22-30) mmol/L BUN (7-17) mg/dL Creatinine (0.52-1.04) mg/dL Glucose (74-99) mg/dL POC Glucose (mg/dL) 188 H (70-110) mg/dL Hemoglobin A1c 6.4 H (<=6.0) % Calcium (8.4-10.2) mg/dL 08/26/23 08/26/23 08/26/23 Range/Units 02:41 06:32 08:42 WBC (3.8-10.6) k/uL RBC (3.80-5.40) m/uL Hgb (11.4-16.0) gm/dL Hct (34.0-46.0) % Plt Count (150-450) k/uL Neutrophils # (Manual) (1.3-7.7) k/uL Lymphocytes # (Manual) (1.0-4.8) k/uL Metamyelocytes # (Man) (0) k/uL Myelocytes # (Manual) (0) k/uL Potassium (3.5-5.1) mmol/L Chloride 111 H (98-107) mmol/L Carbon Dioxide 14 L (22-30) mmol/L BUN 101 H* (7-17) mg/dL Creatinine 4.27 H (0.52-1.04) mg/dL Glucose 204 H (74-99) mg/dL POC Glucose (mg/dL) 230 H 201 H (70-110) mg/dL Hemoglobin A1c (<=6.0) % Calcium 6.7 L (8.4-10.2) mg/dL 08/26/23 Range/Units 11:19 WBC (3.8-10.6) k/uL RBC (3.80-5.40) m/uL Hgb (11.4-16.0) gm/dL Hct (34.0-46.0) % Plt Count (150-450) k/uL Neutrophils # (Manual) (1.3-7.7) k/uL Lymphocytes # (Manual) (1.0-4.8) k/uL Metamyelocytes # (Man) (0) k/uL Myelocytes # (Manual) (0) k/uL Potassium (3.5-5.1) mmol/L Chloride (98-107) mmol/L Carbon Dioxide (22-30) mmol/L BUN (7-17) mg/dL Creatinine (0.52-1.04) mg/dL Glucose (74-99) mg/dL POC Glucose (mg/dL) 200 H (70-110) mg/dL Hemoglobin A1c (<=6.0) % Calcium (8.4-10.2) mg/dL Microbiology - Last 24 Hours (Table) 08/24/23 04:25 Blood Culture Gram Stain - Final Blood Blood Culture - Final Escherichia coli 08/24/23 04:10 Blood Culture Gram Stain - Final Blood Blood Culture - Final Escherichia coli 08/24/23 06:00 Urine Culture - Preliminary Urine,Catheterized Gram Neg Bacilli Assessment and Plan Assessment: Septic shock secondary to urosepsis E coli bacteremia, most likely source is the urine Acute kidney injury/acute renal failure secondary to hypotension and acute tubular necrosis Acute none anion gap metabolic acidosis Acute diastolic congestive heart failure/fluid overload with acute kidney injury Acute urinary tract infection secondary to gram-negative bacilli Acute hydronephrosis, with urosepsis, is post stenting of the left ureter 08/25/2023 Acute metabolic toxic encephalopathy with mental status changes/confusion History of chronic back pain/degenerative disc disease of lumbar spine with spinal stenosis of L3-L4 and L4-L5 History of benign essential hypertension History of type 2 diabetes, hold DENIS inhibitor's and metformin for now/home medications Plan: The patient was seen and evaluated X-ray, microbiology, labs and medications reviewed She did undergo stenting to the left ureteral yesterday Worsening creatinine up to 4.27 Continue on D5W with 3 A of bicarb at 100 MLS per hour Continue on ceftriaxone Titrate the FiO2 as tolerated Pognosis is guarded We will continue to follow I have personally seen and examined the patient, performed the documentation and the assessment and plan as written. Number of minutes spent on the visit: 10.
--- NOTE | 2023-08-26 12:30 | P.PN ---
Subjective Progress Note Date: 08/26/23 CHIEF COMPLAINT: Abdominal pain HISTORY OF PRESENT ILLNESS: Patient remains in the ICU. She is status post a left ureteral stent placed by urology. She is more confused today. Patient did receive an enema yesterday and has had multiple bowel movements. No nausea or vomiting reported. Positive blood cultures. Mildly tachycardic. Afebrile. WBC did go up from 9.1-13.4 Hgb 11.3 platelets 82 creatinine up at 4.27 PHYSICAL EXAM: VITAL SIGNS: Reviewed. GENERAL: no acute distress. ABDOMEN: Soft. Nondistended. Nontender. NEUROLOGIC: Somnolent ASSESSMENT: 1. Abdominal pain likely related to left hydronephrosis due to obstructing ureteral stone with UTI and sepsis 2. Fecal impaction improved PLAN: -Continue supportive care -Continue antibiotics for UTI and bacteremia -Constipation improved with enemas Physician Bureau Chief note has been reviewed by physician. Signing provider agrees with the documented findings, assessment, and plan of care. I have personally seen and examined the patient, reviewed the ORDER CALLER /PAs history, exam and MDM and agree with the assessment and plan as written. Based on total visit time, I have performed more than 50% of the visit. As above: Patient denies pain. She is more lethargic today however. Mild left- sided tenderness. Urologic procedure yesterday went well reportedly. Still suspect pain was related to the pyelonephritis. Continue antibiotics. Will follow. Objective - Vital Signs Vital signs: Vital Signs Temp 98.4 F 08/26/23 10:00 Pulse 117 H 08/26/23 12:00 Resp 20 08/26/23 12:00 BP 133/67 08/26/23 12:00 Pulse Ox 94 L 08/26/23 12:00 FiO2 40 08/25/23 16:00 Intake & Output 08/25/23 08/26/23 08/26/23 18:59 06:59 18:59 Intake Total 6130.102 8614 600 Output Total 380 570 295 Balance 788.666 605 305 Weight 71.9 kg Intake: IV 250 Intake, IV Titration 186.195 3387 600 Amount Calcium Gluconate in NaCl 100 1 gm In Saline 1 100ml. bag @ 100 mls/hr IVPB ONCE ONE Rx#:[id number] Dextrose 5% in Water 1, 900 1175 400 000 ml @ 100 mls/hr IV . [id number] SONI with Sodium Bicarb (1 Meq/ml) 150 ml Rx#:[id number] Norepinephrine 4 mg In 18.666 Sodium Chloride 0.9% 250 ml @ 0.22 MCG/KG/MIN 60. 77 mls/hr IV [id number] SONI Rx#:[id number] Potassium Chloride 20 meq 100 In Water For Injection 1 100ml.bag @ 50 mls/hr IVPB ONCE ONE Rx#: [id number] Output: Urine 380 570 295 Other: Voiding Method Indwelling Catheter Indwelling Catheter # Bowel Movements 1 1 - Labs CBC & Chem 7: 08/26/23 02:41 08/26/23 02:41 Labs: Abnormal Lab Results - Last 24 Hours (Table) 08/25/23 08/25/23 08/25/23 Range/Units 16:17 16:19 20:01 WBC (3.8-10.6) k/uL RBC (3.80-5.40) m/uL Hgb (11.4-16.0) gm/dL Hct (34.0-46.0) % Plt Count (150-450) k/uL Neutrophils # (Manual) (1.3-7.7) k/uL Lymphocytes # (Manual) (1.0-4.8) k/uL Metamyelocytes # (Man) (0) k/uL Myelocytes # (Manual) (0) k/uL Potassium 5.4 H (3.5-5.1) mmol/L Chloride 113 H (98-107) mmol/L Carbon Dioxide 12 L (22-30) mmol/L BUN 99 H (7-17) mg/dL Creatinine 3.87 H (0.52-1.04) mg/dL Glucose 203 H (74-99) mg/dL POC Glucose (mg/dL) 209 H 188 H (70-110) mg/dL Hemoglobin A1c (<=6.0) % Calcium 6.7 L (8.4-10.2) mg/dL 08/26/23 08/26/23 08/26/23 Range/Units 02:41 02:41 02:41 WBC 13.4 H (3.8-10.6) k/uL RBC 3.69 L (3.80-5.40) m/uL Hgb 11.3 L (11.4-16.0) gm/dL Hct 33.2 L (34.0-46.0) % Plt Count 82 L (150-450) k/uL Neutrophils # (Manual) 10.50 H (1.3-7.7) k/uL Lymphocytes # (Manual) 0.27 L (1.0-4.8) k/uL Metamyelocytes # (Man) 1.47 H (0) k/uL Myelocytes # (Manual) 0.54 H (0) k/uL Potassium (3.5-5.1) mmol/L Chloride 111 H (98-107) mmol/L Carbon Dioxide 14 L (22-30) mmol/L BUN 101 H* (7-17) mg/dL Creatinine 4.27 H (0.52-1.04) mg/dL Glucose 204 H (74-99) mg/dL POC Glucose (mg/dL) (70-110) mg/dL Hemoglobin A1c 6.4 H (<=6.0) % Calcium 6.7 L (8.4-10.2) mg/dL 08/26/23 08/26/23 08/26/23 Range/Units 06:32 08:42 11:19 WBC (3.8-10.6) k/uL RBC (3.80-5.40) m/uL Hgb (11.4-16.0) gm/dL Hct (34.0-46.0) % Plt Count (150-450) k/uL Neutrophils # (Manual) (1.3-7.7) k/uL Lymphocytes # (Manual) (1.0-4.8) k/uL Metamyelocytes # (Man) (0) k/uL Myelocytes # (Manual) (0) k/uL Potassium (3.5-5.1) mmol/L Chloride (98-107) mmol/L Carbon Dioxide (22-30) mmol/L BUN (7-17) mg/dL Creatinine (0.52-1.04) mg/dL Glucose (74-99) mg/dL POC Glucose (mg/dL) 230 H 201 H 200 H (70-110) mg/dL Hemoglobin A1c (<=6.0) % Calcium (8.4-10.2) mg/dL Microbiology - Last 24 Hours (Table) 08/24/23 04:25 Blood Culture Gram Stain - Final Blood Blood Culture - Final Escherichia coli 08/24/23 04:10 Blood Culture Gram Stain - Final Blood Blood Culture - Final Escherichia coli 08/24/23 06:00 Urine Culture - Preliminary Urine,Catheterized Gram Neg Bacilli
[2023-08-26 16:57] LABS: Glucose,Whole Blood 187 mg/dL (70-110)
[2023-08-26 16:58] LABS: African American GFR (CKD) 11 (>60 ml/min/1.73 sqM); Anion Gap 14 mmol/L; Calcium 7.1 mg/dL (8.4-10.2); Carbon Dioxide 20 mmol/L (22-30); Chloride 108 mmol/L (98-107); Glucose 196 mg/dL (74-99); Non-African American GFR(CKD) 9 (>60 ml/min/1.73 sqM); Potassium 3.9 mmol/L (3.5-5.1); Sodium 142 mmol/L (137-145)
[2023-08-26 17:02] LABS: Blood Urea Nitrogen 111 mg/dL (7-17)
[2023-08-26 18:51] LABS: ABG Base Excess -0.4 mmol/L; ABG HCO3 23 mmol/L (21-25); ABG Oxygen Saturation 95.1 % (94-97); ABG PCO2 30 mmHg (35-45); ABG PO2 70 mmHg (83-108); ABG TCO2 24 mmol/L (19-24); Allen Test Performed? Yes
[2023-08-26 19:59] LABS: Glucose,Whole Blood 187 mg/dL (70-110)
[2023-08-27 05:05] LABS: HCT 34.7 % (34.0-46.0); HGB 11.7 gm/dL (11.4-16.0); MCH 30.6 pg (25.0-35.0); MCHC 33.8 g/dL (31.0-37.0); MCV 90.5 fL (80.0-100.0); Mean Platelet Volume 10.2; RBC 3.83 m/uL (3.80-5.40); RDW 15.1 % (11.5-15.5); WBC 9.5 k/uL (3.8-10.6)
[2023-08-27 05:12] LABS: Platelet Count 56 k/uL (150-450)
[2023-08-27 05:36] LABS: African American GFR (CKD) 11 (>60 ml/min/1.73 sqM); Anion Gap 12 mmol/L; Calcium 7.7 mg/dL (8.4-10.2); Carbon Dioxide 24 mmol/L (22-30); Chloride 107 mmol/L (98-107); Glucose 191 mg/dL (74-99); Non-African American GFR(CKD) 10 (>60 ml/min/1.73 sqM); Potassium 3.6 mmol/L (3.5-5.1); Sodium 143 mmol/L (137-145)
[2023-08-27 05:37] LABS: Blood Urea Nitrogen 115 mg/dL (7-17)
[2023-08-27 06:19] LABS: Glucose,Whole Blood 190 mg/dL (70-110)
[2023-08-27] MEDS: SODIUM CHLORIDE 0.9% 1,000 ML IV SCH (06:52)
--- NOTE | 2023-08-27 10:28 | P.PN ---
Subjective Patient is seen in follow-up for acute kidney injury. Renal function stable. Urine output 55 to 75 cc an hour. Acidosis improved. Currently on bicarb drip. Vital signs are stable. Tachycardic. General: Resting in bed. HEENT: Head exam is unremarkable. On nasal cannula. LUNGS: No audible rhonchi or wheezes. HEART: Tachycardic. ABDOMEN: No distention. EXTREMITITES: No edema. Objective - Vital Signs Vital signs: Vital Signs Temp 98.6 F 08/27/23 08:00 Pulse 122 H 08/27/23 08:30 Resp 24 08/27/23 08:30 BP 116/76 08/27/23 08:30 Pulse Ox 94 L 08/27/23 08:30 FiO2 40 08/25/23 16:00 Intake & Output 08/26/23 08/27/23 08/27/23 18:59 06:59 18:59 Intake Total 1300 1200 250 Output Total 640 705 185 Balance 660 495 65 Weight 79.2 kg Intake: Intake, IV Titration 1300 1200 250 Amount Calcium Gluconate in NaCl 100 1 gm In Saline 1 100ml. bag @ 100 mls/hr IVPB ONCE ONE Rx#:[id number] Dextrose 5% in Water 1, 1100 1200 100 000 ml @ 100 mls/hr IV . [id number] SONI with Sodium Bicarb (1 Meq/ml) 150 ml Rx#:[id number] Potassium Chloride 20 meq 100 In Water For Injection 1 100ml.bag @ 50 mls/hr IVPB ONCE ONE Rx#: [id number] Sodium Chloride 0.9% 1, 150 000 ml @ 75 mls/hr IV . [id number] SONI Rx#:[id number] Output: Urine 640 705 185 Other: Voiding Method Indwelling Catheter Indwelling Catheter Indwelling Catheter - Labs CBC & Chem 7: 08/27/23 04:39 08/27/23 04:39 Labs: Abnormal Lab Results - Last 24 Hours (Table) 08/26/23 08/26/23 08/26/23 Range/Units 11:19 16:16 16:55 Plt Count (150-450) k/uL ABG pH (7.35-7.45) ABG pCO2 (35-45) mmHg ABG pO2 (83-108) mmHg Chloride 108 H (98-107) mmol/L Carbon Dioxide 20 L (22-30) mmol/L BUN 111 H* (7-17) mg/dL Creatinine 4.18 H (0.52-1.04) mg/dL Glucose 196 H (74-99) mg/dL POC Glucose (mg/dL) 200 H 187 H (70-110) mg/dL Calcium 7.1 L (8.4-10.2) mg/dL 08/26/23 08/26/23 08/27/23 Range/Units 18:44 19:58 04:39 Plt Count 56 L (150-450) k/uL ABG pH 7.50 H (7.35-7.45) ABG pCO2 30 L (35-45) mmHg ABG pO2 70 L (83-108) mmHg Chloride (98-107) mmol/L Carbon Dioxide (22-30) mmol/L BUN (7-17) mg/dL Creatinine (0.52-1.04) mg/dL Glucose (74-99) mg/dL POC Glucose (mg/dL) 187 H (70-110) mg/dL Calcium (8.4-10.2) mg/dL 08/27/23 08/27/23 Range/Units 04:39 06:18 Plt Count (150-450) k/uL ABG pH (7.35-7.45) ABG pCO2 (35-45) mmHg ABG pO2 (83-108) mmHg Chloride (98-107) mmol/L Carbon Dioxide (22-30) mmol/L BUN 115 H* (7-17) mg/dL Creatinine 4.12 H (0.52-1.04) mg/dL Glucose 191 H (74-99) mg/dL POC Glucose (mg/dL) 190 H (70-110) mg/dL Calcium 7.7 L (8.4-10.2) mg/dL Microbiology - Last 24 Hours (Table) 08/24/23 06:00 Urine Culture - Final Urine,Catheterized Escherichia coli 08/24/23 04:25 Blood Culture Gram Stain - Final Blood Blood Culture - Final Escherichia coli 08/24/23 04:10 Blood Culture Gram Stain - Final Blood Blood Culture - Final Escherichia coli Assessment and Plan Plan: Assessment: 1. Acute kidney injury secondary to ATN secondary to septic shock and component of obstructive uropathy. Creatinine 0.9 in October 2022. Creatinine stable at 4.12 today. BUN 115. Urine output 55-75 cc an hour. Patient did receive dose of Decadron as well as IV Lasix August 25, 2023. 2. Septic shock secondary to E. coli UTI and bacteremia on antibiotics. Currently off Levophed. 3. Hydronephrosis status post left ureteral stent placement August 25, 2023. 4. Metabolic acidosis secondary to acute kidney injury. Status post bicarb drip. Improved. 5. Hypocalcemia secondary to acute kidney injury. Replaced. Improved. 6. Chronic diastolic CHF and moderate pulmonary hypertension. Plan: Bicarb drip discontinued. Now on normal saline. Continue to monitor renal function and urine output. Check phosphorus level. Continue to assess daily for need for renal replacement therapy. No urgency at this time. Electrolytes normal, no evidence of fluid overload and nonoliguric.
[2023-08-27 11:10] LABS: Glucose,Whole Blood 140 mg/dL (70-110)
--- NOTE | 2023-08-27 11:49 | P.PN ---
Subjective Progress Note Date: 08/27/23 This is an 82-year-old female with history of multiple medical problems including diabetes, hyperlipidemia, hypertension, chronic back pain related to severe degenerative disc disease, has been evaluated for her back pain in many institutions and multiple pain clinics, she was recently seen at the pain clinic at [facility], and there was no improvement. Patient lives at home with her , and the patient has been noted. Generalized weakness since last Saturday. She is even having difficulty getting up to go to the bathroom. Family has been asking her to come to the hospital since last Saturday, until today, her condition seem to have deteriorated. Patient was brought into the ER, and she was noted to be quite hypotensive requiring fluid boluses and requiring norepinephrine. A central line was placed by the ER physician, and the patient was started on norepinephrine patient was also noted to have acute kidney injury with creatinine of 4.07 and BUN of 68. She was also noted to have leukocytosis with WBC count of 22.7, she had elevated lactic acid. Patient was noted to be quite acidotic on venous blood gas with pH of 7.11, bicarb was noted to be quite low with anion gap of 19 and bicarb of 9 her urine was clearly showing bacteriuria and pyuria consistent with UTI. Considering her hypotension and considering her urinary tract infection, and considering the patient required norepinephrine after fluid boluses, patient is considered to have septic shock, and this consult was initiated. I saw the patient in the ER, she is not a great historian, however most of the information was obtained from the at bedside.I recommended admission to the ICU, recommended antibiotics in the form of Rocephin, cultures were ordered including blood and urine cultures, patient will be placed on bicarb drip, nephrology consultation was initiated, and discussed her condition with at bedside. He was reevaluated today on 08/25/2023, remains in the ICU, patient was admitted yesterday with septic shock and urosepsis. Patient is on 6 L nasal cannula, still requiring norepinephrine at 0.01 mcg/kg/min IV fluid is 0.9 normal saline at 75 cc/h patient remains on bicarb drip, last night she had episode of shortness of breath, and she responded well after she was given a dose of Lasix 40 mg IV push x 1. Remains on ceftriaxone for her urosepsis. Patient had urine output of 350 after she was given Lasix yesterday. Her bicarb remains low today, and the patient remains on bicarb drip, BUN is [address] of the abdomen yesterday showed moderate left hydronephrosis. Her initial presentation was a presentation of acute kidney injury with acute tubular necrosis secondary to hypotension patient did receive significant amount of fluids in the ER and she was eventually placed on norepinephrine remains on norepinephrine this morning. Patient is a bit confused, is at bedside, nonetheless I believe there has been evidence of improvement clinically over the last 24 hours.WBC count today is 9.1 hemoglobin 12.4 basic metabolic profile is relatively normal except for bicarb of 9, anion gap remains 19 BUN is 83 creatinine 3.98, blood cultures are positive for gram-negative bacilli, patient remains on Rocephin. Final identification and sensitivity is pending but this is felt to be the most likely source coming from the urine considering her left hydronephrosis I would recommend evaluation by urology The patient is seen today August 26, 2023 in follow-up in the intensive care unit. She is resting fairly comfortably in bed she is arousable but drifts off easily. She has some Kussmaul's respirations. She is maintaining O2 saturations in the 90s on 2 L/min per nasal cannula. She did undergo stenting to the left ureter yesterday August 25, 2023 per urology. Blood and urine cultures are showing gram-negative bacilli. She is currently on ceftriaxone. She is on D5W with 3 A of bicarb at 100 MLS per hour. Her creatinine is up to 4.27 today. White count 13.4. Hemoglobin 11.3. Platelets 82,000. Sodium 142. Potassium 3.7. Bicarb 14. BUN 101. Glucose 204. Sh is off the norepinephrine. Mean arterial blood pressures 80s and 90s. Afebrile. Heparin for DVT prophylaxis. The patient is seen today August 27, 2023 in follow-up in the intensive care unit. She is currently resting in bed. A bit more awake and alert today. Less tachypneic. Maintaining O2 saturation in the 90s on 3 L/min per nasal cannula. Receiving normal saline at 75 MLS per hour. Continued on ceftriaxone. Blood and urine cultures positive for E. coli. White count 9.5. Hemoglobin 11.7. Platelets 56,000. Sodium 143. Potassium 3.6. Bicarb 24. BUN 115. Creatinine 4.12. Glucose 191. Remains on heparin for DVT prophylaxis. Objective - Vital Signs Vital signs: Vital Signs Temp 98.6 F 08/27/23 08:00 Pulse 130 H 08/27/23 11:00 Resp 21 08/27/23 11:00 BP 139/87 08/27/23 11:00 Pulse Ox 94 L 08/27/23 11:00 FiO2 40 08/25/23 16:00 Intake & Output 08/26/23 08/27/23 08/27/23 18:59 06:59 18:59 Intake Total 1300 1200 325 Output Total 640 705 275 Balance 660 495 50 Weight 79.2 kg Intake: Intake, IV Titration 1300 1200 325 Amount Calcium Gluconate in NaCl 100 1 gm In Saline 1 100ml. bag @ 100 mls/hr IVPB ONCE ONE Rx#:[id number] Dextrose 5% in Water 1, 1100 1200 100 000 ml @ 100 mls/hr IV . [id number] SONI with Sodium Bicarb (1 Meq/ml) 150 ml Rx#:[id number] Potassium Chloride 20 meq 100 In Water For Injection 1 100ml.bag @ 50 mls/hr IVPB ONCE ONE Rx#: [id number] Sodium Chloride 0.9% 1, 225 000 ml @ 75 mls/hr IV . [id number] SONI Rx#:[id number] Output: Urine 640 705 275 Other: Voiding Method Indwelling Catheter Indwelling Catheter Indwelling Catheter - Exam GENERAL EXAM: Alert, confused, 82-year-old female, on 3 L nasal cannula, comfortable in no apparent distress. HEAD: Normocephalic. EYES: Normal reaction of pupils, equal size. NOSE: Clear with pink turbinates. THROAT: No erythema or exudates. NECK: No masses, no JVD. CHEST: No chest wall deformity. LUNGS: Equal air entry with no crackles, wheeze, rhonchi or dullness. Diminished. CVS: S1 and S2 normal with an audible murmur, regular rhythm. ABDOMEN: No hepatosplenomegaly, normal bowel sounds, no guarding or rigidity. SPINE: No scoliosis or deformity SKIN: No rashes CENTRAL NERVOUS SYSTEM: No focal deficits, tone is normal in all 4 extremities. EXTREMITIES: There is no peripheral edema. No clubbing, no cyanosis. Peripheral pulses are intact. - Labs CBC & Chem 7: 08/27/23 04:39 08/27/23 04:39 Labs: Abnormal Lab Results - Last 24 Hours (Table) 08/26/23 08/26/23 08/26/23 Range/Units 16:16 16:55 18:44 Plt Count (150-450) k/uL ABG pH 7.50 H (7.35-7.45) ABG pCO2 30 L (35-45) mmHg ABG pO2 70 L (83-108) mmHg Chloride 108 H (98-107) mmol/L Carbon Dioxide 20 L (22-30) mmol/L BUN 111 H* (7-17) mg/dL Creatinine 4.18 H (0.52-1.04) mg/dL Glucose 196 H (74-99) mg/dL POC Glucose (mg/dL) 187 H (70-110) mg/dL Calcium 7.1 L (8.4-10.2) mg/dL 08/26/23 08/27/23 08/27/23 Range/Units 19:58 04:39 04:39 Plt Count 56 L (150-450) k/uL ABG pH (7.35-7.45) ABG pCO2 (35-45) mmHg ABG pO2 (83-108) mmHg Chloride (98-107) mmol/L Carbon Dioxide (22-30) mmol/L BUN 115 H* (7-17) mg/dL Creatinine 4.12 H (0.52-1.04) mg/dL Glucose 191 H (74-99) mg/dL POC Glucose (mg/dL) 187 H (70-110) mg/dL Calcium 7.7 L (8.4-10.2) mg/dL 08/27/23 08/27/23 Range/Units 06:18 11:08 Plt Count (150-450) k/uL ABG pH (7.35-7.45) ABG pCO2 (35-45) mmHg ABG pO2 (83-108) mmHg Chloride (98-107) mmol/L Carbon Dioxide (22-30) mmol/L BUN (7-17) mg/dL Creatinine (0.52-1.04) mg/dL Glucose (74-99) mg/dL POC Glucose (mg/dL) 190 H 140 H (70-110) mg/dL Calcium (8.4-10.2) mg/dL Microbiology - Last 24 Hours (Table) 08/24/23 06:00 Urine Culture - Final Urine,Catheterized Escherichia coli 08/24/23 04:25 Blood Culture Gram Stain - Final Blood Blood Culture - Final Escherichia coli 08/24/23 04:10 Blood Culture Gram Stain - Final Blood Blood Culture - Final Escherichia coli Assessment and Plan Assessment: Septic shock secondary to urinary tract infection secondary to E. coli E coli bacteremia, most likely source is the urine Acute kidney injury/acute renal failure secondary to hypotension and acute tubular necrosis Acute none anion gap metabolic acidosis Acute diastolic congestive heart failure/fluid overload with acute kidney injury Acute urinary tract infection secondary to gram-negative bacilli Acute hydronephrosis, with urosepsis, is post stenting of the left ureter 08/25/2023 Acute metabolic toxic encephalopathy with mental status changes/confusion History of chronic back pain/degenerative disc disease of lumbar spine with spinal stenosis of L3-L4 and L4-L5 History of benign essential hypertension History of type 2 diabetes, hold DENIS inhibitor's and metformin for now/home medications Plan: The patient was seen and evaluated Labs and medications reviewed Continue on ceftriaxone Titrate the FiO2 as tolerated Pognosis is guarded Nephrology and urology following We will continue to follow I have personally seen and examined the patient, performed the documentation and the assessment and plan as written. Number of minutes spent on the visit: 10.
[2023-08-27] MEDS: bisacodyL 10 MG SUPP RECTAL SCH (12:01)
[2023-08-27] MEDS: POTASSIUM CHLORIDE 20 MEQ in WATER FOR INJECTION 1 100ML.BAG IVPB STA (12:02)
--- NOTE | 2023-08-27 12:27 | P.PN ---
Subjective Progress Note Date: 08/27/23 CHIEF COMPLAINT: Abdominal pain HISTORY OF PRESENT ILLNESS: Patient remains in the ICU. She is status post a left ureteral stent placed by urology. Patient continues to be lethargic. Her last bowel movement was yesterday. No nausea or vomiting reported. Afebrile. Remains tachycardic. WBC is down from 13.4-9.5 Hgb 11.7 platelets 56 PHYSICAL EXAM: VITAL SIGNS: Reviewed. GENERAL: no acute distress. ABDOMEN: Soft. Nondistended. Nontender. NEUROLOGIC: Lethargic ASSESSMENT: 1. Abdominal pain likely related to left hydronephrosis due to obstructing ureteral stone with UTI and sepsis 2. Fecal impaction improved PLAN: -Continue supportive care -Continue antibiotics for UTI and bacteremia -Dulcolax suppositories daily added Physician Tube Room Cashier note has been reviewed by physician. Signing provider agrees with the documented findings, assessment, and plan of care. I have personally seen and examined the patient, reviewed the LINE TENDER FLAKEBOARD /PAs history, exam and MDM and agree with the assessment and plan as written. Based on total visit time, I have performed more than 50% of the visit. As above: Patient remains lethargic. Nontender on exam. Continue antibiotics. Dulcolax suppository. Objective - Vital Signs Vital signs: Vital Signs Temp 98.6 F 08/27/23 08:00 Pulse 120 H 08/27/23 10:00 Resp 24 08/27/23 10:00 BP 124/81 08/27/23 10:00 Pulse Ox 94 L 08/27/23 10:00 FiO2 40 08/25/23 16:00 Intake & Output 08/26/23 08/27/23 08/27/23 18:59 06:59 18:59 Intake Total 1300 1200 325 Output Total 640 705 275 Balance 660 495 50 Weight 79.2 kg Intake: Intake, IV Titration 1300 1200 325 Amount Calcium Gluconate in NaCl 100 1 gm In Saline 1 100ml. bag @ 100 mls/hr IVPB ONCE ONE Rx#:[id number] Dextrose 5% in Water 1, 1100 1200 100 000 ml @ 100 mls/hr IV . [id number] SONI with Sodium Bicarb (1 Meq/ml) 150 ml Rx#:[id number] Potassium Chloride 20 meq 100 In Water For Injection 1 100ml.bag @ 50 mls/hr IVPB ONCE ONE Rx#: [id number] Sodium Chloride 0.9% 1, 225 000 ml @ 75 mls/hr IV . [id number] [facility] Rx#:[id number] Output: Urine 640 705 275 Other: Voiding Method Indwelling Catheter Indwelling Catheter Indwelling Catheter - Labs CBC & Chem 7: 08/27/23 04:39 08/27/23 04:39 Labs: Abnormal Lab Results - Last 24 Hours (Table) 08/26/23 08/26/23 08/26/23 Range/Units 16:16 16:55 18:44 Plt Count (150-450) k/uL ABG pH 7.50 H (7.35-7.45) ABG pCO2 30 L (35-45) mmHg ABG pO2 70 L (83-108) mmHg Chloride 108 H (98-107) mmol/L Carbon Dioxide 20 L (22-30) mmol/L BUN 111 H* (7-17) mg/dL Creatinine 4.18 H (0.52-1.04) mg/dL Glucose 196 H (74-99) mg/dL POC Glucose (mg/dL) 187 H (70-110) mg/dL Calcium 7.1 L (8.4-10.2) mg/dL 08/26/23 08/27/23 08/27/23 Range/Units 19:58 04:39 04:39 Plt Count 56 L (150-450) k/uL ABG pH (7.35-7.45) ABG pCO2 (35-45) mmHg ABG pO2 (83-108) mmHg Chloride (98-107) mmol/L Carbon Dioxide (22-30) mmol/L BUN 115 H* (7-17) mg/dL Creatinine 4.12 H (0.52-1.04) mg/dL Glucose 191 H (74-99) mg/dL POC Glucose (mg/dL) 187 H (70-110) mg/dL Calcium 7.7 L (8.4-10.2) mg/dL 08/27/23 08/27/23 Range/Units 06:18 11:08 Plt Count (150-450) k/uL ABG pH (7.35-7.45) ABG pCO2 (35-45) mmHg ABG pO2 (83-108) mmHg Chloride (98-107) mmol/L Carbon Dioxide (22-30) mmol/L BUN (7-17) mg/dL Creatinine (0.52-1.04) mg/dL Glucose (74-99) mg/dL POC Glucose (mg/dL) 190 H 140 H (70-110) mg/dL Calcium (8.4-10.2) mg/dL Microbiology - Last 24 Hours (Table) 08/24/23 06:00 Urine Culture - Final Urine,Catheterized Escherichia coli 08/24/23 04:25 Blood Culture Gram Stain - Final Blood Blood Culture - Final Escherichia coli 08/24/23 04:10 Blood Culture Gram Stain - Final Blood Blood Culture - Final Escherichia coli
--- NOTE | 2023-08-27 12:44 | P.PN ---
Subjective This is a pleasant 10 years old female with multiple medical problems as below. Patient is currently poor historian and information were obtained with the help of the family at bedside. As per family patient has been feeling generally weak since last Saturday especially she has difficulty getting up under going to the restroom, family were following up with her every day but she refused to come to the hospital Saturday through despite no improvement, with worsening medical condition she agrees to come to the hospital urinary morning today Patient is tachypneic with a breathing rate of 26 and she has difficulty talking. Patient denies chest pain or urinary complaints. She has some vomiting but no diarrhea. Patient and notable bowel movement Her urine looks cloudy but patient denies dysuria. Sheth catheter in place showing urine collection about 60-70 mL of yellow urine Patient denies dizziness headache, no unilateral weakness or tingling No smoking or alcohol However on exam patient complained from tenderness and mild guarding on the right side of the abdomen On admission patient was hypotensive 80/46 and she was started on pressors with Levophed Creatinine elevated 4.0, sodium bicarb is low 9 Patient is also on admission a 10 L via nonrebreather. Patient is tachycardic with heart rate around 92. Troponin is negative less than 0.012. WBCs elevated 22.7, INR is 1.7 Creatinine elevated 4.0 Liver enzymes unremarkable Urine analysis is suspicious for infection and urine culture is pending Urine drug screen is negative Chest x-ray showing pulmonary congestion and cardiomegaly CT of the brain is negative EKG showing sinus rhythm at [address]-T changes Echocardiogram from 10/2022 showing ejection fraction of 55% 08/25/2023 Patient seen and examined in the ICU, she is awake and alert, she looks lethar gic and tired She has shortness of breath with difficulty talking, she denies chest pain She still has abdominal pain and tenderness with mild distention. CT abdomen yesterday showing fecal impaction. Surgery team following closely. Patient states she had normal bowel movement yesterday Also patient is with UTI and blood culture growing gram-negative bacilli today, she remains on ceftriaxone 2 g pending final results. She has evidence of moderate hydronephrosis on CAT scan and renal ultrasound Extremities on sodium bicarb a 75 mL/h and the pressors with Levophed 0.04 echocardiogram reviewed showing moderate mitral regurgitation with ejection fraction 55-60% 08/26/2023 Patient remains in the ICU weak and lethargic She is still confused She is status post stent placement in her left ureter yesterday Urology follow-up has no further recommendation today. Currently she has no pressors and she still on bicarb drip Her oxygen requirements down to 2 L/m WBC slightly elevated 13.4 Creatinine 4.2. She remains on antibiotic ceftriaxone. Blood culture is growing sensitive E. coli Urine cultures, gram-negative bacilli 08/27/2023 Patient still looks pretty tired and weak and drowsy, hemodynamically she is more stable. She is currently ventilator oxygen via nasal cannula. However she still significantly tachycardic at 130 and 2 24, shows low-grade temperature of 99.70 She still being treated for acute urinary tract infection and bacteremia secondary to sensitive E. coli. Ceftriaxone is effective against E coli. She presents with worsening creatinine which is stable since admission at 4.2, acidemia is improved and currently she is on normal saline 75 mL/h. No need for pressors. Lisinopril and metformin on hold. Objective - Vital Signs Vital signs: Vital Signs Temp 98.6 F 08/27/23 08:00 Pulse 130 H 08/27/23 11:00 Resp 21 08/27/23 11:00 BP 139/87 08/27/23 11:00 Pulse Ox 94 L 08/27/23 11:00 FiO2 40 08/25/23 16:00 Intake & Output 08/26/23 08/27/23 08/27/23 18:59 06:59 18:59 Intake Total 1300 1200 325 Output Total 640 705 275 Balance 660 495 50 Weight 79.2 kg Intake: Intake, IV Titration 1300 1200 325 Amount Calcium Gluconate in NaCl 100 1 gm In Saline 1 100ml. bag @ 100 mls/hr IVPB ONCE ONE Rx#:[id number] Dextrose 5% in Water 1, 1100 1200 100 000 ml @ 100 mls/hr IV . [id number] SONI with Sodium Bicarb (1 Meq/ml) 150 ml Rx#:[id number] Potassium Chloride 20 meq 100 In Water For Injection 1 100ml.bag @ 50 mls/hr IVPB ONCE ONE Rx#: [id number] Sodium Chloride 0.9% 1, 225 000 ml @ 75 mls/hr IV . [id number] SONI Rx#:[id number] Output: Urine 640 705 275 Other: Voiding Method Indwelling Catheter Indwelling Catheter Indwelling Catheter - Exam -GENERAL: The patient is weak and lethargic, sleepy. HEENT: Pupils are round and equally reacting to light. EOMI. No scleral icterus. No conjunctival pallor. Normocephalic, atraumatic. No pharyngeal erythema. No thyromegaly. CARDIOVASCULAR: S1 and S2 present. No murmurs, rubs, or gallops. PULMONARY: Chest is clear to auscultation, no wheezing , no crackles. ABDOMEN: Soft, nontender, nondistended, normoactive bowel sounds. No palpable organomegaly. MUSCULOSKELETAL: No joint swelling or deformity. EXTREMITIES: No cyanosis, clubbing, or pedal edema. NEUROLOGICAL: Gross neurological examination did not reveal any focal deficits. SKIN: No rashes. no petechiae. - Labs CBC & Chem 7: 08/27/23 04:39 08/27/23 04:39 Labs: Abnormal Lab Results - Last 24 Hours (Table) 08/26/23 08/26/23 08/26/23 Range/Units 16:16 16:55 18:44 Plt Count (150-450) k/uL ABG pH 7.50 H (7.35-7.45) ABG pCO2 30 L (35-45) mmHg ABG pO2 70 L (83-108) mmHg Chloride 108 H (98-107) mmol/L Carbon Dioxide 20 L (22-30) mmol/L BUN 111 H* (7-17) mg/dL Creatinine 4.18 H (0.52-1.04) mg/dL Glucose 196 H (74-99) mg/dL POC Glucose (mg/dL) 187 H (70-110) mg/dL Calcium 7.1 L (8.4-10.2) mg/dL 08/26/23 08/27/23 08/27/23 Range/Units 19:58 04:39 04:39 Plt Count 56 L (150-450) k/uL ABG pH (7.35-7.45) ABG pCO2 (35-45) mmHg ABG pO2 (83-108) mmHg Chloride (98-107) mmol/L Carbon Dioxide (22-30) mmol/L BUN 115 H* (7-17) mg/dL Creatinine 4.12 H (0.52-1.04) mg/dL Glucose 191 H (74-99) mg/dL POC Glucose (mg/dL) 187 H (70-110) mg/dL Calcium 7.7 L (8.4-10.2) mg/dL 08/27/23 08/27/23 Range/Units 06:18 11:08 Plt Count (150-450) k/uL ABG pH (7.35-7.45) ABG pCO2 (35-45) mmHg ABG pO2 (83-108) mmHg Chloride (98-107) mmol/L Carbon Dioxide (22-30) mmol/L BUN (7-17) mg/dL Creatinine (0.52-1.04) mg/dL Glucose (74-99) mg/dL POC Glucose (mg/dL) 190 H 140 H (70-110) mg/dL Calcium (8.4-10.2) mg/dL Microbiology - Last 24 Hours (Table) 08/24/23 06:00 Urine Culture - Final Urine,Catheterized Escherichia coli 08/24/23 04:25 Blood Culture Gram Stain - Final Blood Blood Culture - Final Escherichia coli 08/24/23 04:10 Blood Culture Gram Stain - Final Blood Blood Culture - Final Escherichia coli Assessment and Plan Assessment: Septic shock, currently improved and she is off pressors. She currently has severe sepsis Acute renal tract infection, bacteremia/septicemia secondary to sensitive E. 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 Continue same treatment. Continue with symptomatic treatment. Resume home medication. Monitor labs and vitals. DVT and GI prophylaxis. Further recommendations as per clinical course of the patient DVT prophylaxis: Subcutaneous heparin GI Prophylaxis: Pepcid PT/OT: Deferred Prognosis is guarded
[2023-08-27 16:30] LABS: Glucose,Whole Blood 144 mg/dL (70-110)
[2023-08-27 20:34] LABS: Glucose,Whole Blood 139 mg/dL (70-110)
[2023-08-27] MEDS: ACETAMINOPHEN SUPPOSITORY 650 MG SUPP RECTAL PRN (21:29)
[2023-08-28 05:26] LABS: HCT 35.6 % (34.0-46.0); HGB 11.9 gm/dL (11.4-16.0); MCHC 33.4 g/dL (31.0-37.0); MCV 92.7 fL (80.0-100.0); Mean Platelet Volume 12.9; RBC 3.83 m/uL (3.80-5.40); RDW 15.1 % (11.5-15.5); WBC 12.7 k/uL (3.8-10.6)
[2023-08-28 05:47] LABS: African American GFR (CKD) 12 (>60 ml/min/1.73 sqM); Anion Gap 8 mmol/L; Calcium 8.1 mg/dL (8.4-10.2); Carbon Dioxide 23 mmol/L (22-30); Chloride 115 mmol/L (98-107); Glucose 150 mg/dL (74-99); Non-African American GFR(CKD) 11 (>60 ml/min/1.73 sqM); Potassium 3.9 mmol/L (3.5-5.1); Sodium 146 mmol/L (137-145)
[2023-08-28 05:55] LABS: Blood Urea Nitrogen 123 mg/dL (7-17)
[2023-08-28 06:00] LABS: Platelet Count 48 k/uL (150-450)
[2023-08-28 06:38] LABS: Glucose,Whole Blood 155 mg/dL (70-110)
[2023-08-28 07:02] LABS: Band Neutrophils % 6 %; Eosinophils # (M) 0.25 k/uL (0-0.7); Lymphocytes # (M) 1.02 k/uL (1.0-4.8); Monocytes # (M) 1.02 k/uL (0-1.0); Neutrophils % (M) 76 %; Nucleated Red Blood Cells 0 /100 WBC (0-0); Total Cells Counted 100
[2023-08-28 07:03] LABS: Anisocytosis (M) Present
[2023-08-28 07:04] LABS: Poikilocytosis (M) Present
[2023-08-28 07:07] LABS: RBC Fragments Present
[2023-08-28] MEDS: DEXTROSE 5% IN WATER 1,000 ML IV SCH (09:05)
--- NOTE | 2023-08-28 10:46 | P.PN ---
Subjective Patient is seen in follow-up for acute kidney injury. Creatinine trending down. BUN trending up. Nonoliguric. Lethargic. Vital signs are stable. Tachycardic. General: Resting in bed. HEENT: Head exam is unremarkable. On nasal cannula. LUNGS: No audible rhonchi or wheezes. HEART: Tachycardic. ABDOMEN: No distention. EXTREMITITES: No edema. Objective - Vital Signs Vital signs: Vital Signs Temp 99.5 F 08/28/23 08:00 Pulse 108 H 08/28/23 10:00 Resp 20 08/28/23 10:00 BP 136/73 08/28/23 10:00 Pulse Ox 94 L 08/28/23 10:00 FiO2 40 08/25/23 16:00 Intake & Output 08/27/23 08/28/23 08/28/23 18:59 06:59 18:59 Intake Total 1100 825 450 Output Total 765 890 275 Balance 335 -65 175 Weight 76.8 kg Intake: Intake, IV Titration 1100 825 450 Amount Dextrose 5% in Water 1, 100 000 ml @ 100 mls/hr IV . [id number] SONI with Sodium Bicarb (1 Meq/ml) 150 ml Rx#:[id number] Dextrose 5% in Water 1, 375 000 ml @ 125 mls/hr IV . Q8H SONI Rx#:[id number] Potassium Chloride 20 meq 100 In Water For Injection 1 100ml.bag @ 50 mls/hr IVPB ONCE STA Rx#: [id number] Sodium Chloride 0.9% 1, 900 825 75 000 ml @ 75 mls/hr IV . [id number] SONI Rx#:[id number] Tube Feeding 0 Other 0 Output: Urine 765 890 275 Other: Voiding Method Indwelling Catheter Indwelling Catheter Indwelling Catheter # Bowel Movements 1 - Labs CBC & Chem 7: 08/28/23 04:36 08/28/23 04:36 Labs: Abnormal Lab Results - Last 24 Hours (Table) 08/27/23 08/27/23 08/27/23 Range/Units 11:08 16:29 20:33 WBC (3.8-10.6) k/uL Plt Count (150-450) k/uL Neutrophils # (Manual) (1.3-7.7) k/uL Monocytes # (Manual) (0-1.0) k/uL Sodium (137-145) mmol/L Chloride (98-107) mmol/L BUN (7-17) mg/dL Creatinine (0.52-1.04) mg/dL Glucose (74-99) mg/dL POC Glucose (mg/dL) 140 H 144 H 139 H (70-110) mg/dL Calcium (8.4-10.2) mg/dL 08/28/23 08/28/23 08/28/23 Range/Units 04:36 04:36 06:37 WBC 12.7 H (3.8-10.6) k/uL Plt Count 48 L (150-450) k/uL Neutrophils # (Manual) 10.40 H (1.3-7.7) k/uL Monocytes # (Manual) 1.02 H (0-1.0) k/uL Sodium 146 H (137-145) mmol/L Chloride 115 H (98-107) mmol/L BUN 123 H* (7-17) mg/dL Creatinine 3.80 H (0.52-1.04) mg/dL Glucose 150 H (74-99) mg/dL POC Glucose (mg/dL) 155 H (70-110) mg/dL Calcium 8.1 L (8.4-10.2) mg/dL Assessment and Plan Plan: Assessment: 1. Acute kidney injury secondary to ATN secondary to septic shock and component of obstructive uropathy. Creatinine 0.9 in October 2022. Creatinine improved to 3.8 today. BUN 123. Nonoliguric. Patient did receive dose of Decadron as well as IV Lasix August 25, 2023. 2. Septic shock secondary to E. coli UTI and bacteremia on antibiotics. Currently off Levophed. 3. Hydronephrosis status post left ureteral stent placement August 25, 2023. 4. Metabolic acidosis secondary to acute kidney injury. Status post bicarb drip. Improved. 5. Hypocalcemia secondary to acute kidney injury. Replaced. Improved. 6. Chronic diastolic CHF and moderate pulmonary hypertension. 7. Hypernatremia from lack of oral water intake. Plan: Change IV fluids to half-normal saline to be run at 100 cc an hour. Continue to monitor renal function and urine output. Phosphorus level 3.0 dated August 27, 2023. Due to rising BUN and concern for uremia, initiate renal replacement therapy. Plan for first treatment of hemodialysis today and second treatment tomorrow. Follow-up brain CT. Case discussed with manager net.
--- NOTE | 2023-08-28 11:00 | P.PN ---
Subjective Progress Note Date: 08/28/23 This is an 82-year-old female with history of multiple medical problems including diabetes, hyperlipidemia, hypertension, chronic back pain related to severe degenerative disc disease, has been evaluated for her back pain in many institutions and multiple pain clinics, she was recently seen at the pain clinic at [facility], and there was no improvement. Patient lives at home with her , and the patient has been noted. Generalized weakness since last Saturday. She is even having difficulty getting up to go to the bathroom. Family has been asking her to come to the hospital since last Saturday, until today, her condition seem to have deteriorated. Patient was brought into the ER, and she was noted to be quite hypotensive requiring fluid boluses and requiring norepinephrine. A central line was placed by the ER physician, and the patient was started on norepinephrine patient was also noted to have acute kidney injury with creatinine of 4.07 and BUN of 68. She was also noted to have leukocytosis with WBC count of 22.7, she had elevated lactic acid. Patient was noted to be quite acidotic on venous blood gas with pH of 7.11, bicarb was noted to be quite low with anion gap of 19 and bicarb of 9 her urine was clearly showing bacteriuria and pyuria consistent with UTI. Considering her hypotension and considering her urinary tract infection, and considering the patient required norepinephrine after fluid boluses, patient is considered to have septic shock, and this consult was initiated. I saw the patient in the ER, she is not a great historian, however most of the information was obtained from the at bedside.I recommended admission to the ICU, recommended antibiotics in the form of Rocephin, cultures were ordered including blood and urine cultures, patient will be placed on bicarb drip, nephrology consultation was initiated, and discussed her condition with at bedside. He was reevaluated today on 08/25/2023, remains in the ICU, patient was admitted yesterday with septic shock and urosepsis. Patient is on 6 L nasal cannula, still requiring norepinephrine at 0.01 mcg/kg/min IV fluid is 0.9 normal saline at 75 cc/h patient remains on bicarb drip, last night she had episode of shortness of breath, and she responded well after she was given a dose of Lasix 40 mg IV push x 1. Remains on ceftriaxone for her urosepsis. Patient had urine output of 350 after she was given Lasix yesterday. Her bicarb remains low today, and the patient remains on bicarb drip, BUN is [address] of the abdomen yesterday showed moderate left hydronephrosis. Her initial presentation was a presentation of acute kidney injury with acute tubular necrosis secondary to hypotension patient did receive significant amount of fluids in the ER and she was eventually placed on norepinephrine remains on norepinephrine this morning. Patient is a bit confused, is at bedside, nonetheless I believe there has been evidence of improvement clinically over the last 24 hours.WBC count today is 9.1 hemoglobin 12.4 basic metabolic profile is relatively normal except for bicarb of 9, anion gap remains 19 BUN is 83 creatinine 3.98, blood cultures are positive for gram-negative bacilli, patient remains on Rocephin. Final identification and sensitivity is pending but this is felt to be the most likely source coming from the urine considering her left hydronephrosis I would recommend evaluation by urology The patient is seen today August 26, 2023 in follow-up in the intensive care unit. She is resting fairly comfortably in bed she is arousable but drifts off easily. She has some Kussmaul's respirations. She is maintaining O2 saturations in the 90s on 2 L/min per nasal cannula. She did undergo stenting to the left ureter yesterday August 25, 2023 per urology. Blood and urine cultures are showing gram-negative bacilli. She is currently on ceftriaxone. She is on D5W with 3 A of bicarb at 100 MLS per hour. Her creatinine is up to 4.27 today. White count 13.4. Hemoglobin 11.3. Platelets 82,000. Sodium 142. Potassium 3.7. Bicarb 14. BUN 101. Glucose 204. Sh is off the norepinephrine. Mean arterial blood pressures 80s and 90s. Afebrile. Heparin for DVT prophylaxis. The patient is seen today August 27, 2023 in follow-up in the intensive care unit. She is currently resting in bed. A bit more awake and alert today. Less tachypneic. Maintaining O2 saturation in the 90s on 3 L/min per nasal cannula. Receiving normal saline at 75 MLS per hour. Continued on ceftriaxone. Blood and urine cultures positive for E. coli. White count 9.5. Hemoglobin 11.7. Platelets 56,000. Sodium 143. Potassium 3.6. Bicarb 24. BUN 115. Creatinine 4.12. Glucose 191. Remains on heparin for DVT prophylaxis. The patient is seen today August 28, 2023 in follow-up in the intensive care unit. She remains lethargic but arousable. She is maintaining O2 saturations in the 90s on 3 L/min per nasal cannula. She has normal saline at 75 MLS per hour. Blood and urine cultures were positive for E. coli. She remains on ceftriaxone. She is showing prerenal azotemia with elevated BUN, her creatinine is improving. White count 12.7. Hemoglobin 11.9. Platelets 48,000. Sodium 146. Potassium 3.9. Bicarb 23. BUN 123. Creatinine 3.80. Glucose 150. Objective - Vital Signs Vital signs: Vital Signs Temp 99.5 F 08/28/23 08:00 Pulse 108 H 08/28/23 10:00 Resp 20 08/28/23 10:00 BP 136/73 08/28/23 10:00 Pulse Ox 94 L 08/28/23 10:00 FiO2 40 08/25/23 16:00 Intake & Output 08/27/23 08/28/23 08/28/23 18:59 06:59 18:59 Intake Total 1100 825 450 Output Total 765 890 275 Balance 335 -65 175 Weight 76.8 kg Intake: Intake, IV Titration 1100 825 450 Amount Dextrose 5% in Water 1, 100 000 ml @ 100 mls/hr IV . [id number] SONI with Sodium Bicarb (1 Meq/ml) 150 ml Rx#:[id number] Dextrose 5% in Water 1, 375 000 ml @ 125 mls/hr IV . Q8H SONI Rx#:[id number] Potassium Chloride 20 meq 100 In Water For Injection 1 100ml.bag @ 50 mls/hr IVPB ONCE STA Rx#: [id number] Sodium Chloride 0.9% 1, 900 825 75 000 ml @ 75 mls/hr IV . [id number] SONI Rx#:[id number] Tube Feeding 0 Other 0 Output: Urine 765 890 275 Other: Voiding Method Indwelling Catheter Indwelling Catheter Indwelling Catheter # Bowel Movements 1 - Exam GENERAL EXAM: Lethargic but arousable, confused, 82-year-old female, on 3 L nasal cannula, in no apparent distress. HEAD: Normocephalic. EYES: Normal reaction of pupils, equal size. NOSE: Clear with pink turbinates. THROAT: No erythema or exudates. NECK: No masses, no JVD. CHEST: No chest wall deformity. LUNGS: Equal air entry with no crackles, wheeze, rhonchi or dullness. Diminished. CVS: S1 and S2 normal with an audible murmur, regular rhythm. ABDOMEN: No hepatosplenomegaly, normal bowel sounds, no guarding or rigidity. SPINE: No scoliosis or deformity SKIN: No rashes CENTRAL NERVOUS SYSTEM: No focal deficits, tone is normal in all 4 extremities. EXTREMITIES: There is no peripheral edema. No clubbing, no cyanosis. Peripheral pulses are intact. - Labs CBC & Chem 7: 08/28/23 04:36 08/28/23 04:36 Labs: Abnormal Lab Results - Last 24 Hours (Table) 08/27/23 08/27/23 08/27/23 Range/Units 11:08 16:29 20:33 WBC (3.8-10.6) k/uL Plt Count (150-450) k/uL Neutrophils # (Manual) (1.3-7.7) k/uL Monocytes # (Manual) (0-1.0) k/uL Sodium (137-145) mmol/L Chloride (98-107) mmol/L BUN (7-17) mg/dL Creatinine (0.52-1.04) mg/dL Glucose (74-99) mg/dL POC Glucose (mg/dL) 140 H 144 H 139 H (70-110) mg/dL Calcium (8.4-10.2) mg/dL 08/28/23 08/28/23 08/28/23 Range/Units 04:36 04:36 06:37 WBC 12.7 H (3.8-10.6) k/uL Plt Count 48 L (150-450) k/uL Neutrophils # (Manual) 10.40 H (1.3-7.7) k/uL Monocytes # (Manual) 1.02 H (0-1.0) k/uL Sodium 146 H (137-145) mmol/L Chloride 115 H (98-107) mmol/L BUN 123 H* (7-17) mg/dL Creatinine 3.80 H (0.52-1.04) mg/dL Glucose 150 H (74-99) mg/dL POC Glucose (mg/dL) 155 H (70-110) mg/dL Calcium 8.1 L (8.4-10.2) mg/dL Assessment and Plan Assessment: Septic shock secondary to urinary tract infection secondary to E. coli E coli bacteremia, most likely source is the urine Acute kidney injury/acute renal failure secondary to hypotension and acute tubular necrosis Acute none anion gap metabolic acidosis Acute diastolic congestive heart failure/fluid overload with acute kidney injury Acute urinary tract infection secondary to gram-negative bacilli Acute hydronephrosis, with urosepsis, is post stenting of the left ureter 08/25/2023 Acute metabolic toxic encephalopathy with mental status changes/confusion Prerenal azotemia History of chronic back pain/degenerative disc disease of lumbar spine with spinal stenosis of L3-L4 and L4-L5 History of benign essential hypertension History of type 2 diabetes, hold DENIS inhibitor's and metformin for now/home medications Plan: The patient was seen and evaluated Labs and medications reviewed Continue on ceftriaxone IV changed to 0.45 normal saline at 100 MLS per hour Prognosis is guarded We will continue to follow I have personally seen and examined the patient, performed the documentation and the assessment and plan as written. Number of minutes spent on the visit: 10.
[2023-08-28 11:08] LABS: Glucose,Whole Blood 171 mg/dL (70-110)
--- NOTE | 2023-08-28 11:14 | CT ---
EXAMINATION TYPE: CT brain wo con CT DLP: 1095.4 mGycm, Automated exposure control for dose reduction was used. DATE OF EXAM: 08/28/2023 11:08 AM COMPARISON: Prior CT Brain from 08/24/2023. CLINICAL INDICATION:Female, 82 years old with history of altered mental status, altered mental status TECHNIQUE: Brain: Multiple axial CT images of the brain were obtained without IV contrast. . Coronal and sagitta l reformats reviewed. FINDINGS: Brain: Extra-axial spaces: No abnormal extra-axial fluid collections. Ventricular system: Within normal limits Cerebral parenchyma: Cerebral atrophy. No acute intraparenchymal hemorrhage or mass effect. The biggs -white junction is well differentiated. Scattered hypoattenuating areas are seen within the white mat ter. Cerebellum: Unremarkable. Mass effect: No evidence of midline shift. Intracranial vasculature: Atherosclerotic calcifications of the intracranial vessels. Soft tissues: Normal. Calvarium/osseous structures: No depressed skull fracture. Nasal septal deviation to the right. Paranasal sinuses and mastoid air cells: Mastoid air cells are clear. Partial opacification of the le ft sphenoid sinus. Visualized orbits: Bilateral aphakia IMPRESSION: 1. No acute intracranial process. 2. Nonspecific white matter changes, likely secondary to chronic small vessel ischemic disease.
[2023-08-28] MEDS: SODIUM CHLORIDE 0.45% 1,000 ML IV SCH (12:11)
[2023-08-28 12:52] VITALS: BMI 30.9
--- NOTE | 2023-08-28 13:18 | P.PN ---
Subjective Progress Note Date: 08/28/23 CHIEF COMPLAINT: Abdominal pain HISTORY OF PRESENT ILLNESS: Patient remains in the ICU. She is status post a left ureteral stent placed by urology. Patient continues to be lethargic. They have ordered a CT scan of the brain. Patient did have a small liquidy stool this morning after the Dulcolax suppository. She had a mild low-grade temp of 100.2 last night. She remains tachycardic. White count up from 9.5 to 12.7. Creatinine down to 3.80. Patient not eating. PHYSICAL EXAM: VITAL SIGNS: Reviewed. GENERAL: no acute distress. ABDOMEN: Soft. Nondistended. Nontender. NEUROLOGIC: Lethargic ASSESSMENT: 1. Abdominal pain likely related to left hydronephrosis due to obstructing ureteral stone with UTI and sepsis 2. Fecal impaction improving PLAN: -Continue supportive care -Continue antibiotics for UTI and bacteremia -Continue Dulcolax suppositories daily Physician Adjunct Professor Of [employer] note has been reviewed by physician. Signing provider agrees with the documented findings, assessment, and plan of care. I have personally seen and examined the patient, reviewed the SEED BUYER /PAs history, exam and MDM and agree with the assessment and plan as written. Based on total visit time, I have performed more than 50% of the visit. As above: Patient still having loose stools. She did have a fever. No abdominal tenderness or pain however patient remains lethargic. Nasogastric tube was placed for medications and feeds. Plans for initiation of hemodialysis underway. Objective - Vital Signs Vital signs: Vital Signs Temp 99.5 F 08/28/23 08:00 Pulse 108 H 08/28/23 10:00 Resp 20 08/28/23 10:00 BP 132/72 08/28/23 11:00 Pulse Ox 94 L 08/28/23 11:15 FiO2 40 08/25/23 16:00 Intake & Output 08/27/23 08/28/23 08/28/23 18:59 06:59 18:59 Intake Total 1100 825 550 Output Total 765 890 345 Balance 335 -65 205 Weight 76.8 kg Intake: Intake, IV Titration 1100 825 550 Amount Dextrose 5% in Water 1, 100 000 ml @ 100 mls/hr IV . [id number] SONI with Sodium Bicarb (1 Meq/ml) 150 ml Rx#:[id number] Dextrose 5% in Water 1, 375 000 ml @ 125 mls/hr IV . Q8H SONI Rx#:[id number] Potassium Chloride 20 meq 100 In Water For Injection 1 100ml.bag @ 50 mls/hr IVPB ONCE STA Rx#: [id number] Sodium Chloride 0.45% 1, 100 000 ml @ 100 mls/hr IV . Q10H SONI Rx#:[id number] Sodium Chloride 0.9% 1, 900 825 75 000 ml @ 75 mls/hr IV . [id number] [facility] Rx#:[id number] Tube Feeding 0 Other 0 Output: Urine 765 890 345 Other: Voiding Method Indwelling Catheter Indwelling Catheter Indwelling Catheter # Bowel Movements 1 - Labs CBC & Chem 7: 08/28/23 04:36 08/28/23 04:36 Labs: Abnormal Lab Results - Last 24 Hours (Table) 08/27/23 08/27/23 08/28/23 Range/Units 16:29 20:33 04:36 WBC 12.7 H (3.8-10.6) k/uL Plt Count 48 L (150-450) k/uL Neutrophils # (Manual) 10.40 H (1.3-7.7) k/uL Monocytes # (Manual) 1.02 H (0-1.0) k/uL Sodium (137-145) mmol/L Chloride (98-107) mmol/L BUN (7-17) mg/dL Creatinine (0.52-1.04) mg/dL Glucose (74-99) mg/dL POC Glucose (mg/dL) 144 H 139 H (70-110) mg/dL Calcium (8.4-10.2) mg/dL 08/28/23 08/28/23 08/28/23 Range/Units 04:36 06:37 11:06 WBC (3.8-10.6) k/uL Plt Count (150-450) k/uL Neutrophils # (Manual) (1.3-7.7) k/uL Monocytes # (Manual) (0-1.0) k/uL Sodium 146 H (137-145) mmol/L Chloride 115 H (98-107) mmol/L BUN 123 H* (7-17) mg/dL Creatinine 3.80 H (0.52-1.04) mg/dL Glucose 150 H (74-99) mg/dL POC Glucose (mg/dL) 155 H 171 H (70-110) mg/dL Calcium 8.1 L (8.4-10.2) mg/dL
--- NOTE | 2023-08-28 13:29 | P.PN ---
Subjective This is a pleasant 10 years old female with multiple medical problems as below. Patient is currently poor historian and information were obtained with the help of the family at bedside. As per family patient has been feeling generally weak since last Saturday especially she has difficulty getting up under going to the restroom, family were following up with her every day but she refused to come to the hospital Saturday through despite no improvement, with worsening medical condition she agrees to come to the hospital urinary morning today Patient is tachypneic with a breathing rate of 26 and she has difficulty talking. Patient denies chest pain or urinary complaints. She has some vomiting but no diarrhea. Patient and notable bowel movement Her urine looks cloudy but patient denies dysuria. Sheth catheter in place showing urine collection about 60-70 mL of yellow urine Patient denies dizziness headache, no unilateral weakness or tingling No smoking or alcohol However on exam patient complained from tenderness and mild guarding on the right side of the abdomen On admission patient was hypotensive 80/46 and she was started on pressors with Levophed Creatinine elevated 4.0, sodium bicarb is low 9 Patient is also on admission a 10 L via nonrebreather. Patient is tachycardic with heart rate around 92. Troponin is negative less than 0.012. WBCs elevated 22.7, INR is 1.7 Creatinine elevated 4.0 Liver enzymes unremarkable Urine analysis is suspicious for infection and urine culture is pending Urine drug screen is negative Chest x-ray showing pulmonary congestion and cardiomegaly CT of the brain is negative EKG showing sinus rhythm at [address]-T changes Echocardiogram from 10/2022 showing ejection fraction of 55% 08/25/2023 Patient seen and examined in the ICU, she is awake and alert, she looks lethar gic and tired She has shortness of breath with difficulty talking, she denies chest pain She still has abdominal pain and tenderness with mild distention. CT abdomen yesterday showing fecal impaction. Surgery team following closely. Patient states she had normal bowel movement yesterday Also patient is with UTI and blood culture growing gram-negative bacilli today, she remains on ceftriaxone 2 g pending final results. She has evidence of moderate hydronephrosis on CAT scan and renal ultrasound Extremities on sodium bicarb a 75 mL/h and the pressors with Levophed 0.04 echocardiogram reviewed showing moderate mitral regurgitation with ejection fraction 55-60% 08/26/2023 Patient remains in the ICU weak and lethargic She is still confused She is status post stent placement in her left ureter yesterday Urology follow-up has no further recommendation today. Currently she has no pressors and she still on bicarb drip Her oxygen requirements down to 2 L/m WBC slightly elevated 13.4 Creatinine 4.2. She remains on antibiotic ceftriaxone. Blood culture is growing sensitive E. coli Urine cultures, gram-negative bacilli 08/27/2023 Patient still looks pretty tired and weak and drowsy, hemodynamically she is more stable. She is currently ventilator oxygen via nasal cannula. However she still significantly tachycardic at 130 and 2 24, shows low-grade temperature of 99.70 She still being treated for acute urinary tract infection and bacteremia secondary to sensitive E. coli. Ceftriaxone is effective against E coli. She presents with worsening creatinine which is stable since admission at 4.2, acidemia is improved and currently she is on normal saline 75 mL/h. No need for pressors. Lisinopril and metformin on hold. 08/28/2023 Patient remains in the ICU, looks very lethargic and weak and minimally interactive. She still tachycardic although improvement and 116, tachypneic, afebrile and blood pressure is stable The platelets dropped today to 48,000, her subcutaneous heparin was discontinued because patient developed a nosebleed yesterday. Repeat CT of the brain was negative for acute process. Patient still has elevated creatinine 2.8 and increased BUN 123, nephrology team on the case. Patient started on normal saline 100 mL per hour and is going to start hemodialysis today. She remains on ceftriaxone for UTI Lisinopril and metformin remains on hold discussed with the bedside nurse We will start NG tube until feeding today Active Medications Generic Name Dose Route Start Last Admin Trade Name Freq PRN Reason Stop Dose Admin Acetaminophen 650 mg 08/27/23 20:17 08/27/23 21:29 Acetaminophen Suppository 650 Mg Supp RECTAL 650 mg Q6HR PRN Administration Fever and/ or Pain Albuterol/Ipratropium 3 ml 08/24/23 23:44 08/25/23 06:49 Ipratropium-Albuterol 3 Ml Neb INHALATION 3 ml RT-QID PRN Administration Shortness Of Breath Or Wheezing Atorvastatin Calcium 40 mg 08/25/23 21:00 08/27/23 20:29 Atorvastatin 40 Mg Tab PO Not Given HS SONI Bisacodyl 10 mg 08/27/23 11:45 08/28/23 09:00 Bisacodyl 10 Mg Supp RECTAL 10 mg DAILY SONI Administration Dextrose/Water 25 ml 08/25/23 09:41 Dextrose 50% Syringe 50 Ml IVP PER PROTOCOL PRN Hypoglycemia Protocol Dextrose/Water 50 ml 08/25/23 09:41 Dextrose 50% Syringe 50 Ml IVP PER PROTOCOL PRN Hypoglycemia Protocol Famotidine 10 mg 08/24/23 21:00 08/28/23 09:02 Famotidine 20 Mg/2 Ml Vial IV 10 mg Q12HR SONI Administration Ceftriaxone Sodium 2 gm/ 50 mls @ 100 mls/hr 08/25/23 05:00 08/28/23 05:19 Sodium Chloride IVPB 100 mls/hr Q24H SONI Administration Protocol Sodium Chloride 1,000 mls @ 100 mls/hr 08/28/23 10:45 08/28/23 12:11 Saline 0.45% IV 100 mls/hr .Q10H SONI Administration Insulin Aspart 0 unit 08/25/23 12:30 08/28/23 12:02 Insulin Aspart (Novolog) 100 Unit/Ml Vial SQ 2 unit ACHS SONI Administration Protocol Levothyroxine Sodium 125 mcg 08/26/23 06:30 08/28/23 06:01 Levothyroxine 125 Mcg Tab PO Not Given DAILY@0630 SONI Lorazepam 0.5 mg 08/24/23 23:54 08/25/23 19:39 Lorazepam 2 Mg/Ml Inj IV 0.5 mg Q6HR PRN Administration Anxiety Morphine Sulfate 2 mg 08/25/23 19:56 08/25/23 23:47 Morphine Sulfate 2 Mg/Ml Syringe IVP 2 mg Q6HR PRN Administration Pain/Discomfort Naloxone HCl 0.2 mg 08/24/23 06:09 Naloxone 0.4 Mg/Ml 1 Ml Vial IV Q2M PRN Opioid Reversal Objective - Vital Signs Vital signs: Vital Signs Temp 98.2 F 08/28/23 12:00 Pulse 116 H 08/28/23 13:00 Resp 23 08/28/23 13:00 BP 122/79 08/28/23 13:00 Pulse Ox 92 L 08/28/23 13:00 FiO2 40 08/25/23 16:00 Intake & Output 08/27/23 08/28/23 08/28/23 18:59 06:59 18:59 Intake Total 1100 825 750 Output Total 765 890 430 Balance 335 -65 320 Weight 76.8 kg 76.8 kg Intake: Intake, IV Titration 1100 825 750 Amount Dextrose 5% in Water 1, 100 000 ml @ 100 mls/hr IV . [id number] [facility]ONI with Sodium Bicarb (1 Meq/ml) 150 ml Rx#:[id number] Dextrose 5% in Water 1, 375 000 ml @ 125 mls/hr IV . Q8H [facility] Rx#:[id number] Potassium Chloride 20 meq 100 In Water For Injection 1 100ml.bag @ 50 mls/hr IVPB ONCE STA Rx#: [id number] Sodium Chloride 0.45% 1, 300 000 ml @ 100 mls/hr IV . Q10H [facility] Rx#:[id number] Sodium Chloride 0.9% 1, 900 825 75 000 ml @ 75 mls/hr IV . [id number] [facility] Rx#:[id number] Tube Feeding 0 Other 0 Output: Urine 765 890 430 Other: Voiding Method Indwelling Catheter Indwelling Catheter Indwelling Catheter # Bowel Movements 1 - Exam -GENERAL: The patient is weak and lethargic, sleepy. HEENT: Pupils are round and equally reacting to light. EOMI. No scleral icterus. No conjunctival pallor. Normocephalic, atraumatic. No pharyngeal erythema. No thyromegaly. CARDIOVASCULAR: S1 and S2 present. No murmurs, rubs, or gallops. PULMONARY: Chest is clear to auscultation, no wheezing , no crackles. ABDOMEN: Soft, nontender, nondistended, normoactive bowel sounds. No palpable organomegaly. MUSCULOSKELETAL: No joint swelling or deformity. EXTREMITIES: No cyanosis, clubbing, or pedal edema. NEUROLOGICAL: Gross neurological examination did not reveal any focal deficits. SKIN: No rashes. no petechiae. - Labs CBC & Chem 7: 08/28/23 04:36 08/28/23 04:36 Labs: Abnormal Lab Results - Last 24 Hours (Table) 08/27/23 08/27/23 08/28/23 Range/Units 16:29 20:33 04:36 WBC 12.7 H (3.8-10.6) k/uL Plt Count 48 L (150-450) k/uL Neutrophils # (Manual) 10.40 H (1.3-7.7) k/uL Monocytes # (Manual) 1.02 H (0-1.0) k/uL Sodium (137-145) mmol/L Chloride (98-107) mmol/L BUN (7-17) mg/dL Creatinine (0.52-1.04) mg/dL Glucose (74-99) mg/dL POC Glucose (mg/dL) 144 H 139 H (70-110) mg/dL Calcium (8.4-10.2) mg/dL 08/28/23 08/28/23 08/28/23 Range/Units 04:36 06:37 11:06 WBC (3.8-10.6) k/uL Plt Count (150-450) k/uL Neutrophils # (Manual) (1.3-7.7) k/uL Monocytes # (Manual) (0-1.0) k/uL Sodium 146 H (137-145) mmol/L Chloride 115 H (98-107) mmol/L BUN 123 H* (7-17) mg/dL Creatinine 3.80 H (0.52-1.04) mg/dL Glucose 150 H (74-99) mg/dL POC Glucose (mg/dL) 155 H 171 H (70-110) mg/dL Calcium 8.1 L (8.4-10.2) mg/dL Assessment and Plan Assessment: Septic shock, currently improved and she is off pressors. She currently has severe sepsis Acute renal tract infection, bacteremia/septicemia secondary to sensitive E. 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 Continue same treatment. Continue with symptomatic treatment. Resume home medication. Monitor labs and vitals. DVT and GI prophylaxis. Further recommendations as per clinical course of the p atient DVT prophylaxis: Subcutaneous heparin GI Prophylaxis: Pepcid PT/OT: Deferred Prognosis is guarded
[2023-08-28] MEDS: HEPARIN SODIUM 1,000 UN/ML (10ML VL) MISCELLANE ONE (15:29)
[2023-08-28 16:45] LABS: ABG Base Excess 1.6 mmol/L; ABG HCO3 25 mmol/L (21-25); ABG Oxygen Saturation 93.3 % (94-97); ABG PCO2 35 mmHg (35-45); ABG PH 7.46 (7.35-7.45); ABG PO2 77 mmHg (83-108); ABG TCO2 26 mmol/L (19-24); Allen Test Performed? Yes
--- NOTE | 2023-08-28 16:53 | XR ---
EXAMINATION TYPE: XR chest 1V portable DATE OF EXAM: 08/28/2023 3:17 PM CLINICAL INDICATION:Female, 82 years old with history of og placement; [facility] COMPARISON: Chest radiographs from 10/04/1931 TECHNIQUE: XR chest 1V portable Frontal view of the chest. FINDINGS: Lungs/Pleura: There is no evidence of pleural effusion, focal consolidation, or pneumothorax. Pulmonary vascularity: Unremarkable. Heart/mediastinum: Cardiomediastinal silhouette is enlarged and stable. Musculoskeletal: No acute osseous pathology. Other findings: None Lines/Tubes: Nasogastric tube with its distal tip and side-port projecting under the diaphragm and projecting over the gastric lumen. IMPRESSION: 1. Nasogastric tube appears in appropriate position. 2. No acute cardiopulmonary disease/process.
[2023-08-28 17:12] LABS: Glucose,Whole Blood 123 mg/dL (70-110)
[2023-08-28 18:49] LABS: African American GFR (CKD) 13 (>60 ml/min/1.73 sqM); Anion Gap 9 mmol/L; Carbon Dioxide 25 mmol/L (22-30); Chloride 114 mmol/L (98-107); Glucose 133 mg/dL (74-99); Non-African American GFR(CKD) 12 (>60 ml/min/1.73 sqM); Potassium 3.9 mmol/L (3.5-5.1); Sodium 148 mmol/L (137-145)
[2023-08-28 19:02] LABS: Blood Urea Nitrogen 122 mg/dL (7-17)
--- NOTE | 2023-08-28 21:27 | OP ---
OPERATIVE REPORT DATE OF SERVICE : PREOPERATIVE DIAGNOSIS: Acute on chronic renal failure. POSTOPERATIVE DIAGNOSIS: Acute on chronic renal failure. PROCEDURE PERFORMED: Placement of 20-cm dialysis catheter. This patient has a triple lumen central line on the right groin. The right groin was prepped along with a catheter, drapes applied in usual sterile manner. A guidewire was passed through the sheath and catheter was removed. We placed a dilator on top of the guidewire. Then we placed a 20 cm dialysis catheter on top of the guidewire. Guidewire was removed, flushed with heparin saline, hep-locked, secured with 3-0 nylon. The patient tolerated the procedure well. MMODL / IJN: [id number] /
--- NOTE | 2023-08-28 21:37 | CONS ---
CONSULTATION HISTORY OF PRESENT ILLNESS: This is an 82-year-old female, patient was seen in intensive care unit. I was called in for placement of a dialysis catheter. The patient had history of hydronephrosis, UTI, the patient also had mental status changes. The patient also has history of diabetes, hypertension. The patient was seen in intensive care unit. PHYSICAL EXAMINATION: CHEST: Crackles bilateral. HEART: First and second sounds present. ABDOMEN: Nontender. EXTREMITIES: Femorals are 1+ PLAN: The patient has triple-lumen dialysis catheter. We will place a dialysis catheter through the femoral approach. MMODL / IJN: [id number] /
[2023-08-28 23:48] LABS: Glucose,Whole Blood 97 mg/dL (70-110)
[2023-08-28] MEDS: INSULIN ASPART (NovoLOG) 100 UNIT/ML VIAL SQ SCH (23:53)
[2023-08-29 03:48] LABS: Hepatitis B Surface AB- Quant 3.5 mIU/mL; Hepatitis B Surface Antigen Nonreactive
[2023-08-29 06:06] LABS: HCT 35.2 % (34.0-46.0); HGB 11.4 gm/dL (11.4-16.0); MCHC 32.5 g/dL (31.0-37.0); MCV 92.6 fL (80.0-100.0); Mean Platelet Volume 12.2; RDW 15.4 % (11.5-15.5)
[2023-08-29 06:10] LABS: Platelet Count 83 k/uL (150-450)
[2023-08-29 06:25] LABS: African American GFR (CKD) 17 (>60 ml/min/1.73 sqM); Calcium 7.8 mg/dL (8.4-10.2); Carbon Dioxide 24 mmol/L (22-30); Glucose 122 mg/dL (74-99); Magnesium 2.1 mg/dL (1.6-2.3); Non-African American GFR(CKD) 14 (>60 ml/min/1.73 sqM)
[2023-08-29 06:35] LABS: Anion Gap 7 mmol/L; Chloride 111 mmol/L (98-107); Potassium 3.8 mmol/L (3.5-5.1); Sodium 142 mmol/L (137-145)
[2023-08-29 06:37] LABS: Band Neutrophils % 57 %; Neutrophils % (M) 29 %; Nucleated Red Blood Cells 2 /100 WBC (0-0); Total Cells Counted 200
[2023-08-29 06:38] LABS: Eosinophils # (M) 0.32 k/uL (0-0.7); Lymphocytes # (M) 0.81 k/uL (1.0-4.8); Monocytes # (M) 1.13 k/uL (0-1.0); WBC 16.1 k/uL (3.8-10.6)
[2023-08-29 06:45] LABS: Glucose,Whole Blood 122 mg/dL (70-110)
[2023-08-29 06:59] LABS: Blood Urea Nitrogen 102 mg/dL (7-17)
--- NOTE | 2023-08-29 11:12 | P.PN ---
Subjective Patient is seen in follow-up for acute kidney injury. Started on hemodialysis August 28, 2023 due to concern for uremia. BUN is trending down but no improvement in mentation. Creatinine trending down. Urine output 30 to 50 cc an hour. Vital signs are stable. General: Resting in bed. HEENT: Head exam is unremarkable. On nasal cannula. LUNGS: No audible rhonchi or wheezes. HEART: Regular rate and rhythm. ABDOMEN: No distention. EXTREMITITES: No edema. Objective - Vital Signs Vital signs: Vital Signs Temp 98.8 F 08/29/23 08:00 Pulse 94 08/29/23 10:00 Resp 26 H 08/29/23 10:00 BP 99/58 08/29/23 10:00 Pulse Ox 96 08/29/23 10:00 FiO2 40 08/28/23 14:00 Intake & Output 08/28/23 08/29/23 08/29/23 18:59 06:59 18:59 Intake Total 1760 1460 540 Output Total 1105 550 145 Balance 655 910 395 Weight 76.8 kg 80.2 kg Intake: Intake, IV Titration 1250 1300 400 Amount Dextrose 5% in Water 1, 375 000 ml @ 125 mls/hr IV . Q8H [facility] Rx#:[id number] Sodium Chloride 0.45% 1, 800 1200 400 000 ml @ 100 mls/hr IV . Q10H [facility] Rx#:[id number] Sodium Chloride 0.9% 1, 75 000 ml @ 75 mls/hr IV . [id number] [facility] Rx#:[id number] cefTRIAXone 2 gm In 100 Sodium Chloride 0.9% 50 ml @ 100 mls/hr IVPB Q24H [facility] Rx#:[id number] Tube Feeding 10 160 110 Hemodialysis 500 Other 0 30 Output: Urine 605 550 145 Hemodialysis 500 Other: Voiding Method Indwelling Catheter Indwelling Catheter Indwelling Catheter - Labs CBC & Chem 7: 08/29/23 05:38 08/29/23 05:38 Labs: Abnormal Lab Results - Last 24 Hours (Table) 08/28/23 08/28/23 08/28/23 Range/Units 16:43 17:10 17:45 WBC (3.8-10.6) k/uL Plt Count (150-450) k/uL Neutrophils # (Manual) (1.3-7.7) k/uL Lymphocytes # (Manual) (1.0-4.8) k/uL Monocytes # (Manual) (0-1.0) k/uL Nucleated RBCs (0-0) /100 WBC ABG pH 7.46 H (7.35-7.45) ABG pO2 77 L (83-108) mmHg ABG Total CO2 26 H (19-24) mmol/L ABG O2 Saturation 93.3 L (94-97) % Sodium 148 H (137-145) mmol/L Chloride 114 H (98-107) mmol/L BUN 122 H* (7-17) mg/dL Creatinine 3.52 H (0.52-1.04) mg/dL Glucose 133 H (74-99) mg/dL POC Glucose (mg/dL) 123 H (70-110) mg/dL Calcium 8.0 L (8.4-10.2) mg/dL 08/29/23 08/29/23 08/29/23 Range/Units 05:38 05:38 06:44 WBC 16.1 H (3.8-10.6) k/uL Plt Count 83 L D (150-450) k/uL Neutrophils # (Manual) 13.80 H (1.3-7.7) k/uL Lymphocytes # (Manual) 0.81 L (1.0-4.8) k/uL Monocytes # (Manual) 1.13 H (0-1.0) k/uL Nucleated RBCs 2 H (0-0) /100 WBC ABG pH (7.35-7.45) ABG pO2 (83-108) mmHg ABG Total CO2 (19-24) mmol/L ABG O2 Saturation (94-97) % Sodium (137-145) mmol/L Chloride 111 H (98-107) mmol/L BUN 102 H* (7-17) mg/dL Creatinine 2.95 H (0.52-1.04) mg/dL Glucose 122 H (74-99) mg/dL POC Glucose (mg/dL) 122 H (70-110) mg/dL Calcium 7.8 L (8.4-10.2) mg/dL Assessment and Plan Plan: Assessment: 1. Acute kidney injury secondary to ATN secondary to septic shock and component of obstructive uropathy. Creatinine 0.9 in October 2022. BUN improved postdialysis. Urine output 30 to 50 cc an hour. Patient did receive dose of Decadron as well as IV Lasix August 25, 2023. 2. Septic shock secondary to E. coli UTI and bacteremia on antibiotics. Currently off Levophed. 3. Hydronephrosis status post left ureteral stent placement August 25, 2023. 4. Metabolic acidosis secondary to acute kidney injury. Status post bicarb drip. Improved. 5. Hypocalcemia secondary to acute kidney injury. Replaced. Improved. 6. Chronic diastolic CHF and moderate pulmonary hypertension. 7. Hypernatremia from lack of oral water intake. Better. Plan: Currently seen while undergoing hemodialysis. May not need further dialysis. Continue to assess on daily basis. Maintain half-normal saline. Receiving tube feeds. Continue to monitor renal function and urine output. Phosphorus level 3.0 dated August 27, 2023.
--- NOTE | 2023-08-29 11:32 | P.PN ---
Subjective Progress Note Date: 08/29/23 This is an 82-year-old female with history of multiple medical problems including diabetes, hyperlipidemia, hypertension, chronic back pain related to severe degenerative disc disease, has been evaluated for her back pain in many institutions and multiple pain clinics, she was recently seen at the pain clinic at [facility], and there was no improvement. Patient lives at home with her , and the patient has been noted. Generalized weakness since last Saturday. She is even having difficulty getting up to go to the bathroom. Family has been asking her to come to the hospital since last Saturday, until today, her condition seem to have deteriorated. Patient was brought into the ER, and she was noted to be quite hypotensive requiring fluid boluses and requiring norepinephrine. A central line was placed by the ER physician, and the patient was started on norepinephrine patient was also noted to have acute kidney injury with creatinine of 4.07 and BUN of 68. She was also noted to have leukocytosis with WBC count of 22.7, she had elevated lactic acid. Patient was noted to be quite acidotic on venous blood gas with pH of 7.11, bicarb was noted to be quite low with anion gap of 19 and bicarb of 9 her urine was clearly showing bacteriuria and pyuria consistent with UTI. Considering her hypotension and considering her urinary tract infection, and considering the patient required norepinephrine after fluid boluses, patient is considered to have septic shock, and this consult was initiated. I saw the patient in the ER, she is not a great historian, however most of the information was obtained from the at bedside.I recommended admission to the ICU, recommended antibiotics in the form of Rocephin, cultures were ordered including blood and urine cultures, patient will be placed on bicarb drip, nephrology consultation was initiated, and discussed her condition with at bedside. He was reevaluated today on 08/25/2023, remains in the ICU, patient was admitted yesterday with septic shock and urosepsis. Patient is on 6 L nasal cannula, still requiring norepinephrine at 0.01 mcg/kg/min IV fluid is 0.9 normal saline at 75 cc/h patient remains on bicarb drip, last night she had episode of shortness of breath, and she responded well after she was given a dose of Lasix 40 mg IV push x 1. Remains on ceftriaxone for her urosepsis. Patient had urine output of 350 after she was given Lasix yesterday. Her bicarb remains low today, and the patient remains on bicarb drip, BUN is [address] of the abdomen yesterday showed moderate left hydronephrosis. Her initial presentation was a presentation of acute kidney injury with acute tubular necrosis secondary to hypotension patient did receive significant amount of fluids in the ER and she was eventually placed on norepinephrine remains on norepinephrine this morning. Patient is a bit confused, is at bedside, nonetheless I believe there has been evidence of improvement clinically over the last 24 hours.WBC count today is 9.1 hemoglobin 12.4 basic metabolic profile is relatively normal except for bicarb of 9, anion gap remains 19 BUN is 83 creatinine 3.98, blood cultures are positive for gram-negative bacilli, patient remains on Rocephin. Final identification and sensitivity is pending but this is felt to be the most likely source coming from the urine considering her left hydronephrosis I would recommend evaluation by urology The patient is seen today August 26, 2023 in follow-up in the intensive care unit. She is resting fairly comfortably in bed she is arousable but drifts off easily. She has some Kussmaul's respirations. She is maintaining O2 saturations in the 90s on 2 L/min per nasal cannula. She did undergo stenting to the left ureter yesterday August 25, 2023 per urology. Blood and urine cultures are showing gram-negative bacilli. She is currently on ceftriaxone. She is on D5W with 3 A of bicarb at 100 MLS per hour. Her creatinine is up to 4.27 today. White count 13.4. Hemoglobin 11.3. Platelets 82,000. Sodium 142. Potassium 3.7. Bicarb 14. BUN 101. Glucose 204. Sh is off the norepinephrine. Mean arterial blood pressures 80s and 90s. Afebrile. Heparin for DVT prophylaxis. The patient is seen today August 27, 2023 in follow-up in the intensive care unit. She is currently resting in bed. A bit more awake and alert today. Less tachypneic. Maintaining O2 saturation in the 90s on 3 L/min per nasal cannula. Receiving normal saline at 75 MLS per hour. Continued on ceftriaxone. Blood and urine cultures positive for E. coli. White count 9.5. Hemoglobin 11.7. Platelets 56,000. Sodium 143. Potassium 3.6. Bicarb 24. BUN 115. Creatinine 4.12. Glucose 191. Remains on heparin for DVT prophylaxis. The patient is seen today August 28, 2023 in follow-up in the intensive care unit. She remains lethargic but arousable. She is maintaining O2 saturations in the 90s on 3 L/min per nasal cannula. She has normal saline at 75 MLS per hour. Blood and urine cultures were positive for E. coli. She remains on ceftriaxone. She is showing prerenal azotemia with elevated BUN, her creatinine is improving. White count 12.7. Hemoglobin 11.9. Platelets 48,000. Sodium 146. Potassium 3.9. Bicarb 23. BUN 123. Creatinine 3.80. Glucose 150. The patient is seen today August 29, 2023 in follow-up in the intensive care unit. She was arousable. CT scan of the brain revealed no acute ischemia. She is maintaining O2 saturations in the 90s on 3 L/min per nasal cannula. She has 0.45% normal saying at 100 MLS per hour. She has been nourished via nasogastric tube with Glucerna at 30 MLS per hour with a goal of 40 MLS per hour. She is receiving hemodialysis today. She did receive hemodialysis yesterday. No significant fluid removed. Heparin drip has been off due to hematuria. Platelets are 83,000. White count 16.1. Hemoglobin 11.4. Sodium 142. Potassium 3.8. Bicarb 24. BUN 102. Creatinine 2.95. Glucose 122. Blood culture positive for E. coli. Urine culture positive for E. coli. Antibiotics in the form of ceftriaxone. Remains on DuoNeb inhalations. Objective - Vital Signs Vital signs: Vital Signs Temp 98.8 F 08/29/23 08:00 Pulse 94 08/29/23 10:00 Resp 26 H 08/29/23 10:00 BP 99/58 08/29/23 10:00 Pulse Ox 96 08/29/23 10:00 FiO2 40 08/28/23 14:00 Intake & Output 08/28/23 08/29/23 08/29/23 18:59 06:59 18:59 Intake Total 1760 1460 540 Output Total 1105 550 145 Balance 655 910 395 Weight 76.8 kg 80.2 kg Intake: Intake, IV Titration 1250 1300 400 Amount Dextrose 5% in Water 1, 375 000 ml @ 125 mls/hr IV . Q8H [facility] Rx#:[id number] Sodium Chloride 0.45% 1, 800 1200 400 000 ml @ 100 mls/hr IV . Q10H [facility] Rx#:[id number] Sodium Chloride 0.9% 1, 75 000 ml @ 75 mls/hr IV . [id number] [facility] Rx#:[id number] cefTRIAXone 2 gm In 100 Sodium Chloride 0.9% 50 ml @ 100 mls/hr IVPB Q24H [facility] Rx#:[id number] Tube Feeding 10 160 110 Hemodialysis 500 Other 0 30 Output: Urine 605 550 145 Hemodialysis 500 Other: Voiding Method Indwelling Catheter Indwelling Catheter Indwelling Catheter - Exam GENERAL EXAM: Lethargic but arousable, confused, 82-year-old female, on 3 L nasal cannula, in no apparent distress. HEAD: Normocephalic. EYES: Normal reaction of pupils, equal size. NOSE: Clear with pink turbinates. Nasogastric tube in place via right nares. THROAT: No erythema or exudates. NECK: No masses, no JVD. CHEST: No chest wall deformity. LUNGS: Equal air entry with no crackles, wheeze, rhonchi or dullness. Diminished. CVS: S1 and S2 normal with an audible murmur, regular rhythm. ABDOMEN: No hepatosplenomegaly, normal bowel sounds, no guarding or rigidity. SPINE: No scoliosis or deformity SKIN: No rashes CENTRAL NERVOUS SYSTEM: No focal deficits, tone is normal in all 4 extremities. EXTREMITIES: Right femoral hemodialysis catheter in place. There is no peripheral edema. No clubbing, no cyanosis. Peripheral pulses are intact. - Labs CBC & Chem 7: 08/29/23 05:38 08/29/23 05:38 Labs: Abnormal Lab Results - Last 24 Hours (Table) 08/28/23 08/28/23 08/28/23 Range/Units 16:43 17:10 17:45 WBC (3.8-10.6) k/uL Plt Count (150-450) k/uL Neutrophils # (Manual) (1.3-7.7) k/uL Lymphocytes # (Manual) (1.0-4.8) k/uL Monocytes # (Manual) (0-1.0) k/uL Nucleated RBCs (0-0) /100 WBC ABG pH 7.46 H (7.35-7.45) ABG pO2 77 L (83-108) mmHg ABG Total CO2 26 H (19-24) mmol/L ABG O2 Saturation 93.3 L (94-97) % Sodium 148 H (137-145) mmol/L Chloride 114 H (98-107) mmol/L BUN 122 H* (7-17) mg/dL Creatinine 3.52 H (0.52-1.04) mg/dL Glucose 133 H (74-99) mg/dL POC Glucose (mg/dL) 123 H (70-110) mg/dL Calcium 8.0 L (8.4-10.2) mg/dL 08/29/23 08/29/23 08/29/23 Range/Units 05:38 05:38 06:44 WBC 16.1 H (3.8-10.6) k/uL Plt Count 83 L D (150-450) k/uL Neutrophils # (Manual) 13.80 H (1.3-7.7) k/uL Lymphocytes # (Manual) 0.81 L (1.0-4.8) k/uL Monocytes # (Manual) 1.13 H (0-1.0) k/uL Nucleated RBCs 2 H (0-0) /100 WBC ABG pH (7.35-7.45) ABG pO2 (83-108) mmHg ABG Total CO2 (19-24) mmol/L ABG O2 Saturation (94-97) % Sodium (137-145) mmol/L Chloride 111 H (98-107) mmol/L BUN 102 H* (7-17) mg/dL Creatinine 2.95 H (0.52-1.04) mg/dL Glucose 122 H (74-99) mg/dL POC Glucose (mg/dL) 122 H (70-110) mg/dL Calcium 7.8 L (8.4-10.2) mg/dL Assessment and Plan Assessment: Septic shock secondary to urinary tract infection secondary to E. coli E coli bacteremia, most likely source is the urine Acute kidney injury/acute renal failure secondary to hypotension and acute tubular necrosis requiring hemodialysis initiated on August 28, 2023 Acute none anion gap metabolic acidosis Acute diastolic congestive heart failure/fluid overload with acute kidney injury Acute urinary tract infection secondary to E. coli Acute hydronephrosis, with urosepsis, is post stenting of the left ureter 08/25/2023 Acute metabolic toxic encephalopathy with mental status changes/confusion Prerenal azotemia Thrombocytopenia with hematuria, heparin on hold Nutritional status, nasogastric tube inserted, initiated on Glucerna tube feedings Altered mental status due to above, CT scan of the brain revealed no acute intracranial process History of chronic back pain/degenerative disc disease of lumbar spine with spinal stenosis of L3-L4 and L4-L5 History of benign essential hypertension History of type 2 diabetes, hold DENIS inhibitor's and metformin for now/home medications Plan: The patient was seen and evaluated CT scan of the brain, labs and medications reviewed Continue on ceftriaxone Continue 0.45 normal saline at 100 MLS per hour Hemodialysis catheter placed yesterday Initiated hemodialysis yesterday Nasogastric tube inserted Initiated on tube feedings Heparin drip on hold due to thrombocytopenia Check HIT antibodies Obtain an EEG Prognosis is guarded We will continue to follow I have personally seen and examined the patient, performed the documentation and the assessment and plan as written. Number of minutes spent on the visit: 10.
[2023-08-29 12:05] LABS: Glucose,Whole Blood 126 mg/dL (70-110)
[2023-08-29 12:19] LABS: ABG Base Excess 0.3 mmol/L; ABG HCO3 26 mmol/L (21-25); ABG Oxygen Saturation 87.6 % (94-97); ABG PCO2 47 mmHg (35-45); ABG PH 7.35 (7.35-7.45); ABG PO2 61 mmHg (83-108); ABG TCO2 27 mmol/L (19-24)
[2023-08-29 12:22] LABS: Allen Test Performed? yes
[2023-08-29 12:26] VITALS: TEMP 98.2
[2023-08-29] MEDS: FUROSEMIDE 10 MG/ML 10 ML VIAL IV STA (12:40)
--- NOTE | 2023-08-29 13:55 | P.PN ---
Subjective Progress Note Date: 08/29/23 CHIEF COMPLAINT: Abdominal pain HISTORY OF PRESENT ILLNESS: Patient remains in the ICU. She is status post a left ureteral stent placed by urology. Patient continues to be lethargic. Patient continues to have liquidy bowel movements. She has been receiving the Dulcolax suppositories. She is getting hemodialysis again today. She is getting tube feeds through the NG tube at 30ml/hr. Afebrile. WBC is up from 12.7-16.1 Hgb 11.4 platelets 83 creatinine is down to 2.95. CT scan of the brain no acute change. PHYSICAL EXAM: VITAL SIGNS: Reviewed. GENERAL: no acute distress. ABDOMEN: Soft. Nondistended. Nontender. NEUROLOGIC: Lethargic ASSESSMENT: 1. Abdominal pain likely related to left hydronephrosis due to obstructing ureteral stone with UTI and sepsis 2. Fecal impaction improving PLAN: -Discontinue the Dulcolax suppository -Start lactulose 30 g daily via NG tube -Continue supportive care -Continue antibiotics for UTI and bacteremia Physician Gas Burner Operator note has been reviewed by physician. Signing provider agrees with the documented findings, assessment, and plan of care. Objective - Vital Signs Vital signs: Vital Signs Temp 98.2 F 08/29/23 12:00 Pulse 89 08/29/23 12:00 Resp 30 H 08/29/23 12:00 BP 110/48 08/29/23 12:00 Pulse Ox 89 L 08/29/23 12:00 FiO2 100 08/29/23 11:59 Intake & Output 08/28/23 08/29/23 08/29/23 18:59 06:59 18:59 Intake Total 1760 1460 1230 Output Total 1105 550 600 Balance 655 910 630 Weight 76.8 kg 80.2 kg Intake: Intake, IV Titration 1250 1300 600 Amount Dextrose 5% in Water 1, 375 000 ml @ 125 mls/hr IV . Q8H [facility] Rx#:[id number] Sodium Chloride 0.45% 1, 800 1200 600 000 ml @ 100 mls/hr IV . Q10H [facility] Rx#:[id number] Sodium Chloride 0.9% 1, 75 000 ml @ 75 mls/hr IV . [id number] [facility] Rx#:[id number] cefTRIAXone 2 gm In 100 Sodium Chloride 0.9% 50 ml @ 100 mls/hr IVPB Q24H [facility] Rx#:[id number] Tube Feeding 10 160 170 Hemodialysis 500 400 Other 0 60 Output: Urine 605 550 200 Hemodialysis 500 400 Other: Voiding Method Indwelling Catheter Indwelling Catheter Indwelling Catheter - Labs CBC & Chem 7: 08/29/23 05:38 08/29/23 05:38 Labs: Abnormal Lab Results - Last 24 Hours (Table) 08/28/23 08/28/23 08/28/23 Range/Units 16:43 17:10 17:45 WBC (3.8-10.6) k/uL Plt Count (150-450) k/uL Neutrophils # (Manual) (1.3-7.7) k/uL Lymphocytes # (Manual) (1.0-4.8) k/uL Monocytes # (Manual) (0-1.0) k/uL Nucleated RBCs (0-0) /100 WBC ABG pH 7.46 H (7.35-7.45) ABG pO2 77 L (83-108) mmHg ABG Total CO2 26 H (19-24) mmol/L ABG O2 Saturation 93.3 L (94-97) % Sodium 148 H (137-145) mmol/L Chloride 114 H (98-107) mmol/L BUN 122 H* (7-17) mg/dL Creatinine 3.52 H (0.52-1.04) mg/dL Glucose 133 H (74-99) mg/dL POC Glucose (mg/dL) 123 H (70-110) mg/dL Calcium 8.0 L (8.4-10.2) mg/dL 08/29/23 08/29/23 08/29/23 Range/Units 05:38 05:38 06:44 WBC 16.1 H (3.8-10.6) k/uL Plt Count 83 L D (150-450) k/uL Neutrophils # (Manual) 13.80 H (1.3-7.7) k/uL Lymphocytes # (Manual) 0.81 L (1.0-4.8) k/uL Monocytes # (Manual) 1.13 H (0-1.0) k/uL Nucleated RBCs 2 H (0-0) /100 WBC ABG pH (7.35-7.45) ABG pO2 (83-108) mmHg ABG Total CO2 (19-24) mmol/L ABG O2 Saturation (94-97) % Sodium (137-145) mmol/L Chloride 111 H (98-107) mmol/L BUN 102 H* (7-17) mg/dL Creatinine 2.95 H (0.52-1.04) mg/dL Glucose 122 H (74-99) mg/dL POC Glucose (mg/dL) 122 H (70-110) mg/dL Calcium 7.8 L (8.4-10.2) mg/dL 08/29/23 Range/Units 12:02 WBC (3.8-10.6) k/uL Plt Count (150-450) k/uL Neutrophils # (Manual) (1.3-7.7) k/uL Lymphocytes # (Manual) (1.0-4.8) k/uL Monocytes # (Manual) (0-1.0) k/uL Nucleated RBCs (0-0) /100 WBC ABG pH (7.35-7.45) ABG pO2 (83-108) mmHg ABG Total CO2 (19-24) mmol/L ABG O2 Saturation (94-97) % Sodium (137-145) mmol/L Chloride (98-107) mmol/L BUN (7-17) mg/dL Creatinine (0.52-1.04) mg/dL Glucose (74-99) mg/dL POC Glucose (mg/dL) 126 H (70-110) mg/dL Calcium (8.4-10.2) mg/dL
[2023-08-29 14:09] VITALS: BP 132/80; PULSE 102; RESP 29
[2023-08-29] MEDS ORDERED: LACTULOSE 20 GM/30 ML CUP NG-TUBE SCH (14:30)
--- NOTE | 2023-08-31 08:16 | P.PN ---
Subjective This is a pleasant 10 years old female with multiple medical problems as below. Patient is currently poor historian and information were obtained with the help of the family at bedside. As per family patient has been feeling generally weak since last Saturday especially she has difficulty getting up under going to the restroom, family were following up with her every day but she refused to come to the hospital Saturday through despite no improvement, with worsening medical condition she agrees to come to the hospital urinary morning today Patient is tachypneic with a breathing rate of 26 and she has difficulty talking. Patient denies chest pain or urinary complaints. She has some vomiting but no diarrhea. Patient and notable bowel movement Her urine looks cloudy but patient denies dysuria. Sheth catheter in place showing urine collection about 60-70 mL of yellow urine Patient denies dizziness headache, no unilateral weakness or tingling No smoking or alcohol However on exam patient complained from tenderness and mild guarding on the right side of the abdomen On admission patient was hypotensive 80/46 and she was started on pressors with Levophed Creatinine elevated 4.0, sodium bicarb is low 9 Patient is also on admission a 10 L via nonrebreather. Patient is tachycardic with heart rate around 92. Troponin is negative less than 0.012. WBCs elevated 22.7, INR is 1.7 Creatinine elevated 4.0 Liver enzymes unremarkable Urine analysis is suspicious for infection and urine culture is pending Urine drug screen is negative Chest x-ray showing pulmonary congestion and cardiomegaly CT of the brain is negative EKG showing sinus rhythm at [address]-T changes Echocardiogram from 10/2022 showing ejection fraction of 55% 08/25/2023 Patient seen and examined in the ICU, she is awake and alert, she looks lethar gic and tired She has shortness of breath with difficulty talking, she denies chest pain She still has abdominal pain and tenderness with mild distention. CT abdomen yesterday showing fecal impaction. Surgery team following closely. Patient states she had normal bowel movement yesterday Also patient is with UTI and blood culture growing gram-negative bacilli today, she remains on ceftriaxone 2 g pending final results. She has evidence of moderate hydronephrosis on CAT scan and renal ultrasound Extremities on sodium bicarb a 75 mL/h and the pressors with Levophed 0.04 echocardiogram reviewed showing moderate mitral regurgitation with ejection fraction 55-60% 08/26/2023 Patient remains in the ICU weak and lethargic She is still confused She is status post stent placement in her left ureter yesterday Urology follow-up has no further recommendation today. Currently she has no pressors and she still on bicarb drip Her oxygen requirements down to 2 L/m WBC slightly elevated 13.4 Creatinine 4.2. She remains on antibiotic ceftriaxone. Blood culture is growing sensitive E. coli Urine cultures, gram-negative bacilli 08/27/2023 Patient still looks pretty tired and weak and drowsy, hemodynamically she is more stable. She is currently ventilator oxygen via nasal cannula. However she still significantly tachycardic at 130 and 2 24, shows low-grade temperature of 99.70 She still being treated for acute urinary tract infection and bacteremia secondary to sensitive E. coli. Ceftriaxone is effective against E coli. She presents with worsening creatinine which is stable since admission at 4.2, acidemia is improved and currently she is on normal saline 75 mL/h. No need for pressors. Lisinopril and metformin on hold. 08/28/2023 Patient remains in the ICU, looks very lethargic and weak and minimally interactive. She still tachycardic although improvement and 116, tachypneic, afebrile and blood pressure is stable The platelets dropped today to 48,000, her subcutaneous heparin was discontinued because patient developed a nosebleed yesterday. Repeat CT of the brain was negative for acute process. Patient still has elevated creatinine 2.8 and increased BUN 123, nephrology team on the case. Patient started on normal saline 100 mL per hour and is going to start hemodialysis today. She remains on ceftriaxone for UTI Lisinopril and metformin remains on hold discussed with the bedside nurse We will start NG tube until feeding today 08/29/2023 Patient remains in the ICU, she still looks in critical condition Today patient was on BiPAP and she was able to talk to family member. WBCs 16.1, platelet count 83 improved from 48 She is on ceftriaxone for her E. coli UTI and bacteremia, E. coli sensitive to Rocephin 2 g she is receiving now Also patient getting hemodialysis and her creatinine went down to 2.9 She is on IV fluids at 100 mL per hour Lisinopril and metformin on hold at sugar is controlled Objective - Vital Signs Vital signs: Vital Signs Temp 98.2 F 08/29/23 12:00 Pulse 102 H 08/29/23 13:00 Resp 29 H 08/29/23 13:00 BP 132/80 08/29/23 13:00 Pulse Ox 93 L 08/29/23 13:00 FiO2 100 08/29/23 13:00 Intake & Output 08/28/23 08/29/23 08/29/23 18:59 06:59 18:59 Intake Total 1760 1460 1330 Output Total 1105 550 600 Balance 655 910 730 Weight 76.8 kg 80.2 kg Intake: Intake, IV Titration 1250 1300 700 Amount Dextrose 5% in Water 1, 375 000 ml @ 125 mls/hr IV . Q8H [facility] Rx#:[id number] Sodium Chloride 0.45% 1, 800 1200 700 000 ml @ 100 mls/hr IV . Q10H [facility] Rx#:[id number] Sodium Chloride 0.9% 1, 75 000 ml @ 75 mls/hr IV . [id number] [facility] Rx#:[id number] cefTRIAXone 2 gm In 100 Sodium Chloride 0.9% 50 ml @ 100 mls/hr IVPB Q24H [facility] Rx#:[id number] Tube Feeding 10 160 170 Hemodialysis 500 400 Other 0 60 Output: Urine 605 550 200 Hemodialysis 500 400 Other: Voiding Method Indwelling Catheter Indwelling Catheter Indwelling Catheter - Exam -GENERAL: The patient is weak and lethargic, sleepy. HEENT: Pupils are round and equally reacting to light. EOMI. No scleral icterus. No conjunctival pallor. Normocephalic, atraumatic. No pharyngeal erythema. No thyromegaly. CARDIOVASCULAR: S1 and S2 present. No murmurs, rubs, or gallops. PULMONARY: Chest is clear to auscultation, no wheezing , no crackles. ABDOMEN: Soft, nontender, nondistended, normoactive bowel sounds. No palpable organomegaly. MUSCULOSKELETAL: No joint swelling or deformity. EXTREMITIES: No cyanosis, clubbing, or pedal edema. NEUROLOGICAL: Gross neurological examination did not reveal any focal deficits. SKIN: No rashes. no petechiae. - Labs CBC & Chem 7: 08/29/23 05:38 08/29/23 05:38 Labs: Abnormal Lab Results - Last 24 Hours (Table) 08/28/23 08/28/23 08/28/23 Range/Units 16:43 17:10 17:45 WBC (3.8-10.6) k/uL Plt Count (150-450) k/uL Neutrophils # (Manual) (1.3-7.7) k/uL Lymphocytes # (Manual) (1.0-4.8) k/uL Monocytes # (Manual) (0-1.0) k/uL Nucleated RBCs (0-0) /100 WBC ABG pH 7.46 H (7.35-7.45) ABG pCO2 (35-45) mmHg ABG pO2 77 L (83-108) mmHg ABG HCO3 (21-25) mmol/L ABG Total CO2 26 H (19-24) mmol/L ABG O2 Saturation 93.3 L (94-97) % Sodium 148 H (137-145) mmol/L Chloride 114 H (98-107) mmol/L BUN 122 H* (7-17) mg/dL Creatinine 3.52 H (0.52-1.04) mg/dL Glucose 133 H (74-99) mg/dL POC Glucose (mg/dL) 123 H (70-110) mg/dL Calcium 8.0 L (8.4-10.2) mg/dL 08/29/23 08/29/23 08/29/23 Range/Units 05:38 05:38 06:44 WBC 16.1 H (3.8-10.6) k/uL Plt Count 83 L D (150-450) k/uL Neutrophils # (Manual) 13.80 H (1.3-7.7) k/uL Lymphocytes # (Manual) 0.81 L (1.0-4.8) k/uL Monocytes # (Manual) 1.13 H (0-1.0) k/uL Nucleated RBCs 2 H (0-0) /100 WBC ABG pH (7.35-7.45) ABG pCO2 (35-45) mmHg ABG pO2 (83-108) mmHg ABG HCO3 (21-25) mmol/L ABG Total CO2 (19-24) mmol/L ABG O2 Saturation (94-97) % Sodium (137-145) mmol/L Chloride 111 H (98-107) mmol/L BUN 102 H* (7-17) mg/dL Creatinine 2.95 H (0.52-1.04) mg/dL Glucose 122 H (74-99) mg/dL POC Glucose (mg/dL) 122 H (70-110) mg/dL Calcium 7.8 L (8.4-10.2) mg/dL 08/29/23 08/29/23 Range/Units 12:02 12:17 WBC (3.8-10.6) k/uL Plt Count (150-450) k/uL Neutrophils # (Manual) (1.3-7.7) k/uL Lymphocytes # (Manual) (1.0-4.8) k/uL Monocytes # (Manual) (0-1.0) k/uL Nucleated RBCs (0-0) /100 WBC ABG pH (7.35-7.45) ABG pCO2 47 H (35-45) mmHg ABG pO2 61 L (83-108) mmHg ABG HCO3 26 H (21-25) mmol/L ABG Total CO2 27 H (19-24) mmol/L ABG O2 Saturation 87.6 L (94-97) % Sodium (137-145) mmol/L Chloride (98-107) mmol/L BUN (7-17) mg/dL Creatinine (0.52-1.04) mg/dL Glucose (74-99) mg/dL POC Glucose (mg/dL) 126 H (70-110) mg/dL Calcium (8.4-10.2) mg/dL Assessment and Plan Assessment: Septic shock, currently improved and she is off pressors. She currently has severe sepsis Acute renal tract infection, bacteremia/septicemia secondary to sensitive E. 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 Continue same treatment. Continue with symptomatic treatment. Resume home medication. Monitor labs and vitals. DVT and GI prophylaxis. Further recommendations as per clinical course of the patient DVT prophylaxis: Subcutaneous heparin GI Prophylaxis: Pepcid PT/OT: Deferred Prognosis is guarded
--- NOTE | 2023-08-31 08:18 | P.DS ---
Providers Date of admission: 08/24/23 06:10 Attending physician: Yoni Richards Consults: 08/24/23 06:09 Consult Physician Urgent Consulting Provider: Luis F Morales Consult Reason/Comments: Sepsis Do you want consulting provider notified?: Already Contacted 08/24/23 08:33 Consult Physician Routine Consulting Provider: Katerina Natarajan Consult Reason/Comments: arf Do you want consulting provider notified?: Yes, Notify in am 08/25/23 10:12 Consult Physician Routine Consulting Provider: Tad Carolina Consult Reason/Comments: Left hydronephrosis Do you want consulting provider notified?: Yes 08/25/23 11:34 Consult Physician Routine Consulting Provider: Tad Carolina Consult Reason/Comments: hydronephrosis.urosepsis Do you want consulting provider notified?: Yes, Notify in am 08/26/23 07:44 Consult Physician Routine Consulting Provider: Roni Ram Consult Reason/Comments: abdominal pain Do you want consulting provider notified?: Already Contacted 08/28/23 11:33 Consult Physician Urgent Consulting Provider: Dickson Gomez Consult Reason/Comments: HD line placement Do you want consulting provider notified?: Yes Primary care physician: Purvi Maldonado Hospital Course: Patient was not improving Patient was made DO NOT RESUSCITATE by family/ Patient thereafter, please refer to nurse notes for more details Please refer to progress note from yesterday for more details Patient Condition at Discharge: Serious Plan - Discharge Summary New Discharge Prescriptions: No Action Vitamin C/Biotin [Hair, Skin and Nails Chew] 1 tab PO DAILY Cholecalciferol [Vitamin D3 (25 Mcg = 1000 Iu)] 25 mcg PO DAILY Milk Thistle 150 mg PO DAILY sitaGLIPtin PHOSPHATE [Januvia] 50 mg PO DAILY Repaglinide 1 mg PO AC-SUPPER Metoprolol Succinate (ER) [Toprol XL] 100 mg PO HS Mv-Mn/Om3/Dha/Epa/Fish/Lut/Kleber [Ocuvite Adult 50 Plus Softgel] 1 cap PO DAILY@1200 lisinopriL 40 mg PO DAILY Mirabegron [Myrbetriq] 50 mg PO HS@2200 diphenhydrAMINE HCL [Benadryl] 25 mg PO HS@2200 Ascorbic Acid [Vitamin C] 1,000 mg PO DAILY Vitamin E (Dl,Tocopheryl Acet) [Vitamin E (1000 Iu = 450 MG)] 450 ng PO DAILY Ginkgo Biloba [place] Extract [Ginkgo] 120 mg PO DAILY Biotin [Xasv-Cukb-Zeopm] 10,000 mcg PO DAILY Omeprazole 20 mg PO DAILY Levothyroxine Sodium 125 mcg PO DAILY Calcium Carbonate/Vitamin D3 [Calcium 600 mg-D3 10 Mcg (400 Iu)] 1 cap PO HS Pioglitazone [Actos] 30 mg PO HS Atorvastatin [Lipitor] 40 mg PO HS Glimepiride [Amaryl] 4 mg PO BID-W/MEALS Aspirin EC [Ecotrin Low Dose] 81 mg PO DAILY amLODIPine [Norvasc] 5 mg PO DAILY Naproxen [Naprosyn] 500 mg PO TID Prochlorperazine [Compazine] 10 mg PO Q8H PRN PRN Reason: Nausea Vitamin K 100mcg(Unknown) 100 mcg PO DAILY Fish Oil/Dha/Epa [Fish Oil 1,200 mg Fish Oil] 1 cap PO DAILY Vitamin B Complex 1 cap PO DAILY Discharge Medication List Atorvastatin [Lipitor] 40 mg PO HS 01/08/21 [History] Calcium Carbonate/Vitamin D3 [Calcium 600 mg-D3 10 Mcg (400 Iu)] 1 cap PO HS 01/08/21 [History] Cholecalciferol [Vitamin D3 (25 Mcg = 1000 Iu)] 25 mcg PO DAILY 01/08/21 [History] Levothyroxine Sodium 125 mcg PO DAILY 01/08/21 [History] Metoprolol Succinate (ER) [Toprol XL] 100 mg PO HS 01/08/21 [History] Milk Thistle 150 mg PO DAILY 01/08/21 [History] Omeprazole 20 mg PO DAILY 01/08/21 [History] Pioglitazone [Actos] 30 mg PO HS 01/08/21 [History] Repaglinide 1 mg PO AC-SUPPER 01/08/21 [History] Vitamin C/Biotin [Hair, Skin and Nails Chew] 1 tab PO DAILY 01/08/21 [History] sitaGLIPtin PHOSPHATE [Januvia] 50 mg PO DAILY 01/08/21 [History] Aspirin EC [Ecotrin Low Dose] 81 mg PO DAILY 10/10/22 [History] Glimepiride [Amaryl] 4 mg PO BID-W/MEALS 10/10/22 [History] Mv-Mn/Om3/Dha/Epa/Fish/Lut/Kleber [Ocuvite Adult 50 Plus Softgel] 1 cap PO DAILY@1200 10/10/22 [History] Ascorbic Acid [Vitamin C] 1,000 mg PO DAILY 08/24/23 [History] Biotin [Ohfw-Utai-Odkhj] 10,000 mcg PO DAILY 08/24/23 [History] Fish Oil/Dha/Epa [Fish Oil 1,200 mg Fish Oil] 1 cap PO DAILY 08/24/23 [History] Ginkgo Biloba [place] Extract [Ginkgo] 120 mg PO DAILY 08/24/23 [History] Mirabegron [Myrbetriq] 50 mg PO HS@2200 08/24/23 [History] Naproxen [Naprosyn] 500 mg PO TID 08/24/23 [History] Prochlorperazine [Compazine] 10 mg PO Q8H PRN 08/24/23 [History] Vitamin B Complex 1 cap PO DAILY 08/24/23 [History] Vitamin E (Dl,Tocopheryl Acet) [Vitamin E (1000 Iu = 450 MG)] 450 ng PO DAILY 08/24/23 [History] Vitamin K 100mcg(Unknown) 100 mcg PO DAILY 08/24/23 [History] amLODIPine [Norvasc] 5 mg PO DAILY 08/24/23 [History] diphenhydrAMINE HCL [Benadryl] 25 mg PO HS@2200 08/24/23 [History] lisinopriL 40 mg PO DAILY 08/24/23 [History] Follow up Appointment(s)/Referral(s): Purvi Maldonado MD [Primary Care Provider] - 1-2 days Discharge Disposition: - Preliminary Cause of Preliminary Cause of : E.coli bacteremia/septisemia related to obstructing kid stone and infection
--- NOTE | 2023-09-04 12:22 | P.OP ---
Date of Procedure: 08/25/23 Preoperative Diagnosis: left ureteral stone Postoperative Diagnosis: same Procedure(s) Performed: Cystoscopy and left stent insertion Implants: 6 [place] by 24 cm stent in the left ureter Anesthesia: MAC Surgeon: Tad Carolina Pathology: none sent Condition: critical Disposition: ICU Indications for Procedure: This is an 82-year-old female that presented with urosepsis secondary to a 4 mm left-sided distal ureteral stone. Patient was septic on presentation. Discussed with her and her family given this finding I do recommend proceeding with stent insertion. Discussed risk which includes but not limited to bleeding, infection, injury to the ureter. Discussed the rationale of doing the surgery. Discussed she will also eventually require definitive stone management. Discussed with she is critically ill secondary to her sepsis Description of Procedure: Patient brought the operating room, sedation was induced. She was prepped and draped in sterile fashion and placed in dorsolithotomy position. A brief cystoscopy was performed showed no abnormality within the bladder. Next the left ureteral orifice was identified and intubated with a sensor wire. Next a ureteral stent was passed over the wire, the proximal curl was seen on fluoro scopy and the distal curl was seen in the bladder, purulent urine was seen draining from the collecting system. At this time a 16 [place] Sheth was placed with the return of cloudy urine. Patient tolerated procedure well was taken to the ICU in a critical condition
== END 2023-08-29 15:31 | disposition expired | DRG 853 ==
LOC: EC 03:56 → 2SICU 06:10
PROVIDERS: ADMIT Hospitalist; ATTEND Hospitalist
PROC: 3E033XZ Introduction of Vasopressor into Peripheral Vein, Percutaneous Approach (ICD-10-PCS; 2023-08-24)
PROC: 06HY33Z Insertion of Infusion Device into Lower Vein, Percutaneous Approach (ICD-10-PCS; 2023-08-24)
PROC: 06HY33Z Insertion of Infusion Device into Lower Vein, Percutaneous Approach (ICD-10-PCS; 2023-08-24)
PROC: 0T778DZ Dilation of Left Ureter with Intraluminal Device, Via Natural or Artificial Opening Endoscopic (ICD-10-PCS; principal; 2023-08-25 13:00)
PROC: 5A1D70Z Performance of Urinary Filtration, Intermittent, Less than 6 Hours Per Day (ICD-10-PCS; 2023-08-28)
DX: A41.51 Sepsis due to Escherichia coli [E. coli] (principal); G92.8 Other toxic encephalopathy; N17.0 Acute kidney failure with tubular necrosis; J96.01 Acute respiratory failure with hypoxia; R65.21 Severe sepsis with septic shock; I50.33 Acute on chronic diastolic (congestive) heart failure; I13.0 Hypertensive heart and chronic kidney disease with heart failure and stage 1 through stage 4 chronic kidney disease, or unspecified chronic kidney disease; E87.0 Hyperosmolality and hypernatremia; N13.6 Pyonephrosis; D69.6 Thrombocytopenia, unspecified; E83.51 Hypocalcemia; I27.20 Pulmonary hypertension, unspecified; E11.22 Type 2 diabetes mellitus with diabetic chronic kidney disease; I05.2 Rheumatic mitral stenosis with insufficiency; K56.41 Fecal impaction; Z66 Do not resuscitate; N18.9 Chronic kidney disease, unspecified; Z28.310 Unvaccinated for COVID-19; E78.5 Hyperlipidemia, unspecified; F41.9 Anxiety disorder, unspecified; I44.0 Atrioventricular block, first degree; M48.061 Spinal stenosis, lumbar region without neurogenic claudication; M51.36 Other intervertebral disc degeneration, lumbar region; R04.0 Epistaxis; R13.10 Dysphagia, unspecified; G89.29 Other chronic pain; M54.9 Dorsalgia, unspecified; R26.2 Difficulty in walking, not elsewhere classified; R68.0 Hypothermia, not associated with low environmental temperature; Z79.82 Long term (current) use of aspirin; Z79.84 Long term (current) use of oral hypoglycemic drugs; Z79.890 Hormone replacement therapy; Z79.1 Long term (current) use of non-steroidal anti-inflammatories (NSAID); Z79.899 Other long term (current) drug therapy; Z87.442 Personal history of urinary calculi; Z88.5 Allergy status to narcotic agent; Z88.8 Allergy status to other drugs, medicaments and biological substances
CPT/HCPCS: 36415; 36556; 36600; 70450; 71045; 74176; 76770; 80048; 80053; 80306; 81001; 82803; 82805; 83036; 83605; 83735; 83880; 84100; 84145; 84295; 84484; 85025; 85027; 85610; 85730; 86022; 86706; 87040; 87077; 87086; 87186; 87340; 90935; 93005; 93306; 94640; 94660; 96365; 96366; 96367; 96368; 96372; 96375; 96376; 99291